=== PATIENT | female | born 1945 | race Caucasian/White ===

== ENCOUNTER 2017-11-30 15:43 | Emergency (ER) | payer MEDICARE ==
--- NOTE | 2017-11-30 16:46 | ER Document Report ---
ED Medical Screen (RME) - General TRAVEL OUTSIDE OF THE U.S. IN LAST 30 DAYS: No - HPI Patient complains to provider of: Vaginal bleeding and urinary symptoms Onset: Other - 2 days ago Associated Symptoms: Other - see notes above <CONSTANTIN RIOS - Last Filed: 11/30/17 18:04> <MIKAYLA WEAVER - Last Filed: 11/30/17 19:36> - General Chief Complaint: Urinary Problem Stated Complaint: FREQUENT URINATION, BACK PAIN, DIZZY Time Seen by Provider: 11/30/17 16:36 Notes: 72 year old female with history of bladder cancer and dementia presents to the ED complaining of throat pain, vaginal bleeding, dysuria, and frequency that started 2 days ago. Daughter states that the patient was having chemo treatments until July 2017 until she started having vaginal bleeding. Patient had surgery to place a [place] bag in August 2017, and didn't receive chemo treatment again because she suffered a broken pelvis. Patient and daughter moved to the area 1 week ago and are setting up with oncology. (CONSTANTIN RIOS) - Related Data Allergies/Adverse Reactions: No Known Allergies Allergy (Verified 11/30/17 16:34) Past Medical History - General Information source: Patient - Social History Chew tobacco use (# tins/day): No Frequency of alcohol use: None Drug Abuse: None Renal/ Medical History: Denies: Hx Peritoneal Dialysis Malignancy Medical History: Reports: Other - bladder cancer <CONSTANTIN RIOS - Last Filed: 11/30/17 18:04> Review of Systems - Review of Systems Constitutional: No symptoms reported EENT: See HPI, Throat pain Cardiovascular: No symptoms reported Respiratory: No symptoms reported Gastrointestinal: No symptoms reported Genitourinary: See HPI, Dysuria, Frequency Female Genitourinary: See HPI, Vaginal bleeding Musculoskeletal: No symptoms reported Skin: No symptoms reported Hematologic/Lymphatic: No symptoms reported Neurological/Psychological: No symptoms reported <CONSTANTIN RIOS - Last Filed: 11/30/17 18:04> Physical Exam - General General appearance: Alert In distress: None - HEENT Head: Normocephalic, Atraumatic - Respiratory Respiratory status: No respiratory distress <MIKAYLA WEAVER - Last Filed: 11/30/17 19:36> - Vital signs Vitals: Temp Pulse Resp BP Pulse Ox 98.4 F 85 18 107/57 L 99 11/30/17 15:58 11/30/17 15:58 11/30/17 15:58 11/30/17 15:58 11/30/17 15:58 Course - Laboratory Result Diagrams: 11/30/17 17:32 11/30/17 17:32 <CONSTANTIN RIOS - Last Filed: 11/30/17 18:04> - Laboratory Result Diagrams: 11/30/17 17:32 11/30/17 17:32 <MIKAYLA WEAVER - Last Filed: 11/30/17 19:36> - Vital Signs Vital signs: Temp Pulse Resp BP Pulse Ox 98.4 F 85 18 107/57 L 99 11/30/17 15:58 11/30/17 15:58 11/30/17 15:58 11/30/17 15:58 11/30/17 15:58 - Laboratory Laboratory results interpreted by me: 11/30/17 11/30/17 11/30/17 17:20 17:32 17:32 RDW 14.9 H Eosinophils % 12.9 H Absolute Eosinophils 0.7 H BUN 21 H Creatinine 1.34 H Est GFR ( Amer) 47 L Est GFR (Non-Af Amer) 39 L Calcium 10.5 H Urine Protein 100 H Urine Blood MODERATE H Urine Nitrite POSITIVE H Ur Leukocyte Esterase LARGE H Doctor's Discharge <CONSTANTIN RIOS - Last Filed: 11/30/17 18:04> <MIKAYLA WEAVER - Last Filed: 11/30/17 19:36> - Discharge Clinical Impression: Urinary tract bacterial infections Condition: Good Disposition: HOME, SELF-CARE Instructions: Trimethoprim-Sulfa ([facility]), Urinary Anesthetic Agent ([facility]), Urinary Tract Infection ([facility]) Additional Instructions: There is some mild signs of dehydration appearing so continue to hydrate. Begin antibiotics. Her first dose was given in the emergency department. Please follow-up with your regular doctor soon as possible or return to the emergency department for any worsening symptoms or concerns. If you do not have a regular doctor please follow-up with the one provided below. Prescriptions: Phenazopyridine HCl [Pyridium 200 mg Tablet] 200 mg PO TID PRN 5 Days #15 tablet PRN Reason: Bladder Spasms Sulfamethoxazole/Trimethoprim [Bactrim Ds Tablet] 1 each PO BID 7 Days #14 tablet Referrals: [facility] [Provider Group] - Follow up as needed VIDAL AVALOS MD [COMMUNITY BASED STAFF] - Follow up as needed MIKAYLA HUNT DO [REGISTERED PUBLIC HEALTH NURSE] - Follow up as needed Scribe Documentation - Scribe Written by Scribe:: Jose Alejandro Carlisle, 11/30/2017 1809 acting as scribe for :: Lance <CONSTANTIN RIOS - Last Filed: 11/30/17 18:04>
[2017-11-30 17:52] LABS: ABSOLUTE BASOPHILS # (AUTO) 0.1 10^3/uL (0.0-0.2); ABSOLUTE EOSINOPHILS # (AUTO) 0.7 10^3/uL (0.0-0.6); ABSOLUTE LYMPHOCYTES (AUTO) 1.3 10^3/uL (0.5-4.7); ABSOLUTE MONOCYTES (AUTO) 0.6 10^3/uL (0.1-1.4); ABSOLUTE NEUT (AUTO) 2.7 10^3/uL (1.7-8.2); EOSINOPHILS % (AUTO) 12.9 % (0-6); HEMATOCRIT 36.7 % (36.0-47.0); LYMPHOCYTES % (AUTO) 24.7 % (13-45); MEAN CORPUSCULAR HEMOGLOBIN 28.7 pg (27.0-33.4); MEAN CORPUSCULAR HGB CONC 32.8 g/dL (32.0-36.0); MEAN CORPUSCULAR VOLUME 88 fl (80-97); MONOCYTES % (AUTO) 10.5 % (3-13); PLATELET COUNT 238 10^3/uL (150-450); RED BLOOD COUNT 4.19 10^6/uL (3.72-5.28); RED CELL DISTRIBUTION WIDTH 14.9 % (11.5-14.0); SEGMENTED NEUTROPHILS % (AUTO) 50.9 % (42-78); TOTAL CELLS COUNTED % (AUTO) 100 %; WHITE BLOOD COUNT 5.3 10^3/uL (4.0-10.5)
[2017-11-30 17:58] LABS: APPEARANCE,URINE TURBID; BILIRUBIN,URINE NEGATIVE (NEGATIVE); COLOR,URINE YELLOW; GLUCOSE, URINE NEGATIVE (NEGATIVE); KETONES,URINE NEGATIVE (NEGATIVE); LEUKOCYTE ESTERASE,URINE LARGE (NEGATIVE); NITRITE,URINE POSITIVE (NEGATIVE); PROTEIN,URINE 100 mg/dL (NEGATIVE); UROBILINOGEN,URINE NEGATIVE mg/dL (<2.0)
[2017-11-30 18:05] LABS: ALANINE AMINOTRANSFERASE 32 U/L (9-52); ALBUMIN 4.3 g/dL (3.5-5.0); ALKALINE PHOSPHATASE 97 U/L (38-126); ANION GAP 10 (5-19); ASPARTATE AMINO TRANSFERASE 23 U/L (14-36); BILIRUBIN,DIRECT 0.1 mg/dL (0.0-0.4); BILIRUBIN,TOTAL 0.2 mg/dL (0.2-1.3); BLOOD UREA NITROGEN 21 mg/dL (7-20); CALCIUM 10.5 mg/dL (8.4-10.2); CARBON DIOXIDE 27 mmol/L (22-30); CHLORIDE 107 mmol/L (98-107); GLUCOSE 76 mg/dL (75-110); POTASSIUM 4.6 mmol/L (3.6-5.0); SODIUM 143.8 mmol/L (137-145); TOTAL PROTEIN 6.9 g/dL (6.3-8.2)
[2017-11-30] MEDS ORDERED: SULFAMETHOXAZOLE/TRIMETHOPRIM 800-160 MG TABLET PO ONE (19:13)
[2017-11-30] MEDS ORDERED: PHENAZOPYRIDINE HCL 200 MG TABLET PO ONE (19:14)
--- NOTE | 2017-11-30 19:17 | ER Document Report ---
ED General - General Chief Complaint: Urinary Problem Stated Complaint: FREQUENT URINATION, BACK PAIN, DIZZY Time Seen by Provider: 11/30/17 16:36 Notes: 82-year-old female patient. History of dementia. History of bladder cancer. [place] the [place]. Has not seen anybody with urology or oncology. States that she has frequent UTIs. Began having dysuria and not feeling well. Daughter states that she was having increased confusion at home. Denies any fever, chills, sweats. Denies any significant amount of abdominal pain. No back pain. No flank pain. TRAVEL OUTSIDE OF THE U.S. IN LAST 30 DAYS: No - HPI Onset: Yesterday Onset/Duration: Gradual, Worse - Related Data Allergies/Adverse Reactions: No Known Allergies Allergy (Verified 11/30/17 16:34) Past Medical History - General Information source: Patient - Social History Smoking Status: Never Smoker Chew tobacco use (# tins/day): No Frequency of alcohol use: None Drug Abuse: None Lives with: Family Family History: Reviewed & Not Pertinent Patient has suicidal ideation: No Patient has homicidal ideation: No - Past Medical History Cardiac Medical History: Reports: None Pulmonary Medical History: Reports: None EENT Medical History: Reports: None Neurological Medical History: Reports: Other - Alzheimer's dementia Renal/ Medical History: Denies: Hx Peritoneal Dialysis Malignancy Medical History: Reports: Other - bladder cancer Review of Systems - Review of Systems Constitutional: Malaise, Weakness. denies: Chills, Diaphoresis, Fever EENT: denies: Double vision, Difficulty swallowing, Throat swelling, Mouth swelling Cardiovascular: denies: Chest pain, Palpitations, Heart racing, Syncope Respiratory: denies: Cough, Short of breath, Wheezing Gastrointestinal: Abdominal pain. denies: Diarrhea, Nausea, Vomiting Genitourinary: Burning, Dysuria, Hematuria. denies: Flank pain Musculoskeletal: denies: Back pain, Gout, Joint pain Skin: denies: Dryness, Lumps, Rash Hematologic/Lymphatic: denies: Anemia, Blood clots, Easy bleeding, Easy bruising Neurological/Psychological: Confusion, Dementia. denies: Weakness Physical Exam - Vital signs Vitals: Temp Pulse Resp BP Pulse Ox 98.4 F 85 18 107/57 L 99 11/30/17 15:58 11/30/17 15:58 11/30/17 15:58 11/30/17 15:58 11/30/17 15:58 Interpretation: Normal - General General appearance: Appears well, Alert - HEENT Head: Normocephalic, Atraumatic Eyes: Normal Pupils: PERRL - Respiratory Respiratory status: No respiratory distress Chest status: Nontender Breath sounds: Normal Chest palpation: Normal - Cardiovascular Rhythm: Regular Heart sounds: Normal auscultation Murmur: No - Abdominal Inspection: Normal Distension: No distension Bowel sounds: Normal Tenderness: Nontender Organomegaly: No organomegaly - Back Back: Normal, Nontender - Extremities General upper extremity: Normal inspection, Nontender, Normal color, Normal ROM , Normal temperature General lower extremity: Normal inspection, Nontender, Normal color, Normal ROM , Normal temperature, Normal weight bearing. No: Tabby's sign - Neurological Neuro grossly intact: Yes Cognition: Short term memory loss Amy Coma Scale Eye Opening: Spontaneous Amy Coma Scale Verbal: Oriented Amy Coma Scale Motor: Obeys Commands [place] Coma Scale Total: 15 Speech: Normal Motor strength normal: LUE, RUE, LLE, RLE Sensory: Normal - Psychological Associated symptoms: Normal affect, Normal mood - Skin Skin Temperature: Warm Skin Moisture: Dry Skin Color: Normal Course - Re-evaluation Re-evalutation: 11/30/17 19:12 Patient with history of bladder cancer. Having dysuria with some hematuria. Some increased confusion. Patient has underlying dementia as well. Recently moved to the area. Has follow-up shortly with urology. Evidence of infection so we will begin treating her with some antibiotics at this time. Recommend close follow-up and return for any worsening symptoms as she could get extremely ill. Blood counts look okay though. Will encourage hydration as her creatinine is slightly elevated. Comfortable discharging at this time. - Vital Signs Vital signs: Temp Pulse Resp BP Pulse Ox 97.9 F 77 15 123/61 100 11/30/17 19:33 11/30/17 19:33 11/30/17 19:33 11/30/17 19:33 11/30/17 19:33 - Laboratory Result Diagrams: 11/30/17 17:32 11/30/17 17:32 Laboratory results interpreted by me: 11/30/17 11/30/17 11/30/17 17:20 17:32 17:32 RDW 14.9 H Eosinophils % 12.9 H Absolute Eosinophils 0.7 H BUN 21 H Creatinine 1.34 H Est GFR ( Amer) 47 L Est GFR (Non-Af Amer) 39 L Calcium 10.5 H Urine Protein 100 H Urine Blood MODERATE H Urine Nitrite POSITIVE H Ur Leukocyte Esterase LARGE H Discharge - Discharge Clinical Impression: Urinary tract bacterial infections Condition: Good Disposition: HOME, SELF-CARE Instructions: Trimethoprim-Sulfa ([facility]), Urinary Anesthetic Agent ([facility]), Urinary Tract Infection ([facility]) Additional Instructions: There is some mild signs of dehydration appearing so continue to hydrate. Begin antibiotics. Her first dose was given in the emergency department. Please follow-up with your regular doctor soon as possible or return to the emergency department for any worsening symptoms or concerns. If you do not have a regular doctor please follow-up with the one provided below. Prescriptions: Phenazopyridine HCl [Pyridium 200 mg Tablet] 200 mg PO TID PRN 5 Days #15 tablet PRN Reason: Bladder Spasms Sulfamethoxazole/Trimethoprim [Bactrim Ds Tablet] 1 each PO BID 7 Days #14 tablet Referrals: [facility] [Provider Group] - Follow up as needed MIKAYLA HUNT DO [[facility]] - Follow up as needed VIDAL AVALOS MD [COMMUNITY BASED STAFF] - Follow up as needed
[2017-11-30 19:38] VITALS: BP 123/61
== END 2017-11-30 19:38 | disposition home or self-care (01) ==
LOC: ER 15:43
DX: N39.0 Urinary tract infection, site not specified (principal); R31.9 Hematuria, unspecified; B96.89 Other specified bacterial agents as the cause of diseases classified elsewhere; Z85.51 Personal history of malignant neoplasm of bladder; G30.9 Alzheimer's disease, unspecified; F02.80 Dementia in other diseases classified elsewhere, unspecified severity, without behavioral disturbance, psychotic disturbance, mood disturbance, and anxiety; R53.81 Other malaise; R53.1 Weakness
CPT/HCPCS: 99283; 36415; 87086; 85025; 80053; 81001; A9270 ×2; J3490

== ENCOUNTER 2017-12-26 14:53 | Emergency (ER) | payer MEDICARE ==
[2017-12-26 15:50] LABS: ABSOLUTE EOSINOPHILS # (AUTO) 0.4 10^3/uL (0.0-0.6); ABSOLUTE MONOCYTES (AUTO) 0.4 10^3/uL (0.1-1.4); ABSOLUTE NEUT (AUTO) 2.7 10^3/uL (1.7-8.2); BASOPHILS % (AUTO) 0.8 % (0-2); EOSINOPHILS % (AUTO) 8.4 % (0-6); HEMATOCRIT 31.8 % (36.0-47.0); HEMOGLOBIN 10.5 g/dL (12.0-15.5); LYMPHOCYTES % (AUTO) 21.3 % (13-45); MEAN CORPUSCULAR HEMOGLOBIN 28.5 pg (27.0-33.4); MEAN CORPUSCULAR VOLUME 86 fl (80-97); MONOCYTES % (AUTO) 9.3 % (3-13); PLATELET COUNT 183 10^3/uL (150-450); RED BLOOD COUNT 3.69 10^6/uL (3.72-5.28); RED CELL DISTRIBUTION WIDTH 14.3 % (11.5-14.0); SEGMENTED NEUTROPHILS % (AUTO) 60.2 % (42-78); TOTAL CELLS COUNTED % (AUTO) 100 %; WHITE BLOOD COUNT 4.5 10^3/uL (4.0-10.5)
[2017-12-26 15:56] LABS: INTERNATIONAL RATION (INR) 1.07; PROTHROMBIN TIME 14.4 SEC (11.4-15.4)
[2017-12-26] MEDS ORDERED: NORMAL SALINE 1000 ML 1,000 ML IV ONE (15:57)
--- NOTE | 2017-12-26 16:02 | ER Document Report ---
ED General - General Mode of Arrival: Medic Information source: Patient Cannot obtain history due to: Dementia TRAVEL OUTSIDE OF THE U.S. IN LAST 30 DAYS: No <GENNA RODRIGUEZ - Last Filed: 12/26/17 21:51> <ARJUN LOMELI - Last Filed: 12/26/17 23:19> - General Chief Complaint: Near Syncope Stated Complaint: POSSIBLE SYNCOPE Time Seen by Provider: 12/26/17 15:44 Notes: Patient is a 72-year-old female with a history of bladder cancer, breast cancer , hyperlipidemia, breathing difficulties (unsure of origin), frequent UTIs, dementia and bipolar disorder presents to the emergency department complaining of a syncopal episode. Daughter at bedside states the patient was at home when she began to get nauseous and clammy and proceeded have a syncopal episode. Daughter states the patient has been fatigued lately and also has had a decrease in appetite and fluid intake. She also mentions noticing the patient having cloudy urine today. Daughter states they recently moved to [place] and has yet to establish primary care. EMS recorded a blood pressure of 88/54 prior to arrival to emergency department. (GENNA RODRIGUEZ) - Related Data Allergies/Adverse Reactions: No Known Allergies Allergy (Verified 11/30/17 16:34) Past Medical History - General Information source: Patient, Relative - Social History Smoking Status: Unknown if Ever Smoked Family History: Reviewed & Not Pertinent <GENNA RODRIGUEZ - Last Filed: 12/26/17 21:51> Review of Systems - Review of Systems Constitutional: See HPI EENT: No symptoms reported Cardiovascular: See HPI, Syncope Respiratory: No symptoms reported Gastrointestinal: See HPI, Nausea, Poor appetite, Poor fluid intake Genitourinary: See HPI Female Genitourinary: No symptoms reported Musculoskeletal: No symptoms reported Skin: No symptoms reported Hematologic/Lymphatic: No symptoms reported Neurological/Psychological: No symptoms reported -: Yes All other systems reviewed and negative <GENNA RODRIGUEZ - Last Filed: 12/26/17 21:51> Physical Exam - General General appearance: Alert In distress: None - HEENT Head: Normocephalic, Atraumatic Eyes: Normal Conjunctiva: Normal Pupils: PERRL - Respiratory Respiratory status: No respiratory distress Chest status: Nontender Breath sounds: Normal Chest palpation: Normal - Cardiovascular Rhythm: Regular Heart sounds: Normal auscultation Murmur: No Friction rub: No Gallop: None auscultated - Abdominal Inspection: Normal Distension: No distension Bowel sounds: Normal Tenderness: Tender - tender to palpation to the lower abdomen Organomegaly: No organomegaly - Back Back: Normal - Extremities General upper extremity: Normal inspection, Normal ROM General lower extremity: Normal inspection, Normal ROM - Psychological Associated symptoms: Normal affect, Normal mood - Skin Skin Temperature: Warm Skin Moisture: Dry Skin Color: Normal <GENNA RODRIGUEZ - Last Filed: 12/26/17 21:51> <JOVANNI LOMELIALL - Last Filed: 12/26/17 23:19> - Vital signs Vitals: Resp Pulse Ox 24 H 95 12/26/17 15:06 12/26/17 15:06 - Neurological Notes: Demented (GENNA RODRIGUEZ) Course - Laboratory Result Diagrams: 12/26/17 15:20 12/26/17 15:20 <GENNA RODRIGUEZ - Last Filed: 12/26/17 21:51> - Laboratory Result Diagrams: 12/26/17 15:20 12/26/17 15:20 - EKG Interpretation by [facility] EKG shows normal: Sinus rhythm, [place], Intervals, QRS Complexes. abnormal: ST-T Waves - Nonspecific lateral T abnormalities Rate: Normal - 85 Rhythm: NSR, PVC's When compared to previous EKG there are: Previous EKG unavailable <ARMANIJOVANNI SantosARJUN - Last Filed: 12/26/17 23:19> - Vital Signs Vital signs: Temp Pulse Resp BP Pulse Ox 98.9 F 16 129/76 H 98 12/26/17 19:30 12/26/17 19:31 12/26/17 19:31 12/26/17 19:31 - Laboratory Laboratory results interpreted by mi: 12/26/17 12/26/17 12/26/17 15:20 15:20 16:46 RBC 3.69 L Hgb 10.5 L Hct 31.8 L RDW 14.3 H Eosinophils % 8.4 H Potassium 3.4 L Chloride 108 H BUN 22 H Est GFR (Non-Af Amer) 54 L Glucose 117 H Total Bilirubin 0.1 L Total Protein 5.5 L Albumin 3.4 L Urine Protein 100 H Urine Glucose (UA) 50 H Urine Blood LARGE H Urine Nitrite POSITIVE H Ur Leukocyte Esterase LARGE H Discharge <GENNA RODRIGUEZ - Last Filed: 12/26/17 21:51> <ARJUN LOMELI - Last Filed: 12/26/17 23:19> - Discharge Clinical Impression: Hemorrhagic cystitis, Dehydration Hypotension Qualifiers: Hypotension type: unspecified hypotension type Qualified Code(s): I95.9 - Hypotension, unspecified Condition: Stable Disposition: HOME, SELF-CARE Additional Instructions: Your evaluation today shows dehydration, low blood pressure, and a urinary tract infection. All of these problems are most likely due to an adequate fluid intake. Take antibiotics as prescribed. Drink plenty of fluids. Follow-up with [facility] or [facility] to establish as a new patient. Call tomorrow morning for an appointment early next week. RETURN TO THE EMERGENCY ROOM IF ANY NEW OR WORSENING SYMPTOMS. Prescriptions: Ciprofloxacin HCl [Cipro 250 mg Tablet] 1 tab PO BID #10 tab Referrals: [facility] [Provider Group] - Follow up in 1 week [facility] [Provider Group] - Follow up in 1 week Scribe Attestation: 12/26/17 23:19 I personally performed the services described in the documentation, reviewed and edited the documentation which was dictated to the scribe in my presence, and it accurately records my words and actions. (ARJUN LOMELI) Scribe Documentation - Scribe Written by Scribe:: Jose Alejandro Hairston, 12/26/2017 16:07 acting as scribe for :: Armani <GENNA RODRIGUEZ - Last Filed: 12/26/17 21:51>
[2017-12-26 16:07] LABS: ALANINE AMINOTRANSFERASE 26 U/L (9-52); ALBUMIN 3.4 g/dL (3.5-5.0); ALKALINE PHOSPHATASE 79 U/L (38-126); ANION GAP 12 (5-19); ASPARTATE AMINO TRANSFERASE 20 U/L (14-36); BILIRUBIN,DIRECT 0.1 mg/dL (0.0-0.4); BILIRUBIN,TOTAL 0.1 mg/dL (0.2-1.3); BLOOD UREA NITROGEN 22 mg/dL (7-20); CARBON DIOXIDE 23 mmol/L (22-30); CHLORIDE 108 mmol/L (98-107); CREATINE KINASE 70 U/L (30-135); GLUCOSE 117 mg/dL (75-110); POTASSIUM 3.4 mmol/L (3.6-5.0); SODIUM 143.1 mmol/L (137-145); TOTAL PROTEIN 5.5 g/dL (6.3-8.2)
[2017-12-26 16:25] LABS: CREATINE KINASE MB 0.96 ng/mL (<4.55)
[2017-12-26 16:26] LABS: TROPONIN I < 0.012 ng/mL
[2017-12-26] MEDS ORDERED: DEXTROSE 5%-LACTATED RINGERS 1,000 ML IV ONE (16:51)
[2017-12-26 17:18] LABS: APPEARANCE,URINE CLOUDY; BILIRUBIN,URINE NEGATIVE (NEGATIVE); COLOR,URINE YELLOW; GLUCOSE, URINE 50 mg/dL (NEGATIVE); KETONES,URINE NEGATIVE (NEGATIVE); LEUKOCYTE ESTERASE,URINE LARGE (NEGATIVE); NITRITE,URINE POSITIVE (NEGATIVE); PROTEIN,URINE 100 mg/dL (NEGATIVE); URINE SPECIFIC GRAVITY 1.005; UROBILINOGEN,URINE NEGATIVE mg/dL (<2.0)
[2017-12-26] MEDS ORDERED: CEFTRIAXONE 1 GM/D5W RTU 50 ML IV ONE (17:31)
[2017-12-26] MEDS ORDERED: CEFTRIAXONE INJ 1000 MG VIAL IV ONE (18:15)
[2017-12-26 19:59] VITALS: BP 129/76
--- NOTE | 2017-12-26 23:24 | EKG REPORT ---
SEVERITY:- ABNORMAL ECG - SINUS RHYTHM MULTIPLE VENTRICULAR PREMATURE COMPLEXES NONSPECIFIC T ABNORMALITIES, LATERAL LEADS : Confirmed by: Kevin Holbrook 26-Dec-2017 23:23:32
== END 2017-12-26 19:32 | disposition home or self-care (01) ==
LOC: ER 14:53
DX: N30.91 Cystitis, unspecified with hematuria (principal); E86.0 Dehydration; R55 Syncope and collapse; I95.9 Hypotension, unspecified; R11.0 Nausea; Z85.51 Personal history of malignant neoplasm of bladder; Z85.3 Personal history of malignant neoplasm of breast; Z87.440 Personal history of urinary (tract) infections
CPT/HCPCS: 93005; 99284; 96361; 96365; 36415; 87086; 82553; 82550; 85025; 85610; 80053; 81001; 84484; 93010; J0696; J7030

== ENCOUNTER 2018-01-01 13:19 | Observation (INO) | payer MEDICARE ==
[2018-01-01] MEDS ORDERED: CEFTRIAXONE 1 GM/D5W RTU 50 ML IV ONE (14:51)
--- NOTE | 2018-01-01 14:59 | ER Document Report ---
ED General - General Chief Complaint: Syncope Stated Complaint: SYNCOPE Time Seen by Provider: 01/01/18 13:44 Mode of Arrival: Ambulatory Information source: Patient Notes: 72-year-old female history of dementia recent diagnosis of urinary tract infection presents with complaints of generalized weakness syncope. EMS notes patient was hypotensive 70s over 40s when they arrived, patient was given immediate fluids by EMS 1 L. Daughter notes patient does not take her medications TRAVEL OUTSIDE OF THE [place]. IN LAST 30 DAYS: No - HPI Onset: Last week Onset/Duration: Persistent Quality of pain: Achy Severity: Mild Pain Level: 1 Associated symptoms: Body/muscle aches, Nausea, Weakness Exacerbated by: Movement Relieved by: Denies Similar symptoms previously: Yes Recently seen / treated by doctor: Yes - Related Data Allergies/Adverse Reactions: No Known Allergies Allergy (Verified 11/30/17 16:34) Past Medical History - Social History Smoking Status: Never Smoker Cigarette use (# per day): No Chew tobacco use (# tins/day): No Smoking Education Provided: No Family History: Reviewed & Not Pertinent Pulmonary Medical History: Reports: Hx COPD - possible Chemo related Renal/ Medical History: Denies: Hx Peritoneal Dialysis Psychiatric Medical History: Reports: Hx Bipolar Disorder Past Surgical History: Reports: Hx Breast Surgery - right breast,, Hx Orthopedic Surgery Review of Systems - Review of Systems Notes: REVIEW OF SYSTEMS: CONSTITUTIONAL : Denies fever, chills, or sweats. Admits to recent infection EENT: Denies eye, ear, throat, or mouth pain or symptoms. Denies nasal or sinus congestion or discharge. Denies throat, tongue, or mouth swelling or difficulty swallowing. CARDIOVASCULAR: Denies chest pain. Denies palpitations or racing or irregular heart beat. Denies ankle edema. RESPIRATORY: Denies cough, cold, or chest congestion. Denies shortness of breath, difficulty breathing, or wheezing. GASTROINTESTINAL: Denies abdominal pain or distention. Denies nausea, vomiting , or diarrhea. Denies blood in vomitus, stools, or per rectum. Denies black, tarry stools. Denies constipation. GENITOURINARY: Admits to recent UTI FEMALE GENITOURINARY: Denies vaginal bleeding, heavy or abnormal periods, irregular periods. Denies vaginal discharge or odor. MUSCULOSKELETAL: Miss right foot pain twisting injury SKIN: Denies rash, lesions or sores. HEMATOLOGIC : Denies easy bruising or bleeding. LYMPHATIC: Denies swollen, enlarged glands. NEUROLOGICAL: Admits to weakness PSYCHIATRIC: Denies anxiety or stress. Denies depression, suicidal ideation, or homicidal ideation. ALL OTHER SYSTEMS REVIEWED AND NEGATIVE. PHYSICAL EXAMINATION: GENERAL: Well-appearing, well-nourished and in no acute distress. HEAD: Atraumatic, normocephalic. EYES: Pupils equal round and reactive to light, extraocular movements intact, conjunctiva are normal. ENT: Nares patent, oropharynx clear without exudates. Moist mucous membranes. NECK: Normal range of motion, supple without lymphadenopathy LUNGS: Breath sounds clear to auscultation bilaterally and equal. No wheezes rales or rhonchi. HEART: Regular rate and rhythm without murmurs ABDOMEN: Soft, nontender, nondistended abdomen. No guarding, no rebound. No masses appreciated. Female : deferred Musculoskeletal: Normal range of motion, no pitting or edema. No cyanosis. Tenderness upon palpation of the right foot midfoot NEUROLOGICAL: Cranial nerves grossly intact. Normal speech, normal gait. Normal sensory, motor exams PSYCH: Normal mood, normal affect. SKIN: Warm, Dry, normal turgor, no rashes or lesions noted. Dictation was performed using [employer] voice recognition software Physical Exam - Vital signs Vitals: Resp BP Pulse Ox 20 87/59 L 97 01/01/18 13:27 01/01/18 13:27 01/01/18 13:27 Course - Re-evaluation Re-evalutation: 01/01/18 14:58 Septic workup pending 01/01/18 19:42 Patient's workup is consistent with a urinary tract infection, daughter does note that she has not been taking her medications, given that she is a noncompliant patient and had a syncopal episode with hypotension I will admit her so she may get IV fluids and IV antibiotics 01/01/18 19:44 - Vital Signs Vital signs: Temp Pulse Resp BP Pulse Ox 98.9 F 19 109/69 97 01/01/18 13:30 01/01/18 18:31 01/01/18 18:31 01/01/18 18:30 - Laboratory Result Diagrams: 01/01/18 13:25 01/01/18 13:25 Laboratory results interpreted by me: 01/01/18 01/01/18 01/01/18 13:25 13:25 13:25 RBC 3.68 L Hgb 10.5 L Hct 31.9 L RDW 14.1 H Eosinophils % 6.9 H Sodium 145.6 H Chloride 112 H Carbon Dioxide 21 L BUN 27 H Creatinine 1.29 H Est GFR ( Amer) 49 L Est GFR (Non-Af Amer) 40 L Total Bilirubin 0.1 L Total Protein 5.8 L Albumin 3.4 L TSH 13.30 H Urine Protein Urine Blood Urine Nitrite Ur Leukocyte Esterase 01/01/18 14:50 RBC Hgb Hct RDW Eosinophils % Sodium Chloride Carbon Dioxide BUN Creatinine Est GFR ( Amer) Est GFR (Non-Af Amer) Total Bilirubin Total Protein Albumin TSH Urine Protein 100 H Urine Blood LARGE H Urine Nitrite POSITIVE H Ur Leukocyte Esterase LARGE H Critical Care Note - Critical Care Note Total time excluding time spent on procedures (mins): 48 Comments: 48 minutes of critical care time spent in direct contact evaluating and reevaluating the patient, treating symptoms, reviewing labs and studies and speaking with family and consultants excluding any procedures Discharge - Discharge Clinical Impression: Dehydration Hypotension Qualifiers: Hypotension type: unspecified hypotension type Qualified Code(s): I95.9 - Hypotension, unspecified Condition: Stable Disposition: ADMITTED OBSERVATION Admitting Provider: Hospitalist Unit Admitted: Telemetry
[2018-01-01] MEDS ORDERED: CEFTRIAXONE INJ 1000 MG VIAL IV ONE (15:00)
[2018-01-01 15:01] LABS: INTERNATIONAL RATION (INR) 1.05; PROTHROMBIN TIME 14.2 SEC (11.4-15.4); VENOUS BLOOD BASE EXCESS -2.4 mmol/L; VENOUS BLOOD HCO3 24.6 mmol/L (20-32); VENOUS BLOOD PCO2 51.7 mmHg (35-63); VENOUS BLOOD PH 7.3 (7.30-7.42)
[2018-01-01 15:05] LABS: ABSOLUTE EOSINOPHILS # (AUTO) 0.3 10^3/uL (0.0-0.6); ABSOLUTE LYMPHOCYTES (AUTO) 1.6 10^3/uL (0.5-4.7); ABSOLUTE MONOCYTES (AUTO) 0.6 10^3/uL (0.1-1.4); ABSOLUTE NEUT (AUTO) 2.5 10^3/uL (1.7-8.2); BASOPHILS % (AUTO) 0.9 % (0-2); EOSINOPHILS % (AUTO) 6.9 % (0-6); HEMATOCRIT 31.9 % (36.0-47.0); HEMOGLOBIN 10.5 g/dL (12.0-15.5); MEAN CORPUSCULAR HEMOGLOBIN 28.6 pg (27.0-33.4); MEAN CORPUSCULAR VOLUME 87 fl (80-97); MONOCYTES % (AUTO) 11.6 % (3-13); PLATELET COUNT 168 10^3/uL (150-450); RED BLOOD COUNT 3.68 10^6/uL (3.72-5.28); RED CELL DISTRIBUTION WIDTH 14.1 % (11.5-14.0); SEGMENTED NEUTROPHILS % (AUTO) 49.6 % (42-78); TOTAL CELLS COUNTED % (AUTO) 100 %
[2018-01-01 15:08] LABS: ALANINE AMINOTRANSFERASE 26 U/L (9-52); ALBUMIN 3.4 g/dL (3.5-5.0); ALKALINE PHOSPHATASE 76 U/L (38-126); ANION GAP 13 (5-19); ASPARTATE AMINO TRANSFERASE 20 U/L (14-36); BILIRUBIN,DIRECT 0.1 mg/dL (0.0-0.4); BILIRUBIN,TOTAL 0.1 mg/dL (0.2-1.3); BLOOD UREA NITROGEN 27 mg/dL (7-20); CALCIUM 9.1 mg/dL (8.4-10.2); CARBON DIOXIDE 21 mmol/L (22-30); CHLORIDE 112 mmol/L (98-107); GLUCOSE 78 mg/dL (75-110); POTASSIUM 3.9 mmol/L (3.6-5.0); SODIUM 145.6 mmol/L (137-145); TOTAL PROTEIN 5.8 g/dL (6.3-8.2)
--- NOTE | 2018-01-01 15:35 | RADIOLOGY REPORT (SQ) ---
EXAM DESCRIPTION: FOOT RIGHT COMPLETE COMPLETED DATE/TIME: 01/01/2018 3:18 pm REASON FOR STUDY: fall COMPARISON: None. NUMBER OF VIEWS: Three views. TECHNIQUE: AP, lateral and oblique radiographic images acquired of the right foot. LIMITATIONS: None. FINDINGS: MINERALIZATION: Osteoporotic BONES: Acute nondisplaced fracture, medial base great toe proximal phalanx extending into the interph alangeal joint. Finding is marked with an arrow. Acute nondisplaced non angulated transverse fracture distal right 3rd metatarsal metaphysis, marked w ith a [place] on the oblique view. 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 JOINTS: No effusions. SOFT TISSUES: No soft tissue swelling. No foreign body. OTHER: No other significant finding. IMPRESSION: Acute nondisplaced fracture, medial aspect base great toe proximal phalanx extending int o the interphalangeal joint Acute nondisplaced nonangulated transverse fracture distal right 3rd metatarsal metaphysis AVN 2nd metatarsal head TECHNICAL DOCUMENTATION: JOB ID: [id number] [employer]- All Rights Reserved Reading location - IP/workstation name: [email or web address]
[2018-01-01 16:11] LABS: APPEARANCE,URINE CLOUDY; BILIRUBIN,URINE NEGATIVE (NEGATIVE); COLOR,URINE YELLOW; GLUCOSE, URINE NEGATIVE (NEGATIVE); KETONES,URINE NEGATIVE (NEGATIVE); LEUKOCYTE ESTERASE,URINE LARGE (NEGATIVE); NITRITE,URINE POSITIVE (NEGATIVE); PROTEIN,URINE 100 mg/dL (NEGATIVE); URINE SPECIFIC GRAVITY 1.006; UROBILINOGEN,URINE NEGATIVE mg/dL (<2.0)
[2018-01-01] MEDS ORDERED: MAGNESIUM HYDROXIDE SUSP 30 ML UDCUP PO PRN (16:34)
[2018-01-01] MEDS ORDERED: MAG HYDROX/AL HYDROX/SIMETH SUSP 30 ML UDCUP PO PRN (16:34)
[2018-01-01] MEDS ORDERED: IPRATROPIUM/ALBUTEROL 0.5-2.5 MG/3 ML AMPUL NEB PRN (16:34)
[2018-01-01] MEDS ORDERED: HYDRALAZINE HCL INJ/PF 20 MG/1 ML SDV IV PRN (16:34)
--- NOTE | 2018-01-01 17:01 | PDOC H&P ---
History of Present Illness Admission Date/PCP: 01/01/18 16:42 Patient complains of: Syncope and collapse History of Present Illness: SRIKANTH COLVIN is a 72 year old female with a past medical history of dementia, breast cancer status post right mastectomy, bladder cancer unknown stage, recurrent urinary tract infection, bipolar, migraine headache and partial seizure. [place] and is accompanied by her daughter able to provide limited history. Patient was diagnosed with urinary tract infection 5 days ago placed on ciprofloxacin. Patient states she passed out today striking her head and right foot, no injury sustained, no incontinence unclear historian. Patient states her medications cause nausea and is been intolerant of p.o. intake. Daughter denies any new medications. In the emergency room she is found to have hypotension of 70/40. She receives a 1 L normal saline bolus and IV Rocephin for pyuria. Labs revealed prerenal azotemia with dehydration, urinalysis shows pyuria, CBC is unremarkable without leukocytosis or differentiation. Patient currently denies chest pain nausea vomiting. Past Medical History Pulmonary Medical History: Reports: Chronic Obstructive Pulmonary Disease (COPD ) - possible Chemo related Psychiatric Medical History: Reports: Bipolar Disorder Past Surgical History Past Surgical History: Reports: Mastectomy, Orthopedic Surgery Social History Information Source: Patient, Relative Lives with: Family Smoking Status: Never Smoker Frequency of Alcohol Use: None Drugs: None - Advance Directive Resuscitation Status: Full Code Family History Family History: COPD Parental Family History Reviewed: Yes Children Family History Reviewed: Yes Sibling(s) Family History Reviewed.: Yes Medication/Allergy Home Medications: Albuterol Sulfate [Ventolin HFA MDI 18 GM] 1 - 2 puff IH Q6H PRN 12/26/17 Bupropion HCl [Bupropion Xl] 300 mg PO DAILY 12/26/17 Ciprofloxacin HCl [Cipro 250 mg Tablet] 1 tab PO BID #10 tab 12/26/17 Ergocalciferol (Vitamin D2) [Vitamin D2] 50,000 unit PO DAILY 12/26/17 Ferrous Sulfate 325 mg PO DAILY 12/26/17 Fluticasone Propionate [Flovent HFA 220 mcg MDI] 2 puff IH BID 12/26/17 Ketorolac Tromethamine 10 mg PO Q6 PRN 12/26/17 Lamotrigine 200 mg PO DAILY 12/26/17 Oxybutynin Chloride [Oxybutynin Chloride ER] 10 mg PO DAILY 12/26/17 Oxycodone HCl/Acetaminophen [Oxycodone-Acetaminophen 5-325] 1 each PO Q6H PRN Pantoprazole Sodium [Protonix] 40 mg PO DAILY 12/26/17 Quetiapine Fumarate [Seroquel 100 mg Tablet] 150 mg PO DAILY 12/26/17 Simvastatin 10 mg PO DAILY 12/26/17 Topiramate 100 mg PO DAILY 12/26/17 Venlafaxine HCl [Venlafaxine HCl ER] 225 mg PO DAILY 12/26/17 Allergies/Adverse Reactions: No Known Allergies Allergy (Verified 11/30/17 16:34) Review of Systems ROS unobtainable: Other - Patient felt unreliable given inconsistent answers. Physical Exam Vital Signs: Temp Pulse Resp BP Pulse Ox 17 114/67 97 01/01/18 16:01 01/01/18 16:01 01/01/18 16:01 General appearance: PRESENT: no acute distress, cooperative, thin. ABSENT: disheveled, hard of hearing Head exam: PRESENT: atraumatic, normocephalic Eye exam: PRESENT: conjunctiva pink, EOMI, PERRLA. ABSENT: scleral icterus Ear exam: PRESENT: normal external ear exam Mouth exam: PRESENT: dry mucosa. ABSENT: laceration, moist Neck exam: ABSENT: carotid bruit, JVD, lymphadenopathy, thyromegaly Respiratory exam: PRESENT: clear to auscultation donita. ABSENT: rales, rhonchi, wheezes Cardiovascular exam: PRESENT: RRR. ABSENT: diastolic murmur, rubs, systolic murmur Pulses: PRESENT: normal dorsalis pedis pul Vascular exam: PRESENT: normal capillary refill GI/Abdominal exam: PRESENT: normal bowel sounds, soft. ABSENT: distended, guarding, mass, organolmegaly, rebound, tenderness Rectal exam: PRESENT: deferred Extremities exam: PRESENT: full ROM. ABSENT: calf tenderness, clubbing, pedal edema Neurological exam: PRESENT: alert, awake, oriented to person, oriented to place , oriented to situation, CN II-XII grossly intact. ABSENT: motor sensory deficit Psychiatric exam: PRESENT: unusual affect Skin exam: PRESENT: dry, intact, warm. ABSENT: cyanosis, rash Results Impressions: Foot X-Ray 01/01/18 14:59 IMPRESSION: Acute nondisplaced fracture, medial aspect base great toe proximal phalanx extending into the interphalangeal joint Acute nondisplaced nonangulated transverse fracture distal right 3rd metatarsal metaphysis AVN 2nd metatarsal head Assessment & Plan - Diagnosis (1) Acute renal failure Is this a current diagnosis for this admission?: Yes Plan: Multifactorial secondary to Toradol and dehydration, IV fluid challenge encourage p.o., hold Toradol reevaluate chemistry. (2) Dehydration Is this a current diagnosis for this admission?: Yes Plan: 3 L IV fluid challenge, encourage p.o. intake reevaluate chemistry (3) Hypotension Qualifiers: Hypotension type: unspecified hypotension type Qualified Code(s): I95.9 - Hypotension, unspecified Is this a current diagnosis for this admission?: Yes Plan: Possibly secondary to dehydration alone, hydrate, orthostatic blood pressure and evaluate urine drug screen (4) Hemorrhagic cystitis Is this a current diagnosis for this admission?: Yes Plan: Complicated by bladder cancer unknown stage. Obtain records, empiric antibiotics initiated follow-up urine culture. (5) Bipolar affective Is this a current diagnosis for this admission?: Yes Plan: History and exam suggests bipolar rather than dementia. Evaluate outpatient regiment, limit Wellbutrin (6) Syncope Is this a current diagnosis for this admission?: Yes Plan: Exam does not support history given lack of injury, evaluate total CK, orthostatic blood pressures, physical therapy evaluation. Telemetry monitoring. Limit Lamictal, Wellbutrin, Topamax and Percocet. - Time Time Spent: 50 to 70 Minutes
[2018-01-01] MEDS: POTASSI CL 20 MEQ/1/2NS 1L 20 MEQ/1,000 ML RTUINJ IV SCH ×2 (17:16→22:51)
[2018-01-01] MEDS: BUPROPION HCL 75 MG TABLET PO SCH (17:16)
[2018-01-01] MEDS ORDERED: LACTULOSE SYRUP 20 GM/30 ML UDCUP PO ONE (17:30)
[2018-01-01 17:32] LABS: URINE AMPHETAMINES SCREEN NEGATIVE; URINE BARBITURATES SCREEN NEGATIVE; URINE BENZODIAZEPINES SCREEN NEGATIVE; URINE COCAINE SCREEN NEGATIVE; URINE MARIJUANA (THC) SCREEN NEGATIVE; URINE METHADONE SCREEN NEGATIVE; URINE PHENCYCLIDINE SCREEN NEGATIVE
[2018-01-01 17:32] LABS: PHOSPHORUS 3.7 mg/dL (2.5-4.5)
[2018-01-01 17:45] LABS: CREATINE KINASE MB 1.36 ng/mL (<4.55)
[2018-01-01 18:02] LABS: TROPONIN I < 0.012 ng/mL
--- NOTE | 2018-01-01 18:10 | EKG REPORT ---
SEVERITY:- OTHERWISE NORMAL ECG - SINUS RHYTHM VENTRICULAR PREMATURE COMPLEX : Confirmed by: Geraldo Jewell MD 01-Jan-2018 18:09:42
[2018-01-01] MEDS: ACETAMINOPHEN 325 MG TABLET PO PRN (21:51)
[2018-01-01] MEDS: HEPARIN SOD (PORCINE) 5,000 UNIT/ML 1 ML SYRINGE SUBCUT SCH (22:39)
[2018-01-01] MEDS: OXYBUTYNIN CHLORIDE 5 MG TABLET PO SCH (22:51)
[2018-01-02 00:08] LABS: CREATINE KINASE MB 1.32 ng/mL (<4.55)
[2018-01-02 00:19] LABS: TROPONIN I < 0.012 ng/mL
[2018-01-02] MEDS: ACETAMINOPHEN 325 MG TABLET PO PRN ×2 (05:09→15:31)
[2018-01-02] MEDS: HEPARIN SOD (PORCINE) 5,000 UNIT/ML 1 ML SYRINGE SUBCUT SCH ×3 (05:10→21:02)
[2018-01-02] MEDS: BUPROPION HCL 75 MG TABLET PO SCH ×2 (05:10→18:00)
[2018-01-02 06:41] LABS: ABSOLUTE EOSINOPHILS # (AUTO) 0.3 10^3/uL (0.0-0.6); ABSOLUTE LYMPHOCYTES (AUTO) 1.5 10^3/uL (0.5-4.7); ABSOLUTE MONOCYTES (AUTO) 0.6 10^3/uL (0.1-1.4); ABSOLUTE NEUT (AUTO) 3.6 10^3/uL (1.7-8.2); BASOPHILS % (AUTO) 0.6 % (0-2); EOSINOPHILS % (AUTO) 5.4 % (0-6); HEMATOCRIT 31.3 % (36.0-47.0); HEMOGLOBIN 10.4 g/dL (12.0-15.5); LYMPHOCYTES % (AUTO) 24.3 % (13-45); MEAN CORPUSCULAR HEMOGLOBIN 28.8 pg (27.0-33.4); MEAN CORPUSCULAR HGB CONC 33.2 g/dL (32.0-36.0); MEAN CORPUSCULAR VOLUME 87 fl (80-97); MONOCYTES % (AUTO) 10.5 % (3-13); PLATELET COUNT 163 10^3/uL (150-450); RED CELL DISTRIBUTION WIDTH 14.5 % (11.5-14.0); SEGMENTED NEUTROPHILS % (AUTO) 59.2 % (42-78); TOTAL CELLS COUNTED % (AUTO) 100 %
[2018-01-02 06:54] LABS: ANION GAP 10 (5-19); BLOOD UREA NITROGEN 18 mg/dL (7-20); CALCIUM 9.5 mg/dL (8.4-10.2); CARBON DIOXIDE 21 mmol/L (22-30); CHLORIDE 113 mmol/L (98-107); CREATINE KINASE 83 U/L (30-135); GLUCOSE 91 mg/dL (75-110); POTASSIUM 4.1 mmol/L (3.6-5.0); SODIUM 144.1 mmol/L (137-145)
[2018-01-02 06:59] LABS: CREATINE KINASE MB 1.31 ng/mL (<4.55); TROPONIN I < 0.012 ng/mL
[2018-01-02 07:02] LABS: FREE T3 3.37 pg/mL (2.77-5.27)
[2018-01-02 07:03] LABS: FREE T4 (FREE THYROXINE) 0.66 ng/dL (0.78-2.19)
[2018-01-02] MEDS ORDERED: CEFTRIAXONE 1 GM/D5W RTU 1 GM/50 ML RTUPB IV SCH (10:00)
[2018-01-02] MEDS ORDERED: (PENDING PHARMACY ID) (Bupropion Hcl [Bupropion Xl] 150 MG) PO SCH (10:00)
[2018-01-02] MEDS ORDERED: (PENDING PHARMACY ID) (Oxybutynin Chloride [Oxybutynin Chloride Er] 5 MG) PO SCH (10:00)
[2018-01-02] MEDS ORDERED: TOPIRAMATE 100 MG TABLET PO SCH (10:00)
[2018-01-02] MEDS ORDERED: LAMOTRIGINE 100 MG PO SCH (10:00)
[2018-01-02] MEDS: OXYBUTYNIN CHLORIDE 5 MG TABLET PO SCH ×2 (10:45→21:01)
[2018-01-02] MEDS: TOPIRAMATE 25 MG TABLET PO SCH (10:45)
[2018-01-02] MEDS: LAMOTRIGINE 100 MG TABLET PO SCH (10:45)
[2018-01-02] MEDS: POTASSI CL 20 MEQ/D5-1/2NS 1L 1000 ML IV PRN (10:46)
--- NOTE | 2018-01-02 14:37 | PDOC PROGRESS REPORT ---
Subjective Progress Note for:: 01/02/18 Subjective:: Reports feeling better today. No new complaints. Reason For Visit: DEMENTIA,HYPOTENSION SYNCOPE,ARF, Physical Exam Vital Signs: Temp Pulse Resp BP Pulse Ox 99 F 75 20 116/64 93 01/02/18 12:57 01/02/18 14:00 01/02/18 12:57 01/02/18 12:57 01/02/18 12:57 Intake & Output 01/01/18 01/02/18 01/03/18 06:59 06:59 06:59 Intake Total 1320 Output Total 2000 Balance -680 Weight 57.2 kg General appearance: PRESENT: no acute distress Head exam: PRESENT: atraumatic Respiratory exam: PRESENT: clear to auscultation donita Cardiovascular exam: PRESENT: RRR GI/Abdominal exam: PRESENT: soft Neurological exam: PRESENT: alert, oriented to person Psychiatric exam: PRESENT: anxious Skin exam: PRESENT: warm Results Laboratory Results: 01/02/18 05:34 01/02/18 05:34 01/02/18 01/02/18 01/02/18 05:34 05:34 05:34 WBC 6.0 RBC 3.60 L Hgb 10.4 L Hct 31.3 L MCV 87 MCH 28.8 MCHC 33.2 RDW 14.5 H Plt Count 163 Seg Neutrophils % 59.2 Lymphocytes % 24.3 Monocytes % 10.5 Eosinophils % 5.4 Basophils % 0.6 Absolute Neutrophils 3.6 Absolute Lymphocytes 1.5 Absolute Monocytes 0.6 Absolute Eosinophils 0.3 Absolute Basophils 0.0 Sodium 144.1 Potassium 4.1 Chloride 113 H Carbon Dioxide 21 L Anion Gap 10 BUN 18 Creatinine 0.93 Est GFR ( Amer) > 60 Est GFR (Non-Af Amer) 59 L Glucose 91 Calcium 9.5 Free T4 0.66 L Free T3 pg/mL 3.37 01/01/18 01/01/18 01/02/18 23:36 23:36 05:34 Creatine Kinase 86 83 CK-MB (CK-2) 1.32 Troponin I < 0.012 01/02/18 05:34 Creatine Kinase CK-MB (CK-2) 1.31 Troponin I < 0.012 Impressions: Foot X-Ray 01/01/18 14:59 IMPRESSION: Acute nondisplaced fracture, medial aspect base great toe proximal phalanx extending into the interphalangeal joint Acute nondisplaced nonangulated transverse fracture distal right 3rd metatarsal metaphysis AVN 2nd metatarsal head Assessment & Plan - Diagnosis (1) UTI (urinary tract infection) Qualifiers: Urinary tract infection type: acute cystitis Is this a current diagnosis for this admission?: Yes Plan: Change antibiotics to oral. (2) Acute renal failure Qualifiers: Acute renal failure type: unspecified Qualified Code(s): N17.9 - Acute kidney failure, unspecified Is this a current diagnosis for this admission?: Yes Plan: Continue IV hydration (3) Syncope Qualifiers: Syncope type: unspecified Qualified Code(s): R55 - Syncope and collapse Is this a current diagnosis for this admission?: Yes Plan: I suspect due to volume depletion. (4) Encephalopathy Is this a current diagnosis for this admission?: Yes Plan: She is a very poor historian. I am unable to determine whether this is dementia , underlying psychiatric illness, or acute encephalopathy. Continue to monitor
[2018-01-02] MEDS ORDERED: VENLAFAXINE HCL 75 MG CAP.SR.24H PO ONE (16:30)
[2018-01-02] MEDS ORDERED: QUETIAPINE FUMARATE 100 MG TABLET PO ONE (16:30)
[2018-01-02] MEDS ORDERED: CEFTRIAXONE SODIUM 1,000 MG in DEXTROSE 5%-WATER 50 ML IV SCH (18:00)
[2018-01-02] MEDS: FERROUS SULFATE 325 MG TABLET PO SCH (18:00)
[2018-01-02] MEDS ORDERED: DOCUSATE SODIUM 100 MG CAPSULE PO SCH (18:00)
[2018-01-02] MEDS: SIMVASTATIN 10 MG TABLET PO SCH (18:01)
[2018-01-02] MEDS: FLUTICASONE PROPIONATE HFA 110 MCG/PUFF 12 GM MDI IH SCH (21:00)
[2018-01-02] MEDS: CEFPODOXIME 200 MG TABLET PO SCH (21:00)
[2018-01-03] MEDS: POTASSI CL 20 MEQ/D5-1/2NS 1L 1000 ML IV PRN (00:10)
[2018-01-03] MEDS: BUPROPION HCL 75 MG TABLET PO SCH ×2 (05:01→18:28)
[2018-01-03] MEDS: HEPARIN SOD (PORCINE) 5,000 UNIT/ML 1 ML SYRINGE SUBCUT SCH ×2 (05:02→15:12)
[2018-01-03 05:08] LABS: ALBUMIN 3.5 g/dL (3.5-5.0); ANION GAP 11 (5-19); BLOOD UREA NITROGEN 18 mg/dL (7-20); CALCIUM 9.1 mg/dL (8.4-10.2); CARBON DIOXIDE 21 mmol/L (22-30); CHLORIDE 112 mmol/L (98-107); GLUCOSE 107 mg/dL (75-110); PHOSPHORUS 3.2 mg/dL (2.5-4.5); POTASSIUM 4.3 mmol/L (3.6-5.0); SODIUM 144.4 mmol/L (137-145)
[2018-01-03] MEDS ORDERED: LEVOTHYROXINE SODIUM 0.05 MG TABLET PO SCH (06:00)
[2018-01-03] MEDS ORDERED: LANSOPRAZOLE 30 MG TAB.RAP.DR PO SCH (06:00)
[2018-01-03 08:40] VITALS: BP 116/63
[2018-01-03] MEDS: CEFPODOXIME 200 MG TABLET PO SCH (09:40)
[2018-01-03] MEDS: FLUTICASONE PROPIONATE HFA 110 MCG/PUFF 12 GM MDI IH SCH (09:44)
[2018-01-03] MEDS: OXYBUTYNIN CHLORIDE 5 MG TABLET PO SCH (09:45)
[2018-01-03] MEDS: LAMOTRIGINE 100 MG TABLET PO SCH (09:45)
[2018-01-03] MEDS: TOPIRAMATE 25 MG TABLET PO SCH (09:48)
[2018-01-03] MEDS ORDERED: ERGOCALCIFEROL (VITAMIN D2) 50000 UNIT (1.25 MG) CAPSULE PO SCH (10:00)
[2018-01-03] MEDS ORDERED: VENLAFAXINE HCL 75 MG CAP.SR.24H PO SCH (10:00)
[2018-01-03] MEDS ORDERED: QUETIAPINE FUMARATE 100 MG TABLET PO SCH (10:00)
--- NOTE | 2018-01-03 15:31 | PDOC CONSULTATION ---
Consultation Consult Date: 01/03/18 Consult reason:: Fracture right foot History of Present Illness Admission Date/PCP: 01/01/18 16:42 Patient complains of: Right foot pain and swelling History of Present Illness: SRIKANTH COLVIN is a 72 year old female status post fall yesterday where she suffered swelling and bruising. X-rays were taken and shown that her right first proximal phalanx intra-articular fracture and a nondisplaced third metatarsal neck fracture. Patient currently is wearing a boot and complains of pain and swelling. Able to ambulate with the postop shoe applied. Denies any numbness or tingling or paresthesias or any other extremity injury. Past Medical History Pulmonary Medical History: Reports: Chronic Obstructive Pulmonary Disease (COPD ) - possible Chemo related Psychiatric Medical History: Reports: Bipolar Disorder, Depression Past Surgical History Past Surgical History: Reports: Mastectomy, Orthopedic Surgery Social History Lives with: Family Smoking Status: Never Smoker Frequency of Alcohol Use: None Hx Recreational Drug Use: No Drugs: None Hx Prescription Drug Abuse: No - Advance Directive Resuscitation Status: Full Code Family History Family History: Reviewed & Not Pertinent Parental Family History Reviewed: No Children Family History Reviewed: No Sibling(s) Family History Reviewed.: No Medication/Allergy Home Medications: Albuterol Sulfate [Ventolin HFA MDI 18 GM] 2 puff IH Q6HP PRN 12/26/17 Bupropion HCl [Bupropion Xl] 300 mg PO DAILY 12/26/17 Ergocalciferol (Vitamin D2) [Vitamin D2] 50,000 unit PO FR@1000 12/26/17 Ferrous Sulfate 325 mg PO QPM 12/26/17 Fluticasone Propionate [Flovent HFA 220 mcg MDI] 2 puff IH BID 12/26/17 Ketorolac Tromethamine 10 mg PO Q6HP PRN 12/26/17 Lamotrigine 200 mg PO QPM 12/26/17 Oxybutynin Chloride [Oxybutynin Chloride ER] 10 mg PO DAILY 12/26/17 Oxycodone HCl/Acetaminophen [Oxycodone-Acetaminophen 5-325] 1 each PO Q6HP PRN 12/26/17 Pantoprazole Sodium [Protonix] 40 mg PO DAILY 12/26/17 Quetiapine Fumarate [Seroquel 100 mg Tablet] 150 mg PO DAILY 12/26/17 Simvastatin 10 mg PO QPM 12/26/17 Topiramate 100 mg PO QPM 12/26/17 Docusate Sodium [Colace 100 mg Capsule] 100 mg PO Q48H MDD qpm 01/01/18 Ranitidine HCl [Zantac 150 mg Tablet] 150 mg PO QPM 01/01/18 Venlafaxine HCl ER [Effexor Xr 75 mg Cap.sr] 225 mg PO DAILY 01/01/18 Cefpodoxime Proxetil [Vantin 200 mg Tablet] 200 mg PO Q12 #8 tablet 01/03/18 Levothyroxine Sodium [Synthroid 0.05 mg Tablet] 0.05 mg PO Q6AM #30 tablet 01/03 Allergies/Adverse Reactions: No Known Allergies Allergy (Verified 11/30/17 16:34) Review of Systems All systems: as per PMH Physical Exam Vital Signs: Temp Pulse Resp BP Pulse Ox 37.5 C 79 16 116/63 98 01/03/18 08:00 01/03/18 08:00 01/03/18 08:00 01/03/18 08:00 01/03/18 08:00 Intake & Output 01/02/18 01/03/18 01/04/18 06:59 06:59 06:59 Intake Total 1320 3048 Output Total 2000 1850 Balance -680 1198 Weight 57.2 kg 54 kg General appearance: PRESENT: no acute distress Adult Front & Back Image: 1 - Ecchymosis the left foot over the first great toe and dorsal aspect of the third toe. She is tender palpation of the third metatarsal tarsal and tender palpation over the IP joint of the great toe. No gross deformity. Good sensation to light touch and good capillary refill. Intact skin. Results Laboratory Results: 01/02/18 05:34 01/03/18 04:35 01/03/18 04:35 Sodium 144.4 Potassium 4.3 Chloride 112 H Carbon Dioxide 21 L Anion Gap 11 BUN 18 Creatinine 0.90 Est GFR ( Amer) > 60 Est GFR (Non-Af Amer) > 60 Glucose 107 Calcium 9.1 Phosphorus 3.2 Magnesium 1.8 Albumin 3.5 01/01/18 01/01/18 01/02/18 23:36 23:36 05:34 Creatine Kinase 86 83 CK-MB (CK-2) 1.32 Troponin I < 0.012 01/02/18 05:34 Creatine Kinase CK-MB (CK-2) 1.31 Troponin I < 0.012 Impressions: Foot X-Ray 01/01/18 14:59 IMPRESSION: Acute nondisplaced fracture, medial aspect base great toe proximal phalanx extending into the interphalangeal joint Acute nondisplaced nonangulated transverse fracture distal right 3rd metatarsal metaphysis AVN 2nd metatarsal head Status: Image reviewed by me Assessment & Plan - Diagnosis (1) Metatarsal fracture Qualifiers: Encounter type: initial encounter Metatarsal bone: third Fracture type: closed Fracture alignment: nondisplaced Laterality: right Qualified Code(s ): S92.334A - Nondisplaced fracture of third metatarsal bone, right foot, initial encounter for closed fracture Is this a current diagnosis for this admission?: Yes (2) Fracture of proximal phalanx of toe of right foot Is this a current diagnosis for this admission?: Yes - Plan Summary Plan Summary: 72-year-old female with nondisplaced fracture of the right proximal phalanx of her toe and third metatarsal neck fracture. She amenable to nonoperative treatment with use of postop wooden hard sole shoe. She is being discharged and will follow-up in couple weeks for repeat x-ray. If she was too cumbersome we can consider a walking boot. Also continue anti- inflammatories and pain control.
--- NOTE | 2018-01-03 17:12 | PDOC DISCHARGE SUMMARY ---
General - Admit/Disc Date/PCP Admission Date/Primary Care Provider: 01/01/18 16:42 Discharge Date: 01/03/18 - Discharge Diagnosis (1) UTI (urinary tract infection) Is this a current diagnosis for this admission?: Yes Summary: Initially treated with Rocephin, transitioned to Vantin, and she will be discharged with a 4 day course. (2) Acute renal failure Is this a current diagnosis for this admission?: Yes Summary: Resolved with IV fluids. (3) Syncope Is this a current diagnosis for this admission?: Yes Summary: Presumably due to volume depletion (4) Encephalopathy Is this a current diagnosis for this admission?: Yes Summary: Appears to be chronic. Probably related to her underlying psychiatric illness. I think this is a combination of bipolar disorder type I and dementia. (5) Fracture of proximal phalanx of toe of right foot Is this a current diagnosis for this admission?: Yes Summary: Seen in consultation by orthopedics. They recommended a hard soled orthopedic shoe. She is ambulatory with the shoe on and will be discharged with it. Outpatient follow-up (6) Metatarsal fracture Is this a current diagnosis for this admission?: Yes - Additional Information Resuscitation Status: Full Code Discharge Diet: Regular Discharge Activity: Activity As Tolerated Prescriptions: Cefpodoxime Proxetil [Vantin 200 mg Tablet] 200 mg PO Q12 #8 tablet Levothyroxine Sodium [Synthroid 0.05 mg Tablet] 0.05 mg PO Q6AM #30 tablet Home Medications: Albuterol Sulfate [Ventolin HFA MDI 18 GM] 2 puff IH Q6HP PRN 12/26/17 Bupropion HCl [Bupropion Xl] 300 mg PO DAILY 12/26/17 Ergocalciferol (Vitamin D2) [Vitamin D2] 50,000 unit PO FR@1000 12/26/17 Ferrous Sulfate 325 mg PO QPM 12/26/17 Fluticasone Propionate [Flovent HFA 220 mcg MDI] 2 puff IH BID 12/26/17 Ketorolac Tromethamine 10 mg PO Q6HP PRN 12/26/17 Lamotrigine 200 mg PO QPM 12/26/17 Oxybutynin Chloride [Oxybutynin Chloride ER] 10 mg PO DAILY 12/26/17 Oxycodone HCl/Acetaminophen [Oxycodone-Acetaminophen 5-325] 1 each PO Q6HP PRN 12/26/17 Pantoprazole Sodium [Protonix] 40 mg PO DAILY 12/26/17 Quetiapine Fumarate [Seroquel 100 mg Tablet] 150 mg PO DAILY 12/26/17 Simvastatin 10 mg PO QPM 12/26/17 Topiramate 100 mg PO QPM 12/26/17 Docusate Sodium [Colace 100 mg Capsule] 100 mg PO Q48H MDD qpm 01/01/18 Ranitidine HCl [Zantac 150 mg Tablet] 150 mg PO QPM 01/01/18 Venlafaxine HCl ER [Effexor Xr 75 mg Cap.sr] 225 mg PO DAILY 01/01/18 Cefpodoxime Proxetil [Vantin 200 mg Tablet] 200 mg PO Q12 #8 tablet 01/03/18 Levothyroxine Sodium [Synthroid 0.05 mg Tablet] 0.05 mg PO Q6AM #30 tablet 01/03 History of Present Illness Patient complains of: Passed out at home History of Present Illness: SRIKANTH COLVIN is a 72 year old female with a past medical history of dementia, breast cancer status post right mastectomy, bladder cancer unknown stage, recurrent urinary tract infection, bipolar, migraine headache and partial seizure. [place] and is accompanied by her daughter able to provide limited history. Patient was diagnosed with urinary tract infection 5 days ago placed on ciprofloxacin. Patient states she passed out today striking her head and right foot, no injury sustained, no incontinence unclear historian. Patient states her medications cause nausea and is been intolerant of p.o. intake. Daughter denies any new medications. In the emergency room she is found to have hypotension of 70/40. She receives a 1 L normal saline bolus and IV Rocephin for pyuria. Labs revealed prerenal azotemia with dehydration, urinalysis shows pyuria, CBC is unremarkable without leukocytosis or differentiation. Patient currently denies chest pain nausea vomiting. Hospital Course Hospital Course: She was found to have a urinary tract infection and was started on antibiotics. Urine cultures have been negative thus far. Her renal function improved overnight. Her blood pressure has been stable since she was rehydrated. She was placed in a hard sole orthopedic shoe and she has been able to ambulate without difficulty. She voices no complaints of pain. She is very anxious for discharge and so we will send her home with outpatient follow-up. Physical Exam Vital Signs: Temp Pulse Resp BP Pulse Ox 99.5 F 80 16 116/63 96 01/03/18 16:38 01/03/18 16:38 01/03/18 16:38 01/03/18 16:38 01/03/18 16:38 Intake & Output 01/02/18 01/03/18 01/04/18 06:59 06:59 06:59 Intake Total 1320 3048 Output Total 1999 1850 Balance -680 1198 Weight 126 lb 1.671 oz 119 lb 0.794 oz General appearance: PRESENT: no acute distress Respiratory exam: PRESENT: clear to auscultation donita Cardiovascular exam: PRESENT: RRR GI/Abdominal exam: PRESENT: soft Extremities exam: PRESENT: other - No edema. Right foot in a hard wooden shoe Musculoskeletal exam: PRESENT: ambulatory, normal inspection Neurological exam: PRESENT: alert Psychiatric exam: PRESENT: anxious, unusual affect Skin exam: PRESENT: dry, warm Results Laboratory Results: 01/02/18 05:34 01/03/18 04:35 01/03/18 04:35 Sodium 144.4 Potassium 4.3 Chloride 112 H Carbon Dioxide 21 L Anion Gap 11 BUN 18 Creatinine 0.90 Est GFR ( Amer) > 60 Est GFR (Non-Af Amer) > 60 Glucose 107 Calcium 9.1 Phosphorus 3.2 Magnesium 1.8 Albumin 3.5 01/01/18 01/01/18 01/02/18 23:36 23:36 05:34 Creatine Kinase 86 83 CK-MB (CK-2) 1.32 Troponin I < 0.012 01/02/18 05:34 Creatine Kinase CK-MB (CK-2) 1.31 Troponin I < 0.012 Impressions: Foot X-Ray 01/01/18 14:59 IMPRESSION: Acute nondisplaced fracture, medial aspect base great toe proximal phalanx extending into the interphalangeal joint Acute nondisplaced nonangulated transverse fracture distal right 3rd metatarsal metaphysis AVN 2nd metatarsal head Qualifiers - * PATIENT BEING DISCHARGED WITH ANY OF THE FOLLOWING DIAGNOSIS: No
[2018-01-03] MEDS: SIMVASTATIN 10 MG TABLET PO SCH (18:28)
[2018-01-03] MEDS: FERROUS SULFATE 325 MG TABLET PO SCH (18:28)
== END 2018-01-03 18:35 | disposition home or self-care (01) ==
LOC: ER 13:19 → EH 16:42 → INTOOBSV 16:42 → 4W 22:26
PROVIDERS: ADMIT Family Medicine; ATTEND Family Medicine
DX: R55 Syncope and collapse (principal); N30.00 Acute cystitis without hematuria; N17.9 Acute kidney failure, unspecified; G93.40 Encephalopathy, unspecified; F03.90 Unspecified dementia, unspecified severity, without behavioral disturbance, psychotic disturbance, mood disturbance, and anxiety; R79.89 Other specified abnormal findings of blood chemistry; E86.0 Dehydration; I95.9 Hypotension, unspecified; S92.334A Nondisplaced fracture of third metatarsal bone, right foot, initial encounter for closed fracture; S92.414A Nondisplaced fracture of proximal phalanx of right great toe, initial encounter for closed fracture; X50.1XXA Overexertion from prolonged static or awkward postures, initial encounter; C67.9 Malignant neoplasm of bladder, unspecified; Z90.11 Acquired absence of right breast and nipple; Z91.14 Patient's other noncompliance with medication regimen
CPT/HCPCS: 93005; 99291; 51702; 96365; 96366; 96367; 80069; 36415 ×3; 87040; 87086; 84439; 82553 ×2; 82550 ×2; 83735 ×2; 84100; 84443; 85025 ×2; 85610; 80048; 80053; 81001; 84484 ×2; 80307; 84481; 82803; 83605; 73630; 93010; 97110; 97163; A9270 ×24; J1644; J3480 ×3; J3490 ×2; J0696; G0378

== ENCOUNTER 2018-01-08 14:30 | Emergency (ER) | payer MEDICARE ==
[2018-01-08 14:51] LABS: ABSOLUTE EOSINOPHILS # (AUTO) 0.4 10^3/uL (0.0-0.6); ABSOLUTE LYMPHOCYTES (AUTO) 1.1 10^3/uL (0.5-4.7); ABSOLUTE MONOCYTES (AUTO) 0.5 10^3/uL (0.1-1.4); ABSOLUTE NEUT (AUTO) 3.4 10^3/uL (1.7-8.2); BASOPHILS % (AUTO) 0.4 % (0-2); EOSINOPHILS % (AUTO) 7.4 % (0-6); HEMOGLOBIN 8.7 g/dL (12.0-15.5); LYMPHOCYTES % (AUTO) 19.7 % (13-45); MEAN CORPUSCULAR HEMOGLOBIN 29.1 pg (27.0-33.4); MEAN CORPUSCULAR HGB CONC 33.6 g/dL (32.0-36.0); MEAN CORPUSCULAR VOLUME 87 fl (80-97); MONOCYTES % (AUTO) 9.8 % (3-13); PLATELET COUNT 182 10^3/uL (150-450); RED CELL DISTRIBUTION WIDTH 14.4 % (11.5-14.0); SEGMENTED NEUTROPHILS % (AUTO) 62.7 % (42-78); TOTAL CELLS COUNTED % (AUTO) 100 %; WHITE BLOOD COUNT 5.4 10^3/uL (4.0-10.5)
[2018-01-08] MEDS ORDERED: NORMAL SALINE 1000 ML 1,000 ML IV ONE (14:57)
[2018-01-08 14:59] LABS: APPEARANCE,URINE SLIGHTLY-CLOUDY; BILIRUBIN,URINE NEGATIVE (NEGATIVE); GLUCOSE, URINE NEGATIVE (NEGATIVE); KETONES,URINE NEGATIVE (NEGATIVE); LEUKOCYTE ESTERASE,URINE MODERATE (NEGATIVE); NITRITE,URINE NEGATIVE (NEGATIVE); PROTEIN,URINE 100 mg/dL (NEGATIVE); URINE SPECIFIC GRAVITY 1.008; UROBILINOGEN,URINE NEGATIVE mg/dL (<2.0)
[2018-01-08 15:00] LABS: COLOR,URINE BROWN
[2018-01-08 15:11] LABS: ALANINE AMINOTRANSFERASE 26 U/L (9-52); ALBUMIN 3.9 g/dL (3.5-5.0); ALKALINE PHOSPHATASE 70 U/L (38-126); ANION GAP 11 (5-19); ASPARTATE AMINO TRANSFERASE 23 U/L (14-36); BILIRUBIN,DIRECT 0.3 mg/dL (0.0-0.4); BILIRUBIN,TOTAL 0.3 mg/dL (0.2-1.3); BLOOD UREA NITROGEN 33 mg/dL (7-20); CALCIUM 9.9 mg/dL (8.4-10.2); CARBON DIOXIDE 22 mmol/L (22-30); CHLORIDE 105 mmol/L (98-107); GLUCOSE 88 mg/dL (75-110); LIPASE 66.5 U/L (23-300); POTASSIUM 4.7 mmol/L (3.6-5.0); SODIUM 138.1 mmol/L (137-145); TOTAL PROTEIN 6.5 g/dL (6.3-8.2)
[2018-01-08] MEDS ORDERED: LIDOCAINE 4%/TETRACAINE 0.5%/EPI 0.18% 5 ML TOPICAL SOLN TOP ONE (15:38)
[2018-01-08 16:59] VITALS: BP 120/57
--- NOTE | 2018-01-08 16:59 | RADIOLOGY REPORT (SQ) ---
EXAM DESCRIPTION: CT HEAD WITHOUT COMPLETED DATE/TIME: 01/08/2018 4:39 pm REASON FOR STUDY: fall COMPARISON: None. TECHNIQUE: Axial images acquired through the brain without intravenous contrast. Images reviewed wi th bone, brain and subdural windows. Images stored on PACS. All CT scanners at this facility use dose modulation, iterative reconstruction, and/or weight based d osing when appropriate to reduce radiation dose to as low as reasonably achievable (ALARA). [facility]: Dose Right [facility]: CareDose [facility]: Dose Right [facility]: Teradose 4D [facility]: Smart Winning Pitch RADIATION DOSE: CT Rad equipment meets quality standard of care and radiation dose reduction techniq ues were employed. CTDIvol: 53.2 mGy. DLP: 1070 mGy-cm. mGy. LIMITATIONS: None. FINDINGS: VENTRICLES: Mildly prominent. CEREBRUM: No masses. No hemorrhage. No midline shift. No evidence for acute infarction. Mild atrop hic changes. No evidence for acute infarction or hemorrhage. CEREBELLUM: No masses. No hemorrhage. No alteration of density. No evidence for acute infarction. EXTRAAXIAL SPACES: No abnormal fluid collections. ORBITS AND GLOBE: No intra- or extraconal masses. Normal contour of globe without masses. CALVARIUM: No fracture. PARANASAL SINUSES: No fluid or mucosal thickening. SOFT TISSUES: No mass or hematoma. OTHER: No other significant finding. IMPRESSION: Nothing acute. EVIDENCE OF ACUTE STROKE: NO. COMMENT: Quality ID # [id number]: Final reports with documentation of one or more dose reduction techniques (e.g., Automated exposure control, adjustment of the mA and/or kV according to patient size, use of iterative reconstruction technique) TECHNICAL DOCUMENTATION: JOB ID: [id number] [email or web address] All Rights Reserved Reading location - IP/workstation name: [email or web address]
--- NOTE | 2018-01-08 17:11 | RADIOLOGY REPORT (SQ) ---
EXAM DESCRIPTION: CT ABD/PELVIS WITH IV ONLY COMPLETED DATE/TIME: 01/08/2018 4:39 pm REASON FOR STUDY: abd pain COMPARISON: None. TECHNIQUE: CT scan of the abdomen and pelvis performed using helical scanning technique with dynamic intravenous contrast injection. No oral contrast. Images reviewed with lung, soft tissue, and bone windows. Reconstructed coronal and sagittal MPR images reviewed. Delayed images for evaluation of the urinary system also acquired. All images stored on PACS. All CT scanners at this facility use dose modulation, iterative reconstruction, and/or weight based d osing when appropriate to reduce radiation dose to as low as reasonably achievable (ALARA). [facility]: Dose Right [facility]: CareDose [facility]: Dose Right [facility]: Teradose 4D [facility]: ChipRewards CONTRAST TYPE AND DOSE: contrast/concentration: Isovue 370.00 mg/ml; Total Contrast Delivered: 64.0 ml; Total Saline Delivered: 45.0 ml RENAL FUNCTION: BUN 33 creatinine 1.12 RADIATION DOSE: CT Rad equipment meets quality standard of care and radiation dose reduction techniq ues were employed. CTDIvol: 9.6 - 14.4 mGy. DLP: 1149 mGy-cm.. LIMITATIONS: None. FINDINGS: LOWER CHEST: Mild dependent atelectasis. No acute infiltrates or effusions. LIVER: There are some well-circumscribed low-density small hepatic lesions suggestive of cysts. Ther e is mild intrahepatic ductal dilatation. There is prominence of the common bile duct. SPLEEN: Normal size. No focal lesions. PANCREAS: No masses. No significant calcifications. No adjacent inflammation or peripancreatic fluid collections. Pancreatic duct not dilated. GALLBLADDER: No gallstones are seen. There is suggestion of a small amount of pericholecystic fluid. ADRENAL GLANDS: No significant masses or asymmetry. RIGHT KIDNEY AND URETER: No solid masses. No significant calcifications. No hydronephrosis or hyd roureter. LEFT KIDNEY AND URETER: No solid masses. No significant calcifications. No hydronephrosis or hydr oureter. AORTA AND VESSELS: No aneurysm. No dissection. Renal arteries, SMA, celiac without stenosis. RETROPERITONEUM: No retroperitoneal adenopathy, hemorrhage or masses. BOWEL AND PERITONEAL CAVITY: Large amount of fecal material is present from the cecum to the rectum. APPENDIX: Not identified. PELVIS: A 2 cm mass is associated with the anterior wall of the bladder to the right of the midline o n image 63. A similarly sized mass is seen in the bladder on image 57 anteriorly. ABDOMINAL WALL: No masses. No hernias. BONES: Multilevel lumbar compression changes that do not appear to be acute. No osseous lesions are seen. OTHER: No other significant finding. IMPRESSION: 1. There are what appear to be some small cysts in the liver. 2. There is mild prominence of some intrahepatic ducts in the common bile duct. Correlate for bilia ry obstruction. 3. There appears to be a small amount of pericholecystic fluid. Is there any clinical evidence of c holecystitis? 4. Large amount of fecal material is present suggesting constipation. 5. THERE ARE 2 SMALL BLADDER MASSES. 6. Lumbar compression changes. TECHNICAL DOCUMENTATION: JOB ID: [id number] Quality ID # [id number]: Final reports with documentation of one or more dose reduction techniques (e.g., Au tomated exposure control, adjustment of the mA and/or kV according to patient size, use of iterative reconstruction technique) 2010 [employer]- All Rights Reserved Reading location - IP/workstation name: [email or web address]
[2018-01-08] MEDS ORDERED: CEFTRIAXONE 1 GM/D5W RTU 1 GM/50 ML RTUPB IV ONE (17:46)
[2018-01-08] MEDS ORDERED: CEFTRIAXONE INJ 1000 MG VIAL ONE (18:24)
--- NOTE | 2018-01-08 18:43 | RADIOLOGY REPORT (SQ) ---
EXAM DESCRIPTION: U/S ABDOMEN LIMITED W/O DOP COMPLETED DATE/TIME: 01/08/2018 6:28 pm REASON FOR STUDY: Eval pericholecystic fluid COMPARISON: None. TECHNIQUE: Dynamic and static grayscale images acquired of the abdomen and recorded on PACS. Additio nal selected color Doppler and spectral images recorded. LIMITATIONS: None. FINDINGS: PANCREAS: Poorly seen. LIVER: 14.9 cm. Normal echotexture. LIVER VASCULATURE: Normal directional flow of the main portal vein and hepatic veins. GALLBLADDER: The gallbladder is contracted and was not seen. ULTRASOUND-DETECTED BLOOD'S SIGN: Negative. INTRAHEPATIC DUCTS AND COMMON DUCT: Common bile duct is borderline at 7.2 mm. INFERIOR VENA CAVA: Poorly seen. AORTA: The proximal aorta is normal. The mid and distal aorta were obscured by bowel gas. RIGHT KIDNEY: Normal size, 7.6 cm. Normal echogenicity. No solid or suspicious masses. The renal pe lvis is prominent but there is no true hydronephrosis. No calcifications. PERITONEAL AND RIGHT PLEURAL SPACE: No ascites or effusions. OTHER: No other significant findings. IMPRESSION: 1. The gallbladder could not be seen. 2. The common bile duct is borderline at 7.2 mm. Correlate for biliary obstruction. TECHNICAL DOCUMENTATION: JOB ID: [id number] [employer]- All Rights Reserved Reading location - IP/workstation name: [email or web address]
--- NOTE | 2018-01-08 18:54 | ER Document Report ---
ED General - General Chief Complaint: Abdominal Pain >50 Stated Complaint: ABDOMINAL PAIN Time Seen by Provider: 01/08/18 14:40 TRAVEL OUTSIDE OF THE [place].S. IN LAST 30 DAYS: No - HPI Patient complains to provider of: Abdominal pain redness of the hand fall Notes: Patient coming in for evaluation of abdominal pain for laceration and redness to the left hand. Patient has a history of dementia. According to the family members patient is a little more aggressive today. Denies any fever chills nausea vomiting diarrhea. Patient is family stated they noticed some redness to the left hand. Patient does have an unsteady gait and multiple falls in the past according to family [place] but the patient along for a few minutes and the thumb patient was found on the floor no loss of consciousness. Patient does have a slight occipital laceration. Patient otherwise resting comfortably is confused however delightful does not have any complaints at this time. - Related Data Allergies/Adverse Reactions: No Known Allergies Allergy (Verified 01/08/18 17:44) Past Medical History - Social History Smoking Status: Unknown if Ever Smoked Chew tobacco use (# tins/day): No Frequency of alcohol use: None Drug Abuse: None Family History: Reviewed & Not Pertinent Patient has suicidal ideation: No Patient has homicidal ideation: No Pulmonary Medical History: Reports: Hx COPD - possible Chemo related Renal/ Medical History: Denies: Hx Peritoneal Dialysis Psychiatric Medical History: Reports: Hx Bipolar Disorder, Hx Depression Past Surgical History: Reports: Hx Breast Surgery - right breast,, Hx Mastectomy , Hx Orthopedic Surgery Review of Systems - Review of Systems -: Yes ROS unobtainable due to patient's medical condition - Dementia Physical Exam - Vital signs Vitals: Temp Pulse Resp BP Pulse Ox 98.5 F 82 20 120/57 L 97 01/08/18 14:35 01/08/18 14:35 01/08/18 14:35 01/08/18 14:35 01/08/18 14:35 Interpretation: Normal - General General appearance: Appears well, Alert - HEENT Head: Normocephalic. No: Atraumatic - Occipital laceration approximately 2 cm right side Eyes: Normal Pupils: PERRL Neck: Normal - Respiratory Respiratory status: No respiratory distress Chest status: Nontender Breath sounds: Normal Chest palpation: Normal - Cardiovascular Rhythm: Regular Heart sounds: Normal auscultation Murmur: No - Abdominal Inspection: Normal Distension: No distension Bowel sounds: Normal Tenderness: Tender - Diffuse no guarding or rebound Organomegaly: No organomegaly - Back Back: Normal, Nontender - Extremities General upper extremity: Nontender, Normal color, Normal ROM, Normal temperature. No: Normal inspection - Erythema at the base of the thumb going across the wrist has approximately a 4 cm x 5 cm no fluctuance General lower extremity: Normal inspection, Nontender, Normal color, Normal ROM , Normal temperature, Normal weight bearing. No: Tabby's sign - Neurological Neuro grossly intact: Yes Cognition: Confused [place] Coma Scale Eye Opening: Spontaneous Amy Coma Scale Verbal: Confused [place] Coma Scale Motor: Obeys Commands [place] Coma Scale Total: 14 Speech: Normal Motor strength normal: LUE, RUE, LLE, RLE Sensory: Normal - Psychological Associated symptoms: Confused - Skin Skin Temperature: Warm Skin Moisture: Dry Skin Color: Normal Course - Re-evaluation Re-evalutation: 01/08/18 19:41 Patient does have erythema of the left eye consistent with a cellulitic process. Patient was given a dose of Rocephin. Laboratory studies not show significant or acute pathology. Patient does have some abdominal pain therefore CT scan was performed showing dilation of the biliary tree however there is no elevation patient also has some possible pericholecystic fluid seen ultrasound was performed that was otherwise negative for acute pathology. Diffuse constipation was also seen on the CAT scan. Patient remained stable with no signs of any critical pathology. Patient will be discharged home with a dose of Keflex. Did discuss patient's case with PCP Dr. Baptiste agrees with management and plan for follow-up. - Vital Signs Vital signs: Temp Pulse Resp BP Pulse Ox 98.5 F 82 20 120/57 L 97 01/08/18 14:35 01/08/18 14:35 01/08/18 14:35 01/08/18 14:35 01/08/18 14:35 - Laboratory Result Diagrams: 01/08/18 14:10 01/08/18 14:10 Laboratory results interpreted by me: 01/08/18 01/08/18 01/08/18 14:10 14:10 14:35 RBC 3.00 L Hgb 8.7 L Hct 26.0 L RDW 14.4 H Eosinophils % 7.4 H BUN 33 H Est GFR ( Amer) 58 L Est GFR (Non-Af Amer) 48 L Urine Protein 100 H Urine Blood LARGE H Ur Leukocyte Esterase MODERATE H Procedures - Laceration/Wound Repair Head Wound length (cm): 2 Wound's Depth, Shape: Linear Anesthetic type: Other - Topical Wound explored: Clean Irrigated w/ Saline (mLs): 500 Wound Repaired With: Janett Number of Sutures: 2 Post-procedure NV exam normal: Yes Complications: No Discharge - Discharge Clinical Impression: Cellulitis of left hand Scalp laceration Qualifiers: Encounter type: initial encounter Qualified Code(s): S01.01XA - Laceration without foreign body of scalp, initial encounter Constipation Qualifiers: Constipation type: unspecified constipation type Qualified Code(s): K59.00 - Constipation, unspecified Condition: Good Disposition: HOME, SELF-CARE Instructions: Abdominal Pain ([facility]), Cellulitis ([facility]), Constipation ([facility]) Additional Instructions: Laboratory studies do not show any significant pathology. The CAT scan of the abdomen shows significant signs of constipation there is possibility of cyst fluid around the gallbladder however this is not seen on the ultrasound. 2 janett were placed in laceration on the scalp that will need to be removed an approximate 7-10 days. Please make sure the wound stays dry Examination shows cellulitis of left hand we will start you on a medication called Keflex antibiotic to help with the infection. I did discuss patient's case with PCP recommended that we have her follow-up in 3-5 days please call his office for appointment Prescriptions: Cephalexin Monohydrate [Keflex 500 mg Capsule] 500 mg PO Q6H 10 Days capsule Referrals: ZEB ZUNIGA MD [Primary Care Provider] - Follow up in 3-5 days
[2018-01-08] MEDS ORDERED: CEFTRIAXONE SODIUM 1,000 MG in DEXTROSE 5%-WATER 100 ML IV ONE (19:00)
== END 2018-01-08 19:00 | disposition home or self-care (01) ==
LOC: ER 14:30
PROC: 0HQ0XZZ Repair Scalp Skin, External Approach (ICD-10-PCS; principal; 2018-01-08)
DX: S01.01XA Laceration without foreign body of scalp, initial encounter (principal); L03.114 Cellulitis of left upper limb; K59.00 Constipation, unspecified; S61.412A Laceration without foreign body of left hand, initial encounter; R10.9 Unspecified abdominal pain; W19.XXXA Unspecified fall, initial encounter; Z91.81 History of falling; J44.9 Chronic obstructive pulmonary disease, unspecified
CPT/HCPCS: 99284; 96361; 96365; 36415; 87086; 83690; 85025; 87088; 80053; 81001; 87186; 76705; 70450; 74177; 12001; J0696; J7030; J3490

== ENCOUNTER 2018-02-02 18:08 | Emergency (ER) | payer MEDICARE ==
--- NOTE | 2018-02-02 18:58 | ER Document Report ---
ED Medical Screen (RME) - General Chief Complaint: Urinary Problem Stated Complaint: POSSIBLE UTI Time Seen by Provider: 02/02/18 18:49 Notes: RAPID MEDICAL EVALUATION DISCLOSURE I have seen this patient as part of a Rapid Medical Evaluation and, if applicable, placed any initially appropriate orders. The patient will be seen and fully evaluated, including a full history and physical exam, by a provider ( in Main ED or Fast Track) when a room becomes available. 72-year-old female PMH bladder cancer diverticulitis here with complaints of hematuria with clots, dysuria, left lower quadrant and suprapubic abdominal pain ongoing for several weeks now (per the patient however daughter states she has dementia). The daughter seems to think that these symptoms have started more recently. Daughter states that when the bladder cancer "gets real bad, she starts to have blood clots". She just moved to 3 months ago so she is not on chemo and radiation because they are trying to get her Medicare approved. She has not had any nausea vomiting diarrhea fevers chills back/flank pain. She does have a history of hemorrhagic cystitis. Per chart review, CT abdomen and pelvis was performed 01-08-18 and showed 2 small bladder masses at the time. EXAM Mild suprapubic TTP No LLQ TTP No CVA TTP TRAVEL OUTSIDE OF THE U.S. IN LAST 30 DAYS: No - Related Data Allergies/Adverse Reactions: No Known Allergies Allergy (Verified 01/08/18 17:44) Past Medical History - Social History Chew tobacco use (# tins/day): No Frequency of alcohol use: None Drug Abuse: None Pulmonary Medical History: Reports: Hx COPD - possible Chemo related Renal/ Medical History: Denies: Hx Peritoneal Dialysis Psychiatric Medical History: Reports: Hx Bipolar Disorder, Hx Depression Past Surgical History: Reports: Hx Breast Surgery - right breast removed, Hx Mastectomy, Hx Orthopedic Surgery - Immunizations History of Influenza Vaccine for 06/2017 - 11/2017 Season: Unknown Physical Exam - Vital signs Vitals: Temp Pulse Resp BP Pulse Ox 98.0 F 70 22 H 110/56 L 100 02/02/18 18:19 02/02/18 18:19 02/02/18 18:19 02/02/18 18:19 02/02/18 18:19 Course - Vital Signs Vital signs: Temp Pulse Resp BP Pulse Ox 98.0 F 70 20 110/56 L 100 02/02/18 18:19 02/02/18 18:19 02/02/18 18:46 02/02/18 18:19 02/02/18 18:19 Doctor's Discharge - Discharge Referrals: ZEB ZUNIGA MD [Primary Care Provider] - Follow up as needed
[2018-02-02] MEDS ORDERED: ACETAMINOPHEN 325 MG TABLET PO ONE (18:59)
[2018-02-02 20:09] LABS: ABSOLUTE BASOPHILS # (AUTO) 0.1 10^3/uL (0.0-0.2); ABSOLUTE EOSINOPHILS # (AUTO) 0.3 10^3/uL (0.0-0.6); ABSOLUTE LYMPHOCYTES (AUTO) 1.8 10^3/uL (0.5-4.7); ABSOLUTE MONOCYTES (AUTO) 0.5 10^3/uL (0.1-1.4); ABSOLUTE NEUT (AUTO) 2.4 10^3/uL (1.7-8.2); EOSINOPHILS % (AUTO) 6.7 % (0-6); HEMATOCRIT 35.1 % (36.0-47.0); HEMOGLOBIN 11.5 g/dL (12.0-15.5); MEAN CORPUSCULAR HEMOGLOBIN 28.5 pg (27.0-33.4); MEAN CORPUSCULAR HGB CONC 32.8 g/dL (32.0-36.0); MEAN CORPUSCULAR VOLUME 87 fl (80-97); MONOCYTES % (AUTO) 9.7 % (3-13); PLATELET COUNT 177 10^3/uL (150-450); RED BLOOD COUNT 4.04 10^6/uL (3.72-5.28); RED CELL DISTRIBUTION WIDTH 14.8 % (11.5-14.0); SEGMENTED NEUTROPHILS % (AUTO) 47.6 % (42-78); TOTAL CELLS COUNTED % (AUTO) 100 %; WHITE BLOOD COUNT 5.1 10^3/uL (4.0-10.5)
[2018-02-02 20:22] LABS: PROTHROMBIN TIME 13.7 SEC (11.4-15.4)
[2018-02-02 20:23] LABS: PARTIAL THROMBOPLASTIN TIME 33.7 SEC (23.5-35.8)
[2018-02-02 20:30] LABS: BLOOD UREA NITROGEN 29 mg/dL (7-20); CARBON DIOXIDE 24 mmol/L (22-30); CHLORIDE 107 mmol/L (98-107); GLUCOSE 90 mg/dL (75-110); POTASSIUM 4.1 mmol/L (3.6-5.0); SODIUM 142.8 mmol/L (137-145)
[2018-02-02 20:31] LABS: ALANINE AMINOTRANSFERASE 33 U/L (9-52); ALBUMIN 4.3 g/dL (3.5-5.0); ALKALINE PHOSPHATASE 85 U/L (38-126); ANION GAP 12 (5-19); ASPARTATE AMINO TRANSFERASE 30 U/L (14-36); BILIRUBIN,DIRECT 0.2 mg/dL (0.0-0.4); BILIRUBIN,TOTAL 0.2 mg/dL (0.2-1.3)
[2018-02-02 21:31] LABS: APPEARANCE,URINE CLOUDY; BILIRUBIN,URINE NEGATIVE (NEGATIVE); CALCIUM OXALATE CRYSTALS,URINE TOO NUMEROUS TO CNT /HPF; COLOR,URINE RED; GLUCOSE, URINE NEGATIVE (NEGATIVE); KETONES,URINE NEGATIVE (NEGATIVE); LEUKOCYTE ESTERASE,URINE NEGATIVE (NEGATIVE); NITRITE,URINE NEGATIVE (NEGATIVE); PROTEIN,URINE 100 mg/dL (NEGATIVE); URINE SPECIFIC GRAVITY 1.006; UROBILINOGEN,URINE NEGATIVE mg/dL (<2.0)
[2018-02-02] MEDS ORDERED: CEPHALEXIN 500 MG CAPSULE PO ONE (22:24)
--- NOTE | 2018-02-02 22:30 | ER Document Report ---
ED General - General Chief Complaint: Urinary Problem Stated Complaint: POSSIBLE UTI Time Seen by Provider: 02/02/18 18:49 Notes: Patient is a 72-year-old female with a past medical history of bladder cancer not currently receiving any active chemotherapy or radiation who presents with 2 -3 days of gross hematuria, urinary hesitancy and dysuria. The patient is demented and struggles to provide an accurate history. The daughter at the bedside reports that the patient has been stating for the past several days that there has been blood when she is urinating. The patient apparently asked to come to see a doctor today so she was brought to the emergency department. She does follow with her primary care doctor but has not seen a urologist since moving to the [place] area several months ago. Her last radiation treatment was in August 2017 when she was living in [facility]. The patient has not had any fever or constitutional symptoms. No vomiting. She denies any focal abdominal pain. Nothing seems to improve or worsen her symptoms. The family does note that she has had similar symptoms in the past with bladder infections. TRAVEL OUTSIDE OF THE U.S. IN LAST 30 DAYS: No - Related Data Allergies/Adverse Reactions: No Known Allergies Allergy (Verified 01/08/18 17:44) Past Medical History - General Information source: Patient, Relative - Social History Smoking Status: Never Smoker Chew tobacco use (# tins/day): No Frequency of alcohol use: None Drug Abuse: None Lives with: Family Family History: Reviewed & Not Pertinent Patient has suicidal ideation: No Patient has homicidal ideation: No Pulmonary Medical History: Reports: Hx COPD - possible Chemo related Renal/ Medical History: Denies: Hx Peritoneal Dialysis Psychiatric Medical History: Reports: Hx Bipolar Disorder, Hx Depression Past Surgical History: Reports: Hx Breast Surgery - right breast removed, Hx Mastectomy, Hx Orthopedic Surgery Review of Systems - Review of Systems Notes: Constitutional: Negative for fever. HENT: Negative for sore throat. Eyes: Negative for visual changes. Cardiovascular: Negative for chest pain. Respiratory: Negative for shortness of breath. Gastrointestinal: Negative for abdominal pain, vomiting or diarrhea. Genitourinary: Positive for dysuria and hematuria Musculoskeletal: Negative for back pain. Skin: Negative for rash. Neurological: Negative for headaches, weakness or numbness. 10 point ROS negative except as marked above and in HPI. Physical Exam - Vital signs Vitals: Temp Pulse Resp BP Pulse Ox 98.0 F 70 22 H 110/56 L 100 02/02/18 18:19 02/02/18 18:19 02/02/18 18:19 02/02/18 18:19 02/02/18 18:19 Interpretation: Normal Notes: PHYSICAL EXAMINATION: GENERAL: Well-appearing, well-nourished and in no acute distress. HEAD: Atraumatic, normocephalic. EYES: Pupils equal round and reactive to light, extraocular movements intact, sclera anicteric, conjunctiva are normal. ENT: nares patent, oropharynx clear without exudates. Moist mucous membranes. NECK: Normal range of motion, supple without lymphadenopathy LUNGS: Breath sounds clear to auscultation bilaterally and equal. No wheezes rales or rhonchi. HEART: Regular rate and rhythm without murmurs ABDOMEN: Soft, nontender, normoactive bowel sounds. No guarding, no rebound. No masses appreciated. EXTREMITIES: Normal range of motion, no pitting or edema. No cyanosis. NEUROLOGICAL: No focal neurological deficits. Moves all extremities spontaneously and on command. PSYCH: Pleasant on contact, alert and oriented to person and place but not year SKIN: Warm, Dry, normal turgor, no rashes or lesions noted. Course - Re-evaluation Re-evalutation: 02/02/18 22:29 Patient presents with 3-4 days of hematuria as well as dysuria and urinary frequency. She has known history of bladder malignancy that is currently being untreated. Patient is otherwise well-appearing, vitals within normal limits, no distress. She denies any fever or constitutional symptoms at home. She has no focal abdominal tenderness on examination. Labs are overall unremarkable with exception of an apparent hemorrhagic cystitis on urinalysis. I have discussed at length with the patient and her daughter at the bedside the need to pursue treatment for her untreated bladder malignancy with urology and that this is likely a major component of why she is having ongoing hematuria and recurrent infections. She will be started on cephalexin. A urine culture has been sent. At this time will discharge with return precautions and follow-up recommendations. Verbal discharge instructions given a the bedside and opportunity for questions given. Medication warnings reviewed. Patient is in agreement with this plan and has verbalized understanding of return precautions and the need for primary care follow-up in the next 24-72 hours. - Vital Signs Vital signs: Temp Pulse Resp BP Pulse Ox 98.1 F 70 20 127/62 H 93 02/02/18 22:40 02/02/18 18:19 02/02/18 18:46 02/02/18 22:33 02/02/18 22:33 - Laboratory Result Diagrams: 02/02/18 19:35 02/02/18 19:35 Laboratory results interpreted by me: 02/02/18 02/02/18 02/02/18 19:35 19:35 19:35 Hgb 11.5 L Hct 35.1 L RDW 14.8 H Eosinophils % 6.7 H BUN 29 H Creatinine 1.27 H Est GFR ( Amer) 50 L Est GFR (Non-Af Amer) 41 L Urine Protein 100 H Urine Blood LARGE H Discharge - Discharge Clinical Impression: Acute hemorrhagic cystitis Bladder cancer Qualifiers: Bladder location: unspecified site Qualified Code(s): C67.9 - Malignant neoplasm of bladder, unspecified Condition: Good Disposition: HOME, SELF-CARE Additional Instructions: Your urine shows findings consistent with a urinary tract infection. Please take all the antibiotics as directed even if your symptoms have improved. Please follow-up with your primary care physician in the next several days as you urgently in the urology referral for your untreated bladder malignancy which is also contributing to your symptoms. Return to emergency room if you develop fever >101F, persistent vomiting, become lethargic, have severe pain in your sides, or any other symptoms that are concerning to you. Prescriptions: Cephalexin Monohydrate [Keflex 500 mg Capsule] 500 mg PO Q6H 5 Days capsule Referrals: ZEB ZUNIGA MD [Primary Care Provider] - 02/04/18 OLIVIA SULLIVAN II, MD [[facility]] - 02/04/18
[2018-02-02 22:40] VITALS: BP 127/62
== END 2018-02-02 22:40 | disposition home or self-care (01) ==
LOC: ER 18:08
DX: N30.01 Acute cystitis with hematuria (principal); C67.9 Malignant neoplasm of bladder, unspecified; J44.9 Chronic obstructive pulmonary disease, unspecified; Z90.11 Acquired absence of right breast and nipple
CPT/HCPCS: 99283; 36415; 87086; 85025; 85610; 85730; 80053; 81001; A9270 ×2

== ENCOUNTER 2018-02-09 20:20 | Emergency (ER) | payer MEDICARE ==
--- NOTE | 2018-02-09 20:39 | ER Document Report ---
ED General - General Stated Complaint: DIZZY Time Seen by Provider: 02/09/18 20:34 Cannot obtain history due to: Dementia Notes: Patient is a 72-year-old female with a past medical history of known bladder malignancy not undergoing any form of chemotherapy or radiation who presents with ongoing gross hematuria and an episode of near syncope at home. She arrives with her daughter who reports that the patient became very lethargic and minimally responsive while sitting at a table just prior to arrival. They note that the patient is continued to have gross hematuria for the past several days and that it seems to be getting worse. The patient is also currently refusing to eat or drink and will also not take any of her medications. Family is very concerned about her deteriorating condition as well as ongoing weight loss. The patient has not yet been able to see urology. They have not noticed that he seems to improve her symptoms. She has not had any fever or constitutional symptoms at home. TRAVEL OUTSIDE OF THE [place] IN LAST 30 DAYS: No - Related Data Allergies/Adverse Reactions: No Known Allergies Allergy (Verified 01/08/18 17:44) Past Medical History - General Information source: Patient, Relative - Social History Smoking Status: Former Smoker Frequency of alcohol use: None Drug Abuse: None Lives with: Family Family History: Reviewed & Not Pertinent Pulmonary Medical History: Reports: Hx COPD - possible Chemo related Renal/ Medical History: Denies: Hx Peritoneal Dialysis Psychiatric Medical History: Reports: Hx Bipolar Disorder, Hx Depression Past Surgical History: Reports: Hx Breast Surgery - right breast removed, Hx Mastectomy, Hx Orthopedic Surgery Review of Systems - Review of Systems Notes: Constitutional: Negative for fever. Positive for weight loss HENT: Negative for sore throat. Eyes: Negative for visual changes. Cardiovascular: Negative for chest pain. Positive for near syncope Respiratory: Negative for shortness of breath. Gastrointestinal: Negative for abdominal pain, vomiting or diarrhea. Genitourinary: Positive for gross hematuria Musculoskeletal: Negative for back pain. Skin: Negative for rash. Neurological: Negative for headaches, weakness or numbness. 10 point ROS negative except as marked above and in HPI. Physical Exam - Vital signs Vitals: Resp 8 L 02/09/18 20:33 Interpretation: Normal Notes: PHYSICAL EXAMINATION: GENERAL: Emaciated, nontoxic in appearance HEAD: Atraumatic, normocephalic. EYES: Pupils equal round and reactive to light, extraocular movements intact, sclera anicteric, conjunctiva are normal. ENT: nares patent, oropharynx clear without exudates. Moderately dry mucous membranes. NECK: Normal range of motion, supple without lymphadenopathy LUNGS: Breath sounds clear to auscultation bilaterally and equal. No wheezes rales or rhonchi. HEART: Regular rate and rhythm without murmurs ABDOMEN: Soft, palpable bladder with focal tenderness on palpation otherwise no localized areas of tenderness, normoactive bowel sounds. No guarding, no rebound. No masses appreciated. EXTREMITIES: Normal range of motion, no pitting or edema. No cyanosis. NEUROLOGICAL: No focal neurological deficits. Moves all extremities spontaneously and on command. PSYCH: Alert, oriented but has repetitive questioning. SKIN: Warm, Dry, normal turgor, no rashes or lesions noted. Course - Re-evaluation Re-evalutation: 02/09/18 20:38 Patient presents with a near syncopal episode per family at the bedside. She has not been taking antibiotics that I prescribed on her previous visit although urine culture at that time did not show any growth. She has no history of bladder malignancy and is continued to be unable to follow-up with urology. Patient does have a history of dementia and apparently is refusing to take all of her medications at this time point. On examination she appears somewhat dehydrated, cachectic but in no acute distress. She denies any complaints beyond lower abdominal discomfort at the time of my assessment. Daughter at bedside is distraught stating the patient is essentially refusing to eat, drink or take any medications at this time point. Patient arrives with a urinal showing gross hematuria. Will proceed with labs, CT the abdomen pelvis with IV contrast as patient has not had any repeat imaging of her abdomen in over 6 months with a known history of bladder malignancy and progressive weight loss concerning for metastatic disease. 02/10/18 00:19 CBC does show significant drop in hemoglobin from 11.7 down to 8.8 since her previous visit on [address] abdomen pelvis does not show any change from prior CT but does continue to show numerous bladder masses. At this time point I think the patient urgently requires urology evaluation as well as oncology evaluation. She has symptomatic anemia now with an associated near syncope. The remainder of her labs are otherwise unremarkable. I have contacted [facility] to request transfer. Patient has been accepted for transfer by Dr. Richardson. Patient is agreement with this plan. She has otherwise remained hemodynamically within normal limits. Of note, the patient has lost almost 30 kg since she was seen here on January 08. 02/10/18 01:48 Patient remained stable for transport at this time - Vital Signs Vital signs: Temp Pulse Resp BP Pulse Ox 97.5 F 79 14 109/52 L 99 02/10/18 01:26 02/09/18 21:35 02/10/18 01:38 02/10/18 01:38 02/10/18 01:38 - Laboratory Result Diagrams: 02/09/18 21:10 02/09/18 21:10 Laboratory results interpreted by me: 02/09/18 02/09/18 02/09/18 20:43 21:10 21:10 WBC 3.8 L RBC 3.03 L Hgb 8.8 L Hct 26.5 L RDW 15.3 H Eosinophils % 7.4 H Absolute Neutrophils 1.6 L Chloride 112 H BUN 30 H Est GFR ( Amer) 52 L Est GFR (Non-Af Amer) 43 L Urine Protein 100 H Urine Glucose (UA) 50 H Urine Blood LARGE H Ur Leukocyte Esterase SMALL H - Diagnostic Test Radiology reviewed: Reports reviewed Discharge - Discharge Clinical Impression: Blood loss anemia, Near syncope Bladder cancer Qualifiers: Bladder location: unspecified site Qualified Code(s): C67.9 - Malignant neoplasm of bladder, unspecified Dementia Qualifiers: Dementia type: unspecified type Dementia behavioral disturbance: without behavioral disturbance Qualified Code(s): F03.90 - Unspecified dementia without behavioral disturbance Condition: Fair Disposition: [facility] Referrals: ZEB ZUNIGA MD [Primary Care Provider] - Follow up as needed
[2018-02-09 21:24] LABS: ABSOLUTE EOSINOPHILS # (AUTO) 0.3 10^3/uL (0.0-0.6); ABSOLUTE LYMPHOCYTES (AUTO) 1.5 10^3/uL (0.5-4.7); ABSOLUTE MONOCYTES (AUTO) 0.3 10^3/uL (0.1-1.4); ABSOLUTE NEUT (AUTO) 1.6 10^3/uL (1.7-8.2); BASOPHILS % (AUTO) 0.8 % (0-2); EOSINOPHILS % (AUTO) 7.4 % (0-6); HEMATOCRIT 26.5 % (36.0-47.0); HEMOGLOBIN 8.8 g/dL (12.0-15.5); LYMPHOCYTES % (AUTO) 40.2 % (13-45); MEAN CORPUSCULAR VOLUME 88 fl (80-97); MONOCYTES % (AUTO) 8.8 % (3-13); PLATELET COUNT 161 10^3/uL (150-450); RED BLOOD COUNT 3.03 10^6/uL (3.72-5.28); RED CELL DISTRIBUTION WIDTH 15.3 % (11.5-14.0); SEGMENTED NEUTROPHILS % (AUTO) 42.8 % (42-78); TOTAL CELLS COUNTED % (AUTO) 100 %; WHITE BLOOD COUNT 3.8 10^3/uL (4.0-10.5)
[2018-02-09 21:38] LABS: BLOOD UREA NITROGEN 30 mg/dL (7-20); CALCIUM 9.5 mg/dL (8.4-10.2); CARBON DIOXIDE 23 mmol/L (22-30); CHLORIDE 112 mmol/L (98-107); GLUCOSE 80 mg/dL (75-110); POTASSIUM 3.6 mmol/L (3.6-5.0)
[2018-02-09 21:40] LABS: ANION GAP 9 (5-19); SODIUM 144.4 mmol/L (137-145)
[2018-02-09 22:21] LABS: APPEARANCE,URINE SLIGHTLY-CLOUDY; BILIRUBIN,URINE NEGATIVE (NEGATIVE); COLOR,URINE RED; GLUCOSE, URINE 50 mg/dL (NEGATIVE); KETONES,URINE NEGATIVE (NEGATIVE); LEUKOCYTE ESTERASE,URINE SMALL (NEGATIVE); NITRITE,URINE NEGATIVE (NEGATIVE); PROTEIN,URINE 100 mg/dL (NEGATIVE); URINE SPECIFIC GRAVITY 1.004; UROBILINOGEN,URINE NEGATIVE mg/dL (<2.0)
--- NOTE | 2018-02-09 22:29 | RADIOLOGY REPORT (SQ) ---
EXAM DESCRIPTION: CT ABD/PELVIS WITH IV ONLY COMPLETED DATE/TIME: 02/09/2018 10:14 pm REASON FOR STUDY: bladder cancer, generalized abdominal pain COMPARISON: 01/08/2018. TECHNIQUE: CT scan of the abdomen and pelvis performed using helical scanning technique with dynamic intravenous contrast injection. No oral contrast. Images reviewed with lung, soft tissue, and bone windows. Reconstructed coronal and sagittal MPR images reviewed. Delayed images for evaluation of the urinary system also acquired. All images stored on PACS. All CT scanners at this facility use dose modulation, iterative reconstruction, and/or weight based d osing when appropriate to reduce radiation dose to as low as reasonably achievable (ALARA). [facility]: Dose Right [facility]: CareDose [facility]: Dose Right [facility]: Teradose 4D [facility]: 10BestThings CONTRAST TYPE AND DOSE: contrast/concentration: Isovue 370.00 mg/ml; Total Contrast Delivered: 57.0 ml; Total Saline Delivered: 65.0 ml RENAL FUNCTION: BUN 30 creatinine 1.2 RADIATION DOSE: CT Rad equipment meets quality standard of care and radiation dose reduction techniq ues were employed. CTDIvol: 5.1 - 5.8 mGy. DLP: 484 mGy-cm.. LIMITATIONS: None. FINDINGS: LOWER CHEST: No significant findings. No nodules or infiltrates. LIVER: Benign cysts. SPLEEN: Normal size. No focal lesions. PANCREAS: No masses. No significant calcifications. No adjacent inflammation or peripancreatic fluid collections. Pancreatic duct not dilated. GALLBLADDER: No identified stones by CT criteria. No inflammatory changes to suggest cholecystitis. ADRENAL GLANDS: No significant masses or asymmetry. RIGHT KIDNEY AND URETER: No solid masses. No significant calcifications. No hydronephrosis or hyd roureter. LEFT KIDNEY AND URETER: No solid masses. No significant calcifications. No hydronephrosis or hydr oureter. AORTA AND VESSELS: No aneurysm. RETROPERITONEUM: No retroperitoneal adenopathy, hemorrhage or masses. BOWEL AND PERITONEAL CAVITY: No masses or inflammatory changes. No free fluid or peritoneal masses. APPENDIX: Not visualized. PELVIS: Known masses in the urinary bladder. No pelvic adenopathy. ABDOMINAL WALL: No masses. No hernias. BONES: Osteoporosis. Multiple compression fractures. No obvious acute fracture. OTHER: No other significant finding. IMPRESSION: Known masses in the urinary bladder. No significant change. TECHNICAL DOCUMENTATION: JOB ID: [id number] Quality ID # [id number]: Final reports with documentation of one or more dose reduction techniques (e.g., Au tomated exposure control, adjustment of the mA and/or kV according to patient size, use of iterative reconstruction technique) 2010 [employer]- All Rights Reserved Reading location - IP/workstation name: [email or web address]
[2018-02-09] MEDS ORDERED: RINGERS SOLUTION,LACTATED 1,000 ML IV ONE (22:37)
[2018-02-09] MEDS ORDERED: CEFTRIAXONE INJ 1000 MG VIAL IV ONE (22:37)
[2018-02-10 01:54] VITALS: BP 109/52
--- NOTE | 2018-02-12 08:16 | EKG REPORT ---
SEVERITY:- OTHERWISE NORMAL ECG - SINUS RHYTHM VENTRICULAR PREMATURE COMPLEX : Confirmed by: Mariposa Rose MD 12-Feb-2018 08:14:36
== END 2018-02-10 01:56 | disposition short-term general hospital (02) ==
LOC: ER 20:20
DX: D50.0 Iron deficiency anemia secondary to blood loss (chronic) (principal); C67.9 Malignant neoplasm of bladder, unspecified; R31.0 Gross hematuria; F03.90 Unspecified dementia, unspecified severity, without behavioral disturbance, psychotic disturbance, mood disturbance, and anxiety; R42 Dizziness and giddiness; R55 Syncope and collapse; Z90.11 Acquired absence of right breast and nipple
CPT/HCPCS: 93005; 99285; 96361; 96365; 86900; 86901; 36415; 87086; 86850; 85025; 80048; 81001; 84484; 74177; 93010; J0696; J7120

== ENCOUNTER 2018-04-02 14:13 | Emergency (ER) | payer MEDICARE ==
--- NOTE | 2018-04-02 15:53 | ER Document Report ---
ED General - General Chief Complaint: Urinary Frequency Stated Complaint: URINATION PAIN Time Seen by Provider: 04/02/18 15:47 Notes: Chief complaint: Multiple History of complain:( obtained from----patient)1. 73 years old female presents today with the left arm shooting pain on and off for the last several weeks. With the sensation of burning and itchy starting from the left side of the neck running all the way to the hand. Along the superior border of the arm and forearm. 2.. Left lower leg pain and discomfort particularly over the lateral malleolar region with warm sensation. 3. Right foot and lower leg swelling, being on the walking boot for the last 2 months due to metacarpal bone fracture.4. Was treated with UTI but discontinued prematurely, now developed dysuria frequency as well as discharge from the vagina which is whitish cottage cheeselike. Onset: As above Duration: As above Severity: Moderate Quality: Unknown unknown Context: Unknown Exacerbating factor and relieving factors: Noncontributory REVIEW OF SYSTEMS: CONSTITUTIONAL : Denies fever, chills, or sweats. Denies recent illness. EENT: Denies eye, ear, throat, or mouth pain or symptoms. Denies nasal or sinus congestion or discharge. Denies throat, tongue, or mouth swelling or difficulty swallowing. CARDIOVASCULAR: Denies chest pain. Denies palpitations or racing or irregular heart beat. Denies ankle edema. RESPIRATORY: Denies cough, cold, or chest congestion. Denies shortness of breath, difficulty breathing, or wheezing. GASTROINTESTINAL: Denies distention. Denies nausea, vomiting, or diarrhea. Denies blood in vomitus, stools, or per rectum. Denies black, tarry stools. Denies constipation. GENITOURINARY: Denies difficulty urinating, painful urination, burning, frequency, blood in urine, or discharge. FEMALE GENITOURINARY: Denies vaginal bleeding, heavy or abnormal periods, irregular periods. Denies vaginal discharge or odor. MUSCULOSKELETAL: As per history of complain SKIN: Denies rash, lesions or sores. HEMATOLOGIC : Denies easy bruising or bleeding. LYMPHATIC: Denies swollen, enlarged glands. NEUROLOGICAL: Denies confusion or altered mental status. Denies passing out or loss of consciousness. Denies dizziness or lightheadedness. Denies headache. Denies weakness or paralysis or loss of use of either side. Denies problems with gait or speech. Denies sensory loss, numbness, or tingling. Denies seizures. PSYCHIATRIC: Denies anxiety or stress. Denies depression, suicidal ideation, or homicidal ideation. ALL OTHER SYSTEMS REVIEWED AND NEGATIVE. PHYSICAL EXAMINATION: GENERAL: Well-appearing, well-nourished and in no acute distress. HEAD: Atraumatic, normocephalic. EYES: Pupils equal round and reactive to light, extraocular movements intact, conjunctiva are normal. ENT: Nares patent, oropharynx clear without exudates. Moist mucous membranes. NECK: Normal range of motion, supple without lymphadenopathy Left paraspinal muscular tenderness when pressed upon her neuropathy pain shooting down the left arm. But no spinal process tenderness. Able to flex extend abduct and abduct. LUNGS: Breath sounds clear to auscultation bilaterally and equal. No wheezes rales or rhonchi. HEART: Regular rate and rhythm without murmurs ABDOMEN: Soft, nontender, nondistended abdomen. No guarding, no rebound. No masses appreciated. Examination of genitals-deferred Musculoskeletal: Left lower leg has 1+ pitting edema, distally some tenderness over the metatarsal bones. Neurovascular function within normal limit Right foot lateral malleolus region has multiple spider veins which is warm and tender to touch. NEUROLOGICAL: Cranial nerves grossly intact. Normal speech, normal gait. Normal sensory, motor exams PSYCH: Normal mood, normal affect. SKIN: Warm, Dry, normal turgor, no rashes or lesions noted. Dictation was performed using [employer] voice recognition software TRAVEL OUTSIDE OF THE [place] IN LAST 30 DAYS: No - HPI Notes: Dictated - Related Data Allergies/Adverse Reactions: No Known Allergies Allergy (Verified 04/02/18 14:16) Past Medical History - Social History Smoking Status: Former Smoker Cigarette use (# per day): No Chew tobacco use (# tins/day): No Frequency of alcohol use: Rare Drug Abuse: None Family History: Reviewed & Not Pertinent Patient has suicidal ideation: No Patient has homicidal ideation: No Pulmonary Medical History: Reports: Hx COPD - possible Chemo related Renal/ Medical History: Denies: Hx Peritoneal Dialysis Psychiatric Medical History: Reports: Hx Bipolar Disorder, Hx Depression Past Surgical History: Reports: Hx Breast Surgery - right breast removed, Hx Genitourinary Surgery - bladder, Hx Mastectomy, Hx Orthopedic Surgery Review of Systems - Review of Systems Notes: Dictated Physical Exam - Vital signs Vitals: Temp Pulse Resp BP Pulse Ox 97.9 F 78 16 115/47 L 100 04/02/18 14:23 04/02/18 14:23 04/02/18 14:23 04/02/18 14:23 04/02/18 14:23 - Notes Notes: Dictated Course - Vital Signs Vital signs: Temp Pulse Resp BP Pulse Ox 97.5 F 72 18 136/87 H 95 04/02/18 17:19 04/02/18 17:19 04/02/18 17:19 04/02/18 17:19 04/02/18 17:19 04/02/18 17:01 Given Xanax for anxiety - Laboratory Result Diagrams: 04/02/18 15:55 04/02/18 15:55 Laboratory results interpreted by me: 04/02/18 04/02/18 04/02/18 15:55 15:55 16:00 WBC 3.4 L Hgb 11.2 L Hct 34.3 L RDW 15.3 H Seg Neutrophils % 41.8 L Eosinophils % 11.5 H Absolute Neutrophils 1.4 L Chloride 108 H BUN 25 H Est GFR (Non-Af Amer) 53 L Urine Protein 30 H Urine Blood MODERATE H Ur Leukocyte Esterase MODERATE H - Diagnostic Test Radiology reviewed: Reports reviewed - X-ray of the right foot reported by radiologist as no fracture Discharge - Discharge Clinical Impression: Anxiety, Neuropathy UTI (urinary tract infection) Qualifiers: Urinary tract infection type: acute cystitis Hematuria presence: without hematuria Qualified Code(s): N30.00 - Acute cystitis without hematuria Condition: Fair Disposition: HOME, SELF-CARE Instructions: Urinary Tract Infection, Child ([facility]) Prescriptions: Lorazepam [Ativan 0.5 mg Tablet] 0.5 mg PO Q4 PRN #30 tab PRN Reason: Nitrofurantoin Monohyd/M-Cryst [Macrobid 100 mg Capsule] 1 tab PO BID #20 capsule Referrals: ZEB ZUNIGA MD [Primary Care Provider] - Follow up as needed
[2018-04-02 16:12] LABS: ABSOLUTE EOSINOPHILS # (AUTO) 0.4 10^3/uL (0.0-0.6); ABSOLUTE LYMPHOCYTES (AUTO) 1.3 10^3/uL (0.5-4.7); ABSOLUTE MONOCYTES (AUTO) 0.3 10^3/uL (0.1-1.4); ABSOLUTE NEUT (AUTO) 1.4 10^3/uL (1.7-8.2); EOSINOPHILS % (AUTO) 11.5 % (0-6); HEMATOCRIT 34.3 % (36.0-47.0); HEMOGLOBIN 11.2 g/dL (12.0-15.5); LYMPHOCYTES % (AUTO) 36.7 % (13-45); MEAN CORPUSCULAR HGB CONC 32.8 g/dL (32.0-36.0); MEAN CORPUSCULAR VOLUME 89 fl (80-97); PLATELET COUNT 230 10^3/uL (150-450); RED BLOOD COUNT 3.87 10^6/uL (3.72-5.28); RED CELL DISTRIBUTION WIDTH 15.3 % (11.5-14.0); SEGMENTED NEUTROPHILS % (AUTO) 41.8 % (42-78); TOTAL CELLS COUNTED % (AUTO) 100 %; WHITE BLOOD COUNT 3.4 10^3/uL (4.0-10.5)
[2018-04-02 16:29] LABS: ALANINE AMINOTRANSFERASE 22 U/L (9-52); ALBUMIN 4.2 g/dL (3.5-5.0); ALKALINE PHOSPHATASE 88 U/L (38-126); ANION GAP 13 (5-19); ASPARTATE AMINO TRANSFERASE 26 U/L (14-36); BILIRUBIN,DIRECT 0.2 mg/dL (0.0-0.4); BILIRUBIN,TOTAL 0.2 mg/dL (0.2-1.3); BLOOD UREA NITROGEN 25 mg/dL (7-20); CALCIUM 9.8 mg/dL (8.4-10.2); CARBON DIOXIDE 24 mmol/L (22-30); CHLORIDE 108 mmol/L (98-107); GLUCOSE 87 mg/dL (75-110); POTASSIUM 4.2 mmol/L (3.6-5.0); SODIUM 144.6 mmol/L (137-145); TOTAL PROTEIN 7.3 g/dL (6.3-8.2)
--- NOTE | 2018-04-02 16:31 | RADIOLOGY REPORT (SQ) ---
EXAM DESCRIPTION: FOOT RIGHT COMPLETE COMPLETED DATE/TIME: 04/02/2018 4:16 pm REASON FOR STUDY: Foot injury COMPARISON: 01/01/2018 NUMBER OF VIEWS: Three views. TECHNIQUE: AP, lateral and oblique radiographic images acquired of the right foot. LIMITATIONS: None. FINDINGS: MINERALIZATION: Bony structures are osteopenic. BONES: No acute fracture or dislocation. There is a healing fracture involving the base of the proxi mal phalanx of the 1st digit. There is also a healing fracture involving the distal 3rd metatarsal. JOINTS: No effusions. SOFT TISSUES: No soft tissue swelling. No foreign body. OTHER: No other significant finding. IMPRESSION: No acute fracture dislocation. Other findings as noted above TECHNICAL DOCUMENTATION: JOB ID: [id number] [employer]- All Rights Reserved Reading location - IP/workstation name: [email or web address]
[2018-04-02] MEDS ORDERED: ALPRAZOLAM 0.5 MG TABLET PO ONE (16:41)
[2018-04-02 16:48] LABS: AMORPHOUS SEDIMENT,URINE TRACE /HPF; APPEARANCE,URINE SLIGHTLY-CLOUDY; BILIRUBIN,URINE NEGATIVE (NEGATIVE); COLOR,URINE YELLOW; GLUCOSE, URINE NEGATIVE (NEGATIVE); KETONES,URINE NEGATIVE (NEGATIVE); LEUKOCYTE ESTERASE,URINE MODERATE (NEGATIVE); NITRITE,URINE NEGATIVE (NEGATIVE); PROTEIN,URINE 30 mg/dL (NEGATIVE); URINE SPECIFIC GRAVITY 1.015; UROBILINOGEN,URINE NEGATIVE mg/dL (<2.0)
[2018-04-02 17:25] VITALS: BP 136/87
[2018-04-02] MEDS ORDERED: NITROFURANTOIN MONOHYD/M-CRYST 100 MG CAPSULE PO ONE (17:35)
== END 2018-04-02 17:25 | disposition home or self-care (01) ==
LOC: ER 14:13
DX: N30.00 Acute cystitis without hematuria (principal); F41.9 Anxiety disorder, unspecified; G62.9 Polyneuropathy, unspecified; I78.1 Nevus, non-neoplastic; L29.9 Pruritus, unspecified; M79.602 Pain in left arm; M79.662 Pain in left lower leg; R60.0 Localized edema; N89.8 Other specified noninflammatory disorders of vagina; J44.9 Chronic obstructive pulmonary disease, unspecified; Z87.891 Personal history of nicotine dependence
CPT/HCPCS: 99284; 36415; 85025; 80053; 81001; 73630; A9270 ×2; J8499

== ENCOUNTER 2018-04-03 13:36 | Emergency (ER) | payer MEDICARE ==
[2018-04-03 14:17] LABS: ABSOLUTE EOSINOPHILS # (AUTO) 0.3 10^3/uL (0.0-0.6); ABSOLUTE LYMPHOCYTES (AUTO) 0.5 10^3/uL (0.5-4.7); ABSOLUTE MONOCYTES (AUTO) 0.4 10^3/uL (0.1-1.4); ABSOLUTE NEUT (AUTO) 5.3 10^3/uL (1.7-8.2); BASOPHILS % (AUTO) 0.4 % (0-2); EOSINOPHILS % (AUTO) 5.2 % (0-6); HEMOGLOBIN 11.5 g/dL (12.0-15.5); LYMPHOCYTES % (AUTO) 8.2 % (13-45); MEAN CORPUSCULAR HEMOGLOBIN 29.1 pg (27.0-33.4); MEAN CORPUSCULAR HGB CONC 32.8 g/dL (32.0-36.0); MEAN CORPUSCULAR VOLUME 89 fl (80-97); MONOCYTES % (AUTO) 5.7 % (3-13); PLATELET COUNT 221 10^3/uL (150-450); RED BLOOD COUNT 3.95 10^6/uL (3.72-5.28); SEGMENTED NEUTROPHILS % (AUTO) 80.5 % (42-78); TOTAL CELLS COUNTED % (AUTO) 100 %; WHITE BLOOD COUNT 6.7 10^3/uL (4.0-10.5)
[2018-04-03 14:35] LABS: ALANINE AMINOTRANSFERASE 20 U/L (9-52); ALBUMIN 3.9 g/dL (3.5-5.0); ALKALINE PHOSPHATASE 82 U/L (38-126); ANION GAP 14 (5-19); ASPARTATE AMINO TRANSFERASE 25 U/L (14-36); BILIRUBIN,DIRECT 0.2 mg/dL (0.0-0.4); BILIRUBIN,TOTAL 0.2 mg/dL (0.2-1.3); BLOOD UREA NITROGEN 22 mg/dL (7-20); CALCIUM 9.5 mg/dL (8.4-10.2); CARBON DIOXIDE 20 mmol/L (22-30); CHLORIDE 110 mmol/L (98-107); GLUCOSE 103 mg/dL (75-110); POTASSIUM 4.2 mmol/L (3.6-5.0); TOTAL PROTEIN 6.9 g/dL (6.3-8.2)
--- NOTE | 2018-04-03 15:00 | ER Document Report ---
ED General - General Chief Complaint: Syncope Stated Complaint: POSSIBLE SYNCOPE Time Seen by Provider: 04/03/18 14:55 Mode of Arrival: Medic Information source: Patient Notes: 73-year-old female history of dementia who has a history of intermittent hypotension presents with complaints of lightheadedness dizziness. Patient notes blood pressure dropped while she was at home but this happens intermittently, she denies any fevers or chills no she was diagnosed for UTI yesterday has not picked that medication yet TRAVEL OUTSIDE OF THE [place] IN LAST 30 DAYS: No - HPI Onset: Just prior to arrival Onset/Duration: Sudden Quality of pain: No pain Severity: Mild Pain Level: Denies Associated symptoms: Weakness Exacerbated by: Other Relieved by: Denies Similar symptoms previously: Yes Recently seen / treated by doctor: Yes - Related Data Allergies/Adverse Reactions: amoxicillin Allergy (Verified 04/03/18 15:10) Past Medical History - Social History Smoking Status: Never Smoker Cigarette use (# per day): No Chew tobacco use (# tins/day): No Smoking Education Provided: No Frequency of alcohol use: None Drug Abuse: None Family History: Reviewed & Not Pertinent Patient has suicidal ideation: No Patient has homicidal ideation: No Pulmonary Medical History: Reports: Hx COPD - possible Chemo related Renal/ Medical History: Denies: Hx Peritoneal Dialysis Psychiatric Medical History: Reports: Hx Bipolar Disorder, Hx Depression - anxiety Past Surgical History: Reports: Hx Breast Surgery - right breast removed, Hx Genitourinary Surgery - bladder, Hx Mastectomy, Hx Orthopedic Surgery Review of Systems - Review of Systems Notes: REVIEW OF SYSTEMS: CONSTITUTIONAL : Denies fever, chills, or sweats. Denies recent illness. EENT: Denies eye, ear, throat, or mouth pain or symptoms. Denies nasal or sinus congestion or discharge. Denies throat, tongue, or mouth swelling or difficulty swallowing. CARDIOVASCULAR: Denies chest pain. Denies palpitations or racing or irregular heart beat. Denies ankle edema. RESPIRATORY: Denies cough, cold, or chest congestion. Denies shortness of breath, difficulty breathing, or wheezing. GASTROINTESTINAL: Denies abdominal pain or distention. Denies nausea, vomiting , or diarrhea. Denies blood in vomitus, stools, or per rectum. Denies black, tarry stools. Denies constipation. GENITOURINARY: Denies difficulty urinating, painful urination, burning, frequency, blood in urine, or discharge. FEMALE GENITOURINARY: Denies vaginal bleeding, heavy or abnormal periods, irregular periods. Denies vaginal discharge or odor. MUSCULOSKELETAL: RLE edema SKIN: Denies rash, lesions or sores. HEMATOLOGIC : Denies easy bruising or bleeding. LYMPHATIC: Denies swollen, enlarged glands. NEUROLOGICAL: Admits to dizziness weakness PSYCHIATRIC: Admits to anxiety ALL OTHER SYSTEMS REVIEWED AND NEGATIVE. PHYSICAL EXAMINATION: GENERAL: Well-appearing, well-nourished and in no acute distress. HEAD: Atraumatic, normocephalic. EYES: Pupils equal round and reactive to light, extraocular movements intact, conjunctiva are normal. ENT: Nares patent, oropharynx clear without exudates. Moist mucous membranes. NECK: Normal range of motion, supple without lymphadenopathy LUNGS: Breath sounds clear to auscultation bilaterally and equal. No wheezes rales or rhonchi. HEART: Regular rate and rhythm without murmurs ABDOMEN: Soft, nontender, nondistended abdomen. No guarding, no rebound. No masses appreciated. Female : deferred Musculoskeletal: mild edema +1 nonpitting NEUROLOGICAL: Cranial nerves grossly intact. Normal speech, normal gait. Normal sensory, motor exams PSYCH: Normal mood, normal affect. SKIN: Warm, Dry, normal turgor, no rashes or lesions noted. Dictation was performed using [employer] voice recognition software Physical Exam - Vital signs Vitals: Temp 98.1 F 04/03/18 13:50 Course - Re-evaluation Re-evalutation: 04/03/18 15:11 Patient was diagnosed with UTI but has not started her medication, at this time her vital signs are stable, awaiting ot tlak to daughter for more info 04/03/18 17:19 Patient's blood pressure has been stable here, she has been watched in the emergency department , overall looks well, in no distress - Vital Signs Vital signs: Temp Pulse Resp BP Pulse Ox 98.1 F 23 H 133/59 H 100 04/03/18 13:50 04/03/18 14:03 04/03/18 15:23 04/03/18 15:23 - Laboratory Result Diagrams: 04/03/18 13:10 04/03/18 13:10 Laboratory results interpreted by me: 04/03/18 04/03/18 04/03/18 13:10 13:10 15:23 Hgb 11.5 L Hct 35.0 L RDW 15.0 H Seg Neutrophils % 80.5 H Lymphocytes % 8.2 L Chloride 110 H Carbon Dioxide 20 L BUN 22 H Est GFR ( Amer) 54 L Est GFR (Non-Af Amer) 45 L Urine Protein 30 H Urine Blood LARGE H Ur Leukocyte Esterase SMALL H Discharge - Discharge Clinical Impression: Hypotension, Syncope, UTI (urinary tract infection) Condition: Stable Disposition: HOME, SELF-CARE Instructions: Urinary Tract Infection ([facility]) Additional Instructions: Follow up with your physician tomorrow for further care or return to the ED IMMEDIATELY if symptoms worsen or new concerns occur. If you cannot afford to follow up with your primary care physician a list of low cost clinics have been provided at the end of your discharge papers as well. Referrals: ZEB ZUNIGA MD [Primary Care Provider] - Follow up as needed
[2018-04-03] MEDS ORDERED: CEFTRIAXONE INJ 1000 MG VIAL IV ONE (15:08)
[2018-04-03 15:33] LABS: CREATINE KINASE MB 1.86 ng/mL (<4.55)
[2018-04-03 15:36] LABS: TROPONIN I < 0.012 ng/mL
[2018-04-03 16:11] LABS: AMORPHOUS SEDIMENT,URINE TRACE /HPF; APPEARANCE,URINE CLOUDY; BILIRUBIN,URINE NEGATIVE (NEGATIVE); COLOR,URINE YELLOW; GLUCOSE, URINE NEGATIVE (NEGATIVE); KETONES,URINE NEGATIVE (NEGATIVE); LEUKOCYTE ESTERASE,URINE SMALL (NEGATIVE); NITRITE,URINE NEGATIVE (NEGATIVE); PROTEIN,URINE 30 mg/dL (NEGATIVE); URINE SPECIFIC GRAVITY 1.012; UROBILINOGEN,URINE NEGATIVE mg/dL (<2.0)
--- NOTE | 2018-04-03 17:33 | RADIOLOGY REPORT (SQ) ---
EXAM DESCRIPTION: VENOUS UNILATERAL LOWER COMPLETED DATE/TIME: 04/03/2018 5:26 pm REASON FOR STUDY: RLE swelling, hx bladder ca COMPARISON: None. TECHNIQUE: Dynamic and static sierra scale and color images acquired of the right leg venous system. S elected spectral images acquired with additional compression and augmentation maneuvers. The contrala teral common femoral vein and saphenofemoral junction were also imaged. Images stored on PACS. LIMITATIONS: None. FINDINGS: COMMON FEMORAL: Normal phasicity, compression and augmentation. No visualized echogenic ma terial on sierra scale. No defects on color images. FEMORAL: Normal compression and augmentation. No visualized echogenic material on sierra scale. No defe cts on color images. POPLITEAL: Normal compression, augmentation. No visualized echogenic material on sierra scale. No defec ts on color images. CALF VESSELS: Normal compression, augmentation. No visualized echogenic material on sierra scale. No de fects on color images. GSV and SSV: Normal compression, augmentation. No visualized echogenic material on sierra scale. No def ects on color images. ANY DEEP VENOUS INSUFFICIENCY: Not evaluated. ANY EVIDENCE OF POPLITEAL CYST: No. OTHER: No other significant finding. CONTRALATERAL COMMON FEMORAL VEIN AND SAPHENOFEMORAL JUNCTION: Normal phasicity, compression and augmentation. No visualized echogenic material on sierra scale. No de fects on color images. IMPRESSION: NO EVIDENCE DVT OR SVT IN THE RIGHT LEG. TECHNICAL DOCUMENTATION: JOB ID: [id number] [employer]- All Rights Reserved Reading location - IP/workstation name: [email or web address]
[2018-04-03 17:51] VITALS: BP 124/73
--- NOTE | 2018-04-04 00:04 | EKG REPORT ---
SEVERITY:- NORMAL ECG - SINUS RHYTHM : Confirmed by: Mariposa Rose MD 04-Apr-2018 00:03:18
== END 2018-04-03 17:50 | disposition home or self-care (01) ==
LOC: ER 13:36
DX: R55 Syncope and collapse (principal); N39.0 Urinary tract infection, site not specified; I95.9 Hypotension, unspecified; J44.9 Chronic obstructive pulmonary disease, unspecified; Z88.0 Allergy status to penicillin
CPT/HCPCS: 93005; 99285; 96365; 36415; 87040; 82553; 82550; 85025; 80053; 81001; 84484; 93971; 93010; J0696

== ENCOUNTER 2018-04-09 09:00 | Inpatient (IN) | payer MEDICARE ==
[2018-04-09] MEDS ORDERED: CLINDAMYCIN PHOSPHATE INJ 300 MG/2 ML SDV IV ONE (09:28)
[2018-04-09 10:37] LABS: ALANINE AMINOTRANSFERASE 25 U/L (9-52); ALBUMIN 4.1 g/dL (3.5-5.0); ALKALINE PHOSPHATASE 92 U/L (38-126); ANION GAP 12 (5-19); ASPARTATE AMINO TRANSFERASE 37 U/L (14-36); BILIRUBIN,DIRECT 0.4 mg/dL (0.0-0.4); BILIRUBIN,TOTAL 0.4 mg/dL (0.2-1.3); BLOOD UREA NITROGEN 35 mg/dL (7-20); CALCIUM 9.2 mg/dL (8.4-10.2); CARBON DIOXIDE 20 mmol/L (22-30); CHLORIDE 110 mmol/L (98-107); CREATINE KINASE 318 U/L (30-135); GLUCOSE 78 mg/dL (75-110); POTASSIUM 3.7 mmol/L (3.6-5.0); SODIUM 141.8 mmol/L (137-145); TOTAL PROTEIN 7.1 g/dL (6.3-8.2)
--- NOTE | 2018-04-09 10:48 | RADIOLOGY REPORT (SQ) ---
EXAM DESCRIPTION: CHEST SINGLE VIEW COMPLETED DATE/TIME: 04/09/2018 10:18 am REASON FOR STUDY: edema COMPARISON: None. TECHNICAL DOCUMENTATION: JOB ID: [id number] Reading location - IP/workstation name: [email or web address]
--- NOTE | 2018-04-09 10:57 | ER Document Report ---
ED General - General Chief Complaint: Swelling of Lower Extremity Stated Complaint: SWOLLEN FEET Time Seen by Provider: 04/09/18 09:13 TRAVEL OUTSIDE OF THE [place] IN LAST 30 DAYS: No - HPI Notes: 73-year-old female presents to the ER complaining of bilateral lower extremity swelling for the last week. She has been seen by her doctor and had x-rays and a Doppler which were negative. However the last 3 days she is having a lot of redness which is new to her lower extremities. She does not have any fever or chills but stated it is a burning feeling to her legs. Denies chest pain denies shortness of breath. Describes a burning feeling as moderate worse with walking. - Related Data Allergies/Adverse Reactions: amoxicillin Allergy (Verified 04/09/18 10:28) Past Medical History - Social History Smoking Status: Former Smoker Chew tobacco use (# tins/day): No Frequency of alcohol use: None Drug Abuse: None Family History: Reviewed & Not Pertinent Patient has suicidal ideation: No Patient has homicidal ideation: No Pulmonary Medical History: Reports: Hx COPD - possible Chemo related Renal/ Medical History: Denies: Hx Peritoneal Dialysis Psychiatric Medical History: Reports: Hx Bipolar Disorder, Hx Depression - anxiety Past Surgical History: Reports: Hx Breast Surgery - right breast removed, Hx Genitourinary Surgery - bladder, Hx Mastectomy, Hx Orthopedic Surgery Review of Systems - Review of Systems Cardiovascular: denies: Chest pain Gastrointestinal: denies: Abdominal pain, Nausea, Vomiting Skin: Change in color, Rash -: Yes All other systems reviewed and negative Physical Exam - Vital signs Vitals: Temp Pulse Resp BP 97.9 F 73 14 119/59 L 04/09/18 09:07 04/09/18 09:07 04/09/18 09:07 04/09/18 09:07 - Notes Notes: GENERAL_APPEARANCE: well_nourished, alert, cooperative VITALS: reviewed, see vital signs table. HEAD: no_swelling\tenderness on the head. EYES: PERRL, EOMI, conjunctiva_clear. NOSE: no_nasal_discharge. MOUTH: Slight decreased moisture. THROAT: no_tonsilar_inflammation, no_airway_obstruction. no_lymphadenopathy NECK: supple, no_neck_tenderness, (-)thyromegaly. BACK: no_back_tenderness. CHEST_WALL: no_chest_tenderness. LUNGS: no_wheezing, fine crackles, no_rhonchi, (-)accessory muscle use, good air exchange bilateral. HEART: normal_rate, normal_rhythm, normal_S1, normal_S2, (-)S3, (-)S4, no_ murmur, no_rub. ABDOMEN: normal_BS, soft, no_abd_tenderness, (-)guarding, (-)rebound, no_ organomegaly, no_abd_masses. EXTREMITIES: 3+ edema bilateral more so the right than the left. There is no calf tenderness. There is overlying redness and cellulitis bilateral lower extremities more so the right than the left. There are strong dorsalis pedis pulses bilateral. SKIN: warm, dry, good_color, no_rash. MENTAL_STATUS: speech_clear, oriented_X_3, normal_affect, responds_ appropriately to questions. NEURO: Neg Motor or Sensory Deficits on exam, CN 2-12 intact, DTR 2+ symmetric x 4, No cerbellar signs Course - Re-evaluation Re-evalutation: 04/09/18 10:57 73-year-old female presents cellulitis bilateral lower extremities. She has had a recent Doppler which was negative. We will give her a dose of antibiotics here. Will check a white count and make sure she is not septic. 04/09/18 11:59 No lactic acidosis or leukocytosis. Patient was given clindamycin for the cellulitis. She has a component of dependent edema and chronic lymphedema. I do not think she will do well at home on p.o. antibiotics. Daughter states she has been weaker than usual. And because of I believe some baseline dementia she has been not taking her meds as well as she should. Daughter is worried about compliance if she does not police her medication taking. I think the patient would be best benefited by a day or 2 of IV antibiotics to get this under control. It is both bilateral lower extremities. - Vital Signs Vital signs: Temp Pulse Resp BP Pulse Ox 97.9 F 73 18 112/59 L 99 04/09/18 09:07 04/09/18 09:07 04/09/18 11:27 04/09/18 11:27 04/09/18 11:27 - Laboratory Result Diagrams: 04/09/18 10:48 04/09/18 09:57 Laboratory results interpreted by me: 04/09/18 04/09/18 04/09/18 09:57 10:44 10:48 RBC 3.41 L Hgb 10.0 L Hct 29.7 L RDW 14.6 H Eosinophils % 12.6 H Chloride 110 H Carbon Dioxide 20 L BUN 35 H Est GFR (Non-Af Amer) 49 L AST 37 H Creatine Kinase 318 H Urine Blood SMALL H Ur Leukocyte Esterase SMALL H - EKG Interpretation by Me EKG shows normal: Sinus rhythm Rate: Normal Rhythm: NSR Discharge - Discharge Clinical Impression: Cellulitis Qualifiers: Site of cellulitis: extremity Site of cellulitis of extremity: lower extremity Laterality: unspecified laterality Qualified Code(s): L03.119 - Cellulitis of unspecified part of limb Condition: Good Disposition: ADMITTED OBSERVATION Admitting Provider: Hospitalist Referrals: ZEB ZUNIGA MD [Primary Care Provider] - Follow up as needed
[2018-04-09 11:10] LABS: ABSOLUTE EOSINOPHILS # (AUTO) 0.6 10^3/uL (0.0-0.6); ABSOLUTE LYMPHOCYTES (AUTO) 1.3 10^3/uL (0.5-4.7); ABSOLUTE MONOCYTES (AUTO) 0.5 10^3/uL (0.1-1.4); ABSOLUTE NEUT (AUTO) 2.6 10^3/uL (1.7-8.2); BASOPHILS % (AUTO) 0.9 % (0-2); EOSINOPHILS % (AUTO) 12.6 % (0-6); HEMATOCRIT 29.7 % (36.0-47.0); LYMPHOCYTES % (AUTO) 26.1 % (13-45); MEAN CORPUSCULAR HEMOGLOBIN 29.3 pg (27.0-33.4); MEAN CORPUSCULAR HGB CONC 33.6 g/dL (32.0-36.0); MEAN CORPUSCULAR VOLUME 87 fl (80-97); MONOCYTES % (AUTO) 9.5 % (3-13); PLATELET COUNT 183 10^3/uL (150-450); RED BLOOD COUNT 3.41 10^6/uL (3.72-5.28); RED CELL DISTRIBUTION WIDTH 14.6 % (11.5-14.0); SEGMENTED NEUTROPHILS % (AUTO) 50.9 % (42-78); TOTAL CELLS COUNTED % (AUTO) 100 %; WHITE BLOOD COUNT 5.1 10^3/uL (4.0-10.5)
[2018-04-09 11:16] LABS: INTERNATIONAL RATION (INR) 0.99; PROTHROMBIN TIME 13.6 SEC (11.4-15.4)
[2018-04-09 11:24] LABS: APPEARANCE,URINE CLEAR; BILIRUBIN,URINE NEGATIVE (NEGATIVE); COLOR,URINE YELLOW; GLUCOSE, URINE NEGATIVE (NEGATIVE); KETONES,URINE NEGATIVE (NEGATIVE); LEUKOCYTE ESTERASE,URINE SMALL (NEGATIVE); NITRITE,URINE NEGATIVE (NEGATIVE); PROTEIN,URINE NEGATIVE (NEGATIVE); URINE SPECIFIC GRAVITY 1.006; UROBILINOGEN,URINE NEGATIVE mg/dL (<2.0)
[2018-04-09 11:32] LABS: NT PRO BNP 196 pg/mL (<450)
[2018-04-09 11:35] LABS: TROPONIN I < 0.012 ng/mL
[2018-04-09] MEDS ORDERED: ONDANSETRON 4 MG TAB.RAPDIS PO PRN (14:38)
[2018-04-09] MEDS ORDERED: ACETAMINOPHEN 325 MG TABLET PO PRN (14:38)
[2018-04-09] MEDS ORDERED: ALBUTEROL SULFATE HFA (90 MCG/PUFF) 8 GM MDI (1 MDI/ER DISP) IH PRN (14:44)
[2018-04-09] MEDS ORDERED: VANCOMYCIN HCL 0 MG in DEXTROSE 5%-WATER 250 ML IV NR (15:00)
[2018-04-09] MEDS ORDERED: NORMAL SALINE 1000 ML 1,000 ML IV PRN (15:02)
[2018-04-09] MEDS ORDERED: IPRATROPIUM/ALBUTEROL 0.5-2.5 MG/3 ML AMPUL NEB PRN (15:03)
--- NOTE | 2018-04-09 15:07 | PDOC H&P ---
History of Present Illness Admission Date/PCP: 04/09/18 12:16 ZEB ZUNIGA MD Patient complains of: Swelling and pain in lower extremities. Difficulty ambulating History of Present Illness: SRIKANTH COLVIN is a 73 year old female who presented to the emergency room with a several day history of worsening lower extremity swelling and discomfort in her legs. She was recently seen in the emergency room and diagnosed with a urinary tract infection. She has been receiving Macrobid. She has a history of bipolar disorder. She also has a remote history of breast cancer status post mastectomy. She also reportedly has bladder cancer. The patient moved to this area from [place]. She was seen in [place] in regards to her bladder cancer. She began a workup about 6 weeks ago but due to transportation issues she has not been able to go back for any further appointments. The daughter who was present at the bedside would like for her to establish care locally because she is not going to be able to get her to [place] for any appointments. Today the patient states that she continues to have some discomfort in her lower legs. It is making it difficult to ambulate. She has had no fever or shaking chills. No chest pain, shortness of breath or cough. No nausea, vomiting or diarrhea. She admits that her appetite is quite poor. She states she has some abdominal pain. She is having bowel movements. She reports no dysuria, frequency or hematuria Past Medical History Cardiac Medical History: Reports: None Pulmonary Medical History: Reports: Chronic Obstructive Pulmonary Disease (COPD ) - possible Chemo related EENT Medical History: Reports: None Neurological Medical History: Reports: None Endocrine Medical History: Reports: Hypothyroidism Denies: Diabetes Mellitus Type 1, Diabetes Mellitus Type 2 Renal/ Medical History: Reports: None Malignancy Medical History: Reports: Breast Cancer, Other - Reportedly actively has bladder cancer at this time. GI Medical History: Reports: None Musculoskeltal Medical History: Reports: None Skin Medical History: Reports: None Psychiatric Medical History: Reports: Bipolar Disorder, Depression - anxiety Traumatic Medical History: Reports: None Hematology: Reports: None Infectious Medical History: Reports: None Past Surgical History Past Surgical History: Reports: Mastectomy, Orthopedic Surgery Social History Information Source: Patient Lives with: Family Smoking Status: Former Smoker Frequency of Alcohol Use: None Hx Recreational Drug Use: No Drugs: None Hx Prescription Drug Abuse: No Family History Family History: Reviewed & Not Pertinent Parental Family History Reviewed: Yes Children Family History Reviewed: Yes Sibling(s) Family History Reviewed.: Yes Medication/Allergy Home Medications: Albuterol Sulfate [Proair HFA] 2 puff IH Q6HP PRN 04/09/18 Ferrous Sulfate [Feosol 325 mg Tablet] 325 mg PO QPM 04/09/18 Fluticasone Propionate [Flovent HFA 220 mcg MDI] 2 puff IH DAILY 04/09/18 Lamotrigine [Lamictal] 200 mg PO QAM 04/09/18 Levothyroxine Sodium [Synthroid 0.05 mg Tablet] 0.05 mg PO Q6AM 04/09/18 Lorazepam [Ativan 0.5 mg Tablet] 0.5 mg PO Q4HP PRN 04/09/18 Nitrofurantoin Monohyd/M-Cryst [Macrobid 100 mg Capsule] 100 mg PO BID 04/09/18 Quetiapine Fumarate [Seroquel 100 mg Tablet] 150 mg PO DAILY 04/09/18 Simvastatin [Zocor 10 mg Tablet] 10 mg PO QPM 04/09/18 Topiramate [Topamax 100 mg Tablet] 100 mg PO QPM 04/09/18 Venlafaxine HCl ER [Effexor Xr 75 mg Cap.sr] 225 mg PO DAILY 04/09/18 Allergies/Adverse Reactions: amoxicillin Allergy (Verified 04/09/18 10:28) Review of Systems Constitutional: ABSENT: chills, fever(s) Eyes: ABSENT: visual disturbances Ears: ABSENT: hearing changes Nose, Mouth, and Throat: ABSENT: headache(s), sore throat Cardiovascular: ABSENT: chest pain, dyspnea on exertion, edema, orthropnea, palpitations Respiratory: ABSENT: cough, hemoptysis Gastrointestinal: PRESENT: abdominal pain, other - She reports poor appetite. ABSENT: constipation, diarrhea, dysphagia, nausea, vomiting Genitourinary: ABSENT: dysuria, hematuria Musculoskeletal: ABSENT: joint swelling Integumentary: ABSENT: rash, wounds Neurological: PRESENT: weakness - Patient states that it is difficult to ambulate due to the swelling and pain in her legs, other Psychiatric: PRESENT: depression Endocrine: ABSENT: cold intolerance, heat intolerance, polydipsia, polyuria Hematologic/Lymphatic: ABSENT: easy bleeding, easy bruising Allergic/Immunologic: ABSENT: seasonal rhinorrhea Physical Exam Vital Signs: Temp Pulse Resp BP Pulse Ox 97.9 F 73 15 132/61 H 96 04/09/18 09:07 04/09/18 09:07 04/09/18 14:01 04/09/18 14:01 04/09/18 14:01 General appearance: PRESENT: no acute distress, thin Head exam: PRESENT: atraumatic, normocephalic Eye exam: PRESENT: conjunctiva pink, EOMI, PERRLA. ABSENT: scleral icterus Mouth exam: PRESENT: moist, tongue midline Neck exam: ABSENT: carotid bruit, JVD, lymphadenopathy, thyromegaly Respiratory exam: PRESENT: clear to auscultation donita. ABSENT: rales, rhonchi, wheezes Cardiovascular exam: PRESENT: RRR. ABSENT: diastolic murmur, rubs, systolic murmur GI/Abdominal exam: PRESENT: guarding - She is quite tender to palpation with some guarding across the lower abdomen and in the left upper quadrant., hypoactive bowel sounds, soft, tenderness. ABSENT: rebound, rigid Rectal exam: PRESENT: deferred Extremities exam: PRESENT: full ROM. ABSENT: calf tenderness, clubbing, pedal edema Neurological exam: PRESENT: alert, awake, oriented to person, oriented to place , oriented to time, oriented to situation, CN II-XII grossly intact. ABSENT: motor sensory deficit Psychiatric exam: PRESENT: anxious Skin exam: PRESENT: dry, intact, warm, other - She has evidence of cellulitis in her right lower extremity. She has some swelling worse on the right than the left. She has pain in both of her lower extremities upon palpation. There is some mild erythema on the right.. ABSENT: cyanosis, rash Assessment & Plan - Diagnosis (1) Cellulitis Is this a current diagnosis for this admission?: Yes Plan: The patient certainly has some swelling worse on the right than the left. She has erythema on the right and some warmth. She does not have a fever or white blood cell count. This may be some early cellulitis we will treat her empirically with IV vancomycin and Unasyn. She does have a malignancy history and I am going to obtain venous Dopplers of both of her lower extremities for further evaluation. (2) Bladder cancer Is this a current diagnosis for this admission?: Yes Plan: I am going to try to get records from [place]. I am going to consult the oncology service as the family wishes to establish care locally as they cannot drive back and forth to [place]. While we are treating her underlying cellulitis with the if there is anything that they would like to workup. In the hospital. (3) Metabolic acidosis Is this a current diagnosis for this admission?: Yes Plan: This is quite mild and she will have a chemistry panel drawn in the morning. May be due to her underlying infection. I will gently hydrate her today. (4) COPD (chronic obstructive pulmonary disease) Is this a current diagnosis for this admission?: Yes Plan: She will have as needed breathing treatments available as needed. No evidence of acute exacerbation. (5) Anemia Is this a current diagnosis for this admission?: Yes Plan: This is an anemia of chronic disease. She will have a CBC drawn in the morning. (6) Bipolar disorder Is this a current diagnosis for this admission?: Yes Plan: She appears to be stable. She will continue her home regimen of medications. (7) Dementia Is this a current diagnosis for this admission?: Yes Plan: She has very mild dementia at baseline. (8) Recent urinary tract infection Is this a current diagnosis for this admission?: Yes Plan: She was recently seen in the emergency room and diagnosed with a urinary tract infection. She has been receiving Macrobid as an outpatient. Urine culture is pending. She has a few leukocytes in her UA this morning. She should be adequately covered with the Unasyn. (9) Full code status Is this a current diagnosis for this admission?: Yes - Time Time Spent: 50 to 70 Minutes - Inpatient Certification Medical Necessity: Need For IV Fluids - Inpatient hospitalization remains necessary. This patient is receiving parenteral antibiotics for underlying cellulitis. She needs evaluation from oncology in regards to her bladder cancer. She is not walking well due to the swelling and pain in her lower extremity needs evaluation from physical therapy. I suspect that her hospitalization will span greater than 2 midnights., Need for IV Antibiotics, Other
[2018-04-09] MEDS ORDERED: ALBUTEROL SULFATE HFA (90 MCG/PUFF) 200 PUFF/8.5 GM MDI IH PRN (15:15)
[2018-04-09] MEDS ORDERED: VANCOMYCIN HCL 1,500 MG in DEXTROSE 5%-WATER 250 ML IV ONE (16:00)
[2018-04-09] MEDS: FERROUS SULFATE 325 MG TABLET PO SCH (18:26)
[2018-04-09] MEDS: SIMVASTATIN 10 MG TABLET PO SCH (18:26)
[2018-04-09] MEDS: TOPIRAMATE 100 MG TABLET PO SCH (18:46)
[2018-04-09] MEDS ORDERED: NORMAL SALINE 1000 ML 1,000 ML IV ONE (19:00)
[2018-04-09] MEDS ORDERED: DIPHENHYDRAMINE HCL 50 MG/ML VIAL IV ONE (19:00)
--- NOTE | 2018-04-09 19:02 | ER Document Report ---
Doctor's Note Notes: 04/09/18 19:00 Notified by nurses to come and evaluate patient for possible allergic reaction. Patient was just completing her vancomycin IV infusion. Developed a red face. Blood pressure transiently dropped. Bolus normal saline Benadryl ordered. Patient denies any swelling of the lips, tongue or other symptoms at this time. Denies any chest pain. Lungs are clear to auscultation. No stridor. No wheezing. The hospitalist was notified.
[2018-04-09] MEDS ORDERED: LEVOFLOXACIN 750 MG/D5W RTU 750 MG/150 ML RTUPB IV SCH (22:00)
--- NOTE | 2018-04-09 22:03 | EKG REPORT ---
SEVERITY:- NORMAL ECG - SINUS RHYTHM : Confirmed by: Kevin Holbrook 09-Apr-2018 22:02:32
[2018-04-10] MEDS: LORAZEPAM 0.5 MG TABLET PO PRN ×3 (00:46→22:05)
[2018-04-10] MEDS ORDERED: DIPHENHYDRAMINE HCL 50 MG/ML VIAL ONE (02:30)
[2018-04-10] MEDS: LANSOPRAZOLE 30 MG TAB.RAP.DR PO SCH (05:17)
[2018-04-10] MEDS: LEVOTHYROXINE SODIUM 0.05 MG TABLET PO SCH (05:17)
[2018-04-10 06:55] LABS: ABSOLUTE EOSINOPHILS # (AUTO) 0.5 10^3/uL (0.0-0.6); ABSOLUTE LYMPHOCYTES (AUTO) 0.6 10^3/uL (0.5-4.7); ABSOLUTE MONOCYTES (AUTO) 0.3 10^3/uL (0.1-1.4); ABSOLUTE NEUT (AUTO) 2.4 10^3/uL (1.7-8.2); BASOPHILS % (AUTO) 0.7 % (0-2); EOSINOPHILS % (AUTO) 12.5 % (0-6); HEMATOCRIT 29.5 % (36.0-47.0); HEMOGLOBIN 9.8 g/dL (12.0-15.5); MEAN CORPUSCULAR HEMOGLOBIN 29.4 pg (27.0-33.4); MEAN CORPUSCULAR HGB CONC 33.4 g/dL (32.0-36.0); MEAN CORPUSCULAR VOLUME 88 fl (80-97); MONOCYTES % (AUTO) 8.8 % (3-13); PLATELET COUNT 177 10^3/uL (150-450); RED BLOOD COUNT 3.35 10^6/uL (3.72-5.28); RED CELL DISTRIBUTION WIDTH 14.6 % (11.5-14.0); TOTAL CELLS COUNTED % (AUTO) 100 %; WHITE BLOOD COUNT 3.9 10^3/uL (4.0-10.5)
[2018-04-10 07:13] LABS: ALANINE AMINOTRANSFERASE 24 U/L (9-52); ALBUMIN 3.6 g/dL (3.5-5.0); ALKALINE PHOSPHATASE 78 U/L (38-126); ANION GAP 9 (5-19); ASPARTATE AMINO TRANSFERASE 25 U/L (14-36); BILIRUBIN,DIRECT 0.2 mg/dL (0.0-0.4); BILIRUBIN,TOTAL 0.3 mg/dL (0.2-1.3); BLOOD UREA NITROGEN 24 mg/dL (7-20); CALCIUM 8.9 mg/dL (8.4-10.2); CARBON DIOXIDE 22 mmol/L (22-30); CHLORIDE 110 mmol/L (98-107); GLUCOSE 92 mg/dL (75-110); POTASSIUM 4.1 mmol/L (3.6-5.0); SODIUM 140.5 mmol/L (137-145); TOTAL PROTEIN 6.2 g/dL (6.3-8.2)
[2018-04-10] MEDS ORDERED: (PENDING PHARMACY ID) (Lamotrigine [Lamictal] 200 MG) PO SCH (08:00)
--- NOTE | 2018-04-10 09:06 | PDOC CONSULTATION ---
Consultation Consult Date: 04/10/18 Consult reason:: Hematology/Oncology consult was requested for patient with a history of breast cancer and a new diagnosis of bladder cancer. History of Present Illness Admission Date/PCP: 04/09/18 14:38 ZEB ZUNIGA MD History of Present Illness: SRIKANTH COLVIN is a 73 year old female who was admitted for a UTI as well as swelling in her legs. Patient is a poor historian and no family is available at bedside. Therefore, most of the history is per medical records. Patient was recently diagnosed with bladder cancer and has been seen in [place] for this. However, she is hoping to transfer care locally, as she has not been able to travel as much to [place]. Patient asks if I can come to her home, as it is even difficult for her to get from her home to the office. I understand that these records have been requested, however, I am unsure how much work-up has been done, or what stage the cancer is in. Patient states that she had breast cancer about 8 years ago. This was a surprise and she remembers that she had surgery, but is unsure of other treatments. 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 She denies any pain. She states that both legs have been swollen, but R>L. Otherwise, she has no complaints. Past Medical History Cardiac Medical History: Reports: None Pulmonary Medical History: Reports: Chronic Obstructive Pulmonary Disease (COPD ) - possible Chemo related EENT Medical History: Reports: None Neurological Medical History: Reports: None Endocrine Medical History: Reports: Hypothyroidism Denies: Diabetes Mellitus Type 1, Diabetes Mellitus Type 2 Renal/ Medical History: Reports: None Malignancy Medical History: Reports: Breast Cancer, Other - Reportedly actively has bladder cancer at this time. GI Medical History: Reports: None Musculoskeltal Medical History: Reports: None Skin Medical History: Reports: None Psychiatric Medical History: Reports: Bipolar Disorder, Depression Traumatic Medical History: Reports: None Hematology: Reports: None Infectious Medical History: Reports: None Past Surgical History Past Surgical History: Reports: Mastectomy, Orthopedic Surgery Social History Lives with: Family Smoking Status: Former Smoker Frequency of Alcohol Use: None Hx Recreational Drug Use: No Drugs: None Hx Prescription Drug Abuse: No - Advance Directive Resuscitation Status: Full Code Family History Family History: Reviewed & Not Pertinent Family History: Patient does not remember her family history and was unable to answer these questions. Parental Family History Reviewed: No Children Family History Reviewed: No Sibling(s) Family History Reviewed.: No Medication/Allergy Home Medications: Albuterol Sulfate [Proair HFA] 2 puff IH Q6HP PRN 04/09/18 Ferrous Sulfate [Feosol 325 mg Tablet] 325 mg PO QPM 04/09/18 Fluticasone Propionate [Flovent HFA 220 mcg MDI] 2 puff IH DAILY 04/09/18 Lamotrigine [Lamictal] 200 mg PO QAM 04/09/18 Levothyroxine Sodium [Synthroid 0.05 mg Tablet] 0.05 mg PO Q6AM 04/09/18 Lorazepam [Ativan 0.5 mg Tablet] 0.5 mg PO Q4HP PRN 04/09/18 Nitrofurantoin Monohyd/M-Cryst [Macrobid 100 mg Capsule] 100 mg PO BID 04/09/18 Quetiapine Fumarate [Seroquel 100 mg Tablet] 150 mg PO DAILY 04/09/18 Simvastatin [Zocor 10 mg Tablet] 10 mg PO QPM 04/09/18 Topiramate [Topamax 100 mg Tablet] 100 mg PO QPM 04/09/18 Venlafaxine HCl ER [Effexor Xr 75 mg Cap.sr] 225 mg PO DAILY 04/09/18 Allergies/Adverse Reactions: amoxicillin Allergy (Verified 04/09/18 10:28) vancomycin Adverse Reaction (Mild, Verified 04/09/18 19:05) Review of Systems ROS unobtainable: Due to mental status Review of Systems: She denies pain. She reports the leg swelling, as per HPI, otherwise, declines most other complaints. Physical Exam Vital Signs: Temp Pulse Resp BP Pulse Ox 98.3 F 77 22 H 125/55 L 100 04/10/18 08:29 04/10/18 08:29 04/10/18 08:29 04/10/18 08:29 04/10/18 08:29 Intake & Output 04/09/18 04/10/18 04/11/18 06:59 06:59 06:59 Intake Total 1432 Balance 1432 General appearance: PRESENT: no acute distress, well-developed, well-nourished Exam: 73 year old female, lying in bed. Head exam: PRESENT: atraumatic Eye exam: PRESENT: PERRLA Mouth exam: PRESENT: tongue midline Neck exam: ABSENT: lymphadenopathy, tenderness Respiratory exam: PRESENT: clear to auscultation donita, unlabored Cardiovascular exam: PRESENT: RRR Pulses: PRESENT: normal dorsalis pedis pul Vascular exam: ABSENT: pallor GI/Abdominal exam: PRESENT: soft. ABSENT: tenderness Extremities exam: PRESENT: +1 edema - RLE only. Musculoskeletal exam: PRESENT: normal inspection Neurological exam: PRESENT: alert, awake, other - talkative, but does not always make sense. Psychiatric exam: PRESENT: appropriate affect Focused psych exam: ABSENT: pressured speech, psychomotor agitation Skin exam: PRESENT: normal color. ABSENT: pallor Results Laboratory Results: 04/10/18 06:27 04/10/18 06:27 04/10/18 08 06:27 06:27 WBC 3.9 L RBC 3.35 L Hgb 9.8 L Hct 29.5 L MCV 88 MCH 29.4 MCHC 33.4 RDW 14.6 H Plt Count 177 Seg Neutrophils % 62.0 Lymphocytes % 16.0 Monocytes % 8.8 Eosinophils % 12.5 H Basophils % 0.7 Absolute Neutrophils 2.4 Absolute Lymphocytes 0.6 Absolute Monocytes 0.3 Absolute Eosinophils 0.5 Absolute Basophils 0.0 Sodium 140.5 Potassium 4.1 Chloride 110 H Carbon Dioxide 22 Anion Gap 9 BUN 24 H Creatinine 0.97 Est GFR ( Amer) > 60 Est GFR (Non-Af Amer) 56 L Glucose 92 Calcium 8.9 Phosphorus 3.0 Magnesium 2.0 Total Bilirubin 0.3 AST 25 ALT 24 Alkaline Phosphatase 78 Total Protein 6.2 L Albumin 3.6 Status: Image reviewed by me Assessment & Plan - Diagnosis (1) Bladder cancer Qualifiers: Bladder location: unspecified site Qualified Code(s): C67.9 - Malignant neoplasm of bladder, unspecified Is this a current diagnosis for this admission?: Yes Plan: Records have been requested from [place]. I am hopeful that these will be available soon. I will try to arrange a time to speak with patient's family as well. Once further information is available, I will be happy to make recommendations as to further testing or treatment. (2) Cellulitis Qualifiers: Site of cellulitis: extremity Site of cellulitis of extremity: lower extremity Laterality: unspecified laterality Qualified Code(s): L03.119 - Cellulitis of unspecified part of limb Plan: Currently on antibiotics. Consider US/Doppler if not improvement, as she is at high risk of DVT with the history of cancer. (3) Dementia Is this a current diagnosis for this admission?: Yes Plan: Patient is pleasant but has better long-term memory than short-term memory. (4) Anemia Qualifiers: Anemia type: unspecified type Qualified Code(s): D64.9 - Anemia, unspecified Is this a current diagnosis for this admission?: Yes Plan: Currently mild. Again, will monitor and see what work-up has been performed thus far. - Plan Summary Plan Summary: Her care was discussed with Hospitalist/attending physician. I will be happy to continue to follow her while in house, as well as make arrangements to see her as outpatient. Thank you for this consultation. Please feel free to call me with any concerns.
[2018-04-10] MEDS: VENLAFAXINE HCL 75 MG CAP.SR.24H PO SCH (10:24)
[2018-04-10] MEDS: LAMOTRIGINE 100 MG TABLET PO SCH (10:25)
[2018-04-10] MEDS: QUETIAPINE FUMARATE 100 MG TABLET PO SCH (10:26)
[2018-04-10] MEDS: ENOXAPARIN SODIUM INJ 40 MG/0.4 ML DISP.SYRIN SUBCUT SCH (10:27)
[2018-04-10] MEDS: DOCUSATE SODIUM 100 MG CAPSULE PO SCH (11:31)
[2018-04-10 12:56] LABS: ABSOLUTE RETICS # 0.054 10^6/uL (0.028-0.122); RETICULOCYTE COUNT (AUTO) 1.58 % (0.66-2.85)
[2018-04-10 13:17] LABS: IRON(TIBC) 29.8 ug/dL (37-170)
--- NOTE | 2018-04-10 14:22 | PDOC PROGRESS REPORT ---
Subjective Progress Note for:: 04/10/18 Subjective:: legs less sore Reason For Visit: CELLULITIS Physical Exam Vital Signs: Temp Pulse Resp BP Pulse Ox 97.9 F 71 20 121/69 100 04/10/18 11:28 04/10/18 11:28 04/10/18 11:28 04/10/18 11:28 04/10/18 11:28 Intake & Output 04/09/18 04/10/18 04/11/18 07:59 07:59 07:59 Intake Total 1432 Balance 1432 General appearance: PRESENT: no acute distress Respiratory exam: PRESENT: rales - R base Cardiovascular exam: ABSENT: diastolic murmur, irregular rhythm, systolic murmur GI/Abdominal exam: ABSENT: mass, organolmegaly, tenderness Extremities exam: PRESENT: pedal edema - R1+ Neurological exam: ABSENT: oriented to time, oriented to situation Psychiatric exam: PRESENT: appropriate affect Skin exam: ABSENT: erythema Results Laboratory Results: 04/10/18 06:27 04/10/18 06:27 04/10/18 04/10/18 04/10/18 06:27 06:27 12:04 WBC 3.9 L RBC 3.35 L Hgb 9.8 L Hct 29.5 L MCV 88 MCH 29.4 MCHC 33.4 RDW 14.6 H Plt Count 177 Seg Neutrophils % 62.0 Lymphocytes % 16.0 Monocytes % 8.8 Eosinophils % 12.5 H Basophils % 0.7 Absolute Neutrophils 2.4 Absolute Lymphocytes 0.6 Absolute Monocytes 0.3 Absolute Eosinophils 0.5 Absolute Basophils 0.0 Retic Count (auto) 1.58 Absolute Retic 0.054 Sodium 140.5 Potassium 4.1 Chloride 110 H Carbon Dioxide 22 Anion Gap 9 BUN 24 H Creatinine 0.97 Est GFR ( Amer) > 60 Est GFR (Non-Af Amer) 56 L Glucose 92 Calcium 8.9 Phosphorus 3.0 Magnesium 2.0 Total Bilirubin 0.3 AST 25 ALT 24 Alkaline Phosphatase 78 Total Protein 6.2 L Albumin 3.6 Assessment & Plan - Diagnosis (1) Cellulitis of right lower extremity Is this a current diagnosis for this admission?: Yes Plan: improved. Stop vanc. (2) Malignant neoplasm of overlapping sites of bladder Is this a current diagnosis for this admission?: Yes Plan: onc running down records which are probably in [place]. I saw once in january shortly after move. (3) Alzheimer's disease with late onset Qualifiers: Dementia behavioral disturbance: without behavioral disturbance Qualified Code(s): G30.1 - Alzheimer's disease with late onset; F02.80 - Dementia in other diseases classified elsewhere without behavioral disturbance; F02.80 - Dementia in other diseases classified elsewhere without behavioral disturbance; F02.80 - Dementia in other diseases classified elsewhere without behavioral disturbance Is this a current diagnosis for this admission?: Yes Plan: noncompliant with multiple appointments. Says no transportation. (4) Generalized idiopathic epilepsy and epileptic syndromes, without status epilepticus, not intractable Is this a current diagnosis for this admission?: Yes Plan: continue lamotragine topirimate (5) Mild intermittent asthma, uncomplicated Is this a current diagnosis for this admission?: Yes (6) Acquired atrophy of thyroid Is this a current diagnosis for this admission?: Yes - Inpatient Certification Based on my medical assessment, after consideration of the patient's comorbidities, presenting symptoms, or acuity I expect that the services needed warrant INPATIENT care.: Yes I certify that my determination is in accordance with my understanding of Medicare's requirements for reasonable and necessary INPATIENT services [42 CFR 412.3e].: Yes Medical Necessity: Failure to Improve With Outpatient Therapy, Significant Comorbidiites Make Outpatient Treatment Too Risky, Need Close Monitoring Due to Risk of Patient Decompensation, Need for IV Antibiotics, Risk of Complication if Not Cared For in Hospital, Risk of Diagnosis Which Will Require Inpatient Eval/Care/Monitoring
[2018-04-10] MEDS ORDERED: ONDANSETRON 4 MG TAB.RAPDIS PO PRN (15:30)
[2018-04-10] MEDS ORDERED: VANCOMYCIN HCL 750 MG in DEXTROSE 5%-WATER 250 ML IV SCH (18:00)
[2018-04-10] MEDS: SIMVASTATIN 10 MG TABLET PO SCH (18:05)
[2018-04-10] MEDS: TOPIRAMATE 100 MG TABLET PO SCH (18:05)
[2018-04-10] MEDS: FERROUS SULFATE 325 MG TABLET PO SCH (18:05)
--- NOTE | 2018-04-10 18:54 | Progress Note ---
Provider Note Provider Note: ID Consult Note Asked to review patient's chart by Pharmacy. Pt not seen or examined. Pt is a 73 year old woman admitted with bilateral lower extremity swelling and redness and a burning pain involving her legs per documentation from ED provider, onset 3 days prior to admission on 04/09/18, with no fever or chills subjectively. Exam was notable for 3+ edema b/l, RLE > LLE, without calf tenderness and overlying redness b/l R>L. Objectively, pt has not had fever. No leukocytosis. Empirically Levaquin and vancomycin were started. Pt has been reported to have had improvement. Pt's chart also has listed an allergy to amoxicillin that is unspecified. Pt has been prescribed cephalosporins Vantin and Rocephin this year, which were tolerated without any noted adverse event. Pt has also previously been prescribed Keflex to take on an outpatient basis this year. Impression/Recommendations Bilateral stasis dermatitis Less likely nonpurulent cellulitis of the R lower extremity - Agree with discontinuation of IV vancomycin. MRSA is an unusual cause of typical cellulitis, and usually anti-MRSA active drugs are not needed in treatment of nonpurulent cellulitis. If there is strong suspicion that the patient has cellulitis superimposed on stasis dermatitis rather than stasis dermatitis alone, IV cefazolin with plan for PO switch to Keflex on discharge should be appropriate. The broader spectrum of activity of Levaquin is not needed in absence of specific circumstances/exposures (e.g. dog or cat bite, neutropenia in hematological malignancy, water immersion injury), broader spectrum antibiotic therapy as afforded by Levaquin is usually not indicated. Nature of this patient's amoxicillin allergy is not specified. The vast majority of patients who report PCN allergy are not truly allergic. Clarifying the nature of her reported allergy to amoxicillin would be useful. Recommend confirming that the patient has been able to tolerate Keflex in the past without hives, anaphylaxis or other severe reaction that would preclude use. Duration of therapy for cellulitis should be individualized, can be as short as 5 days or longer if slow response. - However, based on chart review, I suspect she is likely suffering from stasis dermatitis rather than cellulitis, but ultimately there are limitations to assessment of this nature remotely. Stasis dermatitis can be difficult to distinguish from cellulitis, but cellulitis is unlikely to be present bilaterally and in absence of any other sx/signs of infection. Pt has no subjective subjective fever/chills or objective fever or leukocytosis or documented regional lymphadenopathy. If she has improved extremely rapidly with attempts to reduce dependent edema, this is also supportive for stasis dermatitis being the problem. If the impression of the primary service is congruent with the impression I have gathered from reviewing her chart, stopping antibiotic therapy and continued management to optimize volume status and reduce edema (elevate legs, external compression hose to decrease fluid volume and skin stretching in dependent areas) is indicated. Patrice Soriano MD [facility] Infectious Diseases pager [phone]
[2018-04-10] MEDS ORDERED: CEFTRIAXONE SODIUM 1,000 MG in DEXTROSE 5%-WATER 50 ML IV SCH (22:00)
[2018-04-11] MEDS: LEVOTHYROXINE SODIUM 0.05 MG TABLET PO SCH (05:55)
[2018-04-11] MEDS: LANSOPRAZOLE 30 MG TAB.RAP.DR PO SCH (05:56)
[2018-04-11 06:28] LABS: ABSOLUTE EOSINOPHILS # (AUTO) 0.7 10^3/uL (0.0-0.6); ABSOLUTE LYMPHOCYTES (AUTO) 1.3 10^3/uL (0.5-4.7); ABSOLUTE MONOCYTES (AUTO) 0.6 10^3/uL (0.1-1.4); ABSOLUTE NEUT (AUTO) 2.7 10^3/uL (1.7-8.2); BASOPHILS % (AUTO) 0.7 % (0-2); EOSINOPHILS % (AUTO) 13.9 % (0-6); HEMATOCRIT 30.2 % (36.0-47.0); HEMOGLOBIN 10.1 g/dL (12.0-15.5); LYMPHOCYTES % (AUTO) 24.8 % (13-45); MEAN CORPUSCULAR HEMOGLOBIN 29.3 pg (27.0-33.4); MEAN CORPUSCULAR HGB CONC 33.5 g/dL (32.0-36.0); MEAN CORPUSCULAR VOLUME 88 fl (80-97); MONOCYTES % (AUTO) 11.1 % (3-13); PLATELET COUNT 207 10^3/uL (150-450); RED BLOOD COUNT 3.45 10^6/uL (3.72-5.28); RED CELL DISTRIBUTION WIDTH 14.7 % (11.5-14.0); SEGMENTED NEUTROPHILS % (AUTO) 49.5 % (42-78); TOTAL CELLS COUNTED % (AUTO) 100 %; WHITE BLOOD COUNT 5.4 10^3/uL (4.0-10.5)
[2018-04-11 06:44] LABS: ALANINE AMINOTRANSFERASE 22 U/L (9-52); ALBUMIN 4.1 g/dL (3.5-5.0); ALKALINE PHOSPHATASE 79 U/L (38-126); ANION GAP 14 (5-19); ASPARTATE AMINO TRANSFERASE 25 U/L (14-36); BILIRUBIN,DIRECT 0.2 mg/dL (0.0-0.4); BILIRUBIN,TOTAL 0.2 mg/dL (0.2-1.3); BLOOD UREA NITROGEN 28 mg/dL (7-20); CALCIUM 9.6 mg/dL (8.4-10.2); CARBON DIOXIDE 18 mmol/L (22-30); CHLORIDE 108 mmol/L (98-107); GLUCOSE 131 mg/dL (75-110); PHOSPHORUS 3.6 mg/dL (2.5-4.5); POTASSIUM 4.3 mmol/L (3.6-5.0); SODIUM 139.5 mmol/L (137-145); TOTAL PROTEIN 6.9 g/dL (6.3-8.2)
--- NOTE | 2018-04-11 08:15 | PDOC PROGRESS REPORT ---
Subjective Progress Note for:: 04/11/18 Subjective:: Patient is pleasantly confused this morning. She is complaining about her family and wanting to go home. She states that the nurses are wonderful. She states that her legs are still swollen. ROS: She denies any constipation or diarrhea. No dyspnea. Able to ambulate without difficulty. Reason For Visit: CELLULITIS Physical Exam Vital Signs: Temp Pulse Resp BP Pulse Ox 97.9 F 70 18 120/68 98 04/11/18 04:00 04/11/18 04:00 04/11/18 04:00 04/11/18 04:00 04/11/18 04:00 Intake & Output 04/10/18 04/11/18 04/12/18 06:59 06:59 06:59 Intake Total 1432 350 Balance 1432 350 Weight 59.3 kg General appearance: PRESENT: no acute distress, thin Respiratory exam: PRESENT: clear to auscultation donita, unlabored Cardiovascular exam: PRESENT: RRR GI/Abdominal exam: PRESENT: soft. ABSENT: tenderness Extremities exam: PRESENT: +1 edema - RLE. Neurological exam: PRESENT: alert, awake Psychiatric exam: PRESENT: appropriate affect Skin exam: PRESENT: normal color Additional comments: Right mastectomy. Results Laboratory Results: 04/11/18 06:15 04/11/18 06:15 04/10/18 04/10/18 04/11/18 12:04 12:04 06:15 WBC 5.4 RBC 3.45 L Hgb 10.1 L Hct 30.2 L MCV 88 MCH 29.3 MCHC 33.5 RDW 14.7 H Plt Count 207 Seg Neutrophils % 49.5 Lymphocytes % 24.8 Monocytes % 11.1 Eosinophils % 13.9 H Basophils % 0.7 Absolute Neutrophils 2.7 Absolute Lymphocytes 1.3 Absolute Monocytes 0.6 Absolute Eosinophils 0.7 H Absolute Basophils 0.0 Retic Count (auto) 1.58 Absolute Retic 0.054 Sodium Potassium Chloride Carbon Dioxide Anion Gap BUN Creatinine Est GFR ( Amer) Est GFR (Non-Af Amer) Glucose Calcium Phosphorus Magnesium Iron 29.8 L TIBC 290 % Saturation 10 Ferritin 24.80 Total Bilirubin AST ALT Alkaline Phosphatase Total Protein Albumin Vitamin B12 624.0 Folate 14.60 04/11/18 06:15 WBC RBC Hgb Hct MCV MCH MCHC RDW Plt Count Seg Neutrophils % Lymphocytes % Monocytes % Eosinophils % Basophils % Absolute Neutrophils Absolute Lymphocytes Absolute Monocytes Absolute Eosinophils Absolute Basophils Retic Count (auto) Absolute Retic Sodium 139.5 Potassium 4.3 Chloride 108 H Carbon Dioxide 18 L Anion Gap 14 BUN 28 H Creatinine 1.06 Est GFR ( Amer) > 60 Est GFR (Non-Af Amer) 51 L Glucose 131 H Calcium 9.6 Phosphorus 3.6 Magnesium 2.1 Iron TIBC % Saturation Ferritin Total Bilirubin 0.2 AST 25 ALT 22 Alkaline Phosphatase 79 Total Protein 6.9 Albumin 4.1 Vitamin B12 Folate Assessment & Plan - Diagnosis (1) Bladder cancer Qualifiers: Bladder location: unspecified site Qualified Code(s): C67.9 - Malignant neoplasm of bladder, unspecified Is this a current diagnosis for this admission?: Yes Plan: I have reviewed records from [facility]. 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 Most recent notes from 12/04/2016 indicated that patient had several admissions for UTIs, and TURBT was to be scheduled. I also have records from Dr. John Denise at [facility] with pathology dated 02/12/2018 showing Invasive Urothelial carcinoma, High grade, but no muscularis was identified in the specimen. I have left a message with patient's daughter, Mary at [phone]. I would be happy to discuss further plans for treatment with the family, once available. (2) Cellulitis Qualifiers: Site of cellulitis: extremity Site of cellulitis of extremity: lower extremity Laterality: unspecified laterality Qualified Code(s): L03.119 - Cellulitis of unspecified part of limb Is this a current diagnosis for this admission?: Yes Plan: No erythema today, swelling remains. US/Doppler has been ordered. Continue Antibiotics. (3) Dementia Is this a current diagnosis for this admission?: Yes Plan: Patient remains pleasantly demented, but I do not believe she is able to make all of her complex medical decisions without family's input. (4) Anemia Qualifiers: Anemia type: unspecified type Qualified Code(s): D64.9 - Anemia, unspecified Is this a current diagnosis for this admission?: Yes Plan: Currently stable. No evidence of bleeding. - Plan Summary Plan Summary: I will be happy to follow her as an outpatient and will be available over the weekend if needed. Please call with any concerns.
[2018-04-11] MEDS: LAMOTRIGINE 100 MG TABLET PO SCH (08:46)
--- NOTE | 2018-04-11 08:50 | PDOC DISCHARGE SUMMARY ---
General - Admit/Disc Date/PCP Admission Date/Primary Care Provider: 04/09/18 14:38 ZEB ZUNIGA MD Discharge Date: 04/11/18 - Discharge Diagnosis (1) Cellulitis of right lower extremity Is this a current diagnosis for this admission?: Yes (2) Malignant neoplasm of overlapping sites of bladder Is this a current diagnosis for this admission?: Yes (3) Alzheimer's disease with late onset Is this a current diagnosis for this admission?: Yes (4) Generalized idiopathic epilepsy and epileptic syndromes, without status epilepticus, not intractable Is this a current diagnosis for this admission?: Yes (5) Mild intermittent asthma, uncomplicated Is this a current diagnosis for this admission?: Yes (6) Acquired atrophy of thyroid Is this a current diagnosis for this admission?: Yes - Additional Information Resuscitation Status: Full Code Discharge Diet: Regular Discharge Activity: Activity As Tolerated Prescriptions: Cefdinir [Omnicef 300 mg Capsule] 1 cap PO BID #8 capsule Home Medications: Albuterol Sulfate [Proair HFA] 2 puff IH Q6HP PRN 04/09/18 Ferrous Sulfate [Feosol 325 mg Tablet] 325 mg PO QPM 04/09/18 Fluticasone Propionate [Flovent HFA 220 mcg MDI] 2 puff IH DAILY 04/09/18 Lamotrigine [Lamictal] 200 mg PO QAM 04/09/18 Levothyroxine Sodium [Synthroid 0.05 mg Tablet] 0.05 mg PO Q6AM 04/09/18 Lorazepam [Ativan 0.5 mg Tablet] 0.5 mg PO Q4HP PRN 04/09/18 Nitrofurantoin Monohyd/M-Cryst [Macrobid 100 mg Capsule] 100 mg PO BID 04/09/18 Quetiapine Fumarate [Seroquel 100 mg Tablet] 150 mg PO DAILY 04/09/18 Simvastatin [Zocor 10 mg Tablet] 10 mg PO QPM 04/09/18 Topiramate [Topamax 100 mg Tablet] 100 mg PO QPM 04/09/18 Venlafaxine HCl ER [Effexor Xr 75 mg Cap.sr] 225 mg PO DAILY 04/09/18 Cefdinir [Omnicef 300 mg Capsule] 1 cap PO BID #8 capsule 04/11/18 History of Present Illness Patient complains of: pain redness in legs History of Present Illness: SRIKANTH COLVIN is a 73 year old female with several days pain and redness in swollen legs. Hospital Course Hospital Course: Redness was gone by d2 levaquin & vanc. ID suggested switch to ceftriaxone. R edema 1+. Legs were tender to light touch. Doppler was ordered. MARIANO hose were placed. Physical Exam Vital Signs: Temp Pulse Resp BP Pulse Ox 97.9 F 70 18 120/68 98 04/11/18 04:00 04/11/18 04:00 04/11/18 04:00 04/11/18 04:00 04/11/18 04:00 Intake & Output 04/09/18 04/10/18 04/11/18 07:59 07:59 07:59 Intake Total 1432 350 Balance 1432 350 Weight 130 lb 11.746 oz General appearance: PRESENT: no acute distress Respiratory exam: PRESENT: clear to auscultation donita Cardiovascular exam: ABSENT: diastolic murmur, irregular rhythm, systolic murmur GI/Abdominal exam: ABSENT: mass, organolmegaly, tenderness Extremities exam: PRESENT: pedal edema - R trace Neurological exam: ABSENT: oriented to situation Psychiatric exam: PRESENT: anxious - worried about transportation and money Results Laboratory Results: 04/10/18 06:27 04/10/18 06:27 Labs- Last Values WBC 3.9 10^3/uL (4.0-10.5) L 04/10/18 06:27 RBC 3.35 10^6/uL (3.72-5.28) L 04/10/18 06:27 Hgb 9.8 g/dL (12.0-15.5) L 04/10/18 06:27 Hct 29.5 % (36.0-47.0) L 04/10/18 06:27 MCV 88 fl (80-97) 04/10/18 06:27 MCH 29.4 pg (27.0-33.4) 04/10/18 06:27 MCHC 33.4 g/dL (32.0-36.0) 04/10/18 06:27 RDW 14.6 % (11.5-14.0) H 04/10/18 06:27 Plt Count 177 10^3/uL (150-450) 04/10/18 06:27 Seg Neutrophils % 62.0 % (42-78) 04/10/18 06:27 Lymphocytes % 16.0 % (13-45) 04/10/18 06:27 Monocytes % 8.8 % (3-13) 04/10/18 06:27 Eosinophils % 12.5 % (0-6) H 04/10/18 06:27 Basophils % 0.7 % (0-2) 04/10/18 06:27 Absolute Neutrophils 2.4 10^3/uL (1.7-8.2) 04/10/18 06:27 Absolute Lymphocytes 0.6 10^3/uL (0.5-4.7) 04/10/18 06:27 Absolute Monocytes 0.3 10^3/uL (0.1-1.4) 04/10/18 06:27 Absolute Eosinophils 0.5 10^3/uL (0.0-0.6) 04/10/18 06: Absolute Basophils 0.0 10^3/uL (0.0-0.2) 04/10/18 06:27 Platelet Estimate Cancelled 04/09/18 09:57 Retic Count (auto) 1.58 % (0.66-2.85) 04/10/18 12:04 Absolute Retic 0.054 10^6/uL (0.028-0.122) 04/10/18 12:04 PT 13.6 SEC (11.4-15.4) 04/09/18 10:48 INR 0.99 04/09/18 10:48 Sodium 140.5 mmol/L (137-145) 04/10/18 06:27 Potassium 4.1 mmol/L (3.6-5.0) 04/10/18 06:27 Chloride 110 mmol/L (98-107) H 04/10/18 06:27 Carbon Dioxide 22 mmol/L (22-30) 04/10/18 06:27 Anion Gap 9 (5-19) 04/10/18 06:27 BUN 24 mg/dL (7-20) H 04/10/18 06:27 Creatinine 0.97 mg/dL (0.52-1.25) 04/10/18 06:27 Est GFR ( Amer) > 60 (>60) 04/10/18 06:27 Est GFR (Non-Af Amer) 56 (>60) L 04/10/18 06:27 Glucose 92 mg/dL (75-110) 04/10/18 06:27 Lactic Acid 1.0 mmol/L (0.7-2.1) 04/09/18 10:48 Calcium 8.9 mg/dL (8.4-10.2) 04/10/18 06:27 Phosphorus 3.0 mg/dL (2.5-4.5) 04/10/18 06:27 Magnesium 2.0 mg/dL (1.6-2.3) 04/10/18 06:27 Iron 29.8 ug/dL (37-170) L 04/10/18 12:04 TIBC 290 ug/dL (250-450) 04/10/18 12:04 % Saturation 10 % 04/10/18 12:04 Ferritin 24.80 ng/mL (11.1-264.0) 04/10/18 12:04 Total Bilirubin 0.3 mg/dL (0.2-1.3) 04/10/18 06:27 Direct Bilirubin 0.2 mg/dL (0.0-0.4) 04/10/18 06:27 Neonat Total Bilirubin Not Reportable 04/10/18 06:27 Neonat Direct Bilirubin Not Reportable 04/10/18 06:27 Neonat Indirect Bili Not Reportable 04/10/18 06:27 AST 25 U/L (14-36) 04/10/18 06:27 ALT 24 U/L (9-52) 04/10/18 06:27 Alkaline Phosphatase 78 U/L (38-126) 04/10/18 06:27 Creatine Kinase 318 U/L (30-135) H 04/09/18 09:57 Troponin I < 0.012 ng/mL 04/09/18 10:48 NT-Pro-B Natriuret Pep 196 pg/mL (<450) 04/09/18 10:48 Total Protein 6.2 g/dL (6.3-8.2) L 04/10/18 06:27 Albumin 3.6 g/dL (3.5-5.0) 04/10/18 06:27 Vitamin B12 624.0 pg/mL (239-931) 04/10/18 12:04 Folate 14.60 ng/mL (>2.76) 04/10/18 12:04 Urine Color YELLOW 04/09/18 10:44 Urine Appearance CLEAR 04/09/18 10:44 Urine pH 6.0 (5.0-9.0) 04/09/18 10:44 Ur Specific [place] 1.006 04/09/18 10:44 Urine Protein NEGATIVE mg/dL (NEGATIVE) 04/09/18 10:44 Urine Glucose (UA) NEGATIVE mg/dL (NEGATIVE) 04/09/18 10:44 Urine Ketones NEGATIVE mg/dL (NEGATIVE) 04/09/18 10:44 Urine Blood SMALL (NEGATIVE) H 04/09/18 10:44 Urine Nitrite NEGATIVE (NEGATIVE) 04/09/18 10:44 Urine Bilirubin NEGATIVE (NEGATIVE) 04/09/18 10:44 Urine Urobilinogen NEGATIVE mg/dL (<2.0) 04/09/18 10:44 Ur Leukocyte Esterase SMALL (NEGATIVE) H 04/09/18 10:44 Urine WBC (Auto) 12 /HPF 04/09/18 10:44 Urine RBC (Auto) 5 /HPF 04/09/18 10:44 Squamous Epi Cells Auto 1 /HPF 04/09/18 10:44 Urine Ascorbic Acid NEGATIVE (NEGATIVE) 04/09/18 10:44 Slides for Path Review Cancelled 04/09/18 09:57 Qualifiers - * PATIENT BEING DISCHARGED WITH ANY OF THE FOLLOWING DIAGNOSIS: No Plan Discharge Plan: home. Follow up with Dr Loya.
[2018-04-11] MEDS: VENLAFAXINE HCL 75 MG CAP.SR.24H PO SCH (09:23)
[2018-04-11] MEDS: QUETIAPINE FUMARATE 100 MG TABLET PO SCH (09:24)
[2018-04-11] MEDS: ENOXAPARIN SODIUM INJ 40 MG/0.4 ML DISP.SYRIN SUBCUT SCH (09:25)
[2018-04-11] MEDS: DOCUSATE SODIUM 100 MG CAPSULE PO SCH (09:26)
[2018-04-11] MEDS ORDERED: FLUTICASONE PROPIONATE HFA 110 MCG/PUFF 12 GM MDI IH SCH (10:00)
[2018-04-11] MEDS ORDERED: CEFTRIAXONE 1 GM/D5W RTU 1 GM/50 ML RTUPB IV SCH (10:00)
[2018-04-11 12:06] VITALS: BP 113/57
--- NOTE | 2018-04-11 16:12 | XCELERA REPORT ---
[address] [address] Lower Extremity Venous Evaluation Name: SRIKANTH COLVIN Age: 73 yrs Gender: Female : 1945 Patient Status: Inpatient Patient Location: [address] [place] [address] Study Date: 04/11/2018 09:37 AM Procedure: Color flow and duplex imaging bilaterally of the veins of the lower extremities as well as the Common Femoral veins. Reason For Study: rule out dvt, swelling pain, hx of cancer Ordering Physician: SHAR RODRIGUEZ Performed By: David Pérez Right Sided Venous Evaluation Normal vessel filling wall to wall, compression and augmentation as well as Colour flow down to the infrageniculate veins. Left Sided Venous Evaluation Normal vessel filling wall to wall, compression and augmentation as well as Colour flow down to the infrageniculate veins. Interpretation Summary No duplex evidence of DVT or obstruction in the bilateral lower extremities. : SHAR RODRIGUEZ > Josiah Schilling
== END 2018-04-11 12:47 | disposition home or self-care (01) | DRG 603 ==
LOC: ER 09:00 → EH 12:16 → OBSVTOIN 14:38 → 2S 20:15
PROVIDERS: ADMIT Internal Medicine; ATTEND Internal Medicine
DX: L03.116 Cellulitis of left lower limb (principal); E87.2 Acidosis; L03.115 Cellulitis of right lower limb; C67.9 Malignant neoplasm of bladder, unspecified; E03.9 Hypothyroidism, unspecified; M79.89 Other specified soft tissue disorders; J44.9 Chronic obstructive pulmonary disease, unspecified; D64.9 Anemia, unspecified; I95.2 Hypotension due to drugs; T36.8X5A Adverse effect of other systemic antibiotics, initial encounter; J45.20 Mild intermittent asthma, uncomplicated; G30.1 Alzheimer's disease with late onset; F02.80 Dementia in other diseases classified elsewhere, unspecified severity, without behavioral disturbance, psychotic disturbance, mood disturbance, and anxiety; F41.8 Other specified anxiety disorders; F31.9 Bipolar disorder, unspecified; G40.309 Generalized idiopathic epilepsy and epileptic syndromes, not intractable, without status epilepticus; Y92.230 Patient room in hospital as the place of occurrence of the external cause; Z79.51 Long term (current) use of inhaled steroids; Z79.899 Other long term (current) drug therapy
CPT/HCPCS: 36415; 71045; 80048; 80053; 80076; 81001; 82550; 82607; 82728; 82746; 83540; 83550; 83605; 83735; 83880; 84100; 84484; 85025; 85045; 85610; 87040; 87086; 93005; 93010; 93970; 96365; 96366; 96367; 99285; G8978-GP; G8979-GP; J0696; J1200; J1650; J1956; J3370; J3490; J7030; J7060

== ENCOUNTER 2018-04-16 14:39 | Emergency (ER) | payer MEDICARE ==
--- NOTE | 2018-04-16 15:16 | ER Document Report ---
ED General - General Stated Complaint: DIARRHEA Time Seen by Provider: 04/16/18 15:00 TRAVEL OUTSIDE OF THE [place] IN LAST 30 DAYS: No - HPI Notes: Patient is a 73-year-old female with a past medical history significant for active bladder cancer, previous right breast cancer status post mastectomy, COPD , hypothyroidism, Alzheimer's/mental health disorder who presents to the ED with daughter complaining of having 3 loose stools per day over the last 2 days after being placed on antibiotics for UTI and cellulitis in the leg. Patient was evaluated and admitted to the hospital 1 week ago for the cellulitis. Patient was discharged home after a couple days and placed on p.o. antibiotics. Patient states that she stopped taking antibiotics 2 days short of a complete regimen. Patient states that she will have an intermittent lower abdominal cramp that does not radiate. Patient states that she is still able to eat and drink without any difficulties. She is urinating normally. Patient states that her loose stool is not watery and there is no noted melena or hematochezia. She has no other concerns or complaints aside from continued swelling in her legs bilaterally which she has had since before she was discharged. Denies any headache, fever, URI, sore throat, chest pain, palpitations, syncope, cough, shortness of breath, wheeze, dyspnea, nausea/ vomiting, urinary retention, dysuria, hematuria, back pain, loss of control of bowel or bladder, numbness/tingling, muscle paralysis/weakness, or rash. - Related Data Allergies/Adverse Reactions: amoxicillin Allergy (Verified 04/09/18 10:28) vancomycin Adverse Reaction (Mild, Verified 04/09/18 19:05) Past Medical History - Social History Smoking Status: Never Smoker Family History: Reviewed & Not Pertinent Pulmonary Medical History: Reports: Hx COPD - possible Chemo related Endocrine Medical History: Reports: Hx Hypothyroidism. Denies: Hx Diabetes Mellitus Type 1, Hx Diabetes Mellitus Type 2 Renal/ Medical History: Denies: Hx Peritoneal Dialysis Malignancy Medical History: Reports: Hx Breast Cancer Psychiatric Medical History: Reports: Hx Bipolar Disorder, Hx Depression Past Surgical History: Reports: Hx Breast Surgery - right breast removed, Hx Genitourinary Surgery - bladder, Hx Mastectomy, Hx Orthopedic Surgery Review of Systems - Review of Systems -: Yes All other systems reviewed and negative Physical Exam - Vital signs Vitals: BP Pulse Ox 110/50 L 100 04/16/18 15:19 04/16/18 15:19 - Notes Notes: PHYSICAL EXAMINATION: GENERAL: Well-appearing, well-nourished and in no acute distress. HEAD: Atraumatic, normocephalic. EYES: Pupils equal round and reactive to light, extraocular movements intact, sclera anicteric, conjunctiva are normal. ENT: Nares patent and without discharge. oropharynx clear without exudates. No tonsilar hypertrophy or erythema. Moist mucous membranes. NECK: Normal range of motion, supple without lymphadenopathy LUNGS: Breath sounds clear to auscultation bilaterally and equal. No wheezes rales or rhonchi. HEART: Regular rate and rhythm without murmurs, rubs, gallops. ABDOMEN: Soft, nontender, nondistended abdomen. No guarding, no rebound. Normal bowel sounds present. No CVA tenderness bilaterally. Musculoskeletal: FROM to passive/active. Strength 5+/5. Extremities: 1-2+ pitting edema b/l w/o evidence of erythema, fluctuance, abscess, streaks, or discharge. Peripheral pulses 2+. Capillary refill less than 3 seconds. NEUROLOGICAL: Cranial nerves grossly intact. Normal speech, normal gait. Normal sensory, motor exams PSYCH: Normal mood, normal affect. SKIN: Warm, Dry, normal turgor, no rashes or lesions noted. Course - Re-evaluation Re-evalutation: 04/16/18 18:09 Patient is an afebrile, well-hydrated, 73-year-old female who presents to the ED with bilateral lower extremity swelling, suspect edema, and UTI. Vitals are acceptable without any significant tachycardia, tachypnea, or hypoxia. PE is otherwise unremarkable. CBC, CMP were acceptable at this time. See urinalysis results. Urine cultures pending. Patient is nontoxic-appearing and is tolerating p.o. without difficulties. Her abdomen is soft and nontender. She has not had any episodes of loose stool or diarrhea throughout her stay. no other labs or imaging warranted at this time based on H&P. Lasix 20 mg was given p.o. today. Low suspicion/risk for acute appendicitis, bowel obstruction , acute cholecystitis, acute cholangitis, perforated diverticulitis, incarcerated hernia, pancreatitis, perforated ulcer, peritonitis, sepsis, pelvic inflammatory disease, or other systemic emergent condition at this time. Patient and daughter are aware that her condition can change from initial presentation and they need to monitor symptoms closely and seek medical attention if any acute changes. Rx for macrobid. Conservative measures otherwise for symptoms. Recheck with your PCM/oncologist in 2-3 days. Return to the ED with any worsening/concerning symptoms otherwise as reviewed in discharge. Patient is in agreement. - Vital Signs Vital signs: Temp Pulse Resp BP Pulse Ox 142/74 H 96 04/16/18 18:01 04/16/18 18:00 - Laboratory Result Diagrams: 04/16/18 16:30 04/16/18 16:30 Laboratory results interpreted by me: 04/16/18 04/16/18 04/16/18 16:20 16:30 16:30 RBC 3.61 L Hgb 10.5 L Hct 31.7 L RDW 14.8 H Eosinophils % 7.1 H Chloride 108 H Carbon Dioxide 21 L BUN 28 H Est GFR ( Amer) 55 L Est GFR (Non-Af Amer) 46 L Urine Blood LARGE H Ur Leukocyte Esterase TRACE H Discharge - Discharge Clinical Impression: Acute UTI (urinary tract infection), Loose stools Condition: Stable Disposition: HOME, SELF-CARE Instructions: Nitrofurantoin ([facility]), Urinary Tract Infection ([facility]) Additional Instructions: Push fluids (i.e. water, cranberry juice) Proper hygenic technique Keep the skin clean Tylenol/ibuprofen as needed Take medications as directed F/u with your PCM/Oncologist in 2-3 days for a recheck Consider consult with a Urologist for ongoing/worsening symptoms. Return to the ED with any worsening symptoms and/or development of fever, headache, chest pain, palpitations, syncope, shortness of breath, trouble breathing, abdominal pain, n/v/d, blood in stool/urine, loss of control of bowel /bladder, urinary retention, or other worsening symptoms that are concerning to you. Prescriptions: Nitrofurantoin/Nitrofuran Mac [Macrobid 100 mg Capsule] 1 tab PO BID #14 capsule Forms: Elevated Blood Pressure Referrals: DIONICIO FLORES MD [ACTIVE STAFF] - Follow up as needed ZEB ZUNIGA MD [Primary Care Provider] - 04/18/18
[2018-04-16] MEDS ORDERED: FUROSEMIDE 20 MG TABLET PO ONE (15:21)
[2018-04-16 17:04] LABS: ABSOLUTE BASOPHILS # (AUTO) 0.1 10^3/uL (0.0-0.2); ABSOLUTE EOSINOPHILS # (AUTO) 0.4 10^3/uL (0.0-0.6); ABSOLUTE LYMPHOCYTES (AUTO) 2.1 10^3/uL (0.5-4.7); ABSOLUTE MONOCYTES (AUTO) 0.6 10^3/uL (0.1-1.4); BASOPHILS % (AUTO) 1.3 % (0-2); EOSINOPHILS % (AUTO) 7.1 % (0-6); HEMATOCRIT 31.7 % (36.0-47.0); HEMOGLOBIN 10.5 g/dL (12.0-15.5); LYMPHOCYTES % (AUTO) 33.1 % (13-45); MEAN CORPUSCULAR HGB CONC 33.1 g/dL (32.0-36.0); MEAN CORPUSCULAR VOLUME 88 fl (80-97); MONOCYTES % (AUTO) 9.6 % (3-13); PLATELET COUNT 221 10^3/uL (150-450); RED BLOOD COUNT 3.61 10^6/uL (3.72-5.28); RED CELL DISTRIBUTION WIDTH 14.8 % (11.5-14.0); SEGMENTED NEUTROPHILS % (AUTO) 48.9 % (42-78); TOTAL CELLS COUNTED % (AUTO) 100 %; WHITE BLOOD COUNT 6.2 10^3/uL (4.0-10.5)
[2018-04-16 17:17] LABS: ALANINE AMINOTRANSFERASE 30 U/L (9-52); ALBUMIN 4.1 g/dL (3.5-5.0); ALKALINE PHOSPHATASE 86 U/L (38-126); ANION GAP 12 (5-19); ASPARTATE AMINO TRANSFERASE 30 U/L (14-36); BILIRUBIN,DIRECT 0.2 mg/dL (0.0-0.4); BILIRUBIN,TOTAL 0.3 mg/dL (0.2-1.3); BLOOD UREA NITROGEN 28 mg/dL (7-20); CALCIUM 9.2 mg/dL (8.4-10.2); CARBON DIOXIDE 21 mmol/L (22-30); CHLORIDE 108 mmol/L (98-107); GLUCOSE 76 mg/dL (75-110); SODIUM 141.4 mmol/L (137-145); TOTAL PROTEIN 6.9 g/dL (6.3-8.2)
[2018-04-16] MEDS ORDERED: NORMAL SALINE 500 ML IV ONE (18:01)
[2018-04-16 18:04] LABS: APPEARANCE,URINE CLEAR; BILIRUBIN,URINE NEGATIVE (NEGATIVE); COLOR,URINE STRAW; GLUCOSE, URINE NEGATIVE (NEGATIVE); KETONES,URINE NEGATIVE (NEGATIVE); LEUKOCYTE ESTERASE,URINE TRACE (NEGATIVE); NITRITE,URINE NEGATIVE (NEGATIVE); PROTEIN,URINE NEGATIVE (NEGATIVE); URINE SPECIFIC GRAVITY 1.006; UROBILINOGEN,URINE NEGATIVE mg/dL (<2.0)
[2018-04-16 20:04] VITALS: BP 72/60
== END 2018-04-16 19:40 | disposition home or self-care (01) ==
LOC: ER 14:39
DX: N39.0 Urinary tract infection, site not specified (principal); T36.96XA Underdosing of unspecified systemic antibiotic, initial encounter; Z91.128 Patient's intentional underdosing of medication regimen for other reason; Z91.14 Patient's other noncompliance with medication regimen; R19.4 Change in bowel habit; C67.9 Malignant neoplasm of bladder, unspecified; J44.9 Chronic obstructive pulmonary disease, unspecified; Z85.3 Personal history of malignant neoplasm of breast; M79.89 Other specified soft tissue disorders
CPT/HCPCS: 99284; 36415; 87086; 85025; 80053; 81001; A9270

== ENCOUNTER 2018-04-20 00:49 | Emergency (ER) | payer MEDICARE ==
[2018-04-20 02:43] LABS: ALANINE AMINOTRANSFERASE 23 U/L (9-52); ALBUMIN 4.2 g/dL (3.5-5.0); ALKALINE PHOSPHATASE 77 U/L (38-126); ANION GAP 14 (5-19); ASPARTATE AMINO TRANSFERASE 28 U/L (14-36); BILIRUBIN,DIRECT 0.2 mg/dL (0.0-0.4); BILIRUBIN,TOTAL 0.2 mg/dL (0.2-1.3); BLOOD UREA NITROGEN 29 mg/dL (7-20); CALCIUM 9.6 mg/dL (8.4-10.2); CARBON DIOXIDE 22 mmol/L (22-30); CHLORIDE 109 mmol/L (98-107); GLUCOSE 98 mg/dL (75-110); SODIUM 144.5 mmol/L (137-145); TOTAL PROTEIN 6.9 g/dL (6.3-8.2)
[2018-04-20] MEDS ORDERED: FUROSEMIDE 20 MG TABLET PO ONE (03:05)
--- NOTE | 2018-04-20 03:07 | ER Document Report ---
ED General - General Chief Complaint: Leg Swelling Stated Complaint: LEG SWELLING Time Seen by Provider: 04/20/18 01:14 Notes: Patient is a 73-year-old female presents with her daughter because patient is complaining about edema into her feet and legs. Patient says she has had some edema in her legs now for over a month. She has not been any water pills. She is on compression hose. The patient herself says it does not help a lot. Daughter says she is unsure if they have helped. Patient denies any recent fevers. No vomiting. No diarrhea. She does have history of bladder cancer. She was recently treated with for UTI with Macrobid. No chest pain or shortness of breath. No history of CHF. No other complaints at this time. Patient does have some dementia and therefore I have to confirm answers to some of her questions with the daughter. TRAVEL OUTSIDE OF THE [place] IN LAST 30 DAYS: No - Related Data Allergies/Adverse Reactions: amoxicillin Allergy (Verified 04/09/18 10:28) vancomycin Adverse Reaction (Mild, Verified 04/09/18 19:05) Past Medical History - Social History Smoking Status: Unknown if Ever Smoked Frequency of alcohol use: None Drug Abuse: None Family History: Reviewed & Not Pertinent Pulmonary Medical History: Reports: Hx COPD - possible Chemo related Endocrine Medical History: Reports: Hx Hypothyroidism. Denies: Hx Diabetes Mellitus Type 1, Hx Diabetes Mellitus Type 2 Renal/ Medical History: Denies: Hx Peritoneal Dialysis Malignancy Medical History: Reports: Hx Breast Cancer Psychiatric Medical History: Reports: Hx Bipolar Disorder, Hx Depression Past Surgical History: Reports: Hx Breast Surgery - right breast removed, Hx Genitourinary Surgery - bladder, Hx Mastectomy, Hx Orthopedic Surgery Review of Systems - Review of Systems Notes: My Normal Review Basic REVIEW OF SYSTEMS: CONSTITUTIONAL : Denies fever, chills, or sweats. Denies recent illness. CARDIOVASCULAR: Denies chest pain. RESPIRATORY: Denies cough, cold, or chest congestion. Denies shortness of breath, difficulty breathing, or wheezing. GENITOURINARY: Denies difficulty urinating, painful urination, burning, frequency, or blood in urine. MUSCULOSKELETAL: Pain into lower extremities and feet SKIN: Denies rash or skin lesions. NEUROLOGICAL: Denies altered mental status or loss of consciousness. ALL OTHER SYSTEMS REVIEWED AND NEGATIVE. Physical Exam - Vital signs Vitals: Temp Pulse Resp BP Pulse Ox 97.6 F 79 18 133/69 H 100 04/20/18 00:57 04/20/18 00:57 04/20/18 00:57 04/20/18 00:57 04/20/18 00:57 - Notes Notes: General Appearance: Well nourished, alert, cooperative, no acute distress, no obvious discomfort. Vitals: reviewed, See vital signs table. Eyes: PERRL, EOMI, Conjuctiva clear Mouth: No decreasd moisture Lungs: No wheezing, No rales, No rhonci, No accessory muscle use, good air exchange bilaterally. Heart: Normal rate, Regular rythm, No murmur, no rub Abdomen: Normal BS, soft, No rigidity, No abdominal tenderness, No guarding, no rebound, no abdominal masses, no organomegaly Extremities: strength 5/5 in all extremities, good pulses in all extremities, patient has edema mainly in the feet. She is 2+ pedal edema in the feet themselves. The legs themselves have only trace edema. Edema seems to be very gravity dependent. Very mild erythema to the skin consistent with chronic edema. No signs of cellulitis. No abnormal warmth. Skin: warm, dry, appropriate color, no rash Neuro: speech clear, normal affect, responds appropriately to most questions. Course - Re-evaluation Re-evalutation: 04/20/18 03:35 Patient and daughter apparently got an argument. The daughter. Patient is not ready to be dyspnea. We are trying to get in touch with the daughter to come filler picker the patient. 04/20/18 03:36 04/20/18 06:31 The nurse the patient's daughter did eventually, the patient was discharged. Patient has no hyperkalemia and has normal renal function. Will place her on a low dose of Lasix and have her follow-up with her doctor within 1 week for reevaluation to see if this is improving her leg edema. She has clear lung craft without signs of pulmonary edema. I encouraged her to continue to wear the compression stockings. Patient to return to ER if she has worsening of her symptoms. Dictation of this chart was performed using voice recognition software; therefore, there may be some unintended grammatical errors. - Vital Signs Vital signs: Temp Pulse Resp BP Pulse Ox 97.9 F 81 16 137/67 H 100 04/20/18 03:55 04/20/18 03:55 04/20/18 03:55 04/20/18 03:55 04/20/18 03:55 - Laboratory Result Diagrams: 04/20/18 01:27 Laboratory results interpreted by me: 04/20/18 01:27 Chloride 109 H BUN 29 H Est GFR (Non-Af Amer) 50 L Discharge - Discharge Clinical Impression: Pedal edema Condition: Good Disposition: HOME, SELF-CARE Additional Instructions: Please take the fluid pill (Lasix) as prescribed. please return to the ER if you have worsening edema, difficulty breathing, or feel unwell. Please continue to wear your compression stockings. Please follow up with Dr. Zuniga on Saturday for revaluation, recheck of your potassium level, and to discuss whether or not to continue the Lasix. Prescriptions: Furosemide [Lasix 20 mg Tablet] 20 mg PO QAM #7 tablet Referrals: ZEB ZUNIGA MD [Primary Care Provider] - Follow up in 3-5 days
[2018-04-20 04:00] VITALS: BP 137/67
== END 2018-04-20 03:55 | disposition home or self-care (01) ==
LOC: ER 00:49
DX: R60.0 Localized edema (principal); M79.605 Pain in left leg; M79.604 Pain in right leg; M79.671 Pain in right foot; M79.672 Pain in left foot; Z85.51 Personal history of malignant neoplasm of bladder; F03.90 Unspecified dementia, unspecified severity, without behavioral disturbance, psychotic disturbance, mood disturbance, and anxiety; J44.9 Chronic obstructive pulmonary disease, unspecified
CPT/HCPCS: 99283; 36415; 80053; A9270

== ENCOUNTER 2018-05-30 17:47 | Emergency (ER) | payer MEDICARE ==
[2018-05-30] MEDS ORDERED: NORMAL SALINE 500 ML IV ONE ×2 (18:06→19:41)
[2018-05-30 18:54] LABS: ABSOLUTE EOSINOPHILS # (AUTO) 0.4 10^3/uL (0.0-0.6); ABSOLUTE LYMPHOCYTES (AUTO) 1.7 10^3/uL (0.5-4.7); ABSOLUTE MONOCYTES (AUTO) 0.8 10^3/uL (0.1-1.4); ABSOLUTE NEUT (AUTO) 4.4 10^3/uL (1.7-8.2); BASOPHILS % (AUTO) 0.6 % (0-2); EOSINOPHILS % (AUTO) 5.3 % (0-6); HEMOGLOBIN 12.4 g/dL (12.0-15.5); LYMPHOCYTES % (AUTO) 22.7 % (13-45); MEAN CORPUSCULAR HEMOGLOBIN 28.8 pg (27.0-33.4); MEAN CORPUSCULAR HGB CONC 33.4 g/dL (32.0-36.0); MEAN CORPUSCULAR VOLUME 86 fl (80-97); MONOCYTES % (AUTO) 11.3 % (3-13); PLATELET COUNT 199 10^3/uL (150-450); RED CELL DISTRIBUTION WIDTH 14.5 % (11.5-14.0); SEGMENTED NEUTROPHILS % (AUTO) 60.1 % (42-78); TOTAL CELLS COUNTED % (AUTO) 100 %; WHITE BLOOD COUNT 7.3 10^3/uL (4.0-10.5)
[2018-05-30 19:10] LABS: ANION GAP 14 (5-19); BLOOD UREA NITROGEN 21 mg/dL (7-20); CALCIUM 10.5 mg/dL (8.4-10.2); CARBON DIOXIDE 21 mmol/L (22-30); CHLORIDE 104 mmol/L (98-107); GLUCOSE 79 mg/dL (75-110); SODIUM 138.9 mmol/L (137-145)
[2018-05-30] MEDS ORDERED: POTASSIUM CHLORIDE 10 MEQ CAPSULE.ER PO ONE (19:41)
[2018-05-30 20:33] LABS: APPEARANCE,URINE CLEAR; BILIRUBIN,URINE NEGATIVE (NEGATIVE); COLOR,URINE LIGHT YELLOW; GLUCOSE, URINE NEGATIVE (NEGATIVE); KETONES,URINE TRACE mg/dL (NEGATIVE); LEUKOCYTE ESTERASE,URINE SMALL (NEGATIVE); NITRITE,URINE NEGATIVE (NEGATIVE); PROTEIN,URINE 30 mg/dL (NEGATIVE); URINE SPECIFIC GRAVITY 1.005; UROBILINOGEN,URINE NEGATIVE mg/dL (<2.0)
[2018-05-30] MEDS ORDERED: NITROFURANTOIN MONOHYD/M-CRYST 100 MG CAPSULE PO ONE (20:36)
--- NOTE | 2018-05-30 21:07 | ER Document Report ---
ED General - General Chief Complaint: Diarrhea Stated Complaint: URINARY ISSUE Time Seen by Provider: 05/30/18 17:56 TRAVEL OUTSIDE OF THE [place] IN LAST 30 DAYS: No - HPI Patient complains to provider of: Diarrhea urinary pain Notes: Patient with history of bladder cancer coming in for her bladder spasms pain with urination and also diarrhea patient has been given antibiotics from a prescription according to the family or Danielin ear states patient approximate 5 days ago started having slimy diarrhea. Otherwise is tolerating p.o. denies any fevers chills nausea vomiting. Patient resting comfortably upon my evaluation - Related Data Allergies/Adverse Reactions: amoxicillin Allergy (Verified 04/09/18 10:28) vancomycin Adverse Reaction (Mild, Verified 04/09/18 19:05) Past Medical History - Social History Smoking Status: Unknown if Ever Smoked Family History: Reviewed & Not Pertinent Patient has suicidal ideation: No Patient has homicidal ideation: No Pulmonary Medical History: Reports: Hx COPD - possible Chemo related Endocrine Medical History: Reports: Hx Hypothyroidism. Denies: Hx Diabetes Mellitus Type 1, Hx Diabetes Mellitus Type 2 Renal/ Medical History: Denies: Hx Peritoneal Dialysis Malignancy Medical History: Reports: Hx Breast Cancer Psychiatric Medical History: Reports: Hx Bipolar Disorder, Hx Depression Past Surgical History: Reports: Hx Breast Surgery - right breast removed, Hx Genitourinary Surgery - bladder, Hx Mastectomy, Hx Orthopedic Surgery Review of Systems - Review of Systems Constitutional: No symptoms reported EENT: No symptoms reported Cardiovascular: No symptoms reported Respiratory: No symptoms reported Gastrointestinal: Diarrhea Genitourinary: Dysuria Female Genitourinary: No symptoms reported Musculoskeletal: No symptoms reported Skin: No symptoms reported Hematologic/Lymphatic: No symptoms reported Neurological/Psychological: No symptoms reported -: Yes All other systems reviewed and negative Physical Exam - Vital signs Vitals: Temp Pulse Resp BP Pulse Ox 97.8 F 70 16 126/62 H 100 05/30/18 18:14 05/30/18 18:14 05/30/18 18:14 05/30/18 18:14 05/30/18 18:14 Interpretation: Normal - General General appearance: Appears well, Alert - HEENT Head: Normocephalic, Atraumatic Eyes: Normal Pupils: PERRL - Respiratory Respiratory status: No respiratory distress Chest status: Nontender Breath sounds: Normal Chest palpation: Normal - Cardiovascular Rhythm: Regular Heart sounds: Normal auscultation Murmur: No - Abdominal Inspection: Normal Distension: No distension Bowel sounds: Normal Tenderness: Nontender Organomegaly: No organomegaly - Back Back: Normal, Nontender - Extremities General upper extremity: Normal inspection, Nontender, Normal color, Normal ROM , Normal temperature General lower extremity: Normal inspection, Nontender, Normal color, Normal ROM , Normal temperature, Normal weight bearing. No: Tabby's sign - Neurological Neuro grossly intact: Yes Cognition: Normal Orientation: AAOx4 [place] Coma Scale Eye Opening: Spontaneous [place] Coma Scale Verbal: Oriented [place] Coma Scale Motor: Obeys Commands [place] Coma Scale Total: 15 Speech: Normal Motor strength normal: LUE, RUE, LLE, RLE Sensory: Normal - Psychological Associated symptoms: Normal affect, Normal mood - Skin Skin Temperature: Warm Skin Moisture: Dry Skin Color: Normal Course - Re-evaluation Re-evalutation: 05/30/18 22:48 Patient with bacteria in the urine concerning for possible infection was started on Macrobid as this is been since the past going to the patient cultured. Patient still septic and positive for C. difficile will treat with Flagyl 3 times daily for next 10 days explained to family members need for good hygiene stated understanding patient is to follow-up PCP following Saturday or Saturday. - Vital Signs Vital signs: Temp Pulse Resp BP Pulse Ox 97.8 F 70 29 H 164/87 H 100 05/30/18 18:14 05/30/18 18:14 05/30/18 21:00 05/30/18 19:56 05/30/18 20:00 - Laboratory Result Diagrams: 05/30/18 18:42 05/30/18 18:42 Laboratory results interpreted by me: 05/30/18 05/30/18 05/30/18 18:42 18:42 20:03 RDW 14.5 H Potassium 3.0 L* Carbon Dioxide 21 L BUN 21 H Est GFR ( Amer) 59 L Est GFR (Non-Af Amer) 48 L Calcium 10.5 H Urine Protein 30 H Urine Ketones TRACE H Urine Blood LARGE H Ur Leukocyte Esterase SMALL H Discharge - Discharge Clinical Impression: Diarrhea Qualifiers: Diarrhea type: unspecified type Qualified Code(s): R19.7 - Diarrhea, unspecified UTI (urinary tract infection) Qualifiers: Urinary tract infection type: site unspecified Hematuria presence: without hematuria Qualified Code(s): N39.0 - Urinary tract infection, site not specified Condition: Good Disposition: OTHER Instructions: C. (Clostridium) Difficile Infection ([facility]), Diarrhea, Nonspecific ([facility]), Metronidazole ([facility]), Nitrofurantoin ([facility]), Urinary Tract Infection ([facility]) Additional Instructions: Follow-up with your primary care physician at this time urinalysis shows signs of a urinary tract infection with structural Macrobid that your urine cultures show sensitivity to this in the past. Take medications as prescribed follow-up with your primary care physician. Would highly recommend increasing her fiber and increasing her yogurt intake to help out with your diarrhea. Prescriptions: Lactobacillus 3/Fos/Pantethine [Probiotic & Acidophilus Cap] 1 each PO BID #20 capsule Metronidazole 500 mg PO TID #30 tablet Nitrofurantoin Monohyd/M-Cryst [Macrobid 100 mg Capsule] 100 mg PO BID #14 capsule Referrals: ZEB ZUNIGA MD [Primary Care Provider] - Follow up in 1 week
[2018-05-30] MEDS ORDERED: METRONIDAZOLE 500 MG TABLET PO ONE (21:46)
[2018-05-30 21:56] VITALS: BP 164/87
== END 2018-05-30 21:56 | disposition other institution (70) ==
LOC: ER 17:47
DX: N39.0 Urinary tract infection, site not specified (principal); R19.7 Diarrhea, unspecified; Z85.51 Personal history of malignant neoplasm of bladder; Z88.3 Allergy status to other anti-infective agents; Z88.0 Allergy status to penicillin
CPT/HCPCS: 99284; 96360; 96361; 51701; 36415; 87086; 85025; 80048; 81001; 87493; A9270 ×3; J8499

== ENCOUNTER 2018-06-14 21:01 | Emergency (ER) | payer MEDICARE ==
[2018-06-14] MEDS ORDERED: HYDROXYZINE PAMOATE 25 MG CAPSULE PO ONE (21:32)
--- NOTE | 2018-06-14 21:42 | ER Document Report ---
ED General - General Chief Complaint: Diarrhea Stated Complaint: DIARRHEA Time Seen by Provider: 06/14/18 21:16 Mode of Arrival: Ambulatory Information source: Patient, Relative Notes: 73-year-old female with a history of bladder cancer presents emergency department with complaints of black diarrhea. Patient was diagnosed with C.diff on 05/30/18. She was started on flagyl. Patient has been taking the medication as directed. She was also diagnosed with a UTI and started on macrobid. Patient finished the antibiotic. She's tolerating PO. Vitals are stable. Patient is not undergoing any treatment for her bladder cancer. Patient does take iron pills. Patient denies nausea, vomiting, dysuria, hematuria, increased urgency or frequency. Has chronic abdominal pain from her bladder cancer. TRAVEL OUTSIDE OF THE [place] IN LAST 30 DAYS: No - HPI Onset: Other - 3 days Onset/Duration: Persistent Quality of pain: No pain Severity: Mild Pain Level: Denies Associated symptoms: Diarrhea Exacerbated by: Denies Relieved by: Denies Similar symptoms previously: Yes Recently seen / treated by doctor: Yes - Related Data Allergies/Adverse Reactions: amoxicillin Allergy (Verified 04/09/18 10:28) vancomycin Adverse Reaction (Mild, Verified 04/09/18 19:05) Past Medical History - General Information source: Patient - Social History Smoking Status: Former Smoker Family History: Reviewed & Not Pertinent Pulmonary Medical History: Reports: Hx COPD - possible Chemo related Endocrine Medical History: Reports: Hx Hypothyroidism. Denies: Hx Diabetes Mellitus Type 1, Hx Diabetes Mellitus Type 2 Renal/ Medical History: Denies: Hx Peritoneal Dialysis Malignancy Medical History: Reports: Hx Breast Cancer Psychiatric Medical History: Reports: Hx Bipolar Disorder, Hx Depression Past Surgical History: Reports: Hx Breast Surgery - right breast removed, Hx Genitourinary Surgery - bladder, Hx Mastectomy, Hx Orthopedic Surgery Review of Systems - Review of Systems Constitutional: No symptoms reported EENT: No symptoms reported Cardiovascular: No symptoms reported Respiratory: No symptoms reported Gastrointestinal: Abdominal pain, Diarrhea Genitourinary: No symptoms reported Female Genitourinary: No symptoms reported Musculoskeletal: No symptoms reported Skin: No symptoms reported Neurological/Psychological: No symptoms reported -: Yes All other systems reviewed and negative Physical Exam - Vital signs Vitals: Temp Pulse Resp BP Pulse Ox 98.8 F 91 16 152/65 H 99 06/14/18 21:08 06/14/18 21:08 10/06/18 21:08 06/14/18 21:08 06/14/18 21:08 - Notes Notes: PHYSICAL EXAMINATION: GENERAL: Cachetic. HEAD: Atraumatic, normocephalic. EYES: Pupils equal round and reactive to light, extraocular movements intact, conjunctiva are normal. ENT: Nares patent, oropharynx clear without exudates. Moist mucous membranes. NECK: Normal range of motion, supple without lymphadenopathy LUNGS: Breath sounds clear to auscultation bilaterally and equal. No wheezes rales or rhonchi. HEART: Regular rate and rhythm without murmurs ABDOMEN: Soft, nontender, nondistended abdomen. No guarding, no rebound. No masses appreciated. Female : deferred Musculoskeletal: Normal range of motion, no pitting or edema. No cyanosis. NEUROLOGICAL: Cranial nerves grossly intact. Normal speech, normal gait. Normal sensory, motor exams PSYCH: Normal mood, normal affect. SKIN: Warm, Dry, normal turgor, no rashes or lesions noted. Course - Re-evaluation Re-evalutation: 06/14/18 23:44 Heme occult negative. Black stool likely from the iron supplements. Patient has UTI. I will start antibiotics. Patient is currently on flagyl for C. diff. She' s allergic to vancomycin. Her vitals are stable. I will discharge her home for outpatient treatment. 06/14/18 23:45 Previous cultures show sensitivity to macrobid. I'll start macrobid for UTI. I instructed the patient to follow up with her primary care physician this week, to take medication as directed, and to return for worsening symptoms. 06/14/18 23:47 06/14/18 23:49 - Vital Signs Vital signs: Temp Pulse Resp BP Pulse Ox 98.8 F 91 16 152/65 H 99 06/14/18 21:08 06/14/18 21:08 06/14/18 21:08 06/14/18 21:08 06/14/18 21:08 - Laboratory Result Diagrams: 06/14/18 21:28 06/14/18 21:28 Laboratory results interpreted by me: 06/14/18 06/14/18 06/14/18 21:28 21:28 21:48 Hgb 10.8 L Hct 32.7 L RDW 15.2 H Sodium 136.2 L BUN 23 H Urine Protein 100 H Urine Blood LARGE H Ur Leukocyte Esterase MODERATE H Discharge - Discharge Clinical Impression: C. difficile diarrhea Urinary tract infection Qualifiers: Urinary tract infection type: site unspecified Hematuria presence: with hematuria Qualified Code(s): N39.0 - Urinary tract infection, site not specified ; R31.9 - Hematuria, unspecified; R31.9 - Hematuria, unspecified Condition: Good Disposition: HOME, SELF-CARE Instructions: Nitrofurantoin ([facility]) Prescriptions: Nitrofurantoin Monohyd/M-Cryst [Macrobid 100 mg Capsule] 1 tab PO BID #20 capsule Referrals: ZEB ZUNIGA MD [Primary Care Provider] - Follow up as needed
[2018-06-14 21:50] LABS: ABSOLUTE BASOPHILS # (AUTO) 0.1 10^3/uL (0.0-0.2); ABSOLUTE EOSINOPHILS # (AUTO) 0.4 10^3/uL (0.0-0.6); ABSOLUTE LYMPHOCYTES (AUTO) 1.5 10^3/uL (0.5-4.7); ABSOLUTE NEUT (AUTO) 5.3 10^3/uL (1.7-8.2); BASOPHILS % (AUTO) 0.7 % (0-2); EOSINOPHILS % (AUTO) 4.7 % (0-6); HEMATOCRIT 32.7 % (36.0-47.0); HEMOGLOBIN 10.8 g/dL (12.0-15.5); MEAN CORPUSCULAR HEMOGLOBIN 28.2 pg (27.0-33.4); MEAN CORPUSCULAR HGB CONC 33.1 g/dL (32.0-36.0); MEAN CORPUSCULAR VOLUME 85 fl (80-97); MONOCYTES % (AUTO) 12.7 % (3-13); PLATELET COUNT 279 10^3/uL (150-450); RED BLOOD COUNT 3.85 10^6/uL (3.72-5.28); RED CELL DISTRIBUTION WIDTH 15.2 % (11.5-14.0); SEGMENTED NEUTROPHILS % (AUTO) 63.9 % (42-78); TOTAL CELLS COUNTED % (AUTO) 100 %; WHITE BLOOD COUNT 8.2 10^3/uL (4.0-10.5)
[2018-06-14 22:04] LABS: ALANINE AMINOTRANSFERASE 23 U/L (9-52); ALBUMIN 4.2 g/dL (3.5-5.0); ALKALINE PHOSPHATASE 84 U/L (38-126); ANION GAP 9 (5-19); ASPARTATE AMINO TRANSFERASE 32 U/L (14-36); BILIRUBIN,DIRECT 0.4 mg/dL (0.0-0.4); BILIRUBIN,TOTAL 0.4 mg/dL (0.2-1.3); BLOOD UREA NITROGEN 23 mg/dL (7-20); CALCIUM 9.8 mg/dL (8.4-10.2); CARBON DIOXIDE 24 mmol/L (22-30); CHLORIDE 103 mmol/L (98-107); GLUCOSE 97 mg/dL (75-110); POTASSIUM 3.7 mmol/L (3.6-5.0); SODIUM 136.2 mmol/L (137-145); TOTAL PROTEIN 7.2 g/dL (6.3-8.2)
[2018-06-14 22:12] LABS: APPEARANCE,URINE CLOUDY; BILIRUBIN,URINE NEGATIVE (NEGATIVE); COLOR,URINE YELLOW; GLUCOSE, URINE NEGATIVE (NEGATIVE); KETONES,URINE NEGATIVE (NEGATIVE); LEUKOCYTE ESTERASE,URINE MODERATE (NEGATIVE); NITRITE,URINE NEGATIVE (NEGATIVE); PROTEIN,URINE 100 mg/dL (NEGATIVE); URINE SPECIFIC GRAVITY 1.015; UROBILINOGEN,URINE NEGATIVE mg/dL (<2.0)
[2018-06-14] MEDS ORDERED: DIPHENHYDRAMINE HCL 50 MG/ML VIAL IV ONE (22:20)
[2018-06-14 22:24] LABS: INTERNATIONAL RATION (INR) 1.05; PROTHROMBIN TIME 14.2 SEC (11.4-15.4)
[2018-06-14] MEDS ORDERED: NITROFURANTOIN MONOHYD/M-CRYST 100 MG CAPSULE PO ONE (23:56)
[2018-06-15 00:19] VITALS: BP 148/64
== END 2018-06-15 00:17 | disposition home or self-care (01) ==
LOC: ER 21:01
DX: R19.7 Diarrhea, unspecified (principal); B96.89 Other specified bacterial agents as the cause of diseases classified elsewhere; N39.0 Urinary tract infection, site not specified; R19.5 Other fecal abnormalities; C67.9 Malignant neoplasm of bladder, unspecified; Z87.891 Personal history of nicotine dependence; J44.9 Chronic obstructive pulmonary disease, unspecified
CPT/HCPCS: 99284; 96374; 36415; 87086; 85025; 85610; 85730; 82272; 80053; 81001; 87493; J1200; A9270 ×2; J8499

== ENCOUNTER 2018-06-20 09:32 | Observation (INO) | payer MEDICARE ==
[2018-06-20] MEDS ORDERED: NORMAL SALINE 1000 ML 1,000 ML IV ONE ×2 (09:56→15:43)
--- NOTE | 2018-06-20 09:57 | ER Document Report ---
ED Medical Screen (RME) - General Chief Complaint: Diarrhea Stated Complaint: DIARRHEA Time Seen by Provider: 06/20/18 09:54 Mode of Arrival: Wheelchair Information source: Patient TRAVEL OUTSIDE OF THE [place] IN LAST 30 DAYS: No - HPI Patient complains to provider of: ze Onset: Yesterday - pt with c/o abdominal pain and diarrhea (multiple episodes) starting yesterday. Denies vomiting - Related Data Allergies/Adverse Reactions: amoxicillin Allergy (Verified 06/20/18 09:34) vancomycin Adverse Reaction (Mild, Verified 06/20/18 09:34) Past Medical History Pulmonary Medical History: Reports: Hx COPD - possible Chemo related Endocrine Medical History: Reports: Hx Hypothyroidism. Denies: Hx Diabetes Mellitus Type 1, Hx Diabetes Mellitus Type 2 Renal/ Medical History: Denies: Hx Peritoneal Dialysis Malignancy Medical History: Reports: Hx Breast Cancer Psychiatric Medical History: Reports: Hx Bipolar Disorder, Hx Depression Past Surgical History: Reports: Hx Breast Surgery - right breast removed, Hx Genitourinary Surgery - bladder, Hx Mastectomy, Hx Orthopedic Surgery - Immunizations History of Influenza Vaccine for 06/2017 - 11/2017 Season: Unknown Physical Exam - Vital signs Vitals: Temp Pulse Resp BP Pulse Ox 98.0 F 95 20 118/61 99 06/20/18 09:39 06/20/18 09:39 06/20/18 09:39 06/20/18 09:39 06/20/18 09:39 Course - Vital Signs Vital signs: Temp Pulse Resp BP Pulse Ox 98.0 F 95 20 118/61 99 06/20/18 09:39 06/20/18 09:39 06/20/18 09:39 06/20/18 09:39 06/20/18 09:39 Doctor's Discharge - Discharge Referrals: ZEB ZUNIGA MD [Primary Care Provider] - Follow up as needed
[2018-06-20 11:29] LABS: ABSOLUTE EOSINOPHILS # (AUTO) 0.4 10^3/uL (0.0-0.6); ABSOLUTE LYMPHOCYTES (AUTO) 0.6 10^3/uL (0.5-4.7); ABSOLUTE MONOCYTES (AUTO) 0.9 10^3/uL (0.1-1.4); ABSOLUTE NEUT (AUTO) 5.4 10^3/uL (1.7-8.2); BASOPHILS % (AUTO) 0.4 % (0-2); EOSINOPHILS % (AUTO) 5.5 % (0-6); HEMATOCRIT 33.6 % (36.0-47.0); HEMOGLOBIN 11.2 g/dL (12.0-15.5); MEAN CORPUSCULAR HEMOGLOBIN 28.1 pg (27.0-33.4); MEAN CORPUSCULAR HGB CONC 33.3 g/dL (32.0-36.0); MEAN CORPUSCULAR VOLUME 84 fl (80-97); MONOCYTES % (AUTO) 11.7 % (3-13); PLATELET COUNT 234 10^3/uL (150-450); RED BLOOD COUNT 3.98 10^6/uL (3.72-5.28); RED CELL DISTRIBUTION WIDTH 15.1 % (11.5-14.0); SEGMENTED NEUTROPHILS % (AUTO) 74.4 % (42-78); TOTAL CELLS COUNTED % (AUTO) 100 %; WHITE BLOOD COUNT 7.3 10^3/uL (4.0-10.5)
[2018-06-20] MEDS ORDERED: ONDANSETRON HCL INJ/PF 4 MG/2 ML SDV IV ONE (11:29)
[2018-06-20] MEDS ORDERED: LORAZEPAM 1 MG TABLET PO ONE (11:29)
[2018-06-20] MEDS ORDERED: NICOTINE 21 MG/24 HR PATCH.TD24 TD ONE (11:29)
--- NOTE | 2018-06-20 11:38 | ER Document Report ---
ED GI/ - General Chief Complaint: Diarrhea Stated Complaint: DIARRHEA Time Seen by Provider: 06/20/18 09:54 Mode of Arrival: Wheelchair Notes: Patient is a 73-year-old female extremely poor historian who presents today with some diarrhea. Patient has been seen here numerous times over the past 2 months secondary to some lower abdominal cramping, diarrhea, with concerns about possible urinary tract infections. Urine culture from May 30 as well as June 16 did not grow any organisms. Patient had been placed on Macrobid for both occasions. Patient on the secondary to the diarrhea was placed on a 10-day course of Flagyl. This did improve the symptomatology transiently. Last night patient started again to develop some diarrhea, 5 episodes in total. Patient has had no fevers or vomiting. Some nonradiating suprapubic abdominal cramping without radiation, aggravating or relieving factors. Daughter states that the patient currently does not have a primary care physician because she did not like Dr. Zuniga and recently moved here from [facility]. However, it appears that the patient from reviewing medical charts has been here for an extended period of time. TRAVEL OUTSIDE OF THE [place] IN LAST 30 DAYS: No - HPI Patient complains to provider of: Other - See above Timing/Duration: Gradual Quality of pain: Achy Severity at maximum: Moderate Severity in ED: Moderate Location: Other - See above Sexual history: Inactive Associated symptoms: Other - See above Exacerbated by: Denies Relieved by: Denies Similar symptoms previously: Yes Recently seen / treated by doctor: Yes - Related Data Allergies/Adverse Reactions: amoxicillin Allergy (Verified 06/20/18 09:34) vancomycin Adverse Reaction (Mild, Verified 06/20/18 09:34) Past Medical History - General Information source: Patient - Social History Smoking Status: Unknown if Ever Smoked Cigarette use (# per day): No Chew tobacco use (# tins/day): No Smoking Education Provided: No Family History: Reviewed & Not Pertinent Patient has suicidal ideation: No Patient has homicidal ideation: No Pulmonary Medical History: Reports: Hx COPD - possible Chemo related Endocrine Medical History: Reports: Hx Hypothyroidism. Denies: Hx Diabetes Mellitus Type 1, Hx Diabetes Mellitus Type 2 Renal/ Medical History: Denies: Hx Peritoneal Dialysis Malignancy Medical History: Reports: Hx Breast Cancer Psychiatric Medical History: Reports: Hx Bipolar Disorder, Hx Depression Past Surgical History: Reports: Hx Breast Surgery - right breast removed, Hx Genitourinary Surgery - bladder, Hx Mastectomy, Hx Orthopedic Surgery Review of Systems - Review of Systems Constitutional: denies: Fever EENT: denies: Eye discharge, Nose discharge Respiratory: denies: Short of breath Gastrointestinal: denies: Vomiting Genitourinary: denies: Dysuria Musculoskeletal: denies: Leg swelling Skin: Other - no hives. denies: Rash Neurological/Psychological: Other - no slurred speech -: Yes All other systems reviewed and negative Physical Exam - Vital signs Vitals: Temp Pulse Resp BP Pulse Ox 98.0 F 95 20 118/61 99 06/20/18 09:39 06/20/18 09:39 06/20/18 09:39 06/20/18 09:39 06/20/18 09:39 Interpretation: Normal Notes: Reviewed vital signs and nursing note as charted by RN. CONSTITUTIONAL: Alert and oriented and responds appropriately to questions. Well -appearing; well-nourished HEAD: Normocephalic; atraumatic EYES: PERRL ENT: Normal nose; no rhinorrhea; moist mucous membranes; pharynx without lesions noted NECK: Supple without meningismus; non-tender; no cervical lymphadenopathy, no masses CARD: Regular rate and rhythm; no murmurs; symmetric distal pulses RESP: Normal chest excursion without splinting or tachypnea; breath sounds clear and equal bilaterally ABD/GI: Normal bowel sounds; non-distended; soft, minimally nonspecific tenderness to the venita-umbilical region without rebound or guarding. No palpable masses present BACK: The back appears normal and is non-tender to palpation, there is no CVA tenderness EXT: Normal ROM in all joints; non-tender to palpation; no cyanosis, no effusions, no edema SKIN: No acute lesions noted NEURO: Moves all extremities equally; Motor and sensory function intact PSYCH: The patient's mood and manner are appropriate. Grooming and personal hygiene are appropriate. Course - Re-evaluation Re-evalutation: 06/20/18 11:41 Given the above history and physical examination, we will obtain basic labs, check the patient's hydration status, provide fluids and nausea medications, obtain a C. difficile colitis evaluation, and reassess. Given the multiple visits for the abdominal discomfort and diarrhea I will obtain a CT scan of the abdomen and pelvis. - Vital Signs Vital signs: Temp Pulse Resp BP Pulse Ox 98.0 F 95 22 H 134/57 H 96 06/20/18 09:39 06/20/18 09:39 06/20/18 15:01 06/20/18 15:01 06/20/18 15:01 - Laboratory Result Diagrams: 06/20/18 10:57 06/20/18 10:57 Laboratory results interpreted by me: 06/20/18 06/20/18 06/20/18 10:20 10:57 10:57 Hgb 11.2 L Hct 33.6 L RDW 15.1 H Lymphocytes % 8.0 L Sodium 136.5 L Potassium 3.3 L BUN 21 H Est GFR (Non-Af Amer) 51 L Stool for White Cells MANY H Discharge - Discharge Clinical Impression: Diarrhea Qualifiers: Diarrhea type: unspecified type Qualified Code(s): R19.7 - Diarrhea, unspecified Condition: Fair Disposition: ADMITTED OBSERVATION Admitting Provider: Hospitalist Unit Admitted: Medical Floor Referrals: ZEB ZUNIGA MD [ACTIVE STAFF] - Follow up as needed
[2018-06-20 11:54] LABS: ALANINE AMINOTRANSFERASE 27 U/L (9-52); ALBUMIN 3.9 g/dL (3.5-5.0); ALKALINE PHOSPHATASE 104 U/L (38-126); ANION GAP 13 (5-19); ASPARTATE AMINO TRANSFERASE 24 U/L (14-36); BILIRUBIN,DIRECT 0.1 mg/dL (0.0-0.4); BILIRUBIN,TOTAL 0.4 mg/dL (0.2-1.3); BLOOD UREA NITROGEN 21 mg/dL (7-20); CALCIUM 9.5 mg/dL (8.4-10.2); CARBON DIOXIDE 22 mmol/L (22-30); CHLORIDE 102 mmol/L (98-107); GLUCOSE 105 mg/dL (75-110); POTASSIUM 3.3 mmol/L (3.6-5.0); SODIUM 136.5 mmol/L (137-145); TOTAL PROTEIN 6.7 g/dL (6.3-8.2)
[2018-06-20] MEDS ORDERED: METRONIDAZOLE 500 MG TABLET PO ONE (12:55)
--- NOTE | 2018-06-20 13:54 | RADIOLOGY REPORT (SQ) ---
EXAM DESCRIPTION: CT ABD/PELVIS WITH IV ONLY COMPLETED DATE/TIME: 06/20/2018 1:26 pm REASON FOR STUDY: 7; diarrhea and abdominal cramping for an extended COMPARISON: 02/09/2018 TECHNIQUE: CT scan of the abdomen and pelvis performed using helical scanning technique with dynamic intravenous contrast injection. No oral contrast. Images reviewed with lung, soft tissue, and bone windows. Reconstructed coronal and sagittal MPR images reviewed. Delayed images for evaluation of the urinary system also acquired. All images stored on PACS. All CT scanners at this facility use dose modulation, iterative reconstruction, and/or weight based d osing when appropriate to reduce radiation dose to as low as reasonably achievable (ALARA). [facility]: Dose Right [facility]: CareDose [facility]: Dose Right [facility]: Teradose 4D [facility]: Currently CONTRAST TYPE AND DOSE: contrast/concentration: Isovue 350.00 mg/ml; Total Contrast Delivered: 55.0 ml; Total Saline Delivered: 65.0 ml RENAL FUNCTION: Creatinine 0.88 RADIATION DOSE: CT Rad equipment meets quality standard of care and radiation dose reduction techniq ues were employed. CTDIvol: 5.3 - 6.4 mGy. DLP: 529 mGy-cm.. LIMITATIONS: None. FINDINGS: LOWER CHEST: There is some minimal basilar densities most consistent with atelectatic vazquez ges. LIVER: Normal size. No masses. No dilated ducts. Scattered small hepatic cysts are again identified . SPLEEN: Normal size. No focal lesions. PANCREAS: No masses. No significant calcifications. No adjacent inflammation or peripancreatic fluid collections. Pancreatic duct not dilated. GALLBLADDER: No identified stones by CT criteria. No inflammatory changes to suggest cholecystitis. ADRENAL GLANDS: No significant masses or asymmetry. RIGHT KIDNEY AND URETER: No solid masses. No significant calcifications. No hydronephrosis or hyd roureter. LEFT KIDNEY AND URETER: No solid masses. No significant calcifications. No hydronephrosis or hydr oureter. AORTA AND VESSELS: No aneurysm. No dissection. Renal arteries, SMA, celiac without stenosis. RETROPERITONEUM: No retroperitoneal adenopathy, hemorrhage or masses. BOWEL AND PERITONEAL CAVITY: No masses or inflammatory changes. No free fluid or peritoneal masses. APPENDIX: Not identified PELVIS: No mass. No free fluid. The previously described mass lesions in the bladder are again iden tified under somewhat difficult to evaluate due to the difference in plane of section and bladder dis tension. Overall the masses appear slightly decreased in size as compared to the previous study. ABDOMINAL WALL: No masses. No hernias. BONES: No significant or acute findings. OTHER: No other significant finding. IMPRESSION: Bladder mass lesions as noted above. Other findings as noted above TECHNICAL DOCUMENTATION: JOB ID: [id number] Quality ID # [id number]: Final reports with documentation of one or more dose reduction techniques (e.g., Au tomated exposure control, adjustment of the mA and/or kV according to patient size, use of iterative reconstruction technique) 2010 [employer]- All Rights Reserved Reading location - IP/workstation name: [email or web address]
[2018-06-20] MEDS ORDERED: ACETAMINOPHEN 325 MG TABLET PO ONE (14:37)
[2018-06-20] MEDS ORDERED: POTASSIUM CHLORIDE 10 MEQ CAPSULE.ER PO ONE (15:43)
[2018-06-20 16:56] LABS: APPEARANCE,URINE CLEAR; BILIRUBIN,URINE NEGATIVE (NEGATIVE); COLOR,URINE YELLOW; GLUCOSE, URINE NEGATIVE (NEGATIVE); KETONES,URINE 20 mg/dL (NEGATIVE); LEUKOCYTE ESTERASE,URINE NEGATIVE (NEGATIVE); NITRITE,URINE NEGATIVE (NEGATIVE); PROTEIN,URINE 30 mg/dL (NEGATIVE); URINE SPECIFIC GRAVITY 1.049; UROBILINOGEN,URINE NEGATIVE mg/dL (<2.0)
[2018-06-20] MEDS: VANCOMYCIN HCL INJ 500 MG VIAL PO SCH (18:31)
[2018-06-20] MEDS: METRONIDAZOLE 500 MG TABLET PO SCH (18:31)
[2018-06-20] MEDS ORDERED: LORAZEPAM 0.5 MG TABLET PO PRN (19:07)
[2018-06-20] MEDS ORDERED: ALBUTEROL SULFATE HFA (90 MCG/PUFF) 200 PUFF/8.5 GM MDI IH PRN (19:07)
--- NOTE | 2018-06-20 19:07 | PDOC H&P ---
History of Present Illness Admission Date/PCP: 06/20/18 15:52 Patient complains of: diarrhea History of Present Illness: SRIKANTH COLVIN is a 73 year old female with a PMH of dementia, hypothyroidism, bipolar disorder, history of breast CA and urothelial bladder carcinoma and 2 history of C. difficile colitis who presented with diarrhea. Patient had recent C. diff colitis which has been treated with Flagyl. She was started on multiple antibiotics in the past few months due to cellulitis and UTI. She tested positive again on 06/14/18. Daughter says her diarrhea resolved but she was again recently treated with Macrobid for a possible UTI and had recurrence of watery stools in the past 3 days. No nausea or vomiting. She has minimal abdominal pain. Past Medical History Pulmonary Medical History: Reports: Chronic Obstructive Pulmonary Disease (COPD ) - possible Chemo related Endocrine Medical History: Reports: Hypothyroidism Denies: Diabetes Mellitus Type 1, Diabetes Mellitus Type 2 Malignancy Medical History: Reports: Breast Cancer Psychiatric Medical History: Reports: Bipolar Disorder, Depression Past Surgical History Past Surgical History: Reports: Mastectomy, Orthopedic Surgery Social History Smoking Status: Unknown if Ever Smoked Frequency of Alcohol Use: None Hx Recreational Drug Use: No Drugs: None Hx Prescription Drug Abuse: No Family History Family History: Reviewed & Not Pertinent Parental Family History Reviewed: Yes - no premature CAD Children Family History Reviewed: No Sibling(s) Family History Reviewed.: No Medication/Allergy Home Medications: Albuterol Sulfate [Proair HFA Inhalation Aerosol 8.5 gm MDI] 2 puff IH Q6HP PRN 06/20/18 Ferrous Sulfate [Feosol 325 mg Tablet] 325 mg PO QPM 06/20/18 Fluticasone Propionate [Flovent HFA 220 mcg MDI] 2 puff IH DAILY 06/20/18 Lamotrigine [Lamictal] 200 mg PO QAM 06/20/18 Levothyroxine Sodium [Synthroid 0.05 mg Tablet] 0.05 mg PO Q6AM 06/20/18 Lorazepam [Ativan 0.5 mg Tablet] 0.5 mg PO Q4HP PRN 06/20/18 Nitrofurantoin Monohyd/M-Cryst [Nitrofurantoin Vigo-Mcr 100 mg] 100 mg PO BID Quetiapine Fumarate [Seroquel 100 mg Tablet] 150 mg PO DAILY 10/12/18 Simvastatin [Zocor 10 mg Tablet] 10 mg PO QPM 06/20/18 Topiramate [Topamax 100 mg Tablet] 100 mg PO QPM 06/20/18 Venlafaxine HCl ER [Effexor Xr 75 mg Cap.sr] 225 mg PO DAILY 06/20/18 Allergies/Adverse Reactions: amoxicillin Allergy (Verified 06/20/18 09:34) vancomycin Adverse Reaction (Mild, Verified 06/20/18 09:34) Review of Systems All systems: reviewed and no additional remarkable complaints except as stated - as mentioned in HPI Physical Exam Vital Signs: Temp Pulse Resp BP Pulse Ox 98.0 F 95 22 H 109/59 L 96 06/20/18 09:39 06/20/18 09:39 06/20/18 16:01 06/20/18 16:01 06/20/18 16:01 General appearance: PRESENT: no acute distress, well-developed, well-nourished Head exam: PRESENT: atraumatic, normocephalic Eye exam: PRESENT: conjunctiva pink, EOMI, PERRLA. ABSENT: scleral icterus Ear exam: PRESENT: normal external ear exam Mouth exam: PRESENT: moist, tongue midline Neck exam: ABSENT: carotid bruit, JVD, lymphadenopathy, thyromegaly Respiratory exam: PRESENT: clear to auscultation donita. ABSENT: rales, rhonchi, wheezes Cardiovascular exam: PRESENT: RRR. ABSENT: diastolic murmur, rubs, systolic murmur Pulses: PRESENT: normal dorsalis pedis pul GI/Abdominal exam: PRESENT: normal bowel sounds, soft, tenderness - very minimal LLQ tenderness. ABSENT: distended, guarding, mass, organolmegaly, rebound Rectal exam: PRESENT: deferred Neurological exam: PRESENT: alert, awake, oriented to person, oriented to place , oriented to time, oriented to situation, CN II-XII grossly intact. ABSENT: motor sensory deficit Results Impressions: Abdomen/Pelvis CT 06/20/18 11:38 IMPRESSION: Bladder mass lesions as noted above. Other findings as noted above Assessment & Plan - Diagnosis (1) Recurrent Clostridium difficile diarrhea Is this a current diagnosis for this admission?: Yes Plan: Will check again for C diff. This will likely be patient's 3rd episode of C difficile. She has a questionable history of allergy to IV vancomycin. Daughter says she had flushing when she was given IV vanco previously but no actual rashes, pruritus or shortness of breath. Daughter did express if it's possible to try another trial. I did recommend a trial of oral vancomycin as it oral vanc would unlikely cause a systemic reaction and her previous flushing is not consistent with true drug allergy. Will start patient on oral vancomycin. Continue Flagyl. Strongly recommend that she pursues fecal transplantation later as this is a likely 3rd episode of C. diff. (2) Hypothyroidism Is this a current diagnosis for this admission?: Yes Plan: Resume Synthroid. (3) Urothelial carcinoma of bladder Is this a current diagnosis for this admission?: Yes Plan: Patient follows up with Dr. Loya outpatient. (4) Acute kidney injury Is this a current diagnosis for this admission?: Yes Plan: Likely pre renal from volume depletion from GI losses. Continue IV fluids. - Time Time Spent: 30 to 50 Minutes
[2018-06-20] MEDS ORDERED: NORMAL SALINE 1000 ML 1,000 ML IV PRN (23:49)
[2018-06-21] MEDS: VANCOMYCIN HCL INJ 500 MG VIAL PO SCH ×5 (01:33→23:27)
[2018-06-21] MEDS: METRONIDAZOLE 500 MG TABLET PO SCH ×5 (01:33→23:28)
[2018-06-21] MEDS: LEVOTHYROXINE SODIUM 0.05 MG TABLET PO SCH (05:51)
[2018-06-21] MEDS: VENLAFAXINE HCL 75 MG CAP.SR.24H PO SCH (12:24)
[2018-06-21] MEDS: QUETIAPINE FUMARATE 100 MG TABLET PO SCH (12:25)
[2018-06-21 12:57] LABS: ANION GAP 10 (5-19); BLOOD UREA NITROGEN 11 mg/dL (7-20); CALCIUM 8.9 mg/dL (8.4-10.2); CARBON DIOXIDE 19 mmol/L (22-30); CHLORIDE 112 mmol/L (98-107); GLUCOSE 81 mg/dL (75-110); POTASSIUM 3.6 mmol/L (3.6-5.0); SODIUM 141.4 mmol/L (137-145)
[2018-06-21] MEDS ORDERED: TOPIRAMATE 100 MG TABLET PO SCH (18:00)
--- NOTE | 2018-06-21 18:02 | PDOC PROGRESS REPORT ---
Subjective Progress Note for:: 06/21/18 Subjective:: SRIKANTH COLVIN is a 73 year old female with a PMH of dementia, hypothyroidism, bipolar disorder, history of breast CA and urothelial bladder carcinoma and 2 previous episodes of C. difficile colitis who presented with acute diarrhea. Patient is found to have another C difficile infection. This is her 3rd episode. Patient had 6 episodes of watery non blood stools overnight and had another 2 episodes this morning. No nausea or vomiting. She has minimal abdominal pain. She denies dizziness. She is tolerating diet well. Reason For Visit: C DIFFICILE COLITIS Physical Exam Vital Signs: Temp Pulse Resp BP Pulse Ox 98.1 F 62 20 116/58 L 99 06/21/18 16:46 06/21/18 16:46 06/21/18 16:46 06/21/18 16:46 06/21/18 16:46 Intake & Output 06/20/18 06/21/18 06/22/18 06:59 06:59 06:59 Intake Total 1320 646 Output Total 3 Balance 1317 646 Weight 108 lb 7.479 oz General appearance: PRESENT: no acute distress, well-developed, well-nourished Head exam: PRESENT: atraumatic, normocephalic Eye exam: PRESENT: conjunctiva pink, EOMI, PERRLA. ABSENT: scleral icterus Ear exam: PRESENT: normal external ear exam Mouth exam: PRESENT: moist, tongue midline Neck exam: ABSENT: carotid bruit, JVD, lymphadenopathy, thyromegaly Respiratory exam: PRESENT: clear to auscultation donita. ABSENT: rales, rhonchi, wheezes Cardiovascular exam: PRESENT: RRR. ABSENT: diastolic murmur, rubs, systolic murmur Pulses: PRESENT: normal dorsalis pedis pul GI/Abdominal exam: PRESENT: normal bowel sounds, soft. ABSENT: distended, guarding, mass, organolmegaly, rebound, tenderness Rectal exam: PRESENT: deferred Neurological exam: PRESENT: alert, awake, oriented to person, oriented to place , oriented to time, oriented to situation, CN II-XII grossly intact. ABSENT: motor sensory deficit Results Laboratory Results: 06/21/18 12:18 06/21/18 12:18 Sodium 141.4 Potassium 3.6 Chloride 112 H Carbon Dioxide 19 L Anion Gap 10 BUN 11 Creatinine 0.73 Est GFR ( Amer) > 60 Est GFR (Non-Af Amer) > 60 Glucose 81 Calcium 8.9 Magnesium 1.9 Impressions: Abdomen/Pelvis CT 06/20/18 11:38 IMPRESSION: Bladder mass lesions as noted above. Other findings as noted above Assessment & Plan - Diagnosis (1) Recurrent Clostridium difficile diarrhea Is this a current diagnosis for this admission?: Yes Plan: Continue oral vancomycin and Flagyl. Strongly recommend that she pursues fecal transplantation at [facility] or [facility] later when she follows up with her PCP as this is her 3rd episode of C. diff. (2) Acute kidney injury Is this a current diagnosis for this admission?: Yes Plan: Resolved. Likely pre renal from volume depletion from GI losses. Continue IV fluids. (3) Hypothyroidism Is this a current diagnosis for this admission?: Yes Plan: Continue Synthroid. (4) Urothelial carcinoma of bladder Is this a current diagnosis for this admission?: Yes Plan: Patient follows up with Dr. Loya outpatient. - Time Time Spent with patient: 15-24 minutes
[2018-06-21] MEDS ORDERED: NORMAL SALINE 1000 ML 1,000 ML IV PRN (19:23)
[2018-06-22] MEDS: VANCOMYCIN HCL INJ 500 MG VIAL PO SCH ×2 (06:28→14:03)
[2018-06-22] MEDS: LEVOTHYROXINE SODIUM 0.05 MG TABLET PO SCH (06:28)
[2018-06-22] MEDS: METRONIDAZOLE 500 MG TABLET PO SCH ×2 (06:28→14:03)
[2018-06-22 13:16] VITALS: BP 126/67
[2018-06-22] MEDS: VENLAFAXINE HCL 75 MG CAP.SR.24H PO SCH (14:03)
[2018-06-22] MEDS: QUETIAPINE FUMARATE 100 MG TABLET PO SCH (14:03)
--- NOTE | 2018-06-22 15:55 | PDOC DISCHARGE SUMMARY ---
General - Admit/Disc Date/PCP Admission Date/Primary Care Provider: 06/20/18 15:52 Discharge Date: 06/22/18 - Discharge Diagnosis (1) Recurrent Clostridium difficile diarrhea Is this a current diagnosis for this admission?: Yes (2) Hypothyroidism Is this a current diagnosis for this admission?: Yes (3) Urothelial carcinoma of bladder Is this a current diagnosis for this admission?: Yes (4) Acute kidney injury Is this a current diagnosis for this admission?: Yes - Additional Information Resuscitation Status: Do Not Resuscitate Prescriptions: Metronidazole [Flagyl 500 mg Tablet] 500 mg PO Q6 #24 tablet Vancomycin HCl 125 mg PO Q6H #32 capsule Home Medications: Albuterol Sulfate [Proair HFA Inhalation Aerosol 8.5 gm MDI] 2 puff IH Q6HP PRN 06/20/18 Ferrous Sulfate [Feosol 325 mg Tablet] 325 mg PO QPM 06/20/18 Fluticasone Propionate [Flovent HFA 220 mcg MDI] 2 puff IH DAILY 06/20/18 Lamotrigine [Lamictal] 200 mg PO QAM 06/20/18 Levothyroxine Sodium [Synthroid 0.05 mg Tablet] 0.05 mg PO Q6AM 06/20/18 Lorazepam [Ativan 0.5 mg Tablet] 0.5 mg PO Q4HP PRN 06/20/18 Quetiapine Fumarate [Seroquel 100 mg Tablet] 150 mg PO DAILY 06/20/18 Simvastatin [Zocor 10 mg Tablet] 10 mg PO QPM 06/20/18 Topiramate [Topamax 100 mg Tablet] 100 mg PO QPM 06/20/18 Venlafaxine HCl ER [Effexor Xr 75 mg Cap.sr] 225 mg PO DAILY 06/20/18 Metronidazole [Flagyl 500 mg Tablet] 500 mg PO Q6 #24 tablet 06/22/18 Vancomycin HCl 125 mg PO Q6H #32 capsule 06/22/18 History of Present Illness History of Present Illness: SRIKANTH COLVIN is a 73 year old female with a PMH of dementia, hypothyroidism, bipolar disorder, history of breast CA and urothelial bladder carcinoma and 2 history of C. difficile colitis who presented with diarrhea. Patient had recent C. diff colitis which has been treated with Flagyl. She was started on multiple antibiotics in the past few months due to cellulitis and UTI. She tested positive again on 06/14/18. Daughter says her diarrhea resolved but she was again recently treated with Macrobid for a possible UTI and had recurrence of watery stools in the past 3 days. No nausea or vomiting. She has minimal abdominal pain. Hospital Course Hospital Course: Patient was admitted for acute diarrhea and ALESIA. She was found to have C. difficle which will be now her 3rd episode. She was started on Flagyl and oral vancomycin which she tolerated well. She did have improve clinically and her stools became more formed and only had 1 BM on day of discharge. Her acute kidney injury also resolved with fluids. She has a history of urothelial CA and was given a ff-up appt with Dr. Loya. Also recommended discussing with PCP about referring her to [facility] or [place] for fecal transplantations as this is her 3rd C. diff. Physical Exam Vital Signs: Temp Pulse Resp BP Pulse Ox 97.4 F 70 16 109/67 100 06/22/18 08:14 06/22/18 08:14 06/22/18 04:29 06/22/18 08:14 06/22/18 08:14 Intake & Output 06/21/18 06/22/18 06/23/18 06:59 06:59 06:59 Intake Total 1320 1286 Output Total 3 Balance 1317 1286 Weight 108 lb 7.479 oz 119 lb 14.903 oz General appearance: PRESENT: no acute distress, thin Head exam: PRESENT: atraumatic, normocephalic Eye exam: PRESENT: conjunctiva pink, EOMI, PERRLA. ABSENT: scleral icterus Ear exam: PRESENT: normal external ear exam Neck exam: ABSENT: carotid bruit, JVD, lymphadenopathy, thyromegaly Respiratory exam: PRESENT: clear to auscultation donita. ABSENT: rales, rhonchi, wheezes Cardiovascular exam: PRESENT: RRR. ABSENT: diastolic murmur, rubs, systolic murmur Pulses: PRESENT: normal dorsalis pedis pul GI/Abdominal exam: PRESENT: normal bowel sounds, soft. ABSENT: distended, guarding, mass, organolmegaly, rebound, tenderness Rectal exam: PRESENT: deferred Neurological exam: PRESENT: alert, awake, oriented to person, oriented to place , oriented to time, oriented to situation, CN II-XII grossly intact. ABSENT: motor sensory deficit Results Laboratory Results: 10/13/18 12:18 06/21/18 12:18 Sodium 141.4 Potassium 3.6 Chloride 112 H Carbon Dioxide 19 L Anion Gap 10 BUN 11 Creatinine 0.73 Est GFR ( Amer) > 60 Est GFR (Non-Af Amer) > 60 Glucose 81 Calcium 8.9 Magnesium 1.9 Impressions: Abdomen/Pelvis CT 06/20/18 11:38 IMPRESSION: Bladder mass lesions as noted above. Other findings as noted above Qualifiers - * PATIENT BEING DISCHARGED WITH ANY OF THE FOLLOWING DIAGNOSIS: No
== END 2018-06-22 18:20 | disposition home or self-care (01) ==
LOC: ER 09:32 → EH 15:52 → 5 17:50
PROVIDERS: ADMIT Internal Medicine; ATTEND Internal Medicine
DX: A04.71 Enterocolitis due to Clostridium difficile, recurrent (principal); E03.9 Hypothyroidism, unspecified; C67.9 Malignant neoplasm of bladder, unspecified; N17.9 Acute kidney failure, unspecified; J44.9 Chronic obstructive pulmonary disease, unspecified; F31.9 Bipolar disorder, unspecified; F03.90 Unspecified dementia, unspecified severity, without behavioral disturbance, psychotic disturbance, mood disturbance, and anxiety; Z66 Do not resuscitate; Z79.899 Other long term (current) drug therapy; Z85.3 Personal history of malignant neoplasm of breast; Z87.440 Personal history of urinary (tract) infections; Z90.11 Acquired absence of right breast and nipple; Z98.890 Other specified postprocedural states
CPT/HCPCS: 99285; 96360; 96361; 51701; 36415 ×2; 87045; 89055; 87205; 87209; 83735; 87177; 85025; 82272; 80048; 80053; 81001; 87493; 74177; G0378 ×4; A9270 ×12; J3490 ×2; J3370 ×3; J7030 ×2

== ENCOUNTER → 2018-08-15 | Outpatient (CLI) | payer MEDICARE ==
--- NOTE | 2018-08-15 11:31 | WOMENS IMAGING REPORT ---
EXAM DESCRIPTION: BONE DENSITY HIP/SPINE COMPLETED DATE/TIME: 08/15/2018 11:22 am REASON FOR STUDY: BONE DENSITY TEST /M81.0 Z12.31 ENCNTR SCREEN MAMMOGRAM FOR MALIGNANT NEOPLASM OF TU M81.0 AGE-RELATED OSTEOPOROSIS W/O CURRENT PATHOLOGICAL FRAC COMPARISON: None. TECHNIQUE: Dual-Energy X-ray Absorptiometry (DEXA) of the AP Spine and Hip. LIMITATIONS: None. FINDINGS: LUMBAR SPINE: The bone mineral density (BMD) measured from L1-L4 in the AP projection correlates with a T-score of -4.7, which is osteoporosis as defined by the World Health Organization. HIP: The bone mineral density (BMD) measured in the left hip correlates with a T-score of -4.7 in the femo ral neck, which is osteoporosis as defined by the World Health Organization. IMPRESSION: 1. LUMBAR SPINE: Osteoporosis 2. HIP: Osteoporosis COMMENT: The World Health Organization defines low BMD as follows: T-score: Normal: Greater than -1.0 Osteopenia: Between -1.0 and -2.5 Osteoporosis: Less than -2.5 without fractures Established osteoporosis: Less than -2.5 with fractures In general, you may wish to consider: Diagnosis Treatment Follow-up DEXA Normal BMD Prevention 2-3 years Osteopenia Prevention/Therapy 1-2 years Osteoporosis Therapy Yearly TECHNICAL DOCUMENTATION: JOB ID: [id number] [employer]- All Rights Reserved Reading location - IP/workstation name: [email or web address]
== END ==
LOC: WI 10:27
PROVIDERS: ATTEND Nurse Practitioner Family
DX: Z12.31 Encounter for screening mammogram for malignant neoplasm of breast (principal); M81.0 Age-related osteoporosis without current pathological fracture
CPT/HCPCS: 77080

== ENCOUNTER → 2018-08-25 | Outpatient (CLI) | payer MEDICARE ==
--- NOTE | 2018-08-25 14:55 | RADIOLOGY REPORT (SQ) ---
EXAM DESCRIPTION: U/S ABDOMEN LIMITED W/O DOP COMPLETED DATE/TIME: 08/25/2018 2:42 pm REASON FOR STUDY: R10.9 UNSPECIFIED ABDOMINAL PAIN R10.9 UNSPECIFIED ABDOMINAL PAIN COMPARISON: CT abdomen and pelvis 06/20/2018 Abdominal ultrasound 01/08/2018 TECHNIQUE: Dynamic and static grayscale images acquired of the abdomen and recorded on PACS. Additio nal selected color Doppler and spectral images recorded. LIMITATIONS: None. FINDINGS: PANCREAS: Midline pancreas unremarkable LIVER: Normal size. 1 cm cyst sub- diaphragmatic surface left lobe liver, benign LIVER VASCULATURE: Normal directional flow of the main portal vein and hepatic veins. GALLBLADDER: Stones in the gallbladder without gallbladder wall thickening or pericholecystic fluid. Stones cause a wall-echo -shadow sign ULTRASOUND-DETECTED VALLE'S SIGN: Negative. INTRAHEPATIC DUCTS AND COMMON DUCT: CBD and intrahepatic ducts normal caliber. Distal common duct no t well seen due to duodenum gas INFERIOR VENA CAVA: Normal flow. AORTA: No aneurysm. RIGHT KIDNEY: 8 cm in length with normal cortical thickness. There is a right-sided extrarenal pelv is which is mildly dilated. 7 mm shadowing focus right lower pole kidney likely a small intrarenal n onobstructive stone. PERITONEAL AND RIGHT PLEURAL SPACE: No ascites or effusions. OTHER: No other significant findings. IMPRESSION: Abdominal gallbladder without gallbladder wall thickening or pericholecystic fluid. Neg ative sonographic Valle's sign today. Mild prominence of the right extrarenal pelvis, new compared to CT exam 06/20/2018. TECHNICAL DOCUMENTATION: JOB ID: [id number] [employer]- All Rights Reserved Reading location - IP/workstation name: [email or web address]
--- NOTE | 2018-08-25 14:59 | RADIOLOGY REPORT (SQ) ---
EXAM DESCRIPTION: U/S NON-OB PELVIS LTD W/O DOP COMPLETED DATE/TIME: 08/25/2018 2:42 pm REASON FOR STUDY: R10.9 UNSPECIFIED ABDOMINAL PAIN R10.9 UNSPECIFIED ABDOMINAL PAIN COMPARISON: CT abdomen pelvis 06/20/2018, 02/09/2018 TECHNIQUE: Dynamic and static grayscale images acquired of the urinary bladder and pelvis via transa bdominal approach and recorded on PACS. Additional selected color Doppler and spectral images recorde d. LIMITATIONS: None. FINDINGS: Imaging of the urinary bladder was performed. There are 3 bladder mucosal masses worrisom e for neoplasm as follows: Right lateral posterior bladder wall near the right ureteral orifice, 2.5 x 1.5 cm in size Anterior right bladder dome, 2.5 x 1.5 cm in size Midline/leftward bladder dome, pedunculated tumor, 1.8 cm in diameter UTERUS: Contour normal. No mass. 5 x 3 x 2 cm in size ENDOMETRIAL STRIPE: Not well seen CERVIX: Not well seen RIGHT OVARY AND DOPPLER: Not well seen due to adnexal bowel gas LEFT OVARY AND DOPPLER: Not well seen due to adnexal bowel gas FREE FLUID: None noted. OTHER: No other significant finding. 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 TECHNICAL DOCUMENTATION: JOB ID: [id number] [employer]- All Rights Reserved Reading location - IP/workstation name: [email or web address]
== END ==
LOC: RAD 14:47
PROVIDERS: ATTEND Nurse Practitioner Family
DX: R10.9 Unspecified abdominal pain (principal)
CPT/HCPCS: 76705; 76857

== ENCOUNTER 2018-09-10 10:47 | Emergency (ER) | payer MEDICARE ==
[2018-09-10] MEDS ORDERED: ONDANSETRON HCL INJ/PF 4 MG/2 ML SDV IV ONE (11:33)
[2018-09-10] MEDS ORDERED: MORPHINE SULFATE 10 MG/ML INJ IV ONE ×2 (11:33→16:48)
--- NOTE | 2018-09-10 11:33 | ER Document Report ---
ED Medical Screen (RME) - General Chief Complaint: Abdominal Pain >50 Stated Complaint: ABDOMINAL PAIN Time Seen by Provider: 09/10/18 11:31 Mode of Arrival: Ambulatory Information source: Patient, Relative Notes: 73-year-old female with bladder cancer, dementia, bipolar disorder presents with her family who is concerned for increasing abdominal pain, decreased appetite. I have greeted and performed a rapid initial assessment of this patient. A comprehensive ED assessment and evaluation of the patient, analysis of test results and completion of medical decision making process we will be contacted by additional ED providers. PHYSICAL EXAMINATION: Vital signs reviewed GENERAL: Well-appearing, well-nourished and in no acute distress. LUNGS: No respiratory distress Musculoskeletal: Normal range of motion NEUROLOGICAL: Normal speech, normal gait. PSYCH: Normal mood, normal affect. SKIN: Warm, Dry, normal turgor, no rashes or lesions noted. TRAVEL OUTSIDE OF THE [place] IN LAST 30 DAYS: No - HPI Onset: Other Onset/Duration: Persistent, Worse Quality of pain: Sharp Severity: Moderate Associated Symptoms: Abdominal pain, Weakness. denies: Fever, Nausea Exacerbated by: Denies Relieved by: Denies Similar symptoms previously: Yes Recently seen / treated by doctor: Yes - Related Data Smoking: Non-smoker Frequency of alcohol use: None Drug Abuse: None Allergies/Adverse Reactions: amoxicillin Allergy (Verified 09/10/18 11:07) vancomycin Adverse Reaction (Mild, Verified 09/10/18 11:07) Past Medical History Pulmonary Medical History: Reports: Hx COPD - possible Chemo related Endocrine Medical History: Reports: Hx Hypothyroidism. Denies: Hx Diabetes Mellitus Type 1, Hx Diabetes Mellitus Type 2 Renal/ Medical History: Denies: Hx Peritoneal Dialysis Malignancy Medical History: Reports: Hx Breast Cancer Psychiatric Medical History: Reports: Hx Bipolar Disorder, Hx Depression Past Surgical History: Reports: Hx Breast Surgery - right breast removed, Hx Genitourinary Surgery - bladder, Hx Mastectomy, Hx Orthopedic Surgery - Immunizations History of Influenza Vaccine for 06/2017 - 11/2017 Season: Unknown Physical Exam - Vital signs Vitals: Temp Pulse Resp BP Pulse Ox 98.3 F 79 16 154/83 H 98 09/10/18 11:15 09/10/18 11:15 09/10/18 11:15 09/10/18 11:15 09/10/18 11:15 Course - Vital Signs Vital signs: Temp Pulse Resp BP Pulse Ox 98.3 F 79 16 154/83 H 98 09/10/18 11:15 09/10/18 11:15 09/10/18 11:15 09/10/18 11:15 09/10/18 11:15 Doctor's Discharge - Discharge Referrals: IRASEMA PARKER P[facility]LE [facility]KER-C [Primary Care Provider] - Follow up as needed
[2018-09-10 12:33] LABS: ABSOLUTE BASOPHILS # (AUTO) 0.1 10^3/uL (0.0-0.2); ABSOLUTE EOSINOPHILS # (AUTO) 0.7 10^3/uL (0.0-0.6); ABSOLUTE LYMPHOCYTES (AUTO) 1.2 10^3/uL (0.5-4.7); ABSOLUTE MONOCYTES (AUTO) 0.4 10^3/uL (0.1-1.4); BASOPHILS % (AUTO) 0.9 % (0-2); EOSINOPHILS % (AUTO) 12.2 % (0-6); HEMATOCRIT 37.5 % (36.0-47.0); HEMOGLOBIN 12.4 g/dL (12.0-15.5); LYMPHOCYTES % (AUTO) 23.3 % (13-45); MEAN CORPUSCULAR HEMOGLOBIN 28.7 pg (27.0-33.4); MEAN CORPUSCULAR HGB CONC 33.2 g/dL (32.0-36.0); MEAN CORPUSCULAR VOLUME 87 fl (80-97); MONOCYTES % (AUTO) 6.6 % (3-13); PLATELET COUNT 215 10^3/uL (150-450); RED BLOOD COUNT 4.33 10^6/uL (3.72-5.28); RED CELL DISTRIBUTION WIDTH 15.9 % (11.5-14.0); TOTAL CELLS COUNTED % (AUTO) 100 %; WHITE BLOOD COUNT 5.3 10^3/uL (4.0-10.5)
[2018-09-10 12:47] LABS: ALANINE AMINOTRANSFERASE 19 U/L (9-52); ALBUMIN 4.7 g/dL (3.5-5.0); ALKALINE PHOSPHATASE 103 U/L (38-126); ANION GAP 9 (5-19); ASPARTATE AMINO TRANSFERASE 30 U/L (14-36); BILIRUBIN,DIRECT 0.2 mg/dL (0.0-0.4); BILIRUBIN,TOTAL 0.3 mg/dL (0.2-1.3); BLOOD UREA NITROGEN 35 mg/dL (7-20); CALCIUM 10.2 mg/dL (8.4-10.2); CARBON DIOXIDE 25 mmol/L (22-30); CHLORIDE 109 mmol/L (98-107); GLUCOSE 96 mg/dL (75-110); LIPASE 150.3 U/L (23-300); POTASSIUM 4.3 mmol/L (3.6-5.0); SODIUM 142.5 mmol/L (137-145); TOTAL PROTEIN 7.8 g/dL (6.3-8.2)
[2018-09-10 12:51] LABS: APPEARANCE,URINE CLOUDY; BILIRUBIN,URINE NEGATIVE (NEGATIVE); COLOR,URINE AMBER; GLUCOSE, URINE NEGATIVE (NEGATIVE); KETONES,URINE NEGATIVE (NEGATIVE); LEUKOCYTE ESTERASE,URINE NEGATIVE (NEGATIVE); NITRITE,URINE NEGATIVE (NEGATIVE); PROTEIN,URINE 100 mg/dL (NEGATIVE); URINE SPECIFIC GRAVITY 1.017; UROBILINOGEN,URINE NEGATIVE mg/dL (<2.0)
[2018-09-10] MEDS ORDERED: NORMAL SALINE 1000 ML 1,000 ML IV ONE (13:33)
--- NOTE | 2018-09-10 14:09 | ER Document Report ---
ED General - General Chief Complaint: Abdominal Pain >50 Stated Complaint: ABDOMINAL PAIN Time Seen by Provider: 09/10/18 11:31 Mode of Arrival: Ambulatory TRAVEL OUTSIDE OF THE [place] IN LAST 30 DAYS: No - HPI Notes: Patient is a 73-year-old female that presents to the emergency department for chief complaint of left-sided abdominal pain. Patient has dementia which limits HPI, her daughter is also providing history. Patient has a bladder cancer and has been seeing Dr. Loya. She has been told that the tumors in her bladder are getting bigger. Patients daughter states she has been complaining of pain in her abdomen for the last 2 weeks. Right now patient states it is on the left side, sharp, nonradiating with no aggravating or relieving factors. Patient reports normal bowel movement today. She reports hematuria which is unchanged. She denies any dysuria or urinary frequency. She denies any nausea or vomiting. Patient's family states that she is not eating or drinking well. She denies any fevers or chills. She does have a history of C. difficile but has not had any diarrhea recently Past Medical History: Bladder cancer Past Surgical History: Bladder tumor removal Social History: Reviewed in chart Family History: Reviewed and noncontributory for presenting illness Allergies: Reviewed, see documented allergy list. REVIEW OF SYSTEMS: CONSTITUTIONAL : No fever No chills No diaphoresis No recent illness EENT: No vision changes No congestion No sore throat CARDIOVASCULAR: No chest pain No palpitations RESPIRATORY: No shortness of breath No cough No difficulty breathing GASTROINTESTINAL: abdominal pain No nausea No vomiting No diarrhea GENITOURINARY: No dysuria No hematuria No difficulty urinating MUSCULOSKELETAL: No back pain No leg pain No arm pain SKIN: No rashes No lesions LYMPHATIC: No swollen, enlarged glands. NEUROLOGICAL: No lightheadedness No headache No weakness No paresthesias PSYCHIATRIC: No anxiety No depression PHYSICAL EXAMINATION: Vital signs reviewed, nursing noted reviewed. GENERAL: Well-appearing, thin, and in no acute distress. HEAD: Atraumatic, normocephalic. EYES: Eyes appear normal, extraocular movements intact, sclera anicteric, conjunctiva are normal. ENT: nares patent, oropharynx clear without exudates. Dry mucous membranes. NECK: Normal range of motion, supple without lymphadenopathy LUNGS: Breath sounds clear to auscultation bilaterally and equal. No wheezes rales or rhonchi. HEART: Regular rate and rhythm without murmurs ABDOMEN: Soft, diffuse lower abdominal tenderness, normoactive bowel sounds. No rebound, guarding, or rigidity. No masses appreciated. EXTREMITIES: Nontender, good range of motion, no pitting or edema. NEUROLOGICAL: No focal neurological deficits. Moves all extremities spontaneously Motor and sensory grossly intact on exam. PSYCH: Normal mood, normal affect. SKIN: Warm, Dry, normal turgor, no rashes or lesions noted on exposed skin - Related Data Allergies/Adverse Reactions: amoxicillin Allergy (Verified 09/10/18 11:07) vancomycin Adverse Reaction (Mild, Verified 09/10/18 11:07) Past Medical History - General Information source: Patient, Relative - Social History Smoking Status: Unknown if Ever Smoked Chew tobacco use (# tins/day): No Frequency of alcohol use: None Drug Abuse: None Family History: Reviewed & Not Pertinent Patient has suicidal ideation: No Patient has homicidal ideation: No Pulmonary Medical History: Reports: Hx COPD - possible Chemo related Endocrine Medical History: Reports: Hx Hypothyroidism. Denies: Hx Diabetes Yolande itus Type 1, Hx Diabetes Mellitus Type 2 Renal/ Medical History: Denies: Hx Peritoneal Dialysis Malignancy Medical History: Reports: Hx Breast Cancer Psychiatric Medical History: Reports: Hx Bipolar Disorder, Hx Depression Past Surgical History: Reports: Hx Breast Surgery - right breast removed, Hx Genitourinary Surgery - bladder, Hx Mastectomy, Hx Orthopedic Surgery Physical Exam - Vital signs Vitals: Temp Pulse Resp BP Pulse Ox 98.3 F 79 16 154/83 H 98 09/10/18 11:15 09/10/18 11:15 09/10/18 11:15 09/10/18 11:15 09/10/18 11:15 Course - Re-evaluation Re-evalutation: 09/10/18 14:08 Vitals reviewed. Nursing notes reviewed. Patient was started on IV hydration for her apparent dehydration. Her lab work shows AK I with a creatinine of 1.8, this is new compared to June. Her renal insufficiency is likely related to her poor oral intake and dehydration. She does have some abdominal tenderness and CT scan will be ordered to evaluate for possible obstruction from her bladder tumors. 09/10/18 17:01 Patient's lab work shows new renal failure with a creatinine of 1.8, her comparison creatinine was 0.8 a few months ago. Patient CT scan shows large bladder tumor with hydronephrosis on the left. And concern for possible distal ureteral obstruction from her bladder tumors causing her hydronephrosis and renal failure as well as dehydration from poor oral intake. Patient has continued to have pain and was given a second dose of morphine. Urology is unavailable at this facility and she will be transferred to [facility] for further care. Case discussed with Dr. Denise who accepts patient for admission and transfer. Patient in agreement with this plan and stable for transportation. Laboratory 09/10/18 09/10/18 09/10/18 12:16 12:16 12:16 WBC 5.3 RBC 4.33 Hgb 12.4 Hct 37.5 MCV 87 MCH 28.7 MCHC 33.2 RDW 15.9 H Plt Count 215 Seg Neutrophils % 57.0 Lymphocytes % 23.3 Monocytes % 6.6 Eosinophils % 12.2 H Basophils % 0.9 Absolute Neutrophils 3.0 Absolute Lymphocytes 1.2 Absolute Monocytes 0.4 Absolute Eosinophils 0.7 H Absolute Basophils 0.1 Sodium 142.5 Potassium 4.3 Chloride 109 H Carbon Dioxide 25 Anion Gap 9 BUN 35 H Creatinine 1.81 H Est GFR ( Amer) 33 L Est GFR (Non-Af Amer) 27 L Glucose 96 Calcium 10.2 Total Bilirubin 0.3 Direct Bilirubin 0.2 Neonat Total Bilirubin Not Reportable Neonat Direct Bilirubin Not Reportable Neonat Indirect Bili Not Reportable AST 30 ALT 19 Alkaline Phosphatase 103 Total Protein 7.8 Albumin 4.7 Lipase 150.3 Urine Color YONG Urine Appearance CLOUDY Urine pH 5.0 Ur Specific Willis 1.017 Urine Protein 100 H Urine Glucose (UA) NEGATIVE Urine Ketones NEGATIVE Urine Blood LARGE H Urine Nitrite NEGATIVE Urine Bilirubin NEGATIVE Urine Urobilinogen NEGATIVE Ur Leukocyte Esterase NEGATIVE Urine WBC (Auto) 38 Urine RBC (Auto) >182 Urine Bacteria (Auto) 1+ Urine WBC Clumps FEW Urine Yeast (Budding) PRESENT Urine Ascorbic Acid NEGATIVE Abdomen/Pelvis CT 09/10/18 14:05 IMPRESSION: Moderate left hydronephrosis without evidence of ureteral or bladder stone. Known urinary bladder masses. - Vital Signs Vital signs: Temp Pulse Resp BP Pulse Ox 98.3 F 86 18 132/88 H 99 09/10/18 11:15 09/10/18 15:22 09/10/18 15:22 09/10/18 15:22 09/10/18 15:22 - Laboratory Result Diagrams: 09/10/18 12:16 09/10/18 12:16 Laboratory results interpreted by me: 09/10/18 09/10/18 09/10/18 12:16 12:16 12:16 RDW 15.9 H Eosinophils % 12.2 H Absolute Eosinophils 0.7 H Chloride 109 H BUN 35 H Creatinine 1.81 H Est GFR ( Amer) 33 L Est GFR (Non-Af Amer) 27 L Urine Protein 100 H Urine Blood LARGE H Discharge - Discharge Clinical Impression: ALESIA (acute kidney injury), Dehydration, Bladder tumor Abdominal pain Qualifiers: Abdominal location: left lower quadrant Qualified Code(s): R10.32 - Left lower quadrant pain Hematuria Qualifiers: Hematuria type: gross Qualified Code(s): R31.0 - Gross hematuria Condition: Stable Disposition: [facility] Referrals: IRASEMA PARKER, DEVELOPER EVANGELIST-C [NO LOCAL MD] - Follow up as needed
--- NOTE | 2018-09-10 14:45 | RADIOLOGY REPORT (SQ) ---
EXAM DESCRIPTION: CT ABD/PELVIS NO ORAL OR IV COMPLETED DATE/TIME: 09/10/2018 2:29 pm REASON FOR STUDY: left side pain COMPARISON: 02/09/2018. TECHNIQUE: CT scan of the abdomen and pelvis performed without intravenous or oral contrast. Images reviewed with lung, soft tissue, and bone windows. Reconstructed coronal and sagittal MPR images revi ewed. All images stored on PACS. All CT scanners at this facility use dose modulation, iterative reconstruction, and/or weight based d osing when appropriate to reduce radiation dose to as low as reasonably achievable (ALARA). [facility]: Dose Right [facility]: CareDose [facility]: Dose Right [facility]: Teradose 4D [facility]: StreamStar RADIATION DOSE: CT Rad equipment meets quality standard of care and radiation dose reduction techniq ues were employed. CTDIvol: 5.2 mGy. DLP: 238 mGy-cm.mGy. LIMITATIONS: None. FINDINGS: LOWER CHEST: No significant findings. No nodules or infiltrates. NON-CONTRASTED LIVER, SPLEEN, ADRENALS: Evaluation limited by lack of IV contrast. No identified sign ificant masses. PANCREAS: No masses. No peripancreatic inflammatory changes. GALLBLADDER: No identified stones by CT criteria. No inflammatory changes to suggest cholecystitis. RIGHT KIDNEY AND URETER: No suspicious masses. Assessment limited by lack of IV contrast. No signif icant calcifications. No hydronephrosis or hydroureter. LEFT KIDNEY AND URETER: No suspicious masses. Assessment limited by lack of IV contrast. No signifi cant calcifications. Moderate hydronephrosis. AORTA AND RETROPERITONEUM: No aneurysm. No retroperitoneal masses or adenopathy. BOWEL AND PERITONEAL CAVITY: No obvious masses or inflammatory changes. No free fluid. APPENDIX: Not visualized. PELVIS, BLADDER, AND ABDOMINAL WALL:Known urinary bladder masses. No significant change. BONES: Nothing acute. OTHER: No other significant finding. IMPRESSION: Moderate left hydronephrosis without evidence of ureteral or bladder stone. Known urina ry bladder masses. COMMENT: Quality ID # [id number]: Final reports with documentation of one or more dose reduction techniques (e.g., Automated exposure control, adjustment of the mA and/or kV according to patient size, use of iterative reconstruction technique) TECHNICAL DOCUMENTATION: JOB ID: [id number] [employer]- All Rights Reserved Reading location - IP/workstation name: [email or web address]
[2018-09-10] MEDS: NORMAL SALINE 1000 ML 1,000 ML IV PRN ×2 (18:43→18:44)
[2018-09-11 01:35] VITALS: BP 146/85
== END 2018-09-11 01:52 | disposition short-term general hospital (02) ==
LOC: ER 10:47
DX: N17.9 Acute kidney failure, unspecified (principal); D49.4 Neoplasm of unspecified behavior of bladder; E86.0 Dehydration; R10.32 Left lower quadrant pain; R31.0 Gross hematuria; J44.9 Chronic obstructive pulmonary disease, unspecified
CPT/HCPCS: 96376; 99285; 96361; 96374; 96375; 36415; 83690; 85025; 80053; 81001; 74176; J2270; J2405; J7030

== ENCOUNTER 2018-09-21 13:48 | Emergency (ER) | payer MEDICARE ==
--- NOTE | 2018-09-21 14:05 | ER Document Report ---
ED Medical Screen (RME) - General Chief Complaint: Medical Complaint Stated Complaint: ABDOMINAL/BACK PAIN Time Seen by Provider: 09/21/18 14:03 Mode of Arrival: Wheelchair Information source: Patient, Relative TRAVEL OUTSIDE OF THE U.S. IN LAST 30 DAYS: No - HPI Patient complains to provider of: post-op issues Onset: Yesterday - pt is s/p bladder cancer surgery at [facility] last week. Daughter states she is still having pain and has decreased po intake - Related Data Allergies/Adverse Reactions: amoxicillin Allergy (Verified 09/21/18 13:51) vancomycin Adverse Reaction (Mild, Verified 09/21/18 13:51) Past Medical History - Social History Chew tobacco use (# tins/day): No Frequency of alcohol use: None Drug Abuse: None Pulmonary Medical History: Reports: Hx COPD - possible Chemo related Endocrine Medical History: Reports: Hx Hypothyroidism. Denies: Hx Diabetes Mellitus Type 1, Hx Diabetes Mellitus Type 2 Renal/ Medical History: Denies: Hx Peritoneal Dialysis Malignancy Medical History: Reports: Hx Breast Cancer Psychiatric Medical History: Reports: Hx Bipolar Disorder, Hx Depression Past Surgical History: Reports: Hx Abdominal Surgery - bladder surgery, Hx Breast Surgery - right breast removed, Hx Genitourinary Surgery - bladder, Hx Mastectomy, Hx Orthopedic Surgery - Immunizations History of Influenza Vaccine for 06/2017 - 11/2017 Season: Unknown Physical Exam - Vital signs Vitals: Temp Pulse Resp BP Pulse Ox 97.2 F 81 16 148/73 H 97 09/21/18 13:55 09/21/18 13:55 09/21/18 13:55 09/21/18 13:55 09/21/18 13:55 Course - Vital Signs Vital signs: Temp Pulse Resp BP Pulse Ox 97.2 F 81 16 148/73 H 97 09/21/18 13:55 09/21/18 13:55 09/21/18 13:55 09/21/18 13:55 09/21/18 13:55 Doctor's Discharge - Discharge Referrals: ZEB ZUNIGA MD [Primary Care Provider] - Follow up as needed
[2018-09-21 14:34] LABS: ABSOLUTE EOSINOPHILS # (AUTO) 1.2 10^3/uL (0.0-0.6); ABSOLUTE LYMPHOCYTES (AUTO) 1.2 10^3/uL (0.5-4.7); ABSOLUTE MONOCYTES (AUTO) 0.7 10^3/uL (0.1-1.4); ABSOLUTE NEUT (AUTO) 4.5 10^3/uL (1.7-8.2); BASOPHILS % (AUTO) 0.6 % (0-2); EOSINOPHILS % (AUTO) 15.2 % (0-6); HEMATOCRIT 34.2 % (36.0-47.0); HEMOGLOBIN 11.4 g/dL (12.0-15.5); MEAN CORPUSCULAR HEMOGLOBIN 28.1 pg (27.0-33.4); MEAN CORPUSCULAR HGB CONC 33.2 g/dL (32.0-36.0); MEAN CORPUSCULAR VOLUME 85 fl (80-97); MONOCYTES % (AUTO) 9.5 % (3-13); PLATELET COUNT 386 10^3/uL (150-450); RED BLOOD COUNT 4.04 10^6/uL (3.72-5.28); RED CELL DISTRIBUTION WIDTH 15.5 % (11.5-14.0); SEGMENTED NEUTROPHILS % (AUTO) 58.7 % (42-78); TOTAL CELLS COUNTED % (AUTO) 100 %; WHITE BLOOD COUNT 7.7 10^3/uL (4.0-10.5)
[2018-09-21 14:51] LABS: ALANINE AMINOTRANSFERASE 20 U/L (9-52); ALBUMIN 4.1 g/dL (3.5-5.0); ALKALINE PHOSPHATASE 88 U/L (38-126); AMORPHOUS SEDIMENT,URINE TRACE /HPF; ANION GAP 8 (5-19); APPEARANCE,URINE CLOUDY; ASPARTATE AMINO TRANSFERASE 24 U/L (14-36); BILIRUBIN,DIRECT 0.3 mg/dL (0.0-0.4); BILIRUBIN,TOTAL 0.4 mg/dL (0.2-1.3); BILIRUBIN,URINE NEGATIVE (NEGATIVE); BLOOD UREA NITROGEN 19 mg/dL (7-20); CALCIUM 9.7 mg/dL (8.4-10.2); CARBON DIOXIDE 25 mmol/L (22-30); CHLORIDE 108 mmol/L (98-107); COLOR,URINE YELLOW; GLUCOSE 105 mg/dL (75-110); GLUCOSE, URINE NEGATIVE (NEGATIVE); KETONES,URINE TRACE mg/dL (NEGATIVE); LEUKOCYTE ESTERASE,URINE LARGE (NEGATIVE); NITRITE,URINE NEGATIVE (NEGATIVE); PROTEIN,URINE >=500 mg/dL (NEGATIVE); SODIUM 141.2 mmol/L (137-145); TOTAL PROTEIN 6.8 g/dL (6.3-8.2); URINE SPECIFIC GRAVITY 1.017; UROBILINOGEN,URINE NEGATIVE mg/dL (<2.0)
--- NOTE | 2018-09-21 16:02 | ER Document Report ---
ED General - General Chief Complaint: Medical Complaint Stated Complaint: ABDOMINAL/BACK PAIN Time Seen by Provider: 09/21/18 14:03 Mode of Arrival: Wheelchair TRAVEL OUTSIDE OF THE [place] IN LAST 30 DAYS: No - HPI Notes: Patient is a 73-year-old female with a history of bladder cancer status post multiple tumor resections and previous C. difficile who presents to the emergency department complaining of continued suprapubic abdominal pain and left flank pain which has been ongoing since her visit here on September 10. Patient is accompanied by her daughter as patient does have some dementia. Daughter states that they were transferred to [facility] and had another surgery performed at that time to resect some of the tumors. Daughter states that they were unable to obtain her medications at that time including a medicine for bladder spasms that is performed rectally and no pharmacy carries that here. Patient states that she has had the same pain since she got out of surgery and has not been eating or drinking as much. She is still producing urine and having bowel movements. Daughter states that she is otherwise acting and behaving normal. Her surgery took place at [facility] by surgical oncology, Dr. Aguilar. She has an appointment with Neurology in another 9-10 days in [place]. Denies any headache, fever, neck pain, changes in vision/speech/mentation/hearing, URI, sore throat, chest pain, palpitations, syncope, cough, shortness of breath, wheeze, dyspnea, nausea/vomiting/diarrhea, loss of control of bowel or bladder, numbness/tingling, saddle anesthesia, muscle paralysis/weakness, or rash. - Related Data Allergies/Adverse Reactions: amoxicillin Allergy (Verified 09/21/18 13:51) vancomycin Adverse Reaction (Mild, Verified 09/21/18 13:51) Past Medical History - General Information source: Patient, Relative - Social History Smoking Status: Former Smoker Chew tobacco use (# tins/day): No Frequency of alcohol use: None Drug Abuse: None Family History: Reviewed & Not Pertinent Patient has suicidal ideation: No Patient has homicidal ideation: No Pulmonary Medical History: Reports: Hx COPD - possible Chemo related Endocrine Medical History: Reports: Hx Hypothyroidism. Denies: Hx Diabetes Mellitus Type 1, Hx Diabetes Mellitus Type 2 Renal/ Medical History: Denies: Hx Peritoneal Dialysis Malignancy Medical History: Reports: Hx Breast Cancer Psychiatric Medical History: Reports: Hx Bipolar Disorder, Hx Depression Past Surgical History: Reports: Hx Abdominal Surgery - bladder surgery, Hx Br east Surgery - right breast removed, Hx Genitourinary Surgery - bladder, Hx Mastectomy, Hx Orthopedic Surgery Review of Systems - Review of Systems -: Yes All other systems reviewed and negative Physical Exam - Vital signs Vitals: Temp Pulse Resp BP Pulse Ox 97.2 F 81 16 148/73 H 97 09/21/18 13:55 09/21/18 13:55 09/21/18 13:55 09/21/18 13:55 09/21/18 13:55 - Notes Notes: PHYSICAL EXAMINATION: GENERAL: Well-appearing, well-nourished and in no acute distress. HEAD: Atraumatic, normocephalic. EYES: Pupils equal round and reactive to light, extraocular movements intact, sclera anicteric, conjunctiva are normal. ENT: Nares patent and without discharge. oropharynx clear without exudates. No tonsilar hypertrophy or erythema. Moist mucous membranes. NECK: Normal range of motion, supple without lymphadenopathy LUNGS: Breath sounds clear to auscultation bilaterally and equal. No wheezes rales or rhonchi. HEART: Regular rate and rhythm without murmurs, rubs, gallops. ABDOMEN: Soft, nondistended abdomen. No guarding, no rebound. No masses appreciated. Normal bowel sounds present. + mild tenderness to the suprapubic. + left CVA tenderness. Musculoskeletal: FROM to passive/active. Strength 5+/5. Extremities: No cyanosis, clubbing, or edema b/l. Peripheral pulses 2+. C apillary refill less than 3 seconds. NEUROLOGICAL: Normal speech, normal gait. PSYCH: Normal mood, normal affect. SKIN: Warm, Dry, normal turgor, no rashes or lesions noted. Course - Re-evaluation Re-evalutation: 09/21/18 16:00 Call placed to [facility] for consult with their Urologist. 09/21/18 16:[address] Denise, Urology, who also spoke with the daughter earlier today. Dr. Denise states that we do not need to culture her urine as her urinalysis results are to be expected after her surgery. Her symptoms are not any different from what they were before. He told the daughter that they will need to come to the hospital to be able to get the belladonna rectal suppository as no pharmacies will be carrying it, but the daughter did not want to drive up there today. He told them that there is nothing that otherwise they would recommend until her follow-up. He does not want us to treat her with any antibiotics or pain medicine at this time. He states that we can use Detrol orally. He states that they just need to keep the follow-up appointment and we do not need to pursue any other imaging or labs. I have low suspicion for any other acute systemic emergent condition at this time including but not limited to acute abdomen, sepsis, meningitis. I did review this thoroughly with the daughter and the patient. Patient is nontoxic-appearing and is able to tolerate p.o. at this time. Recheck with your urologist as scheduled. Recheck with your PCM this week as well. Return to the ED with any worsening/concerning symptoms otherwise as reviewed. They are in agreement. - Vital Signs Vital signs: Temp Pulse Resp BP Pulse Ox 97.2 F 81 16 148/73 H 97 09/21/18 13:55 09/21/18 13:55 09/21/18 13:55 09/21/18 13:55 09/21/18 13:55 - Laboratory Result Diagrams: 09/21/18 14:20 09/21/18 14:20 Laboratory results interpreted by me: 09/21/18 09/21/18 09/21/18 14:20 14:20 14:20 Hgb 11.4 L Hct 34.2 L RDW 15.5 H Eosinophils % 15.2 H Absolute Eosinophils 1.2 H Chloride 108 H Creatinine 1.57 H Est GFR ( Amer) 39 L Est GFR (Non-Af Amer) 32 L Urine Protein >=500 H Urine Ketones TRACE H Urine Blood MODERATE H Ur Leukocyte Esterase LARGE H Discharge - Discharge Clinical Impression: Suprapubic abdominal pain Condition: Stable Disposition: HOME, SELF-CARE Additional Instructions: Push fluids (i.e. water, cranberry juice) Proper hygenic technique Keep the skin clean Tylenol as needed Take medications as directed F/u with your PCM in 3-5 days for a recheck Keep your appointment with urology as scheduled Return to the ED with any worsening symptoms and/or development of fever, headache, chest pain, palpitations, syncope, shortness of breath, trouble breathing, abdominal pain, n/v/d, blood in stool/urine, loss of control of bowel/bladder, urinary retention, or other worsening symptoms that are concerning to you. Prescriptions: Ondansetron [Zofran Odt 4 mg Tablet] 1 - 2 tab PO Q4H PRN #15 tab.rapdis PRN Reason: For Nausea/Vomiting Tolterodine Tartrate [Detrol La] 2 mg PO DAILY #10 cap.sr.24h Forms: Elevated Blood Pressure Referrals: ZEB ZUNIGA MD [Primary Care Provider] - Follow up in 3-5 days Medical, [facility] [Other] - Follow up as needed Dr. Camelia [Other] - Follow up as needed
[2018-09-21 17:00] VITALS: BP 131/93
== END 2018-09-21 16:51 | disposition home or self-care (01) ==
LOC: ER 13:48
DX: R10.30 Lower abdominal pain, unspecified (principal); R10.9 Unspecified abdominal pain; T44.3X6A Underdosing of other parasympatholytics [anticholinergics and antimuscarinics] and spasmolytics, initial encounter; Z91.128 Patient's intentional underdosing of medication regimen for other reason; Z91.14 Patient's other noncompliance with medication regimen; F03.90 Unspecified dementia, unspecified severity, without behavioral disturbance, psychotic disturbance, mood disturbance, and anxiety; Z98.890 Other specified postprocedural states; Z85.51 Personal history of malignant neoplasm of bladder; Z87.19 Personal history of other diseases of the digestive system
CPT/HCPCS: 36415; 80053; 81001; 85025; 99284

== ENCOUNTER 2018-09-26 13:25 | Emergency (ER) | payer MEDICARE ==
--- NOTE | 2018-09-26 14:11 | ER Document Report ---
ED Medical Screen (RME) - General Chief Complaint: Problem with Urinary Catheter Stated Complaint: MIRANDA CATH ISSUES Time Seen by Provider: 09/26/18 14:10 Mode of Arrival: Ambulatory Information source: Patient Notes: This is a 73-year-old female with a of bladder cancer, obstructive uropathy, dementia, breast cancer, bipolar affective disorder and anxiety. Patient has a history of recent tumor removal at [facility] (September 11) the patient's daughter states a left ureter stent was placed at that time. He presents today with complaints that the patient has been having numbness on and off to the face on both sides, that patient has been having intermittent abdominal pain which is moved from the right to the center to the left, dry mouth, some pain to the back and the hips, as well as some bladder spasms. They have been unable to get a hold of their urologist at provided. They do have a primary care doctor (Dr. Bailee Elena) who told the patient's daughter to just bring the patient to this ER. The patient is followed by Dr. Oseguera of oncology. TRAVEL OUTSIDE OF THE U.S. IN LAST 30 DAYS: No - Related Data Allergies/Adverse Reactions: amoxicillin Allergy (Verified 09/26/18 13:33) vancomycin Adverse Reaction (Mild, Verified 09/26/18 13:33) Past Medical History - Social History Frequency of alcohol use: None Drug Abuse: None Pulmonary Medical History: Reports: Hx COPD - possible Chemo related Endocrine Medical History: Reports: Hx Hypothyroidism. Denies: Hx Diabetes Mellitus Type 1, Hx Diabetes Mellitus Type 2 Renal/ Medical History: Denies: Hx Peritoneal Dialysis Malignancy Medical History: Reports: Hx Breast Cancer Psychiatric Medical History: Reports: Hx Bipolar Disorder, Hx Depression - anxiety Past Surgical History: Reports: Hx Abdominal Surgery - bladder surgery, Hx Breast Surgery - right breast removed, Hx Genitourinary Surgery - bladder, Hx Mastectomy, Hx Orthopedic Surgery - Immunizations History of Influenza Vaccine for 06/2017 - 11/2017 Season: Unknown Physical Exam - Vital signs Vitals: Temp Pulse Resp BP Pulse Ox 97.6 F 77 16 98/50 L 100 09/26/18 13:56 09/26/18 13:56 09/26/18 13:56 09/26/18 13:56 09/26/18 13:56 Course - Vital Signs Vital signs: Temp Pulse Resp BP Pulse Ox 97.6 F 77 16 98/50 L 100 09/26/18 13:56 09/26/18 13:56 09/26/18 13:56 09/26/18 13:56 09/26/18 13:56 Doctor's Discharge - Discharge Referrals: ZEB ZUNIGA MD [Primary Care Provider] - Follow up as needed
[2018-09-26 14:44] LABS: ABSOLUTE BASOPHILS # (AUTO) 0.1 10^3/uL (0.0-0.2); ABSOLUTE EOSINOPHILS # (AUTO) 0.6 10^3/uL (0.0-0.6); ABSOLUTE LYMPHOCYTES (AUTO) 1.1 10^3/uL (0.5-4.7); ABSOLUTE MONOCYTES (AUTO) 0.5 10^3/uL (0.1-1.4); ABSOLUTE NEUT (AUTO) 3.8 10^3/uL (1.7-8.2); BASOPHILS % (AUTO) 1.2 % (0-2); HEMOGLOBIN 10.1 g/dL (12.0-15.5); LYMPHOCYTES % (AUTO) 18.7 % (13-45); MEAN CORPUSCULAR HGB CONC 32.6 g/dL (32.0-36.0); MEAN CORPUSCULAR VOLUME 86 fl (80-97); MONOCYTES % (AUTO) 7.8 % (3-13); PLATELET COUNT 341 10^3/uL (150-450); RED BLOOD COUNT 3.61 10^6/uL (3.72-5.28); RED CELL DISTRIBUTION WIDTH 15.1 % (11.5-14.0); SEGMENTED NEUTROPHILS % (AUTO) 62.3 % (42-78); TOTAL CELLS COUNTED % (AUTO) 100 %; WHITE BLOOD COUNT 6.1 10^3/uL (4.0-10.5)
[2018-09-26 15:09] LABS: ALANINE AMINOTRANSFERASE 17 U/L (9-52); ALKALINE PHOSPHATASE 77 U/L (38-126); ANION GAP 9 (5-19); ASPARTATE AMINO TRANSFERASE 20 U/L (14-36); BILIRUBIN,DIRECT 0.3 mg/dL (0.0-0.4); BILIRUBIN,TOTAL 0.3 mg/dL (0.2-1.3); BLOOD UREA NITROGEN 25 mg/dL (7-20); CALCIUM 9.5 mg/dL (8.4-10.2); CARBON DIOXIDE 24 mmol/L (22-30); CHLORIDE 106 mmol/L (98-107); GLUCOSE 94 mg/dL (75-110); POTASSIUM 4.3 mmol/L (3.6-5.0); TOTAL PROTEIN 6.7 g/dL (6.3-8.2)
[2018-09-26] MEDS ORDERED: OXYCODONE-ACETAMINOPHEN 5-325 MG TABLET PO ONE (17:20)
--- NOTE | 2018-09-26 17:23 | ER Document Report ---
ED General - General Chief Complaint: Problem with Urinary Catheter Stated Complaint: MIRANDA CATH ISSUES Time Seen by Provider: 09/26/18 14:10 Mode of Arrival: Ambulatory Notes: 73-year-old female with dementia, COPD, hypothyroidism, reported bladder cancer with recent stent placement performed at [facility] by Dr. Aguilar presents with complaint of low back pain, bladder spasm and requesting Miranda to be removed. She also has undergone multiple tumor resections and recent kidney stent placement. Patient's left flank pain which has been ongoing since her visit here on September 10. Patient is accompanied by her daughter as patient does have some dementia. Daughter states that they were transferred to [facility] and had another surgery performed at that time to resect some of the tumors. Daughter states that they were unable to obtain her medications at that time including a medicine for bladder spasms that is performed rectally and no pharmacy carries that here. Patient states that she has had the same pain since she got out of surgery and has not been eating or drinking as much. She is still producing urine and having bowel movements. Daughter states that she is otherwise acting and behaving normal. Her surgery took place at [facility] by surgical oncology, Dr. Aguilar. Denies any headache, fever, neck pain, changes in vision/speech/mentation/hearing, URI, sore throat, chest pain, palpitations, syncope, cough, shortness of breath, wheeze, dyspnea, nausea/vomiting/diarrhea, loss of control of bowel or bladder, numbness/tingling, saddle anesthesia, muscle paralysis/weakness, or rash. TRAVEL OUTSIDE OF THE [place].S. IN LAST 30 DAYS: No - HPI Onset: Other Onset/Duration: Persistent Quality of pain: Achy Severity: Moderate Associated symptoms: denies: Fever, Nausea, Vomiting Exacerbated by: Movement, Walking Similar symptoms previously: Yes Recently seen / treated by doctor: Yes - Related Data Allergies/Adverse Reactions: amoxicillin Allergy (Verified 09/26/18 13:33) vancomycin Adverse Reaction (Mild, Verified 09/26/18 13:33) Past Medical History - General Information source: Patient, Relative, [facility] Records - Social History Smoking Status: Former Smoker Frequency of alcohol use: None Drug Abuse: None Lives with: Family Family History: Reviewed & Not Pertinent Patient has suicidal ideation: No Patient has homicidal ideation: No Pulmonary Medical History: Reports: Hx COPD - possible Chemo related Endocrine Medical History: Reports: Hx Hypothyroidism. Denies: Hx Diabetes Mellitus Type 1, Hx Diabetes Mellitus Type 2 Renal/ Medical History: Denies: Hx Peritoneal Dialysis Malignancy Medical History: Reports: Hx Breast Cancer Psychiatric Medical History: Reports: Hx Bipolar Disorder, Hx Depression - anxiety Past Surgical History: Reports: Hx Abdominal Surgery - bladder surgery, Hx [place] Surgery - right breast removed, Hx Genitourinary Surgery - bladder, Hx Mastectomy, Hx Orthopedic Surgery Review of Systems - Review of Systems Notes: REVIEW OF SYSTEMS: CONSTITUTIONAL : Denies fever, chills, or sweats. Denies recent illness. Denies weight loss, recent hospitalizations. EENT: Denies visual changes, eye pain. Denies sore throat, oral lesions, difficulty swallowing. CARDIOVASCULAR: Denies chest pain. Denies palpitations. Denies lower extremity edema. RESPIRATORY: Denies cough. Denies shortness of breath, wheezing. GASTROINTESTINAL: Denies abdominal pain or distention. Denies nausea, vomiting, or diarrhea. Denies blood in vomitus, stools, or per rectum. Denies black, tarry stools. Denies constipation. GENITOURINARY: Denies difficulty urinating, painful urination, frequency, blood in urine, or vaginal discharge. MUSCULOSKELETAL: Denies neck pain or stiffness. Denies joint pain or sw elling. SKIN: Denies rash, lesions or sores. HEMATOLOGIC : Denies easy bruising or bleeding. LYMPHATIC: Denies swollen glands. NEUROLOGICAL: Denies confusion or altered mental status. Denies loss of consciousness. Denies dizziness or lightheadedness. Denies headache. Denies weakness or paralysis. Denies problems difficulty with ambulation, slurred speech. Denies sensory loss, numbness, or tingling. Denies seizures. PSYCHIATRIC: Denies anxiety or stress. Denies depression, suicidal ideation, or homicidal ideation. Denies visual or auditory hallucinations. Physical Exam - Vital signs Vitals: Temp Pulse Resp BP Pulse Ox 97.6 F 77 16 98/50 L 100 09/26/18 13:56 09/26/18 13:56 09/26/18 13:56 09/26/18 13:56 09/26/18 13:56 - Notes Notes: PHYSICAL EXAMINATION: GENERAL: Thin, frail, no acute distress HEAD: Atraumatic, normocephalic. EYES: Pupils equal round and reactive to light, extraocular movements intact, conjunctiva are normal. ENT: Nares patent, oropharynx clear without exudates. Moist mucous membranes. NECK: Normal range of motion, supple without lymphadenopathy LUNGS: Breath sounds clear to auscultation bilaterally and equal. No wheezes rales or rhonchi. HEART: Regular rate and rhythm without murmurs ABDOMEN: Diffuse abdominal pain with palpation. Female : Miranda in place Musculoskeletal: Normal range of motion, no pitting or edema. No cyanosis. Diffuse back pain with palpation. NEUROLOGICAL: Cranial nerves grossly intact. Normal speech, normal gait. Normal sensory, motor exams PSYCH: Normal mood, normal affect. SKIN: Warm, Dry, normal turgor, no rashes or lesions noted. Course - Re-evaluation Re-evalutation: Laboratory 09/26/18 09/26/18 09/26/18 14:24 14:24 18:01 WBC 6.1 RBC 3.61 L Hgb 10.1 L Hct 31.0 L MCV 86 MCH 28.0 MCHC 32.6 RDW 15.1 H Plt Count 341 Seg Neutrophils % 62.3 Lymphocytes % 18.7 Monocytes % 7.8 Eosinophils % 10.0 H Basophils % 1.2 Absolute Neutrophils 3.8 Absolute Lymphocytes 1.1 Absolute Monocytes 0.5 Absolute Eosinophils 0.6 Absolute Basophils 0.1 Sodium 139.0 Potassium 4.3 Chloride 106 Carbon Dioxide 24 Anion Gap 9 BUN 25 H Creatinine 1.71 H Est GFR ( Amer) 35 L Est GFR (Non-Af Amer) 29 L Glucose 94 Calcium 9.5 Total Bilirubin 0.3 Direct Bilirubin 0.3 Neonat Total Bilirubin Not Reportable Neonat Direct Bilirubin Not Reportable Neonat Indirect Bili Not Reportable AST 20 ALT 17 Alkaline Phosphatase 77 Total Protein 6.7 Albumin 4.0 Urine Color YELLOW Urine Appearance CLOUDY Urine pH 6.0 Ur Specific Baring 1.011 Urine Protein 100 H Urine Glucose (UA) NEGATIVE Urine Ketones NEGATIVE Urine Blood MODERATE H Urine Nitrite NEGATIVE Urine Bilirubin NEGATIVE Urine Urobilinogen NEGATIVE Ur Leukocyte Esterase LARGE H Urine WBC (Auto) >182 Urine RBC (Auto) 88 Urine Bacteria (Auto) 1+ Urine WBC Clumps MANY Squamous Epi Cells Auto <1 Urine Mucus (Auto) RARE Urine Ascorbic Acid NEGATIVE Renal Ultrasound 09/26/18 17:21 IMPRESSION: Left hydronephrosis. A stent is present by history but is not identified on these images. Temp Pulse Resp BP Pulse Ox 97.6 F 77 16 98/50 L 100 09/26/18 13:56 09/26/18 13:56 09/26/18 13:56 09/26/18 13:56 09/26/18 13:56 09/26/18 19:07 [facility] contacted to speak to the patient's urologist regarding whether the patient can have her Miranda catheter removed. 09/26/18 19:36 09/26/18 20:00 73-year-old female presents with complaint of chronic back pain, 09/26/18 22:42 73-year-old female presents with complaint of low back pain, discomfort with Miranda catheterization. Patient recently underwent surgery for tumor resection, left-sided stent placement. She was discharged from [facility] 1 week prior to arrival and daughter reports that they have been unable to contact the urologist who performed the surgery for follow-up. Patient is requesting that the Miranda be removed. Patient's low back pain is chronic, not worse than previous. She denies any recent injury. Although patient denied it to myself she was heard stating that she wanted to and stated several times to the nurse "just let me ". Renal ultrasound was performed and does show left hydronephrosis and urinalysis does appear infected although this is likely secondary to recent surgery. I did speak to Dr. Jimenes urologist solid waste collection worker for Dr. Aguilar who has reviewed the patient's chart and recommends that the Miranda remain in place. States that the patient will require a cystogram. He states that the patient has a follow-up appointment on September 30, 2018 as far as her discharge paperwork says but he did not see her on the office schedule. He states that he will have his personal secretary Apple call first thing Saturday morning and get her in. IVC petition initiated. I attempted to call the daughter at the numbers recorded for her and was told I had the wrong number. Patient cleared for psychiatric evaluation tomorrow morning. 09/26/18 22:49 - Vital Signs Vital signs: Temp Pulse Resp BP Pulse Ox 97.6 F 77 16 98/50 L 100 09/26/18 13:56 09/26/18 13:56 09/26/18 13:56 09/26/18 13:56 09/26/18 13:56 - Laboratory Result Diagrams: 09/26/18 14:24 09/26/18 14:24 Laboratory results interpreted by me: 09/26/18 09/26/18 09/26/18 14:24 14:24 14:24 RBC 3.61 L Hgb 10.1 L Hct 31.0 L RDW 15.1 H Eosinophils % 10.0 H BUN 25 H Creatinine 1.71 H Est GFR ( Amer) 35 L Est GFR (Non-Af Amer) 29 L Urine Protein Urine Blood Ur Leukocyte Esterase Acetaminophen < 10 L 09/26/18 18:01 RBC Hgb Hct RDW Eosinophils % BUN Creatinine Est GFR ( Amer) Est GFR (Non-Af Amer) Urine Protein 100 H Urine Blood MODERATE H Ur Leukocyte Esterase LARGE H Acetaminophen - Diagnostic Test Radiology reviewed: Image reviewed, Reports reviewed - EKG Interpretation by Me EKG shows normal: Sinus rhythm Rate: Normal Rhythm: NSR When compared to previous EKG there are: No significant change Discharge - Discharge Clinical Impression: 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 Qualifiers: Dementia behavioral disturbance: with behavioral disturbance Qualified Code(s): G30.1 - Alzheimer's disease with late onset; F02.81 - Dementia in other diseases classified elsewhere with behavioral disturbance Hydronephrosis Qualifiers: Hydronephrosis type: unspecified Qualified Code(s): N13.30 - Unspecified hydronephrosis Bladder cancer Qualifiers: Bladder location: unspecified site Qualified Code(s): C67.9 - Malignant neoplasm of bladder, unspecified Anemia Qualifiers: Anemia type: unspecified type Qualified Code(s): D64.9 - Anemia, unspecified Urinary tract infection Qualifiers: Urinary tract infection type: catheter-associated UTI Indwelling urinary catheter type: unspecified Encounter type: subsequent encounter Qualified Code(s): T83.511D - Infection and inflammatory reaction due to indwelling urethral catheter, subsequent encounter; N39.0 - Urinary tract infection, site not specified Condition: Good Instructions: Urinary Tract Infection ([facility]) Prescriptions: Cephalexin Monohydrate [Keflex 500 mg Capsule] 500 mg PO BID 5 Days #10 capsule Referrals: ZEB ZUNIGA MD [Primary Care Provider] - Follow up as needed
[2018-09-26 18:31] LABS: APPEARANCE,URINE CLOUDY; BILIRUBIN,URINE NEGATIVE (NEGATIVE); COLOR,URINE YELLOW; GLUCOSE, URINE NEGATIVE (NEGATIVE); KETONES,URINE NEGATIVE (NEGATIVE); LEUKOCYTE ESTERASE,URINE LARGE (NEGATIVE); NITRITE,URINE NEGATIVE (NEGATIVE); PROTEIN,URINE 100 mg/dL (NEGATIVE); URINE SPECIFIC GRAVITY 1.011; UROBILINOGEN,URINE NEGATIVE mg/dL (<2.0)
--- NOTE | 2018-09-26 18:57 | RADIOLOGY REPORT (SQ) ---
EXAM DESCRIPTION: U/[employer] COMPLETED DATE/TIME: 09/26/2018 6:47 pm REASON FOR STUDY: recent stent placement and pain COMPARISON: None. TECHNIQUE: Dynamic and static grayscale images acquired of the kidneys and bladder and recorded on P ACS. Additional selected color Doppler and spectral images recorded. LIMITATIONS: None. FINDINGS: RIGHT KIDNEY: 8.8 cm Normal echogenicity. No solid or suspicious masses. No hydrone phrosis. No calcifications. LEFT KIDNEY: 9.7 cm. Left ureteral stent by history. Normal echogenicity. No solid or suspiciou s masses. Hydronephrosis. No calcifications. BLADDER: A Dover catheter is present in the bladder so the bladder cannot be evaluated. OTHER FINDINGS: No other significant finding. IMPRESSION: Left hydronephrosis. A stent is present by history but is not identified on these image s. TECHNICAL DOCUMENTATION: JOB ID: [id number] [employer]- All Rights Reserved Reading location - IP/workstation name: [email or web address]
[2018-09-26 19:58] LABS: ACETAMINOPHEN < 10 ug/mL (10-30); ALCOHOL < 10 mg/dL (NONE DETECTED)
[2018-09-26] MEDS ORDERED: DIAZEPAM 5 MG TABLET PO ONE (20:14)
[2018-09-26 20:49] LABS: URINE AMPHETAMINES SCREEN NEGATIVE; URINE BARBITURATES SCREEN NEGATIVE; URINE BENZODIAZEPINES SCREEN NEGATIVE; URINE COCAINE SCREEN NEGATIVE; URINE MARIJUANA (THC) SCREEN NEGATIVE; URINE METHADONE SCREEN NEGATIVE; URINE PHENCYCLIDINE SCREEN NEGATIVE
--- NOTE | 2018-09-26 20:57 | EKG REPORT ---
SEVERITY:- NORMAL ECG - SINUS RHYTHM : Confirmed by: Kevin Holbrook 26-Sep-2018 20:57:07
[2018-09-27] MEDS ORDERED: DIAZEPAM 5 MG TABLET PO ONE (03:20)
[2018-09-27] MEDS ORDERED: ACETAMINOPHEN 325 MG TABLET PO ONE (03:21)
--- NOTE | 2018-09-27 09:23 | ER Document Report ---
Doctor's Note Notes: 09/27/18 09:21 According to the ongoing providers note, this is a 73-year-old female presents with complaint of low back pain, discomfort with Dover catheterization. Patient recently underwent surgery for tumor resection, left-sided stent placement. She was discharged from [facility] 1 week prior to arrival and daughter reports that they have been unable to contact the urologist who performed the surgery for follow-up. Patient is requesting that the Dover be removed. Patient's low back pain is chronic, not worse than previous. She denies any recent injury. Although patient denied it to myself she was heard stating that she wanted to and stated several times to the nurse "just let me ". Renal ultrasound was performed and does show left hydronephrosis and urinalysis does appear infected although this is likely secondary to recent surgery. I did speak to Dr. Jimenes urologist rayon coner for Dr. Aguilar who has reviewed the patient's chart and recommends that the Dover remain in place. States that the patient will require a cystogram. He states that the patient has a follow-up appointment on September 30, 2018 as far as her discharge paperwork says but he did not see her on the office schedule. He states that he will have his clinical secretary Apple call first thing Saturday morning and get her in. IVC petition initiated. I attempted to call the daughter at the numbers recorded for her and was told I had the wrong number. Patient cleared for psychiatric evaluation tomorrow morning. I am awaiting psychiatric evaluation this morning. Vital signs as recorded. Labs and urine analysis as recorded with culture pending. Patient is no obvious acute distress. 09/27/18 14:58 The psychiatry/psychology team is seen and assessed the patient. They do not believe that the patient meets IVC criteria at this time. Patient is denying any suicidal ideations at this time. The patient's daughter is currently in the room and is very comfortable taking the patient home. Patient has no tenderness on the abdominal or flank repeat examinations at this time. I ordered a creatinine level and the patient's creatinine has improved with fluids. We will start the patient on a course of Keflex with strict return precautions and follow-up with the specialist.
[2018-09-27] MEDS ORDERED: NORMAL SALINE 1000 ML 1,000 ML IV ONE (09:31)
--- NOTE | 2018-09-27 09:38 | PSYCHOLOGICAL NOTE ---
Psych Note - Psych Note Date seen by psych provider: 09/27/18 Time seen by psych provider: 07:10 Psych Note: Reason for Consult: suicidal comments 73-year-old female with dementia, COPD, hypothyroidism, reported bladder cancer with recent stent placement performed at [facility] by Dr. Aguilar presents with complaint of low back pain, bladder spasm and requesting Dover to be removed. Although patient denied it to attending physician, she was heard stating that she wanted to and stated several times to the attending nurse "just let me ". Patient confirms she did state that "just let me " to nurse reporting that she is tired of all the pain. She confirms she is going through a lot medically currently and is just "tired of it." She denies thoughts of wanting to harm herself and denies any history of suicide attempts. She discloses that she used to be in therapy and it helped however that was approximately 2 years ago. She denies being on any medication currently for depression or anxiety. She states she is not interested in the medications because she is on so many now for her medical concerns and feels that they made her feel funny when she did take them. Clinician notes patient appears confused on [place] When asked where she originally lived she stated she did not remember. When asked where she was born she reports "[place]." Clinician explained to the patient's that that was the accident clinician was hearing; the [facility]. Patient was asked how long the patient lived in [place] at which point the patient reported "I thought all my life." Patient is unable to disclose what states she currently is in however confirms that she understands she is in the hospital. She reports she is unable to identify which hospital as "I have been in one after another I cannot keep up with it however I know this is the best hospital so far you guys... you talk to people...and listen." Patient reports she does feel safe in her home. Clinician spoke with patient's daughter, Mary Resendez, reports she is concerned the patient has been in so much pain. She is concerned that the patient will end up pulling out her Dover. She denies the patient has a history of any suicide attempts and discloses that she has no concerns of the patient returning home to her. Clinician discussed with patient's daughter the need to control all medications so the patient does not have access and they are administered correctly. She agrees to ensure no access and will administer all medications as directed. She reports the patient was diagnosed with dementia approximately 2 years ago and is not surprised the patient is confused on where she currently lives as they just moved to [place] approximately 9 months ago. She states that the patient is upset that they are no longer living in [place] however financially they are unable to continue living there. Patient is alert and orientated to person and circumstance. Mood is euthymic with congruent affect. Patient denies suicidal and homicidal and reporting she made comments because she was feeling frustrated and pain yesterday. Delusions are absent behaviors congruent with an intact reality based presentation i.e. organized and linear thought process. Eye contact was well-maintained. Conversational speech was within normal rate, tone and prosody. Intellectual abilities appear to be within the average range. Attention and concentration are fair. Insight, judgment, impulse control are fair. Clinician notes patient appears to be demonstrating some cognitive difficulties with time and place. no medication recommendations at this time. Dementia per history provided by patient's daughter Impression\\plan: Patient is cleared from acute psychiatric services. Patient does not meet IVC criteria per [place] GS 122C. Patient reports making suicidal comments of wanting to because she was frustrated and pain yesterday. She denies wanting to harm herself or any history of suicide attempts. Patient is noted to have significant medical concerns that she is currently being treated. Patient is also noted to be demonstrating some criteria of dementia and patient's daughter confirms patient was diagnosed with dementia 2 years ago. Patient is recommended to have the caregiver control and administer all medications; patient's daughter agrees. Dr. Farah was consulted and care management this patient; attending physicians in agreement with recommendations and disposition.
[2018-09-27 14:48] LABS: ANION GAP 7 (5-19); BLOOD UREA NITROGEN 20 mg/dL (7-20); CALCIUM 8.9 mg/dL (8.4-10.2); CARBON DIOXIDE 25 mmol/L (22-30); CHLORIDE 108 mmol/L (98-107); GLUCOSE 102 mg/dL (75-110); POTASSIUM 4.4 mmol/L (3.6-5.0); SODIUM 140.4 mmol/L (137-145)
--- NOTE | 2018-09-27 16:00 | RADIOLOGY REPORT (SQ) ---
EXAM DESCRIPTION: CT LTD RENAL STONE PROTOCOL ON COMPLETED DATE/TIME: 09/27/2018 3:46 pm REASON FOR STUDY: Left flank pain; stent; no stent on U/S COMPARISON: 09/10/2018 TECHNIQUE: CT scan of the abdomen and pelvis performed without intravenous or oral contrast. Images reviewed with lung, soft tissue, and bone windows. Reconstructed coronal and sagittal MPR images revi ewed. All images stored on PACS. All CT scanners at this facility use dose modulation, iterative reconstruction, and/or weight based d osing when appropriate to reduce radiation dose to as low as reasonably achievable (ALARA). [facility]: Dose Right [facility]: CareDose [facility]: Dose Right [facility]: Teradose 4D [facility]: Ancanco RADIATION DOSE: CT Rad equipment meets quality standard of care and radiation dose reduction techniq ues were employed. CTDIvol: 5.1 mGy. DLP: 222 mGy-cm.mGy. LIMITATIONS: None. FINDINGS: LOWER CHEST: No significant findings. No nodules or infiltrates. NON-CONTRASTED LIVER, SPLEEN, ADRENALS: Evaluation limited by lack of IV contrast. No identified sign ificant masses. PANCREAS: No masses. No peripancreatic inflammatory changes. GALLBLADDER: No calcified stones. No inflammatory changes to suggest cholecystitis. RIGHT KIDNEY AND URETER: No cysts identified. No solid masses. No calcified stones. No hydronephrosis or hydroureter. LEFT KIDNEY AND URETER: No cysts identified. No solid masses. No calcified stones. Left nephroureter al stent is present in expected position. Moderate hydronephrosis - hydroureter. AORTA AND RETROPERITONEUM: No aneurysm. No retroperitoneal masses or adenopathy. BOWEL AND PERITONEAL CAVITY: No obvious masses or inflammatory changes. No free fluid. APPENDIX: Normal. PELVIS, BLADDER, AND ABDOMINAL WALL:No free fluid. Bladder decompressed by Dover catheter. . BONES: No acute findings. OTHER: No other significant finding. IMPRESSION: Left nephroureteral stent is present in expected position. Moderate hydronephrosis - hy droureter.Bladder decompressed by Dover catheter. TECHNICAL DOCUMENTATION: JOB ID: [id number] [place]-72 Quality ID # [id number]: Final reports with documentation of one or more dose reduction techniques (e.g., Au tomated exposure control, adjustment of the mA and/or kV according to patient size, use of iterative reconstruction technique) 2010 [employer]- All Rights Reserved Reading location - IP/workstation name: [email or web address]
[2018-09-27] MEDS ORDERED: ACETAMINOPHEN 325 MG TABLET ONE (16:43)
[2018-09-27 17:44] VITALS: BP 118/68
[2018-09-27] MEDS ORDERED: CEPHALEXIN 500 MG CAPSULE PO SCH (19:36)
== END 2018-09-27 17:44 | disposition home or self-care (01) ==
LOC: ER 13:25
DX: T83.511A Infection and inflammatory reaction due to indwelling urethral catheter, initial encounter (principal); N39.0 Urinary tract infection, site not specified; Y84.6 Urinary catheterization as the cause of abnormal reaction of the patient, or of later complication, without mention of misadventure at the time of the procedure; C67.9 Malignant neoplasm of bladder, unspecified; G30.1 Alzheimer's disease with late onset; F02.81 Dementia in other diseases classified elsewhere, unspecified severity, with behavioral disturbance; R45.851 Suicidal ideations; D64.9 Anemia, unspecified; R10.84 Generalized abdominal pain; N13.30 Unspecified hydronephrosis; M54.5 Low back pain; G89.29 Other chronic pain; Z98.890 Other specified postprocedural states; J44.9 Chronic obstructive pulmonary disease, unspecified; Z88.0 Allergy status to penicillin; Z85.3 Personal history of malignant neoplasm of breast; Z87.891 Personal history of nicotine dependence
CPT/HCPCS: 93005; 99285; 36415; 87086; 80307 ×4; 85025; 87088; 80048; 80053; 81001; 87186; 76775; 76380; 93010; A9270 ×4; J7030

== ENCOUNTER 2018-09-29 12:45 | Emergency (ER) | payer MEDICARE ==
[2018-09-29 13:14] LABS: APPEARANCE,URINE CLOUDY; BILIRUBIN,URINE NEGATIVE (NEGATIVE); COLOR,URINE YELLOW; GLUCOSE, URINE NEGATIVE (NEGATIVE); KETONES,URINE NEGATIVE (NEGATIVE); LEUKOCYTE ESTERASE,URINE LARGE (NEGATIVE); NITRITE,URINE NEGATIVE (NEGATIVE); PROTEIN,URINE 100 mg/dL (NEGATIVE); URINE SPECIFIC GRAVITY 1.009; UROBILINOGEN,URINE NEGATIVE mg/dL (<2.0)
[2018-09-29 13:26] LABS: ABSOLUTE BASOPHILS # (AUTO) 0.1 10^3/uL (0.0-0.2); ABSOLUTE EOSINOPHILS # (AUTO) 0.5 10^3/uL (0.0-0.6); ABSOLUTE LYMPHOCYTES (AUTO) 1.1 10^3/uL (0.5-4.7); ABSOLUTE MONOCYTES (AUTO) 0.5 10^3/uL (0.1-1.4); ABSOLUTE NEUT (AUTO) 4.5 10^3/uL (1.7-8.2); BASOPHILS % (AUTO) 1.3 % (0-2); EOSINOPHILS % (AUTO) 7.3 % (0-6); HEMATOCRIT 29.6 % (36.0-47.0); HEMOGLOBIN 9.9 g/dL (12.0-15.5); LYMPHOCYTES % (AUTO) 16.5 % (13-45); MEAN CORPUSCULAR HEMOGLOBIN 28.4 pg (27.0-33.4); MEAN CORPUSCULAR HGB CONC 33.4 g/dL (32.0-36.0); MEAN CORPUSCULAR VOLUME 85 fl (80-97); MONOCYTES % (AUTO) 7.9 % (3-13); PLATELET COUNT 331 10^3/uL (150-450); RED BLOOD COUNT 3.49 10^6/uL (3.72-5.28); RED CELL DISTRIBUTION WIDTH 15.2 % (11.5-14.0); TOTAL CELLS COUNTED % (AUTO) 100 %; WHITE BLOOD COUNT 6.7 10^3/uL (4.0-10.5)
[2018-09-29 13:38] LABS: ALANINE AMINOTRANSFERASE 14 U/L (9-52); ALBUMIN 3.7 g/dL (3.5-5.0); ALKALINE PHOSPHATASE 82 U/L (38-126); ANION GAP 10 (5-19); ASPARTATE AMINO TRANSFERASE 16 U/L (14-36); BILIRUBIN,DIRECT 0.2 mg/dL (0.0-0.4); BILIRUBIN,TOTAL 0.3 mg/dL (0.2-1.3); BLOOD UREA NITROGEN 21 mg/dL (7-20); CALCIUM 9.5 mg/dL (8.4-10.2); CARBON DIOXIDE 23 mmol/L (22-30); CHLORIDE 106 mmol/L (98-107); GLUCOSE 140 mg/dL (75-110); POTASSIUM 3.9 mmol/L (3.6-5.0); SODIUM 138.9 mmol/L (137-145); TOTAL PROTEIN 6.4 g/dL (6.3-8.2)
[2018-09-29] MEDS ORDERED: HYDROMORPHONE HCL 2 MG TABLET PO ONE (17:11)
[2018-09-29 17:22] VITALS: BP 129/66
--- NOTE | 2018-09-29 20:56 | ER Document Report ---
ED General - General Stated Complaint: URINARY PROBLEMS Time Seen by Provider: 09/29/18 14:28 Primary Care Provider: IRASEMA PARKER FNP-C [Primary Care Provider] - Follow up as needed Notes: Patient is here because of back pain, not eating and not sleeping. Patient was found to have a bladder cancer earlier this month and had surgery at [facility] on September 12 to remove the tumors. That was followed by a stent placed in the left kidney and ureter before being discharged home. She is been continually having pain in her back. She was seen here on the and diagnosed as a UTI but was not put on an antibiotic because of her urologist felt that it may not be an infection. She still having worsening back pain and was back here on the and was admitted in the hospital overnight and given antibiotics (Keflex) to treat her UTI. She is now passing blood in her urine or passing brown looking urine. Has not had any fever, however. Patient has not drinking much liquids and not eating much food. She is unable to sleep. Patient is here with her daughter and her daughter says the urology doctors or his staff to call her back. TRAVEL OUTSIDE OF THE [place] IN LAST 30 DAYS: No - Related Data Allergies/Adverse Reactions: amoxicillin Allergy (Verified 09/26/18 13:33) vancomycin Adverse Reaction (Mild, Verified 09/26/18 13:33) Past Medical History - Social History Smoking Status: Former Smoker Family History: Reviewed & Not Pertinent Patient has suicidal ideation: No Patient has homicidal ideation: No Pulmonary Medical History: Reports: Hx COPD - possible Chemo related Endocrine Medical History: Reports: Hx Hypothyroidism. Denies: Hx Diabetes Mellitus Type 1, Hx Diabetes Mellitus Type 2 Malignancy Medical History: Reports: Hx Breast Cancer Psychiatric Medical History: Reports: Hx Bipolar Disorder, Hx Depression - anxiety Past Surgical History: Reports: Hx Abdominal Surgery - bladder surgery, Hx Breast Surgery - right breast removed, Hx Genitourinary Surgery - bladder, Hx Mastectomy, Hx Orthopedic Surgery Review of Systems - Review of Systems Notes: REVIEW OF SYSTEMS: CONSTITUTIONAL : Denies fever. EENT: Denies eye, ear, nose or mouth or throat pain or other symptoms. CARDIOVASCULAR: Denies chest pain. RESPIRATORY: Denies cough, chest congestion, or shortness of breath. GASTROINTESTINAL: Denies abdominal pain or nausea, vomiting, or diarrhea. GENITOURINARY: She has a Dover catheter and attached to a bag. She and her daughter have noticed brown or blood in her urine. MUSCULOSKELETAL: Denies neck pain. See HPI regarding back pain. Denies joint pain or swelling. SKIN: Denies rash or skin lesions. NEUROLOGICAL: Denies LOC or altered mental status. Denies headache. Denies s ensory loss or motor deficits. ALL OTHER SYSTEMS REVIEWED AND NEGATIVE. Physical Exam - Vital signs Vitals: Temp Pulse Resp BP Pulse Ox 98.2 F 82 18 121/74 98 09/29/18 12:55 09/29/18 12:55 09/29/18 12:55 09/29/18 12:55 09/29/18 12:55 Interpretation: Normal Notes: PHYSICAL EXAMINATION: GENERAL: Well-appearing, in no acute distress. Appears comfortable. Afebrile. HEAD: Atraumatic, normocephalic. EYES: Pupils equal round and reactive to light, extraocular movements intact. ENT: oropharynx clear without exudates. Moist mucous membranes. NECK: Normal range of motion, supple. LUNGS: Breath sounds clear and equal bilaterally. HEART: Regular rate and rhythm without murmurs. ABDOMEN: Soft, nontender. No guarding or rebound. No masses. Dover catheter in bladder with dark urine in the Dover bag. Appears to be blood in the bag as well. BACK: Mild, diffuse paralumbar muscle tenderness to percussion. EXTREMITIES: Normal range of motion without pain. NEUROLOGICAL: Normal sensory, motor, and reflex exams. Awake, alert, and oriented x3. Cranial nerves normal. PSYCH: Normal mood, normal affect. SKIN: Warm, dry, no rashes. Course - Re-evaluation Re-evalutation: 09/29/18 20:58 Labs were obtained and the patient's urine looks like it is loaded with white cells and bacteria, but the rest of her labs are unremarkable. CBC does not show an elevated white count. Patient is afebrile. Patient's CT shows hydronephrosis and hydroureter., Both of which might be contributing to the patient's back pain. I was able to contact Dr. Vaca, urology in [place]. I told him of the CT findings. I told him that the patient's daughter says that she does not have transportation to take her mother to [place] for follow-up appointments. After checking on some things, Dr. Vaca call me back and said that there should be some funds in the cancer treatment program to get the patient there for her follow-ups. He assured me that someone would contact this patient tomorrow. I told the daughter that if she does not hear from them by noon, that she should follow-up by calling them. I did point out to her that we do not have urology at this hospital and she understands that. She has a vehicle, but apparently does not have the money to pay for enough gas to drive up to [place] her back, if I am understanding the situation clearly. Patient and daughter were advised to return at any time if she begins running significant fever, 101 or 102 or more. Encourage fluid intake. - Vital Signs Vital signs: Temp Pulse Resp BP Pulse Ox 98.2 F 81 19 129/66 H 100 09/29/18 12:55 09/29/18 13:02 09/29/18 17:01 09/29/18 17:01 09/29/18 17:01 - Laboratory Result Diagrams: 09/29/18 13:08 09/29/18 13:08 Laboratory results interpreted by me: 09/29/18 09/29/18 09/29/18 12:54 13:08 13:08 RBC 3.49 L Hgb 9.9 L Hct 29.6 L RDW 15.2 H Eosinophils % 7.3 H BUN 21 H Creatinine 1.36 H Est GFR ( Amer) 46 L Est GFR (Non-Af Amer) 38 L Glucose 140 H Urine Protein 100 H Urine Blood LARGE H Ur Leukocyte Esterase LARGE H Discharge - Discharge Clinical Impression: Hematuria, Flank pain, Bladder cancer, UTI (urinary tract infection) Condition: Stable Disposition: HOME, SELF-CARE Additional Instructions: URINARY TRACT INFECTION: Your evaluation indicates that you have a urinary tract infection. This is due to germs growing in the bladder. This is a common problem. This infection usually responds quickly to antibiotics. Your antibiotic should be taken exactly as prescribed. Drink plenty of fluids -- three to four quarts a day. Occasionally, a bladder anesthetic will be prescribed to help stop the feeling of urgency until the antibiotic has a chance to clear the infection. This may cause your urine to be dark orange. Certain urine infections require a culture. If the doctor obtained a culture, the results will be back in two days. You should call to see if a change in treatment is needed. A repeat urinalysis after you finish treatment is often recommended. The physician will let you know if further testing is required. Call the doctor if you develop fever, chills, flank pain, inability to urinate, or blood in the urine. ANTIBIOTIC THERAPY: You have been given an antibiotic prescription. It's important that you take all the medication, unless instructed otherwise by your physician. Failure to complete the entire course can result in relapse of your condition. Common side effects of antibiotics include nausea, intestinal cramping, or diarrhea. Women may develop vaginal yeast infections, and babies can get yeast (thrush) in the mouth following the use of antibiotics. Contact your physician if you develop significant side effects from this medication. Allergy to this antibiotic can result in hives, wheezing, faintness, or itc meek. If symptoms of allergy occur, stop the medication and call the doctor. Continue to take your antibiotic. CEPHALEXIN: The antibiotic you've been prescribed is a member of the cephalosporin class. This type of antibiotic covers a wide variety of infections, including those of the skin, lungs, and urinary tract. It's useful for staph infections. This antibiotic is slightly similar to the penicillin family. In rare cases, a person who is allergic to penicillin will also be allergic to this medication. If you have had a severe allergic reaction to penicillin, and have not taken this antibiotic since that time, notify your doctor. Antibiotics which cover many germs ("broad spectrum" antibiotics) are more likely to cause diarrhea or "yeast" infections. Women prone to vaginal yeast problems may suffer an attack after taking this antibiotic. In infants, oral thrush (white spots "stuck" on the cheek) or yeast diaper rash may result. See your doctor if these problems occur. Call at once if you develop itching, hives, shortness of breath, or lightheadedness. FOLLOW-UP CARE: If you have been referred to a physician for follow-up care, call the physicians office for an appointment as you were instructed or within the next two days. If you experience worsening or a significant change in your symptoms, notify the physician immediately or return to the Emergency Department at any time for re-evaluation. I spoke at some length with Dr. Vaca. He believes that there are funds available can help get you to [facility] in [place] for your follow-up. They want to take your catheter out and that needs to be done by a urologist. We do not have a urologist on staff at this emergency department. Dr. Vaca said that you should expect someone from his office to contact you by noon tomorrow, and if not, you should be trying to contact them to see what he can be worked out to get you to see them about your follow-up care. Prescriptions: Hydromorphone HCl [Dilaudid 2 mg Tablet] 2 mg PO Q4HP PRN #8 tablet PRN Reason: Referrals: IRASEMA PARKER, MECHANICAL CAD DESIGNER-C [Primary Care Provider] - Follow up as needed
== END 2018-09-29 17:37 | disposition home or self-care (01) ==
LOC: ER 12:45
DX: R31.9 Hematuria, unspecified (principal); R10.9 Unspecified abdominal pain; M54.9 Dorsalgia, unspecified; C67.9 Malignant neoplasm of bladder, unspecified; N39.0 Urinary tract infection, site not specified; J44.9 Chronic obstructive pulmonary disease, unspecified; E03.9 Hypothyroidism, unspecified; Z88.0 Allergy status to penicillin; Z88.3 Allergy status to other anti-infective agents
CPT/HCPCS: 99284; 36415; 87086; 85025; 87088; 80053; 81001; 87186; A9270

== ENCOUNTER 2018-10-02 11:57 | Emergency (ER) | payer MEDICARE ==
[2018-10-02 12:04] VITALS: BP 118/56
--- NOTE | 2018-10-02 13:19 | ER Document Report ---
Doctor's Note Notes: 10/02/18 13:12 This is a 73-year-old female with a history of dementia, cancer with an obstructive uropathy that recently had tumor resection and ureter stent placement in [place] (Dr. Aguilar urologist). Patient presents today because she pulled out her Doevr catheter. Patient denies any pain. She states she does not want the catheter placed back in. Patient is accompanied by her daughter who states she does not want the Dover placed back in. Patient has previously been in this emergency room recently. At that time, she was requesting that the Dover be taken out. Notes from the of this month show that the previous provider had spoken to the covering urologist in [place] (Dr. Jimenes) who recommended the Dover stay in place and the patient follow-up in the office on September 30. Records reveal that the patient was back in this ER on September 29. The patient's daughter states that she was in the [place] emergency room on September 30. The daughter reports that she called Dr. Aguilar statistical secretary who stated that the patient did not have an appointment on that day. The patient herself is calm and in no distress and is sitting in the stretcher without any complaints of bleeding or discomfort. She is afebrile and hemodynamically stable. The patient's daughter however is overtly hostile with the nurse as well as myself. I have tried to get to the bottom of why the patient keeps going to the ER but the patient's daughter keeps telling me because they want to see a urologist. The patient's daughter knows that we do do not have a urologist. They went to [place] [facility] "because they have a urologist" but was referred to [place] because that is where the patient has had all her recent urologic care. I have tried to explain the recent procedure the patient had and the recommendations from the urologist but the daughtyer won't even look at me. Regarding the Dover: I think the patient will probably pull it out again if one is placed. When asked about the Dover being placed, the patient adamently refuses and the daughter refuses to have it placed as well. The patient and her daughter have walked out of the ER. I have discussed the case in detail with Elsa (nurse covering charge) who had interacted with both the patient and the patient's daughter during the - ER stay. At that time the psychological services had to be called in to speak to both mother and daughter because they did not appear to be getting along well at all. Given the difficulty in trying to extract information and the level of dysfunction apparent between the mother and daughter, I have contacted [facility] ([facility]) and filed a report so that the patient's home care situation can be looked into. From a clinical standpoint, the patient is clinically stable and in no distress and is able to void. The plan for the Dover is just to leave it out. From a clinical follow-up point of view, I have called Dr. Aguilar's office and left my personal cell phone number for Dr. Aguilar to call me back so that I can explain the difficulty that the daughter has been having to get urologic information and to hopefully help facilitate some sort of urologic follow-up. 10/02/18 13:23 10/02/18 13:47
== END 2018-10-02 13:00 | disposition left against medical advice (07) ==
LOC: ER 11:57
DX: Z48.816 Encounter for surgical aftercare following surgery on the genitourinary system (principal); Z53.20 Procedure and treatment not carried out because of patient's decision for unspecified reasons
CPT/HCPCS: 99281

== ENCOUNTER 2018-10-14 10:52 | Inpatient (IN) | payer MEDICARE ==
[2018-10-14 11:33] LABS: ABSOLUTE EOSINOPHILS # (AUTO) 0.2 10^3/uL (0.0-0.6); ABSOLUTE LYMPHOCYTES (AUTO) 0.6 10^3/uL (0.5-4.7); ABSOLUTE MONOCYTES (AUTO) 0.7 10^3/uL (0.1-1.4); ABSOLUTE NEUT (AUTO) 4.6 10^3/uL (1.7-8.2); BASOPHILS % (AUTO) 0.3 % (0-2); EOSINOPHILS % (AUTO) 3.9 % (0-6); HEMOGLOBIN 9.7 g/dL (12.0-15.5); LYMPHOCYTES % (AUTO) 10.4 % (13-45); MEAN CORPUSCULAR HEMOGLOBIN 28.2 pg (27.0-33.4); MEAN CORPUSCULAR HGB CONC 33.5 g/dL (32.0-36.0); MEAN CORPUSCULAR VOLUME 84 fl (80-97); MONOCYTES % (AUTO) 11.4 % (3-13); PLATELET COUNT 272 10^3/uL (150-450); RED BLOOD COUNT 3.45 10^6/uL (3.72-5.28); RED CELL DISTRIBUTION WIDTH 14.2 % (11.5-14.0); TOTAL CELLS COUNTED % (AUTO) 100 %; WHITE BLOOD COUNT 6.2 10^3/uL (4.0-10.5)
[2018-10-14 11:46] LABS: INTERNATIONAL RATION (INR) 1.13; PROTHROMBIN TIME 15.1 SEC (11.4-15.4)
[2018-10-14 11:54] LABS: ALANINE AMINOTRANSFERASE 9 U/L (9-52); ALBUMIN 4.1 g/dL (3.5-5.0); ALKALINE PHOSPHATASE 87 U/L (38-126); ANION GAP 16 (5-19); ASPARTATE AMINO TRANSFERASE 22 U/L (14-36); BILIRUBIN,DIRECT 0.2 mg/dL (0.0-0.4); BILIRUBIN,TOTAL 0.4 mg/dL (0.2-1.3); BLOOD UREA NITROGEN 19 mg/dL (7-20); CALCIUM 9.6 mg/dL (8.4-10.2); CARBON DIOXIDE 19 mmol/L (22-30); CHLORIDE 100 mmol/L (98-107); GLUCOSE 158 mg/dL (75-110); POTASSIUM 3.1 mmol/L (3.6-5.0); SODIUM 134.6 mmol/L (137-145); TOTAL PROTEIN 6.9 g/dL (6.3-8.2)
[2018-10-14 13:05] LABS: APPEARANCE,URINE CLOUDY; BILIRUBIN,URINE NEGATIVE (NEGATIVE); COLOR,URINE YELLOW; GLUCOSE, URINE NEGATIVE (NEGATIVE); KETONES,URINE NEGATIVE (NEGATIVE); LEUKOCYTE ESTERASE,URINE LARGE (NEGATIVE); NITRITE,URINE NEGATIVE (NEGATIVE); PROTEIN,URINE 30 mg/dL (NEGATIVE); URINE SPECIFIC GRAVITY 1.014; UROBILINOGEN,URINE NEGATIVE mg/dL (<2.0)
[2018-10-14] MEDS ORDERED: RINGERS SOLUTION,LACTATED 1,000 ML IV ONE (14:10)
--- NOTE | 2018-10-14 14:23 | ER Document Report ---
Entered by DIDIER PRINCE SCRIBE 10/14/18 1141 Acting as scribe for:ARJUN LOMELI MD ED General - General Stated Complaint: POSSIBLE DIARRHEA AND FEVER Time Seen by Provider: 10/14/18 11:01 Primary Care Provider: IRASEMA PARKER FNP-C [Primary Care Provider] - Follow up as needed Notes: 73-year-old female who presents to the emergency department today with complaints of fevers and diarrhea since last night. Patient has had C. difficile on 3 different occasions with the last one being on 06/20/2018. Daugh ter at bedside states that the patient's diarrhea last night did not have the same odor that her previous C. difficile diarrhea had. Daughter states the patient has not been eating or drinking for the last 24 hours. Daughter mentions that the patient has a "urinary stent" that was supposed to be removed on October 09 but when they got to [facility] the patient "lost her mind and refused to be seen". TRAVEL OUTSIDE OF THE [place] IN LAST 30 DAYS: No - Related Data Allergies/Adverse Reactions: amoxicillin Allergy (Verified 09/26/18 13:33) vancomycin Adverse Reaction (Mild, Verified 09/26/18 13:33) Past Medical History - General Information source: Patient, Relative, [facility] Records - Social History Smoking Status: Never Smoker Cigarette use (# per day): No Frequency of alcohol use: None Drug Abuse: None Family History: Reviewed & Not Pertinent Pulmonary Medical History: Reports: Hx COPD - possible Chemo related Endocrine Medical History: Reports: Hx Hypothyroidism Malignancy Medical History: Reports: Hx Breast Cancer Psychiatric Medical History: Reports: Hx Bipolar Disorder, Hx Depression - anxiety Infectious Medical History: Reports: Hx C-Diff - X3 Past Surgical History: Reports: Hx Abdominal Surgery - bladder surgery, Hx Breast Surgery - right breast removed, Hx Genitourinary Surgery - bladder, Hx Mastectomy, Hx Orthopedic Surgery Review of Systems - Review of Systems Constitutional: See HPI, Fever EENT: No symptoms reported Cardiovascular: No symptoms reported Respiratory: No symptoms reported Gastrointestinal: See HPI, Diarrhea Genitourinary: No symptoms reported Female Genitourinary: No symptoms reported Musculoskeletal: No symptoms reported Skin: No symptoms reported Hematologic/Lymphatic: No symptoms reported Neurological/Psychological: No symptoms reported -: Yes All other systems reviewed and negative Physical Exam - Vital signs Vitals: Resp 20 10/14/18 10:56 - Notes Notes: Physical Exam: General: Alert. HEENT: Normocephalic. Atraumatic. PERRL. Extraocular movements intact. Oropharynx clear. Neck: Supple. Non-tender. Respiratory: No respiratory distress. Clear and equal breath sounds bilaterally. Cardiovascular: Regular rate and rhythm. Abdominal: Normal Inspection. Non-tender. No distension. Normal Bowel Sounds. Back: Non-tender. No deformity or step off. Extremities: Moves all four extremities. Upper extremities: Normal inspection. Normal ROM. Lower extremities: Normal inspection. No edema. Normal ROM. Neurological: Normal cognition. AAOx4. Normal speech. Psychological: Normal affect. Normal Mood. Skin: Hot to the touch. Dry. Normal color. Course - Vital Signs Vital signs: Temp Pulse Resp BP Pulse Ox 99.9 F 19 141/72 H 98 10/14/18 10:58 10/14/18 13:01 10/14/18 13:00 10/14/18 13:01 - Laboratory Result Diagrams: 10/14/18 11:16 10/14/18 11:16 Laboratory results interpreted by me: 10/14/18 10/14/18 10/14/18 11:16 11:16 11:31 RBC 3.45 L Hgb 9.7 L Hct 29.0 L RDW 14.2 H Lymphocytes % 10.4 L Sodium 134.6 L Potassium 3.1 L Carbon Dioxide 19 L Creatinine 1.62 H Est GFR ( Amer) 37 L Est GFR (Non-Af Amer) 31 L Glucose 158 H Urine Protein Urine Blood Ur Leukocyte Esterase Stool for White Cells MANY H 10/14/18 12:40 RBC Hgb Hct RDW Lymphocytes % Sodium Potassium Carbon Dioxide Creatinine Est GFR ( Amer) Est GFR (Non-Af Amer) Glucose Urine Protein 30 H Urine Blood LARGE H Ur Leukocyte Esterase LARGE H Stool for White Cells - EKG Interpretation by Nm EKG shows normal: Sinus rhythm, [place], Intervals, QRS Complexes, ST-T Waves Rate: Normal - 86 Rhythm: NSR - Consults Dr. Garza Time consulted: 14:20 Consulted provider: will come to ER Discharge - Discharge Clinical Impression: Clostridium difficile diarrhea Urinary tract infection Qualifiers: Urinary tract infection type: site unspecified Hematuria presence: with hematuria Qualified Code(s): N39.0 - Urinary tract infection, site not specified; R31.9 - Hematuria, unspecified Fever Qualifiers: Fever type: unspecified Qualified Code(s): R50.9 - Fever, unspecified Condition: Stable Disposition: ADMITTED INPATIENT Admitting Provider: Hospitalist Unit Admitted: Medical Floor Referrals: IRASEMA PARKER FNP-C [Primary Care Provider] - Follow up as needed I personally performed the services described in the documentation, reviewed and edited the documentation which was dictated to the scribe in my presence, and it accurately records my words and actions.
[2018-10-14] MEDS ORDERED: ONDANSETRON 4 MG TAB.RAPDIS PO PRN (16:04)
[2018-10-14 16:17] LABS: VENOUS BLOOD BASE EXCESS -0.6 mmol/L; VENOUS BLOOD HCO3 23.8 mmol/L (20-32); VENOUS BLOOD PCO2 38.6 mmHg (35-63); VENOUS BLOOD PH 7.41 (7.30-7.42)
[2018-10-14] MEDS ORDERED: VANCOMYCIN HCL INJ 500 MG VIAL PO SCH ×2 (18:00→21:00)
[2018-10-14] MEDS ORDERED: (PENDING PHARMACY ID) (Lamotrigine [Lamictal] 200 MG) PO SCH (18:00)
[2018-10-14] MEDS ORDERED: TOPIRAMATE 100 MG TABLET PO SCH (18:00)
[2018-10-14] MEDS: ACETAMINOPHEN 325 MG TABLET PO PRN (18:05)
[2018-10-14] MEDS: CEFTRIAXONE 1 GM/D5W RTU 1 GM/50 ML RTUPB IV SCH (18:06)
[2018-10-14] MEDS: POTASSI CL 20 MEQ/50 ML RIDER 20 MEQ/50 ML RTUPB IV SCH ×2 (20:22→22:24)
--- NOTE | 2018-10-14 20:51 | PDOC H&P ---
History of Present Illness Admission Date/PCP: 10/14/18 14:35 IRASEMA PARKER, [employer] Patient complains of: Recent cystitis with recurrent Clostridium difficile colitis History of Present Illness: SRIKANTH COLVIN is a 73 year old female who was recently started on antibiotic therapy at a [facility]. She was started on antibiotics and then developed worsening diarrhea. She has had Clostridium difficile I believe twice in the past. With the colitis her intake was very limited. She has been having abdominal pain. Because of her worsening condition her daughter brought her to the emergency department. The patient is a poor historian secondary to bipolar disorder and dementia. Past Medical History Cardiac Medical History: Reports: None Pulmonary Medical History: Reports: Chronic Obstructive Pulmonary Disease (COPD) - possible Chemo related EENT Medical History: Reports: None Neurological Medical History: Reports: Other - Dementia Endocrine Medical History: Reports: Hypothyroidism Denies: Diabetes Mellitus Type 1, Diabetes Mellitus Type 2 Renal/ Medical History: Reports: Chronic Kidney Disease, Other - Recurrent cystitis Malignancy Medical History: Reports: Breast Cancer GI Medical History: Reports: None Musculoskeltal Medical History: Reports: Arthritis Skin Medical History: Reports: None Psychiatric Medical History: Reports: Bipolar Disorder, Dementia, Depression - anxiety Traumatic Medical History: Reports: None Hematology: Reports: Anemia Infectious Medical History: Reports: Clostridium Difficile - X3 Past Surgical History Past Surgical History: Reports: Mastectomy, Orthopedic Surgery Social History Information Source: Patient, Relative - Patient's daughter Lives with: Family Smoking Status: Never Smoker Frequency of Alcohol Use: None Hx Recreational Drug Use: No Drugs: None Hx Prescription Drug Abuse: No - Advance Directive Resuscitation Status: Do Not Resuscitate Surrogate healthcare decision maker:: The patient's daughter, Mary Resendez, is the designated decision maker. She is the only child and the next closest relative. I did encourage completion of a healthcare proxy. She did in fact show me the officially recognized DNR form. Family History Family History: Reviewed & Not Pertinent Parental Family History Reviewed: Yes Children Family History Reviewed: Yes Sibling(s) Family History Reviewed.: Yes Medication/Allergy Home Medications: Ferrous Sulfate [Feosol 325 mg Tablet] 325 mg PO QPM 06/20/18 Lamotrigine [Lamictal] 200 mg PO QPM 06/20/18 Levothyroxine Sodium [Synthroid 0.05 mg Tablet] 0.05 mg PO Q6AM 06/20/18 Quetiapine Fumarate [Seroquel 100 mg Tablet] 150 mg PO DAILY 06/20/18 Simvastatin [Zocor 10 mg Tablet] 20 mg PO QPM 06/20/18 Topiramate [Topamax 100 mg Tablet] 100 mg PO QPM 06/20/18 Venlafaxine HCl ER [Effexor Xr 75 mg Cap.sr] 150 mg PO DAILY 06/20/18 Omeprazole 20 mg PO DAILY 10/14/18 Allergies/Adverse Reactions: amoxicillin Allergy (Verified 10/14/18 15:36) Sulfa (Sulfonamide Antibiotics) Allergy (Verified 10/14/18 15:36) TONGUE SWELLING vancomycin Adverse Reaction (Mild, Verified 10/14/18 15:36) Review of Systems Constitutional: PRESENT: as per HPI, anorexia, headache(s). ABSENT: chills Eyes: ABSENT: visual disturbances Ears: ABSENT: hearing changes Nose, Mouth, and Throat: ABSENT: mouth pain, sore throat Cardiovascular: ABSENT: chest pain, edema, palpitations Respiratory: ABSENT: cough, dyspnea, sputum Gastrointestinal: PRESENT: abdominal pain, diarrhea Genitourinary: PRESENT: other - Pyuria. ABSENT: hematuria Musculoskeletal: ABSENT: back pain, muscle weakness Integumentary: ABSENT: lesions Neurological: ABSENT: abnormal movements, abnormal speech, tremor(s) Psychiatric: PRESENT: as per HPI Endocrine: ABSENT: cold intolerance, heat intolerance, polyuria Hematologic/Lymphatic: ABSENT: easy bleeding, easy bruising Physical Exam Vital Signs: Temp Pulse Resp BP Pulse Ox 98.6 F 30 H 155/70 H 95 10/14/18 18:22 10/14/18 18:01 10/14/18 18:00 10/14/18 18:01 Intake & Output 10/13/18 10/14/18 10/15/18 06:59 06:59 06:59 Intake Total 1000 Balance 1000 Weight 50.349 kg General appearance: PRESENT: mild distress, thin Head exam: PRESENT: normocephalic Eye exam: PRESENT: conjunctiva pink, EOMI. ABSENT: scleral icterus Ear exam: PRESENT: normal external ear exam Neck exam: ABSENT: carotid bruit, JVD, lymphadenopathy Respiratory exam: PRESENT: clear to auscultation donita. ABSENT: accessory muscle use, rales, rhonchi, wheezes Cardiovascular exam: PRESENT: RRR, +S1, +S2 GI/Abdominal exam: PRESENT: diminished bowel sounds, soft, tenderness. ABSENT: distended Rectal exam: PRESENT: deferred Extremities exam: ABSENT: pedal edema Musculoskeletal exam: PRESENT: normal inspection Neurological exam: PRESENT: alert, awake, oriented to person, oriented to place Psychiatric exam: PRESENT: flat affect. ABSENT: agitated, anxious Focused psych exam: ABSENT: restlessness Skin exam: PRESENT: dry, warm. ABSENT: rash Results Laboratory Results: 10/14/18 11:16 10/14/18 11:16 10/14/18 10/14/18 10/14/18 11:16 11:16 11:16 WBC 6.2 RBC 3.45 L Hgb 9.7 L Hct 29.0 L MCV 84 MCH 28.2 MCHC 33.5 RDW 14.2 H Plt Count 272 Seg Neutrophils % 74.0 Lymphocytes % 10.4 L Monocytes % 11.4 Eosinophils % 3.9 Basophils % 0.3 Absolute Neutrophils 4.6 Absolute Lymphocytes 0.6 Absolute Monocytes 0.7 Absolute Eosinophils 0.2 Absolute Basophils 0.0 VBG pH VBG pCO2 VBG HCO3 VBG Base Excess Sodium 134.6 L Potassium 3.1 L Chloride 100 Carbon Dioxide 19 L Anion Gap 16 BUN 19 Creatinine 1.62 H Est GFR ( Amer) 37 L Est GFR (Non-Af Amer) 31 L Glucose 158 H Lactic Acid 2.1 Calcium 9.6 Total Bilirubin 0.4 AST 22 ALT 9 Alkaline Phosphatase 87 Total Protein 6.9 Albumin 4.1 Urine Color Urine Appearance Urine pH Ur Specific [place] Urine Protein Urine Glucose (UA) Urine Ketones Urine Blood Urine Nitrite Ur Leukocyte Esterase Urine WBC (Auto) Urine RBC (Auto) Stool for White Cells 10/14/18 10/14/18 10/14/18 11:31 12:40 16:00 WBC RBC Hgb Hct MCV MCH MCHC RDW Plt Count Seg Neutrophils % Lymphocytes % Monocytes % Eosinophils % Basophils % Absolute Neutrophils Absolute Lymphocytes Absolute Monocytes Absolute Eosinophils Absolute Basophils VBG pH 7.41 VBG pCO2 38.6 VBG HCO3 23.8 VBG Base Excess -0.6 Sodium Potassium Chloride Carbon Dioxide Anion Gap BUN Creatinine Est GFR ( Amer) Est GFR (Non-Af Amer) Glucose Lactic Acid Calcium Total Bilirubin AST ALT Alkaline Phosphatase Total Protein Albumin Urine Color YELLOW Urine Appearance CLOUDY Urine pH 6.0 Ur Specific [place] 1.014 Urine Protein 30 H Urine Glucose (UA) NEGATIVE Urine Ketones NEGATIVE Urine Blood LARGE H Urine Nitrite NEGATIVE Ur Leukocyte Esterase LARGE H Urine WBC (Auto) >182 Urine RBC (Auto) 108 Stool for White Cells MANY H 10/14/18 16:00 WBC RBC Hgb Hct MCV MCH MCHC RDW Plt Count Seg Neutrophils % Lymphocytes % Monocytes % Eosinophils % Basophils % Absolute Neutrophils Absolute Lymphocytes Absolute Monocytes Absolute Eosinophils Absolute Basophils VBG pH VBG pCO2 VBG HCO3 VBG Base Excess Sodium Potassium Chloride Carbon Dioxide Anion Gap BUN Creatinine Est GFR ( Amer) Est GFR (Non-Af Amer) Glucose Lactic Acid 1.1 Calcium Total Bilirubin AST ALT Alkaline Phosphatase Total Protein Albumin Urine Color Urine Appearance Urine pH Ur Specific [place] Urine Protein Urine Glucose (UA) Urine Ketones Urine Blood Urine Nitrite Ur Leukocyte Esterase Urine WBC (Auto) Urine RBC (Auto) Stool for White Cells Assessment & Plan - Diagnosis (1) Clostridium difficile diarrhea Is this a current diagnosis for this admission?: Yes Plan: Because the patient is allergic to vancomycin I will place her on Xifaxan and metronidazole. I will start probiotic therapy as well. (2) Acute kidney injury Is this a current diagnosis for this admission?: Yes Plan: This may in fact be acute on chronic kidney injury. I will research further. Regardless I will continue IV fluids to replace volume loss from diarrhea and monitor kidney function and electrolytes. (3) Urinary tract infection Qualifiers: Urinary tract infection type: acute cystitis Hematuria presence: with hematuria Qualified Code(s): N30.01 - Acute cystitis with hematuria Is this a current diagnosis for this admission?: Yes Plan: I did get a call from [facility]. The patient did have a positive urine culture for Citrobacter freundi. Unfortunately the sensitivities were not available. She was found to have marked white blood cells as well as other indicators for infection on her urinalysis. A new urine culture was submitted today. I have started ceftriaxone and will adjust when the culture results are available. (4) Hypokalemia Is this a current diagnosis for this admission?: Yes Plan: I will replace the potassium by intravenous initially. I will monitor the potassium levels. When the diarrhea stops her potassium levels should normaliz e. (5) Hyponatremia Is this a current diagnosis for this admission?: Yes Plan: No acute intervention at this time. I will certainly monitor the serum sodium level and make adjustments to the treatment regimen when indicated. (6) Bladder cancer Qualifiers: Bladder location: unspecified site Qualified Code(s): C67.9 - Malignant neoplasm of bladder, unspecified Is this a current diagnosis for this admission?: Yes Plan: Evidently the patient has a ureteral stent to prevent the bladder cancer. This stent could be a source of recurrent infection. They will need to see urology. The patient's daughter states that the intent was to remove the stent at some point. (7) Bipolar disorder Qualifiers: Active/Remission status: currently active Current bipolar episode type: depressed Current episode severity: moderate Qualified Code(s): F31.32 - Bipolar disorder, current episode depressed, moderate Is this a current diagnosis for this admission?: Yes Plan: The patient is not exhibiting any psychotic features. She does have a flat affect. I will continue her current medications at this time. She is currently on Lamictal, Topamax, Effexor and Seroquel. (8) Dementia Qualifiers: Dementia type: unspecified type Dementia behavioral disturbance: without behavioral disturbance Qualified Code(s): F03.90 - Unspecified dementia without behavioral disturbance Is this a current diagnosis for this admission?: Yes Plan: I am not sure of the exact etiology of the dementia at this point. We are continuing the medications as noted above. The patient currently does not exhibit any behavioral disorder (9) Hypothyroidism Qualifiers: Hypothyroidism type: unspecified Qualified Code(s): E03.9 - Hypothyroidism, unspecified Is this a current diagnosis for this admission?: Yes Plan: Continue levothyroxine 50 mcg daily. - Time Time Spent: 50 to 70 Minutes Medications reviewed and adjusted accordingly: Yes Anticipated discharge: Home - Inpatient Certification Based on my medical assessment, after consideration of the patient's comorbidities, presenting symptoms, or acuity I expect that the services needed warrant INPATIENT care.: Yes I certify that my determination is in accordance with my understanding of Medicare's requirements for reasonable and necessary INPATIENT services [42 CFR 412.3e].: Yes Medical Necessity: Need Close Monitoring Due to Risk of Patient Decompensation, Need For IV Fluids, Need for Pain Control, Need for IV Antibiotics, Risk of C omplication if Not Cared For in Hospital Post Hospital Care: D/C Admitting Office Escort Documentation
--- NOTE | 2018-10-14 21:51 | EKG REPORT ---
SEVERITY:- NORMAL ECG - SINUS RHYTHM : Confirmed by: Kevin Holbrook 14-Oct-2018 21:51:12
[2018-10-14] MEDS: SIMVASTATIN 10 MG TABLET PO SCH (22:25)
[2018-10-14] MEDS: LAMOTRIGINE 100 MG TABLET PO SCH (22:25)
[2018-10-14] MEDS: FERROUS SULFATE 325 MG TABLET PO SCH (22:25)
[2018-10-14] MEDS: TOPIRAMATE 100 MG TABLET PO SCH (22:26)
[2018-10-15] MEDS: METRONIDAZOLE 500 MG/NS RTU 500 MG/100 ML RTUPB IV SCH ×3 (00:20→13:18)
[2018-10-15] MEDS: OXYCODONE-ACETAMINOPHEN 5-325 MG TABLET PO PRN ×2 (04:30→15:14)
[2018-10-15] MEDS: NORMAL SALINE 1000 ML 1,000 ML IV PRN ×2 (05:47→15:14)
[2018-10-15] MEDS: LANSOPRAZOLE 30 MG TAB.RAP.DR PO SCH (05:50)
[2018-10-15] MEDS: LEVOTHYROXINE SODIUM 0.05 MG TABLET PO SCH (05:51)
[2018-10-15 06:21] LABS: ABSOLUTE EOSINOPHILS # (AUTO) 1.1 10^3/uL (0.0-0.6); ABSOLUTE LYMPHOCYTES (AUTO) 0.8 10^3/uL (0.5-4.7); ABSOLUTE MONOCYTES (AUTO) 0.6 10^3/uL (0.1-1.4); ABSOLUTE NEUT (AUTO) 3.9 10^3/uL (1.7-8.2); BASOPHILS % (AUTO) 0.3 % (0-2); EOSINOPHILS % (AUTO) 17.1 % (0-6); HEMATOCRIT 27.7 % (36.0-47.0); HEMOGLOBIN 9.5 g/dL (12.0-15.5); LYMPHOCYTES % (AUTO) 12.3 % (13-45); MEAN CORPUSCULAR HEMOGLOBIN 28.6 pg (27.0-33.4); MEAN CORPUSCULAR HGB CONC 34.3 g/dL (32.0-36.0); MEAN CORPUSCULAR VOLUME 83 fl (80-97); MONOCYTES % (AUTO) 9.4 % (3-13); PLATELET COUNT 264 10^3/uL (150-450); RED BLOOD COUNT 3.33 10^6/uL (3.72-5.28); RED CELL DISTRIBUTION WIDTH 14.6 % (11.5-14.0); SEGMENTED NEUTROPHILS % (AUTO) 60.9 % (42-78); TOTAL CELLS COUNTED % (AUTO) 100 %; WHITE BLOOD COUNT 6.5 10^3/uL (4.0-10.5)
[2018-10-15 06:54] LABS: ANION GAP 11 (5-19); BLOOD UREA NITROGEN 18 mg/dL (7-20); CALCIUM 9.1 mg/dL (8.4-10.2); CARBON DIOXIDE 19 mmol/L (22-30); CHLORIDE 110 mmol/L (98-107); GLUCOSE 101 mg/dL (75-110); SODIUM 140.3 mmol/L (137-145)
[2018-10-15 06:56] LABS: POTASSIUM 3.6 mmol/L (3.6-5.0)
[2018-10-15] MEDS ORDERED: ENOXAPARIN SODIUM INJ 40 MG/0.4 ML DISP.SYRIN SUBCUT SCH (10:00)
[2018-10-15] MEDS: QUETIAPINE FUMARATE 100 MG TABLET PO SCH (10:23)
[2018-10-15] MEDS: LACTOBACILLUS ACIDOPHILUS 250 MG TAB PO SCH ×2 (10:23→18:21)
[2018-10-15] MEDS: VENLAFAXINE HCL 75 MG CAP.SR.24H PO SCH (10:23)
[2018-10-15] MEDS: RIFAXIMIN 200 MG TABLET PO SCH ×2 (10:24→13:19)
[2018-10-15] MEDS: ENOXAPARIN SODIUM INJ 30 MG/0.3 ML DISP.SYRIN SUBCUT SCH (10:24)
[2018-10-15] MEDS: FIDAXOMICIN 200 MG TABLET PO SCH ×2 (15:56→23:59)
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
[2018-10-15] MEDS: CEFTRIAXONE 1 GM/D5W RTU 1 GM/50 ML RTUPB IV SCH (18:21)
[2018-10-15] MEDS: SIMVASTATIN 10 MG TABLET PO SCH (18:21)
[2018-10-15] MEDS: FERROUS SULFATE 325 MG TABLET PO SCH ×2 (18:21→18:26)
[2018-10-15] MEDS: LAMOTRIGINE 100 MG TABLET PO SCH (18:21)
--- NOTE | 2018-10-15 21:05 | PDOC PROGRESS REPORT ---
Subjective Progress Note for:: 10/15/18 Subjective:: Feeling better today. Reports no loose stool so far today. Reason For Visit: RECURRENT CLOSTRIDIUM DIFFICILE colitis Physical Exam Vital Signs: Temp Pulse Resp BP Pulse Ox 97.4 F 71 14 117/55 L 99 10/15/18 15:00 10/15/18 15:00 10/15/18 15:00 10/15/18 15:00 10/15/18 15:00 Intake & Output 10/14/18 10/15/18 10/16/18 06:59 06:59 06:59 Intake Total 1300 1440 Balance 1300 1440 Weight 52.1 kg General appearance: PRESENT: no acute distress, cooperative Respiratory exam: PRESENT: clear to auscultation donita, symmetrical, unlabored. ABSENT: rales, rhonchi, wheezes Cardiovascular exam: PRESENT: RRR, +S1, +S2 GI/Abdominal exam: PRESENT: normal bowel sounds, soft, tenderness - Diffuse but more significant left lower quadrant. ABSENT: distended Rectal exam: PRESENT: deferred Extremities exam: ABSENT: calf tenderness, pedal edema Neurological exam: PRESENT: alert, awake, oriented to person, oriented to place, oriented to situation Psychiatric exam: PRESENT: flat affect. ABSENT: agitated, anxious Focused psych exam: ABSENT: restlessness Results Laboratory Results: 10/15/18 06:00 10/15/18 06:00 10/15/18 10/15/18 10/15/18 06:00 06:00 06:00 WBC 6.5 RBC 3.33 L Hgb 9.5 L Hct 27.7 L MCV 83 MCH 28.6 MCHC 34.3 RDW 14.6 H Plt Count 264 Seg Neutrophils % 60.9 Lymphocytes % 12.3 L Monocytes % 9.4 Eosinophils % 17.1 H D Basophils % 0.3 Absolute Neutrophils 3.9 Absolute Lymphocytes 0.8 Absolute Monocytes 0.6 Absolute Eosinophils 1.1 H Absolute Basophils 0.0 Sodium 140.3 Potassium 3.6 Chloride 110 H Carbon Dioxide 19 L Anion Gap 11 BUN 18 Creatinine 1.51 H Est GFR ( Amer) 41 L Est GFR (Non-Af Amer) 34 L Glucose 101 Lactic Acid 0.5 L Calcium 9.1 Phosphorus 3.0 Magnesium 2.0 Assessment & Plan - Diagnosis (1) Clostridium difficile diarrhea Is this a current diagnosis for this admission?: Yes Plan: Please also see infectious disease note. Vancomycin and metronidazole have been discontinued. We have initiated a course of fidaxomicin instead. We will try and avoid all other antibiotic treatments. Continue probiotics. (2) Acute renal failure superimposed on stage 3 chronic kidney disease Qualifiers: Acute renal failure type: unspecified Qualified Code(s): N17.9 - Acute kidney failure, unspecified; N18.3 - Chronic kidney disease, stage 3 (moderate) Is this a current diagnosis for this admission?: Yes Plan: Review of last years blood work showed that the patient likely has chronic grade 3 a renal failure. Her GFR decreased noticeably at the time of this admission. Her appetite is improving. I will recheck her serum chemistries and administer IV fluid if necessary. (3) Urinary tract infection Qualifiers: Hematuria presence: with hematuria Is this a current diagnosis for this admission?: No Plan: Acute cystitis ruled out based on the urine culture results. The patient has a history of bladder cancer. This may have caused the presence of blood on the urine dipstick. In addition she has a stent in place. Please also see infectious disease note. The urine culture had only 20-30,000 colony-forming units per milliliter of a gram-negative bacillus. It is more likely that there is colonization at the site of the stent. Once the Clostridium difficile colitis has resolved she will need to see a urologist to reassess the stent for possible removal. (4) Hypokalemia Is this a current diagnosis for this admission?: Yes Plan: Improved. Recheck electrolytes tomorrow. Potassium should stabilize with improvement in her diarrhea. (5) Hyponatremia Is this a current diagnosis for this admission?: Yes Plan: Resolved. Continue to monitor electrolytes. (6) Bladder cancer Qualifiers: Bladder location: unspecified site Qualified Code(s): C67.9 - Malignant neoplasm of bladder, unspecified Is this a current diagnosis for this admission?: Yes Plan: Will need follow-up with urology. (7) Bipolar disorder Qualifiers: Active/Remission status: currently active Current bipolar episode type: depressed Current episode severity: moderate Qualified Code(s): F31.32 - Bipolar disorder, current episode depressed, moderate Is this a current diagnosis for this admission?: Yes Plan: Stable on current regimen. (8) Dementia Qualifiers: Dementia type: unspecified type Dementia behavioral disturbance: without behavioral disturbance Qualified Code(s): F03.90 - Unspecified dementia without behavioral disturbance Is this a current diagnosis for this admission?: Yes Plan: Continue to monitor. Certainly could be associated with bipolar disorder. Today she actually was asking very appropriate questions about her stent. (9) Hypothyroidism Qualifiers: Hypothyroidism type: unspecified Qualified Code(s): E03.9 - Hypothyroidism, unspecified Is this a current diagnosis for this admission?: Yes Plan: Continue levothyroxine 50 mcg daily. - Time Time Spent with patient: 25-34 minutes Medications reviewed and adjusted accordingly: Yes Anticipated discharge: Home
[2018-10-15] MEDS: TOPIRAMATE 100 MG TABLET PO SCH (23:59)
[2018-10-16] MEDS: LANSOPRAZOLE 30 MG TAB.RAP.DR PO SCH (05:17)
[2018-10-16] MEDS: LEVOTHYROXINE SODIUM 0.05 MG TABLET PO SCH (05:18)
[2018-10-16] MEDS: OXYCODONE-ACETAMINOPHEN 5-325 MG TABLET PO PRN (05:18)
[2018-10-16 06:08] LABS: ANION GAP 10 (5-19); BLOOD UREA NITROGEN 15 mg/dL (7-20); CALCIUM 9.1 mg/dL (8.4-10.2); CARBON DIOXIDE 18 mmol/L (22-30); CHLORIDE 112 mmol/L (98-107); GLUCOSE 94 mg/dL (75-110); POTASSIUM 3.4 mmol/L (3.6-5.0); SODIUM 140.1 mmol/L (137-145)
[2018-10-16] MEDS: QUETIAPINE FUMARATE 100 MG TABLET PO SCH (11:48)
[2018-10-16] MEDS: FIDAXOMICIN 200 MG TABLET PO SCH ×2 (11:48→21:30)
[2018-10-16] MEDS: VENLAFAXINE HCL 75 MG CAP.SR.24H PO SCH (11:49)
[2018-10-16] MEDS: LACTOBACILLUS ACIDOPHILUS 250 MG TAB PO SCH ×2 (11:49→18:18)
[2018-10-16] MEDS: ENOXAPARIN SODIUM INJ 30 MG/0.3 ML DISP.SYRIN SUBCUT SCH (11:54)
[2018-10-16] MEDS: LAMOTRIGINE 100 MG TABLET PO SCH (18:17)
[2018-10-16] MEDS: FERROUS SULFATE 325 MG TABLET PO SCH (18:18)
[2018-10-16] MEDS: SIMVASTATIN 10 MG TABLET PO SCH (18:18)
[2018-10-16] MEDS: TOPIRAMATE 100 MG TABLET PO SCH (21:30)
--- NOTE | 2018-10-16 22:07 | PDOC PROGRESS REPORT ---
Subjective Progress Note for:: 10/16/18 Subjective:: Reports no diarrhea. Still having discomfort in the suprapubic area. Reason For Visit: RECURRENT CLOSTRIDIUM DIFFICILE,RECURRENT CYSTITIS Physical Exam Vital Signs: Temp Pulse Resp BP Pulse Ox 98.0 F 78 15 132/63 H 93 10/16/18 19:33 10/16/18 19:33 10/16/18 19:33 10/16/18 19:33 10/16/18 19:33 Intake & Output 10/15/18 10/16/18 10/17/18 06:59 06:59 06:59 Intake Total 1300 1920 1520 Balance 1300 1920 1520 Weight 52.1 kg 54.3 kg General appearance: PRESENT: no acute distress Respiratory exam: PRESENT: clear to auscultation donita, symmetrical, unlabored. ABSENT: accessory muscle use, rales, rhonchi, wheezes Cardiovascular exam: PRESENT: RRR, +S1, +S2 GI/Abdominal exam: PRESENT: normal bowel sounds, soft, tenderness - Very tender across the lower abdomen. More prominent on the left. Neurological exam: PRESENT: alert, awake, oriented to person, oriented to place, oriented to situation Psychiatric exam: PRESENT: flat affect Results Laboratory Results: 10/15/18 06:00 10/16/18 05:10 10/16/18 05:10 Sodium 140.1 Potassium 3.4 L Chloride 112 H Carbon Dioxide 18 L Anion Gap 10 BUN 15 Creatinine 1.46 H Est GFR ( Amer) 42 L Est GFR (Non-Af Amer) 35 L Glucose 94 Calcium 9.1 10/14/18 11:31 Stool - Stool - Final 10/14/18 11:31 Stool - Stool Stool Culture - Final NO SALMONELLA, SHIGELLA, CAMPYLOBACTER, OR E.COLI 0157 RECOVERED. NEGATIVE FOR SHIGA TOXINS 1&2. Assessment & Plan - Diagnosis (1) Clostridium difficile diarrhea Is this a current diagnosis for this admission?: Yes Plan: Continue Dificid. Monitor for loose stool. (2) Acute renal failure superimposed on stage 3 chronic kidney disease Qualifiers: Acute renal failure type: unspecified Qualified Code(s): N17.9 - Acute kidney failure, unspecified; N18.3 - Chronic kidney disease, stage 3 (moderate) Is this a current diagnosis for this admission?: Yes Plan: Appears to be back at baseline (3) Urinary tract infection Qualifiers: Hematuria presence: with hematuria Is this a current diagnosis for this admission?: No Plan: Acute cystitis ruled out based on the urine culture results. The patient has a history of bladder cancer. This may have caused the presence of blood on the urine dipstick. In addition she has a stent in place. Please also see infectious disease note. The urine culture had only 20-30,000 colony-forming units per milliliter of a gram-negative bacillus. It is more likely that there is colonization at the site of the stent. Once the Clostridium difficile colitis has resolved she will need to see a urologist to reassess the stent for possible removal. Because the patient is still having significant pain may consider imaging the pelvis to make sure there is no abscess or other findings. (4) Hypokalemia Is this a current diagnosis for this admission?: Yes (5) Hyponatremia Is this a current diagnosis for this admission?: Yes (6) Bladder cancer Qualifiers: Bladder location: unspecified site Qualified Code(s): C67.9 - Malignant neoplasm of bladder, unspecified Is this a current diagnosis for this admission?: Yes Plan: Continues to ask when the stent is going to be removed despite me explaining that her Clostridium difficile infection must be resolved first (7) Bipolar disorder Qualifiers: Active/Remission status: currently active Current bipolar episode type: depressed Current episode severity: moderate Qualified Code(s): F31.32 - Bipolar disorder, current episode depressed, moderate Is this a current diagnosis for this admission?: Yes (8) Dementia Qualifiers: Dementia type: unspecified type Dementia behavioral disturbance: without behavioral disturbance Qualified Code(s): F03.90 - Unspecified dementia without behavioral disturbance Is this a current diagnosis for this admission?: Yes (9) Hypothyroidism Qualifiers: Hypothyroidism type: unspecified Qualified Code(s): E03.9 - Hypothyroidism, unspecified Is this a current diagnosis for this admission?: Yes - Time Time Spent with patient: 15-24 minutes Medications reviewed and adjusted accordingly: Yes
--- NOTE | 2018-10-16 22:12 | Physician Advisory Note ---
Physician Advisor ProgressNote .: [facility], I have reviewed the medical record for this patient. Physician Advisor Statement: Please clarify: 1. Please state most likely baseline Cr - Do you believe pt actually has CKD stage 3 with no ALESIA? or "ALESIA on top of CKD stage 3, w/baseline Cr of ___?, or "ALESIA, baseline Cr =____; CKD stage 3 r/o'd", or ... 2. Has UTI been ruled out? If not, is it due to GNR? If ruled out, can this dx be removed from the dx list before d/c so it doesn't confuse coders? Thx, CK
[2018-10-17] MEDS: OXYCODONE-ACETAMINOPHEN 5-325 MG TABLET PO PRN ×3 (02:30→19:42)
[2018-10-17] MEDS: LANSOPRAZOLE 30 MG TAB.RAP.DR PO SCH (05:19)
[2018-10-17] MEDS: LEVOTHYROXINE SODIUM 0.05 MG TABLET PO SCH (05:19)
[2018-10-17] MEDS: VENLAFAXINE HCL 75 MG CAP.SR.24H PO SCH (09:27)
[2018-10-17] MEDS: LACTOBACILLUS ACIDOPHILUS 250 MG TAB PO SCH ×2 (09:27→17:40)
[2018-10-17] MEDS: FIDAXOMICIN 200 MG TABLET PO SCH ×2 (09:27→21:57)
[2018-10-17] MEDS: QUETIAPINE FUMARATE 100 MG TABLET PO SCH (09:28)
[2018-10-17] MEDS: ENOXAPARIN SODIUM INJ 30 MG/0.3 ML DISP.SYRIN SUBCUT SCH (09:29)
[2018-10-17] MEDS ORDERED: POTASSIUM CHLORIDE 10 MEQ CAPSULE.ER PO ONE (13:00)
[2018-10-17] MEDS: FERROUS SULFATE 325 MG TABLET PO SCH (17:40)
[2018-10-17] MEDS: SIMVASTATIN 10 MG TABLET PO SCH (17:40)
[2018-10-17] MEDS: LAMOTRIGINE 100 MG TABLET PO SCH (17:40)
--- NOTE | 2018-10-17 20:50 | PDOC PROGRESS REPORT ---
Subjective Progress Note for:: 10/17/18 Subjective:: Patient just medicated. Resting comfortably. Reason For Visit: RECURRENT CLOSTRIDIUM DIFFICILE,RECURRENT CYSTITIS Physical Exam Vital Signs: Temp Pulse Resp BP Pulse Ox 98.1 F 88 18 110/50 L 98 10/17/18 16:00 10/17/18 16:00 10/17/18 16:00 10/17/18 16:00 10/17/18 16:00 Intake & Output 10/16/18 10/17/18 10/18/18 06:59 06:59 06:59 Intake Total 1920 1840 911 Balance 192 1840 911 Weight 54.3 kg 51.9 kg General appearance: PRESENT: no acute distress Respiratory exam: PRESENT: clear to auscultation donita, symmetrical. ABSENT: rales, rhonchi, wheezes Cardiovascular exam: PRESENT: RRR, +S1, +S2 GI/Abdominal exam: PRESENT: normal bowel sounds, soft. ABSENT: tenderness Neurological exam: ABSENT: awake Results Laboratory Results: 10/15/18 06:00 10/16/18 05:10 10/14/18 12:40 Catheterized Urine Urine Culture - Final Citrobacter Freundii Assessment & Plan - Diagnosis (1) Clostridium difficile diarrhea Is this a current diagnosis for this admission?: Yes Plan: Continue Dificid. Bowel movements seem to be decreasing. (2) Urinary tract infection Qualifiers: Hematuria presence: with hematuria Is this a current diagnosis for this admission?: No Plan: After discussion with Dr. Soriano of infectious diseases at [facility] it was concluded that despite the urine growing Citrobacter it is colonization and not acute cystitis. The combination of the actual colony count and consistency of the organism from previous urine cultures would suggest that the stent that is in place is a nidus for colonization. The patient's daughter knows that the patient needs to see a urologist after discharge. (3) Acute kidney injury Is this a current diagnosis for this admission?: Yes Plan: Reviewing laboratory studies through last year it is noted that the patient previously had a normal serum creatinine through the end of 2017. Since September 2018 the patient has had this consistent elevated creatinine and decreased glomerular filtration rate. It is hard to know if we can expect her function to return to normal or if this will be her new baseline. Because it is only approximately 6 weeks duration this should still be considered an acute kidney injury rather than acute on chronic. (4) Hypokalemia Is this a current diagnosis for this admission?: Yes (5) Hyponatremia Is this a current diagnosis for this admission?: Yes (6) Bladder cancer Qualifiers: Bladder location: unspecified site Qualified Code(s): C67.9 - Malignant neoplasm of bladder, unspecified Is this a current diagnosis for this admission?: Yes (7) Bipolar disorder Qualifiers: Active/Remission status: currently active Current bipolar episode type: dep ressed Current episode severity: moderate Qualified Code(s): F31.32 - Bipolar disorder, current episode depressed, moderate Is this a current diagnosis for this admission?: Yes (8) Dementia Qualifiers: Dementia type: unspecified type Dementia behavioral disturbance: without behavioral disturbance Qualified Code(s): F03.90 - Unspecified dementia without behavioral disturbance Is this a current diagnosis for this admission?: Yes (9) Hypothyroidism Qualifiers: Hypothyroidism type: unspecified Qualified Code(s): E03.9 - Hypothyroidism, unspecified Is this a current diagnosis for this admission?: Yes - Time Time Spent with patient: Less than 15 minutes Medications reviewed and adjusted accordingly: Yes - Plan Summary Plan Summary: I did try and call the patient's daughter. Evidently it was a wrong number. I will pursue contacting the patient's daughter to ensure that they are trying to schedule a urology appointment soon after her discharge.
[2018-10-17] MEDS: ACETAMINOPHEN 325 MG TABLET PO PRN (21:55)
[2018-10-17] MEDS: TOPIRAMATE 100 MG TABLET PO SCH (21:56)
--- NOTE | 2018-10-17 22:16 | RADIOLOGY REPORT (SQ) ---
EXAM DESCRIPTION: CT ABDOMEN PELVIS WITHOUT IV CONTRAST COMPLETED DATE/TME: 10/17/2018 00:00 CLINICAL HISTORY: 73 years, Female, Increased low abdo pain. C. Diff and ureteral sten COMPARISON: 09/10/2018 CT abdomen/pelvis TECHNIQUE: 259 Images stored on PACS. All CT scanners at this facility use dose modulation, iterative reconstruction, and/or weight based dosing when appropriate to reduce radiation dose to as low as reasonably achievable (ALARA). [facility]: Dose Right [facility]: CareDose [facility]: Dose Right [facility]: Teradose 4D [facility]: [employer] LIMITATIONS: None. FINDINGS: Limited evaluation of the lung bases is unremarkable. Multiple, grossly stable compression fracture deformity throughout the lumbar spine. Osseous structures are otherwise grossly intact. Stable hepatic cysts. The spleen, adrenal glands, pancreas are grossly unremarkable. Left ureteral stent in place with persistent moderate left-sided hydronephrosis and hydroureter. New moderate to severe right-sided hydronephrosis and hydroureter, of indeterminate etiology. Subjective diffuse urinary bladder wall thickening however the urinary bladder is not distended. Calcifications in the pelvis are likely vascular in nature. Distal urinary tract calculus is not definitively seen. Large amount of stool in the colon. No evidence for bowel obstruction. No free air or free fluid. Mild haziness in the perirectal soft tissues which could reflect nonspecific proctitis. IMPRESSION: New moderate to severe right-sided hydronephrosis and hydroureter of indeterminate etiology. No definitive distal urinary tract calculus. Subjective urinary bladder wall thickening. Urinary bladder is not distended. Left ureteral stent in place with persistent moderate left hydronephrosis. Haziness of the perirectal fat and soft tissues which could reflect nonspecific proctitis. Stable hypodensities in the liver, likely small cysts.. TECHNICAL DOCUMENTATION: Quality ID # 436: Final reports with documentation of one or more dose reduction techniques (e.g., Automated exposure control, adjustment of the mA and/or kV according to patient size, use of iterative reconstruction technique) copyright 2011 [employer]- All Rights Reserved
[2018-10-18] MEDS: LEVOTHYROXINE SODIUM 0.05 MG TABLET PO SCH (06:57)
[2018-10-18] MEDS: LANSOPRAZOLE 30 MG TAB.RAP.DR PO SCH (06:57)
[2018-10-18] MEDS: OXYCODONE-ACETAMINOPHEN 5-325 MG TABLET PO PRN ×3 (07:09→22:00)
[2018-10-18] MEDS: QUETIAPINE FUMARATE 100 MG TABLET PO SCH (10:02)
[2018-10-18] MEDS: VENLAFAXINE HCL 75 MG CAP.SR.24H PO SCH (10:02)
[2018-10-18] MEDS: POTASSIUM CHLORIDE 10 MEQ CAPSULE.ER PO SCH (10:02)
[2018-10-18] MEDS: FIDAXOMICIN 200 MG TABLET PO SCH ×2 (10:03→22:00)
[2018-10-18] MEDS: LACTOBACILLUS ACIDOPHILUS 250 MG TAB PO SCH ×2 (10:03→17:47)
[2018-10-18] MEDS: ENOXAPARIN SODIUM INJ 30 MG/0.3 ML DISP.SYRIN SUBCUT SCH (10:06)
--- NOTE | 2018-10-18 15:06 | PDOC PROGRESS REPORT ---
Subjective Progress Note for:: 10/18/18 Subjective:: Resting comfortably. Reason For Visit: RECURRENT CLOSTRIDIUM DIFFICILE,RECURRENT CYSTITIS Physical Exam Vital Signs: Temp Pulse Resp BP Pulse Ox 98.1 F 74 16 130/54 H 95 10/18/18 12:41 10/18/18 12:41 10/18/18 12:41 10/18/18 12:41 10/18/18 12:41 Intake & Output 10/17/18 10/18/18 10/19/18 06:59 06:59 06:59 Intake Total 1840 1683 300 Balance 1840 1683 300 Weight 51.9 kg 51.1 kg General appearance: PRESENT: no acute distress, cooperative Respiratory exam: PRESENT: clear to auscultation donita. ABSENT: rales, wheezes Cardiovascular exam: PRESENT: RRR, +S1, +S2 GI/Abdominal exam: PRESENT: tenderness - Left lower quadrant Neurological exam: PRESENT: alert, awake, oriented to person, oriented to place, oriented to situation Psychiatric exam: PRESENT: flat affect Results Laboratory Results: 10/15/18 06:00 10/16/18 05:10 10/17/18 20:26 Stool Occult Blood NEGATIVE 10/14/18 12:40 Catheterized Urine Urine Culture - Final Citrobacter Freundii Impressions: Abdomen/Pelvis CT 10/17/18 00:00 IMPRESSION: New moderate to severe right-sided hydronephrosis and hydroureter of indeterminate etiology. No definitive distal urinary tract calculus. Subjective urinary bladder wall thickening. Urinary bladder is not distended. Left ureteral stent in place with persistent moderate left hydronephrosis. Haziness of the perirectal fat and soft tissues which could reflect nonspecific proctitis. Stable hypodensities in the liver, likely small cysts.. TECHNICAL DOCUMENTATION: Quality ID # 436: Final reports with documentation of one or more dose reduction techniques (e.g., Automated exposure control, adjustment of the mA and/or kV according to patient size, use of iterative reconstruction technique) copyright 2011 [employer]- All Rights Reserved Assessment & Plan - Diagnosis (1) Clostridium difficile diarrhea Is this a current diagnosis for this admission?: Yes Plan: Continue Dificid (2) Acute kidney injury Is this a current diagnosis for this admission?: Yes Plan: Serum creatinine continues to decrease slowly hopefully the injury resolved. Abnormal kidney function is been present since September. (3) Hypokalemia Is this a current diagnosis for this admission?: Yes Plan: Potassium just under the normal limit. Will increase to 20 mEq potassium chloride daily. (4) Hyponatremia Is this a current diagnosis for this admission?: Yes Plan: Resolved. Continue to monitor electrolytes. (5) Bladder cancer Qualifiers: Bladder location: unspecified site Qualified Code(s): C67.9 - Malignant neoplasm of bladder, unspecified Is this a current diagnosis for this admission?: Yes Plan: CT scan of the abdomen and pelvis reveals a dilated right ureter. Left ureter, where the stent is, is not dilated. There is some bladder wall thickening likely consistent with a bladder cancer. I will discuss with her daughter the fact that she really does need to see a urologist. (6) Bipolar disorder Qualifiers: Active/Remission status: currently active Current bipolar episode type: depressed Current episode severity: moderate Qualified Code(s): F31.32 - Bi polar disorder, current episode depressed, moderate Is this a current diagnosis for this admission?: Yes Plan: Continue current regimen (7) Hypothyroidism Qualifiers: Hypothyroidism type: unspecified Qualified Code(s): E03.9 - Hypothyroidism, unspecified Is this a current diagnosis for this admission?: Yes Plan: Continue levothyroxine 50 mcg daily. - Time Time Spent with patient: Less than 15 minutes Medications reviewed and adjusted accordingly: Yes
[2018-10-18] MEDS: SIMVASTATIN 10 MG TABLET PO SCH (17:47)
[2018-10-18] MEDS: LAMOTRIGINE 100 MG TABLET PO SCH (17:48)
[2018-10-18] MEDS: FERROUS SULFATE 325 MG TABLET PO SCH (17:48)
[2018-10-18] MEDS: TOPIRAMATE 100 MG TABLET PO SCH (22:00)
[2018-10-19] MEDS: LEVOTHYROXINE SODIUM 0.05 MG TABLET PO SCH (05:45)
[2018-10-19] MEDS: LANSOPRAZOLE 30 MG TAB.RAP.DR PO SCH (05:46)
[2018-10-19] MEDS: OXYCODONE-ACETAMINOPHEN 5-325 MG TABLET PO PRN ×3 (05:48→22:31)
[2018-10-19] MEDS: QUETIAPINE FUMARATE 100 MG TABLET PO SCH (10:26)
[2018-10-19] MEDS: VENLAFAXINE HCL 75 MG CAP.SR.24H PO SCH (10:26)
[2018-10-19] MEDS: LACTOBACILLUS ACIDOPHILUS 250 MG TAB PO SCH ×2 (10:28→18:09)
[2018-10-19] MEDS: FIDAXOMICIN 200 MG TABLET PO SCH ×2 (10:28→22:32)
[2018-10-19] MEDS: POTASSIUM CHLORIDE 10 MEQ CAPSULE.ER PO SCH (10:29)
[2018-10-19] MEDS: ENOXAPARIN SODIUM INJ 30 MG/0.3 ML DISP.SYRIN SUBCUT SCH (10:54)
[2018-10-19] MEDS: SIMVASTATIN 10 MG TABLET PO SCH (18:09)
[2018-10-19] MEDS: FERROUS SULFATE 325 MG TABLET PO SCH (18:10)
[2018-10-19] MEDS: LAMOTRIGINE 100 MG TABLET PO SCH (18:11)
[2018-10-19] MEDS: ACETAMINOPHEN 325 MG TABLET PO PRN (19:55)
[2018-10-19] MEDS: TOPIRAMATE 100 MG TABLET PO SCH (22:32)
--- NOTE | 2018-10-20 06:19 | PDOC PROGRESS REPORT ---
Subjective Progress Note for:: 10/19/18 Subjective:: Patient is sleeping comfortably. Awakens easily. Reason For Visit: RECURRENT CLOSTRIDIUM DIFFICILE,RECURRENT CYSTITIS Physical Exam Vital Signs: Temp Pulse Resp BP Pulse Ox 98.8 F 80 15 145/66 H 96 10/19/18 19:16 10/19/18 19:16 10/19/18 19:16 10/19/18 19:16 10/19/18 19:16 Intake & Output 10/18/18 10/19/18 10/20/18 06:59 06:59 06:59 Intake Total 1683 860 592 Balance 1683 860 592 Weight 51.1 kg 49.7 kg General appearance: PRESENT: no acute distress, cooperative Respiratory exam: PRESENT: clear to auscultation donita, symmetrical, unlabored. ABSENT: crackles, rales, rhonchi, wheezes Cardiovascular exam: PRESENT: RRR, +S1, +S2 GI/Abdominal exam: PRESENT: normal bowel sounds, soft, tenderness - Left lower quadrant. ABSENT: distended, guarding Neurological exam: PRESENT: alert, awake, oriented to person, oriented to place, oriented to situation Psychiatric exam: PRESENT: flat affect. ABSENT: agitated, anxious Results Laboratory Results: 10/15/18 06:00 10/16/18 05:10 10/14/18 16:00 Blood Blood Culture - Final NO GROWTH IN 5 DAYS 10/14/18 11:16 Blood Blood Culture - Final NO GROWTH IN 5 DAYS Impressions: Abdomen/Pelvis CT 10/17/18 00:00 IMPRESSION: New moderate to severe right-sided hydronephrosis and hydroureter of indeterminate etiology. No definitive distal urinary tract calculus. Subjective urinary bladder wall thickening. Urinary bladder is not distended. Left ureteral stent in place with persistent moderate left hydronephrosis. Haziness of the perirectal fat and soft tissues which could reflect nonspecific proctitis. Stable hypodensities in the liver, likely small cysts.. TECHNICAL DOCUMENTATION: Quality ID # 436: Final reports with documentation of one or more dose reduction techniques (e.g., Automated exposure control, adjustment of the mA and/or kV according to patient size, use of iterative reconstruction technique) copyright 2011 [employer]- All Rights Reserved Assessment & Plan - Diagnosis (1) Clostridium difficile diarrhea Is this a current diagnosis for this admission?: Yes Plan: Currently on Dificid. The patient reports diarrhea. Unfortunately she is not safe stool for nursing. She still has diarrhea 7 days after admission I will repeat the Clostridium difficile testing. (2) Acute kidney injury Is this a current diagnosis for this admission?: Yes Plan: CT scan showed hydronephrosis on the right. With the stent placed on the left there is no distention of the ureter. The patient will need urology follow-up after discharge. Her daughter is working on the appointment. (3) Hypokalemia Is this a current diagnosis for this admission?: Yes Plan: Monitor serum potassium levels and supplement as required. (4) Hyponatremia Is this a current diagnosis for this admission?: Yes Plan: Continue to monitor serum sodium levels. Adjust treatment plan if required. (5) Bladder cancer Qualifiers: Bladder location: unspecified site Qualified Code(s): C67.9 - Malignant neoplasm of bladder, unspecified Is this a current diagnosis for this admission?: Yes Plan: Continue follow-up with urology as an outpatient. It is likely to be the etiology of the right hydronephrosis. (6) Bipolar disorder Qualifiers: Active/Remission status: currently active Current bipolar episode type: depressed Current episode severity: moderate Qualified Code(s): F31.32 - Bipolar disorder, current episode depressed, moderate Is this a current diagnosis for this admission?: Yes Plan: Continue current medicines. Patient has been stable. (7) Hypothyroidism Qualifiers: Hypothyroidism type: unspecified Qualified Code(s): E03.9 - Hypothyroidism, unspecified Is this a current diagnosis for this admission?: Yes Plan: Continue levothyroxine. - Time Time Spent with patient: Less than 15 minutes Medications reviewed and adjusted accordingly: Yes Anticipated discharge: Home
[2018-10-20 06:43] LABS: HEMATOCRIT 25.7 % (36.0-47.0); HEMOGLOBIN 8.8 g/dL (12.0-15.5); MEAN CORPUSCULAR HEMOGLOBIN 28.7 pg (27.0-33.4); MEAN CORPUSCULAR HGB CONC 34.1 g/dL (32.0-36.0); MEAN CORPUSCULAR VOLUME 84 fl (80-97); PLATELET COUNT 312 10^3/uL (150-450); RED BLOOD COUNT 3.05 10^6/uL (3.72-5.28)
[2018-10-20] MEDS: LEVOTHYROXINE SODIUM 0.05 MG TABLET PO SCH (06:50)
[2018-10-20] MEDS: LANSOPRAZOLE 30 MG TAB.RAP.DR PO SCH (06:50)
[2018-10-20] MEDS: OXYCODONE-ACETAMINOPHEN 5-325 MG TABLET PO PRN ×2 (06:50→17:01)
[2018-10-20 07:00] LABS: ANION GAP 8 (5-19); BLOOD UREA NITROGEN 21 mg/dL (7-20); CALCIUM 9.6 mg/dL (8.4-10.2); CARBON DIOXIDE 24 mmol/L (22-30); CHLORIDE 109 mmol/L (98-107); GLUCOSE 89 mg/dL (75-110); POTASSIUM 4.9 mmol/L (3.6-5.0); SODIUM 140.9 mmol/L (137-145)
[2018-10-20] MEDS: QUETIAPINE FUMARATE 100 MG TABLET PO SCH (09:46)
[2018-10-20] MEDS: POTASSIUM CHLORIDE 10 MEQ CAPSULE.ER PO SCH (09:46)
[2018-10-20] MEDS: VENLAFAXINE HCL 75 MG CAP.SR.24H PO SCH (09:47)
[2018-10-20] MEDS: FIDAXOMICIN 200 MG TABLET PO SCH ×2 (09:47→21:55)
[2018-10-20] MEDS: LACTOBACILLUS ACIDOPHILUS 250 MG TAB PO SCH ×2 (09:47→17:01)
[2018-10-20] MEDS: ENOXAPARIN SODIUM INJ 30 MG/0.3 ML DISP.SYRIN SUBCUT SCH (09:50)
[2018-10-20] MEDS ORDERED: ONDANSETRON 4 MG TAB.RAPDIS PO PRN (12:30)
[2018-10-20] MEDS: FERROUS SULFATE 325 MG TABLET PO SCH (17:01)
[2018-10-20] MEDS: SIMVASTATIN 10 MG TABLET PO SCH (17:01)
[2018-10-20] MEDS: LAMOTRIGINE 100 MG TABLET PO SCH (17:01)
[2018-10-20] MEDS: TOPIRAMATE 100 MG TABLET PO SCH (21:55)
[2018-10-21] MEDS: OXYCODONE-ACETAMINOPHEN 5-325 MG TABLET PO PRN (05:02)
[2018-10-21] MEDS: LEVOTHYROXINE SODIUM 0.05 MG TABLET PO SCH (05:02)
[2018-10-21] MEDS: LANSOPRAZOLE 30 MG TAB.RAP.DR PO SCH (05:07)
[2018-10-21] MEDS: ENOXAPARIN SODIUM INJ 30 MG/0.3 ML DISP.SYRIN SUBCUT SCH (09:49)
[2018-10-21] MEDS: VENLAFAXINE HCL 75 MG CAP.SR.24H PO SCH (09:49)
[2018-10-21] MEDS: LACTOBACILLUS ACIDOPHILUS 250 MG TAB PO SCH ×2 (09:50→17:21)
[2018-10-21] MEDS: POTASSIUM CHLORIDE 10 MEQ CAPSULE.ER PO SCH (09:50)
[2018-10-21] MEDS: QUETIAPINE FUMARATE 100 MG TABLET PO SCH (09:50)
[2018-10-21] MEDS: FIDAXOMICIN 200 MG TABLET PO SCH ×2 (09:54→22:17)
--- NOTE | 2018-10-21 13:00 | PDOC PROGRESS REPORT ---
Subjective Progress Note for:: 10/20/18 Subjective:: The patient is resting in bed. She still complains of abdominal pain and still reports loose stool. Reason For Visit: RECURRENT CLOSTRIDIUM DIFFICILE,RECURRENT CYSTITIS Physical Exam Vital Signs: Temp Pulse Resp BP Pulse Ox 98.3 F 74 14 123/53 L 94 10/20/18 16:21 10/20/18 16:21 10/20/18 16:21 10/20/18 16:21 10/20/18 16:21 Intake & Output 10/19/18 10/20/18 10/21/18 06:59 06:59 06:59 Intake Total 860 912 680 Balance 860 912 680 Weight 49.7 kg 52.9 kg General appearance: PRESENT: no acute distress, cooperative, other - Resting in bed Respiratory exam: PRESENT: clear to auscultation donita, symmetrical. ABSENT: rales, rhonchi, wheezes Cardiovascular exam: PRESENT: RRR, +S1, +S2, systolic murmur - 2/6 GI/Abdominal exam: PRESENT: normal bowel sounds, soft, tenderness - Mostly left lower quadrant Rectal exam: PRESENT: deferred Neurological exam: PRESENT: alert, awake, oriented to person, oriented to place, oriented to situation Psychiatric exam: PRESENT: flat affect. ABSENT: agitated, anxious Results Laboratory Results: 10/20/18 05:32 10/20/18 05:32 10/20/18 10/20/18 05:32 05:32 WBC 7.0 RBC 3.05 L Hgb 8.8 L Hct 25.7 L MCV 84 MCH 28.7 MCHC 34.1 RDW 15.0 H Plt Count 312 Sodium 140.9 Potassium 4.9 Chloride 109 H Carbon Dioxide 24 Anion Gap 8 BUN 21 H Creatinine 2.11 H Est GFR ( Amer) 28 L Est GFR (Non-Af Amer) 23 L Glucose 89 Calcium 9.6 Magnesium 2.1 10/14/18 16:00 Blood Blood Culture - Final NO GROWTH IN 5 DAYS Impressions: Abdomen/Pelvis CT 10/17/18 00:00 IMPRESSION: New moderate to severe right-sided hydronephrosis and hydroureter of indeterminate etiology. No definitive distal urinary tract calculus. Subjective urinary bladder wall thickening. Urinary bladder is not distended. Left ureteral stent in place with persistent moderate left hydronephrosis. Haziness of the perirectal fat and soft tissues which could reflect nonspecific proctitis. Stable hypodensities in the liver, likely small cysts.. TECHNICAL DOCUMENTATION: Quality ID # 436: Final reports with documentation of one or more dose reduction techniques (e.g., Automated exposure control, adjustment of the mA and/or kV according to patient size, use of iterative reconstruction technique) copyright 2011 [employer]- All Rights Reserved Assessment & Plan - Diagnosis (1) Clostridium difficile diarrhea Is this a current diagnosis for this admission?: Yes Plan: Continue Dificid. She is on probiotic twice daily. If loose stools persist recheck Clostridium difficile toxin assay. Then consider dual therapy with vancomycin and Dificid or metronidazole and Dificid. (2) Acute kidney injury Is this a current diagnosis for this admission?: Yes Plan: The patient's renal function was improving. Last creatinine was several days ago. Recheck chemistries tomorrow. (3) Hypokalemia Is this a current diagnosis for this admission?: Yes Plan: Continue potassium supplementation and monitor electrolytes. (4) Hyponatremia Is this a current diagnosis for this admission?: Yes Plan: Resolved (5) Bladder cancer Qualifiers: Bladder location: unspecified site Qualified Code(s): C67.9 - Malignant neoplasm of bladder, unspecified Is this a current diagnosis for this admission?: Yes Plan: Continue follow-up with urology as an outpatient. It is likely to be the etiology of the right hydronephrosis. (6) Bipolar disorder Qualifiers: Active/Remission status: currently active Current bipolar episode type: depressed Current episode severity: moderate Qualified Code(s): F31.32 - Bipolar disorder, current episode depressed, moderate Is this a current diagnosis for this admission?: Yes Plan: Continue current medicines. Patient has been stable. (7) Hypothyroidism Qualifiers: Hypothyroidism type: unspecified Qualified Code(s): E03.9 - Hypothyroidism, unspecified Is this a current diagnosis for this admission?: Yes Plan: Continue levothyroxine. (8) Hydronephrosis due to obstruction of ureteral orifice Is this a current diagnosis for this admission?: Yes Plan: The patient has a history of bladder cancer. CT scan revealed thickening of the bladder wall on the right. The ureter appeared to taper significantly. She does have moderate to marked hydronephrosis. There is a stent in the left ureter without hydronephrosis. The patient's daughter is working on a follow-up with urology after discharge. - Time Time Spent with patient: Less than 15 minutes Medications reviewed and adjusted accordingly: Yes
[2018-10-21] MEDS: SIMVASTATIN 10 MG TABLET PO SCH (17:20)
[2018-10-21] MEDS: FERROUS SULFATE 325 MG TABLET PO SCH (17:21)
[2018-10-21] MEDS: LAMOTRIGINE 100 MG TABLET PO SCH (17:47)
[2018-10-21] MEDS: ACETAMINOPHEN 325 MG TABLET PO PRN ×2 (17:48→22:17)
[2018-10-21] MEDS ORDERED: NORMAL SALINE 1000 ML 1,000 ML IV PRN (17:49)
--- NOTE | 2018-10-21 17:57 | PDOC PROGRESS REPORT ---
Subjective Progress Note for:: 10/21/18 Subjective:: The patient is resting in her bed. She has been sleeping most of the day but was arousable. She states she just feels weak and tired and she does not have much of an appetite. She has had no fever or shaking chills. No chest pain or heart palpitations. She says she has had a little bit of nausea but no vomiting. She still has crampy abdominal pain and has had diarrhea once today. No urinary complaints. Reason For Visit: RECURRENT CLOSTRIDIUM DIFFICILE,RECURRENT CYSTITIS Physical Exam Vital Signs: Temp Pulse Resp BP Pulse Ox 98.2 F 78 17 123/55 L 92 10/21/18 16:06 10/21/18 16:06 10/21/18 16:06 10/21/18 16:06 10/21/18 16:06 Intake & Output 10/20/18 10/21/18 10/22/18 06:59 06:59 06:59 Intake Total 912 1080 473 Output Total 200 Balance 912 1080 273 Weight 52.9 kg 50.4 kg General appearance: PRESENT: thin, other - This is a 73-year-old ill-appearing female. She is curled up in the bed and appears to be quite weak Head exam: PRESENT: atraumatic, normocephalic Respiratory exam: PRESENT: clear to auscultation donita. ABSENT: rales, rhonchi, wheezes Cardiovascular exam: PRESENT: RRR. ABSENT: diastolic murmur, rubs, systolic murmur GI/Abdominal exam: PRESENT: hyperactive bowel sounds, soft, tenderness. ABSENT: distended, guarding, mass, organolmegaly, rebound Rectal exam: PRESENT: deferred Extremities exam: PRESENT: full ROM. ABSENT: calf tenderness, clubbing, pedal edema Neurological exam: PRESENT: alert, awake, oriented to person, oriented to place, oriented to time, oriented to situation, CN II-XII grossly intact. ABSENT: motor sensory deficit Skin exam: PRESENT: dry, intact, warm. ABSENT: cyanosis, rash Results Laboratory Results: 10/20/18 05:32 10/20/18 05:32 Impressions: Abdomen/Pelvis CT 10/17/18 00:00 IMPRESSION: New moderate to severe right-sided hydronephrosis and hydroureter of indeterminate etiology. No definitive distal urinary tract calculus. Subjective urinary bladder wall thickening. Urinary bladder is not distended. Left ureteral stent in place with persistent moderate left hydronephrosis. Haziness of the perirectal fat and soft tissues which could reflect nonspecific proctitis. Stable hypodensities in the liver, likely small cysts.. TECHNICAL DOCUMENTATION: Quality ID # 436: Final reports with documentation of one or more dose reduction techniques (e.g., Automated exposure control, adjustment of the mA and/or kV according to patient size, use of iterative reconstruction technique) copyright 2011 [employer]- All Rights Reserved Assessment & Plan - Diagnosis (1) Clostridium difficile diarrhea Is this a current diagnosis for this admission?: Yes Plan: The patient will continue Dificid. She looks as if she feels quite poorly today. (2) Acute on chronic renal failure Is this a current diagnosis for this admission?: Yes Plan: Creatinine worsened today and is up to 2.11 from 1.46 yesterday[address] I am goingto place her back on IV fluids today and will check a chemistry panel in the morning. (3) Hydronephrosis, right Is this a current diagnosis for this admission?: Yes Plan: At this point the plan is to follow this up as an outpatient. She has a stent placed on the left. In light of her worsening renal failure if this is not improved in the morning she may require further imaging. (4) Bladder cancer Qualifiers: Bladder location: unspecified site Qualified Code(s): C67.9 - Malignant neoplasm of bladder, unspecified Is this a current diagnosis for this admission?: Yes Plan: She will follow-up with urology as an outpatient. This may be the reason for her right hydronephrosis. (5) Hypokalemia Is this a current diagnosis for this admission?: Yes Plan: Repleted and resolved (6) Hyponatremia Is this a current diagnosis for this admission?: Yes Plan: Resolved (7) Anemia Qualifiers: Anemia type: unspecified type Qualified Code(s): D64.9 - Anemia, unspecified Is this a current diagnosis for this admission?: Yes Plan: Likely related to chronic disease and her underlying malignancy. (8) Bipolar disorder Qualifiers: Active/Remission status: currently active Current bipolar episode type: depressed Current episode severity: moderate Qualified Code(s): F31.32 - Bipolar disorder, current episode depressed, moderate Is this a current diagnosis for this admission?: Yes Plan: Currently appears to be stable. (9) Hypothyroidism Qualifiers: Hypothyroidism type: unspecified Qualified Code(s): E03.9 - Hypothyroidism, unspecified Is this a current diagnosis for this admission?: Yes Plan: Continue Synthroid (10) Do not resuscitate Is this a current diagnosis for this admission?: Yes - Time Time Spent with patient: 25-34 minutes - Inpatient Certification Medical Necessity: Need Close Monitoring Due to Risk of Patient Decompensation - Inpatient hospitalization remains necessary. The patient has worsening renal failure and is going to be placed back on IV fluids today. She has right hydronephrosis that may need further evaluation. She is being treated with Dificid for Clostridium difficile infection. She has all of these issues in the setting of known malignancy. She is at high risk of decompensation if she is sent home too soon. Timing of disposition will be determined by her clinical course, Need For IV Fluids, Other
[2018-10-21] MEDS: TOPIRAMATE 100 MG TABLET PO SCH (22:17)
[2018-10-22] MEDS: LEVOTHYROXINE SODIUM 0.05 MG TABLET PO SCH (05:46)
[2018-10-22] MEDS: LANSOPRAZOLE 30 MG TAB.RAP.DR PO SCH (05:46)
[2018-10-22 06:46] LABS: HEMATOCRIT 27.7 % (36.0-47.0); HEMOGLOBIN 9.4 g/dL (12.0-15.5); MEAN CORPUSCULAR HEMOGLOBIN 28.3 pg (27.0-33.4); MEAN CORPUSCULAR HGB CONC 33.8 g/dL (32.0-36.0); MEAN CORPUSCULAR VOLUME 84 fl (80-97); PLATELET COUNT 328 10^3/uL (150-450); RED BLOOD COUNT 3.32 10^6/uL (3.72-5.28); RED CELL DISTRIBUTION WIDTH 15.1 % (11.5-14.0); WHITE BLOOD COUNT 6.4 10^3/uL (4.0-10.5)
[2018-10-22 07:08] LABS: ANION GAP 11 (5-19); BLOOD UREA NITROGEN 27 mg/dL (7-20); CALCIUM 9.4 mg/dL (8.4-10.2); CARBON DIOXIDE 21 mmol/L (22-30); CHLORIDE 107 mmol/L (98-107); GLUCOSE 84 mg/dL (75-110); POTASSIUM 5.1 mmol/L (3.6-5.0)
[2018-10-22 07:13] LABS: ABSOLUTE LYMPHOCYTES# (MANUAL) 2.2 10^3/uL (0.5-4.7); ABSOLUTE MONOCYTES # (MANUAL) 0.8 10^3/uL (0.1-1.4); ABSOLUTE NEUTROPHILS# (MANUAL) 2.9 10^3/uL (1.7-8.2); BAND NEUTROPHILS % (MANUAL) 1 % (3-5); BASOPHILS % (MANUAL) 0 % (0-2); EOSINOPHILS % (MANUAL) 6 % (0-6); LYMPHOCYTES % (MANUAL) 35 % (13-45); MONOCYTES % (MANUAL) 13 % (3-13); SEGMENTED NEUTROPHILS % (MAN) 45 % (42-78); TOTAL CELLS COUNTED 100
[2018-10-22] MEDS: ACETAMINOPHEN 325 MG TABLET PO PRN (07:13)
[2018-10-22 07:14] LABS: ANISOCYTOSIS 1+; OVALOCYTES SLIGHT; PLATELET COMMENT ADEQUATE; POIKILOCYTOSIS SLIGHT
[2018-10-22] MEDS: LACTOBACILLUS ACIDOPHILUS 250 MG TAB PO SCH ×2 (09:12→17:15)
[2018-10-22] MEDS: QUETIAPINE FUMARATE 100 MG TABLET PO SCH (09:13)
[2018-10-22] MEDS: VENLAFAXINE HCL 75 MG CAP.SR.24H PO SCH (09:13)
[2018-10-22] MEDS: ENOXAPARIN SODIUM INJ 30 MG/0.3 ML DISP.SYRIN SUBCUT SCH (09:13)
[2018-10-22] MEDS: POTASSIUM CHLORIDE 10 MEQ CAPSULE.ER PO SCH (09:13)
[2018-10-22] MEDS: FIDAXOMICIN 200 MG TABLET PO SCH ×2 (09:14→23:17)
[2018-10-22] MEDS: OXYCODONE-ACETAMINOPHEN 5-325 MG TABLET PO PRN ×2 (11:01→23:16)
[2018-10-22] MEDS: LAMOTRIGINE 100 MG TABLET PO SCH (17:15)
[2018-10-22] MEDS: FERROUS SULFATE 325 MG TABLET PO SCH (17:15)
[2018-10-22] MEDS: SIMVASTATIN 10 MG TABLET PO SCH (17:15)
--- NOTE | 2018-10-22 18:00 | PDOC PROGRESS REPORT ---
Subjective Progress Note for:: 10/22/18 Subjective:: This is 73 years old female patient admitted with frequent diarrhea. Her stool for C. difficile is positive. Patient has history of prior C. difficile colitis. Currently she has been getting Dificid. This morning I seen patient resting in bed comfortably. Still she complains of intermittent diarrhea. I did Flagyl on top of Dificid. Reason For Visit: RECURRENT CLOSTRIDIUM DIFFICILE,RECURRENT CYSTITIS Physical Exam Vital Signs: Temp Pulse Resp BP Pulse Ox 97.9 F 71 16 106/47 L 96 10/22/18 15:21 10/22/18 15:21 10/22/18 15:21 10/22/18 15:21 10/22/18 15:21 Intake & Output 10/21/18 10/22/18 10/23/18 06:59 06:59 06:59 Intake Total 1080 973 739 Output Total 400 Balance 1080 573 739 Weight 50.4 kg 51.6 kg General appearance: PRESENT: no acute distress, well-developed, well-nourished Head exam: PRESENT: atraumatic, normocephalic Eye exam: PRESENT: conjunctiva pink. ABSENT: scleral icterus Mouth exam: PRESENT: moist Neck exam: ABSENT: carotid bruit, JVD, lymphadenopathy, thyromegaly Respiratory exam: PRESENT: clear to auscultation donita. ABSENT: rales, rhonchi, wheezes Cardiovascular exam: PRESENT: RRR. ABSENT: diastolic murmur, rubs, systolic murmur Pulses: PRESENT: normal dorsalis pedis pul Vascular exam: PRESENT: normal capillary refill GI/Abdominal exam: PRESENT: normal bowel sounds, soft. ABSENT: distended, guarding, mass, organolmegaly, rebound, tenderness Rectal exam: PRESENT: deferred Extremities exam: PRESENT: full ROM. ABSENT: calf tenderness, clubbing, pedal edema Neurological exam: PRESENT: alert, awake, oriented to person, oriented to place, oriented to time, oriented to situation. ABSENT: motor sensory deficit Psychiatric exam: PRESENT: normal mood. ABSENT: homicidal ideation, suicidal ideation Skin exam: PRESENT: dry, intact, warm. ABSENT: cyanosis, rash Results Laboratory Results: 10/22/18 06:20 10/22/18 06:20 10/22/18 10/22/18 06:20 06:20 WBC 6.4 RBC 3.32 L Hgb 9.4 L Hct 27.7 L MCV 84 MCH 28.3 MCHC 33.8 RDW 15.1 H Plt Count 328 Seg Neutrophils % Not Reportable Lymphocytes % Not Reportable Monocytes % Not Reportable Eosinophils % Not Reportable Basophils % Not Reportable Absolute Neutrophils Not Reportable Absolute Lymphocytes Not Reportable Absolute Monocytes Not Reportable Absolute Eosinophils Not Reportable Absolute Basophils Not Reportable Sodium 139.0 Potassium 5.1 H Chloride 107 Carbon Dioxide 21 L Anion Gap 11 BUN 27 H Creatinine 2.82 H Est GFR ( Amer) 20 L Est GFR (Non-Af Amer) 16 L Glucose 84 Calcium 9.4 Magnesium 2.0 Impressions: Abdomen/Pelvis CT 10/17/18 00:00 IMPRESSION: New moderate to severe right-sided hydronephrosis and hydroureter of indeterminate etiology. No definitive distal urinary tract calculus. Subjective urinary bladder wall thickening. Urinary bladder is not distended. Left ureteral stent in place with persistent moderate left hydronephrosis. Haziness of the perirectal fat and soft tissues which could reflect nonspecific proctitis. Stable hypodensities in the liver, likely small cysts.. TECHNICAL DOCUMENTATION: Quality ID # 436: Final reports with documentation of one or more dose reduction techniques (e.g., Automated exposure control, adjustment of the mA and/or kV according to patient size, use of iterative reconstruction technique) copyright 2011 [employer]- All Rights Reserved Assessment & Plan - Diagnosis (1) Recurrent colitis due to Clostridium difficile Is this a current diagnosis for this admission?: Yes Plan: Patient has been on Dificid and Flagyl is added. (2) Acute kidney injury superimposed on CKD Is this a current diagnosis for this admission?: Yes Plan: Her creatinine is creeping up from 1.62-2.82. We will continue cautious hydration avoid nephrotoxic agent and consulted nephr ologist. (3) COPD (chronic obstructive pulmonary disease) Is this a current diagnosis for this admission?: Yes Plan: Continue as needed bronchodilators. (4) Hypokalemia Is this a current diagnosis for this admission?: Yes Plan: Resolved (5) Hyponatremia Is this a current diagnosis for this admission?: Yes Plan: Resolved
[2018-10-22] MEDS: METRONIDAZOLE 500 MG TABLET PO SCH (23:17)
[2018-10-22] MEDS: TOPIRAMATE 100 MG TABLET PO SCH (23:17)
[2018-10-23] MEDS: LANSOPRAZOLE 30 MG TAB.RAP.DR PO SCH (05:43)
[2018-10-23] MEDS: LEVOTHYROXINE SODIUM 0.05 MG TABLET PO SCH (05:43)
[2018-10-23] MEDS: METRONIDAZOLE 500 MG TABLET PO SCH ×2 (05:43→15:14)
[2018-10-23] MEDS: OXYCODONE-ACETAMINOPHEN 5-325 MG TABLET PO PRN (08:21)
[2018-10-23] MEDS: LACTOBACILLUS ACIDOPHILUS 250 MG TAB PO SCH ×2 (10:36→17:20)
[2018-10-23] MEDS: FIDAXOMICIN 200 MG TABLET PO SCH (10:37)
[2018-10-23] MEDS: VENLAFAXINE HCL 75 MG CAP.SR.24H PO SCH (10:37)
[2018-10-23] MEDS: QUETIAPINE FUMARATE 100 MG TABLET PO SCH (10:37)
[2018-10-23] MEDS: ENOXAPARIN SODIUM INJ 30 MG/0.3 ML DISP.SYRIN SUBCUT SCH (10:40)
[2018-10-23] MEDS: POTASSIUM CHLORIDE 10 MEQ CAPSULE.ER PO SCH (10:48)
--- NOTE | 2018-10-23 11:40 | PDOC CONSULTATION ---
Consultation Consult Date: 10/23/18 Attending physician:: KARIN PEREZ Consult reason:: I was asked to see the patient due to acute kidney failure. History of Present Illness Admission Date/PCP: 10/14/18 14:35 IRASEMA PARKER, NARESH History of Present Illness: SRIKANTH COLVIN is a 73 year old female who is a very poor historian so history was obtained from records ,who was admitted on October 14, 2018 because of C. difficile colitis. Patient is being treated with that with a physician and now metronidazole. Per her nurse today her diarrhea has really slowed down. Patient also has history of bladder cancer and left ureter stent. A CT scan on October 17 showed that the patient also has a new moderate to severe right-sided hydronephrosis and hydroureter compared to the CT scan done in September 2018. Patient is being followed by urologist possibly from [place], patient not really sure and could not tell me at the moment. When the patient came in she had a BUN of 19, creatinine of 1.62 with estimated GFR of 31. She was given IV fluid hydration in view of her diarrhea so her kidney function has actually gotten better to BUN of 15, creatinine of 1.46 with estimated GFR of 35 on October 16. However subsequently her kidney function is gotten worse on October 20 she had a BUN of 21, creatinine of 2.11 with estimated GFR of 23 and today she has a BUN of 27, creatinine of 2.82 with estimated GFR of 16. Review of records show that patient's kidney function has started to get worse in September 2018 with creatinine ranging from 1.5-1.8 and estimated GFR of 27-38. Prior to that in 2017 her creatinine has ranged from 0.7-1.2 with estimated GFR of 39 to greater than 60. Patient could not tell me if she was told if she has had chronic kidney disease in the past. Patient's urine output is not being quantified unfortunately for the past few days since she was hospitalized. Upon talking to the patient she denies problems with urination and she just made about 100 mL of urine just now. She is not aware of any history of kidney stones. She told me that she is drinking about half a liter daily. She thinks she is eating but she is not really eating that much per nurses. She has intermittent abdominal pain. She otherwise denies any chest pains, shortness of breath, nausea or vomiting. Past Medical History Pulmonary Medical History: Reports: Chronic Obstructive Pulmonary Disease (COPD) - possible Chemo related Neurological Medical History: Reports: Other - Dementia Endocrine Medical History: Reports: Hypothyroidism Renal/ Medical History: Reports: Chronic Kidney Disease Stage III, Other - Recurrent cystitis Malignancy Medical History: Reports: Breast Cancer Musculoskeltal Medical History: Reports: Arthritis Psychiatric Medical History: Reports: Bipolar Disorder, Dementia, Depression - anxiety Infectious Medical History: Reports: Clostridium Difficile - X3 Hematology Medical History: Reports Anemia Past Surgical History Past Surgical History: Reports: Mastectomy, Orthopedic Surgery Social History Information Source: [facility] Records Lives with: Family Smoking Status: Never Smoker Frequency of Alcohol Use: None Hx Recreational Drug Use: No Drugs: None Hx Prescription Drug Abuse: No - Advance Directive Resuscitation Status: Do Not Resuscitate Family History Family History: Patient cannot tell me of any medical conditions from her family. But then again she is a poor historian. Parental Family History Reviewed: Yes Children Family History Reviewed: Yes Sibling(s) Family History Reviewed.: Yes Medication/Allergy Home Medications: Ferrous Sulfate [Feosol 325 mg Tablet] 325 mg PO QPM 06/20/18 Lamotrigine [Lamictal] 200 mg PO QPM 06/20/18 Levothyroxine Sodium [Synthroid 0.05 mg Tablet] 0.05 mg PO Q6AM 06/20/18 Quetiapine Fumarate [Seroquel 100 mg Tablet] 150 mg PO DAILY 06/20/18 Simvastatin [Zocor 10 mg Tablet] 20 mg PO QPM 06/20/18 Topiramate [Topamax 100 mg Tablet] 100 mg PO QPM 06/20/18 Venlafaxine HCl ER [Effexor Xr 75 mg Cap.sr] 150 mg PO DAILY 06/20/18 Omeprazole 20 mg PO DAILY 10/14/18 Allergies/Adverse Reactions: amoxicillin Allergy (Verified 10/14/18 15:36) Sulfa (Sulfonamide Antibiotics) Allergy (Verified 10/14/18 15:36) TONGUE SWELLING vancomycin Adverse Reaction (Mild, Verified 10/14/18 15:36) Review of Systems All systems: reviewed and no additional remarkable complaints except as stated Review of Systems: Constitutional: ABSENT: chills, fatigue, fever(s), headache(s), weight gain, weight loss Eyes: ABSENT: visual disturbances Ears: ABSENT: hearing changes Cardiovascular: ABSENT: chest pain, dyspnea on exertion, edema, orthropnea, pa lpitations Respiratory: ABSENT: cough, dyspnea, hemoptysis Gastrointestinal: ABSENT: Constipation, hematemesis, hematochezia, nausea, vomiting; admits abdominal pain and diarrhea Genitourinary: ABSENT: dysuria, hematuria Musculoskeletal: ABSENT: joint swelling Integumentary: ABSENT: rash, wounds Neurological: ABSENT: abnormal gait, abnormal speech, confusion, dizziness, focal weakness, numbness, syncope Psychiatric: ABSENT: anxiety, depression Endocrine: ABSENT: cold intolerance, heat intolerance, polydipsia, polyuria Hematologic/Lymphatic: ABSENT: easy bleeding, easy bruising, lymphadenopathy Physical Exam Vital Signs: Temp Pulse Resp BP Pulse Ox 98.2 F 76 20 129/72 H 97 10/23/18 07:55 10/23/18 07:55 10/23/18 07:55 10/23/18 07:55 10/23/18 07:55 Intake & Output 10/22/18 10/23/18 10/24/18 06:59 06:59 06:59 Intake Total 973 1189 Output Total 400 Balance 573 1189 Weight 51.6 kg 51.6 kg Exam: General appearance: No acute distress, cooperative, well-developed, well- nourished Head exam: PRESENT: atraumatic, normocephalic Eye exam: PRESENT: Conjunctiva Gorman, EOMI, PERRLA. ABSENT: conjunctival injection, scleral icterus Mouth exam: PRESENT: moist, neck supple, tongue midline Neck exam: PRESENT: full ROM. ABSENT: carotid bruit, JVD, lymphadenopathy, thyromegaly Respiratory exam: PRESENT: clear to auscultation bilaterally. ABSENT: rales, rhonchi, stridor, wheezes Cardiovascular exam: PRESENT: RRR, +S1, +S2. ABSENT: systolic murmur Pulses: PRESENT: normal radial pulses, normal dorsalis pedis pulses GI/Abdominal exam: PRESENT: normal bowel sounds, soft. Mild diffuse tenderness, no palpable mass ABSENT: guarding, mass Rectal exam: Deferred Extremities exam: PRESENT: full ROM. ABSENT: calf tenderness, pedal edema Musculoskeletal: PRESENT: full ROM. ABSENT: deformity Neurological exam: PRESENT: alert, Awake, Oriented to person, Oriented to place, Oriented to time, reflexes normal, CN II-XII grossly intact. ABSENT: motor sensory deficit Psychiatric exam: PRESENT: appropriate affect, not very accommodating and does not seem to answer so many questions. ABSENT: homicidal ideation, suicidal ideation Skin exam: PRESENT: intact, dry, warm. ABSENT: rash Results Laboratory Results: 10/22/18 06:20 10/22/18 06:20 Impressions: Abdomen/Pelvis CT 10/17/18 00:00 IMPRESSION: New moderate to severe right-sided hydronephrosis and hydroureter of indeterminate etiology. No definitive distal urinary tract calculus. Subjective urinary bladder wall thickening. Urinary bladder is not distended. Left ureteral stent in place with persistent moderate left hydronephrosis. Haziness of the perirectal fat and soft tissues which could reflect nonspecific proctitis. Stable hypodensities in the liver, likely small cysts.. TECHNICAL DOCUMENTATION: Quality ID # 436: Final reports with documentation of one or more dose reduction techniques (e.g., Automated exposure control, adjustment of the mA and/or kV according to patient size, use of iterative reconstruction technique) copyright 2011 [employer]- All Rights Reserved Assessment & Plan - Diagnosis (1) Acute kidney injury superimposed on CKD Is this a current diagnosis for this admission?: Yes Plan: Patient appears to be euvolemic. Urine output is not being quantified unfortunately. I think it is most likely related to the patient's bladder cancer that can cause bladder outlet obstruction. Patient needs to be evaluated by a urologist to evaluate the patency of the left ureter with a stent as well as evaluate the new moderate to severe hydronephrosis on the right side. Unfort unately we do not have urology construction consultant today. I recommended the patient be transferred where she was previously seen by the urologist who diagnosed her with bladder cancer and placed a left ureteral stent. I discussed this recommendation with Dr. Stephani Blackwood and he agreed. I mention possible transfer to the patient and she sort of agreed to it saying if she could be helped then she would go for it. (2) Hydronephrosis, right Is this a current diagnosis for this admission?: Yes Plan: New and moderate to severe from CAT scan on 10/17/2018. Patient needs immediate urology evaluation at this time due to worsening kidney function. (3) Obstructive uropathy Is this a current diagnosis for this admission?: Yes (4) Bladder cancer Qualifiers: Bladder location: unspecified site Qualified Code(s): C67.9 - Malignant ne oplasm of bladder, unspecified Is this a current diagnosis for this admission?: Yes (5) Hyperkalemia Is this a current diagnosis for this admission?: Yes Plan: Discontinue potassium supplements. (6) Metabolic acidosis Is this a current diagnosis for this admission?: Yes Plan: Likely secondary to combination of her C. difficile diarrhea and acute kidney injury. (7) Clostridium difficile diarrhea Is this a current diagnosis for this admission?: Yes Plan: Slowly improving on current treatment. (8) Anemia Qualifiers: Anemia type: unspecified type Qualified Code(s): D64.9 - Anemia, unspecif ied Is this a current diagnosis for this admission?: Yes (9) Bipolar disorder Qualifiers: Active/Remission status: currently active Current bipolar episode type: depressed Current episode severity: moderate Qualified Code(s): F31.32 - Bipolar disorder, current episode depressed, moderate Is this a current diagnosis for this admission?: Yes (10) Dementia Qualifiers: Dementia type: unspecified type Dementia behavioral disturbance: without behavioral disturbance Qualified Code(s): F03.90 - Unspecified dementia with out behavioral disturbance Is this a current diagnosis for this admission?: Yes - Notes Notes: Thank you very much for this consultation. Discussed recommendation with Dr. Jaffe. Discussed plan with her nurse today. He tried to contact the daughter but at this time was not able to. - Time Time Spent: Greater than 70 Minutes
--- NOTE | 2018-10-23 15:07 | PDOC TRANSFER SUMMARY ---
General Admission Date/PCP: 10/14/18 14:35 IRASEMAKisha PARKER, FRUIT GROWER-C Transfer Date: 10/23/18 Resuscitation Status: Do Not Resuscitate - Transfer Diagnosis (1) Recurrent colitis due to Clostridium difficile Is this a current diagnosis for this admission?: Yes (2) Acute kidney injury superimposed on CKD Is this a current diagnosis for this admission?: Yes (3) COPD (chronic obstructive pulmonary disease) Is this a current diagnosis for this admission?: Yes (4) Hypokalemia Is this a current diagnosis for this admission?: Yes (5) Hyponatremia Is this a current diagnosis for this admission?: Yes - Transfer Medications Home Medications: Ferrous Sulfate [Feosol 325 mg Tablet] 325 mg PO QPM 06/20/18 Lamotrigine [Lamictal] 200 mg PO QPM 06/20/18 Levothyroxine Sodium [Synthroid 0.05 mg Tablet] 0.05 mg PO Q6AM 06/20/18 Quetiapine Fumarate [Seroquel 100 mg Tablet] 150 mg PO DAILY 06/20/18 Simvastatin [Zocor 10 mg Tablet] 20 mg PO QPM 06/20/18 Topiramate [Topamax 100 mg Tablet] 100 mg PO QPM 06/20/18 Venlafaxine HCl ER [Effexor Xr 75 mg Cap.sr] 150 mg PO DAILY 06/20/18 Omeprazole 20 mg PO DAILY 10/14/18 Transfer Medications: Current Medications Acetaminophen (Tylenol 325 Mg Tablet) 650 mg PO Q4HP PRN PRN Reason: FOR PAIN OR TEMP Stop: 11/13/18 16:03 Last Admin: 10/22/18 07:13 Dose: 650 mg Documented by: Enoxaparin Sodium (Lovenox Inj 30 Mg/0.3 Ml Disp.Syrin) 30 mg SUBCUT DAILY [facility] Stop: 11/14/18 09:59 Last Admin: 10/23/18 10:40 Dose: Not Given Documented by: Ferrous Sulfate (Feosol 325 Mg Tablet) 325 mg PO QPM [facility] Stop: 11/13/18 17:59 Last Admin: 10/22/18 17:15 Dose: 325 mg Documented by: Fidaxomicin (Dificid 200 Mg Tablet) 200 mg PO Q12 [facility] Stop: 10/25/18 15:29 Last Admin: 10/23/18 10:37 Dose: 200 mg Documented by: Sodium Chloride (Nacl 0.9% 1000 Ml Iv Soln) 1,000 mls @ 125 mls/hr IV CONTINUOUS PRN PRN Reason: THIS MED IS NOT "PRN" Stop: 11/20/18 17:48 Lactobacillus Acidophilus (Bacid 250 Mg Tablet) 500 mg PO BID [facility] Stop: 11/14/18 09:59 Last Admin: 10/23/18 10:36 Dose: 500 mg Documented by: Lamotrigine (Lamictal 100 Mg Tablet) 200 mg PO QPM [facility] Stop: 11/13/18 17:59 Last Admin: 10/22/18 17:15 Dose: 200 mg Documented by: Lansoprazole (Prevacid 30 Mg Odt Tablet) 30 mg PO Q6AM [facility] Stop: 11/14/18 05:59 Last Admin: 10/23/18 05:43 Dose: 30 mg Documented by: Levothyroxine Sodium (Synthroid 0.05 Mg Tablet) 0.05 mg PO Q6AM [facility] Stop: 11/14/18 05:59 Last Admin: 10/23/18 05:43 Dose: 0.05 mg Documented by: Metronidazole (Flagyl 500 Mg Tablet) 500 mg PO Q8 [facility] Stop: 10/29/18 21:59 Last Admin: 10/23/18 05:43 Dose: 500 mg Documented by: Ondansetron HCl (Zofran Odt 4 Mg Tablet) 4 mg PO Q4HP PRN PRN Reason: FOR NAUSEA/VOMITING Stop: 11/13/18 16:03 Oxycodone/Acetaminophen (Percocet 5-325 Mg Tablet) 1 tab PO Q4HP PRN PRN Reason: PAIN Stop: 10/29/18 08:50 Last Admin: 10/23/18 08:21 Dose: 1 tab Documented by: Quetiapine Fumarate (Seroquel 100 Mg Tablet) 150 mg PO DAILY [facility] Stop: 11/14/18 09:59 Last Admin: 10/23/18 10:37 Dose: 150 mg Documented by: Simvastatin (Zocor 10 Mg Tablet) 20 mg PO QPM [facility] Stop: 11/13/18 17:59 Last Admin: 10/22/18 17:15 Dose: 20 mg Documented by: Sodium Chloride (Saline Flush 2.5 Ml Monoject Prefil Syrin) 2.5 ml IV Q8 [facility] Stop: 11/13/18 21:59 Last Admin: 10/23/18 05:47 Dose: 2.5 ml Documented by: Topiramate (Topamax 100 Mg Tablet) 100 mg PO QHS [facility] Stop: 11/13/18 21:59 Last Admin: 10/22/18 23:17 Dose: 100 mg Documented by: Venlafaxine HCl (Effexor Xr 75 Mg Cap.Sr) 150 mg PO DAILY [facility] Stop: 11/14/18 09:59 Last Admin: 10/23/18 10:37 Dose: 150 mg Documented by: - Allergies Allergies/Adverse Reactions: amoxicillin Allergy (Verified 10/14/18 15:36) Sulfa (Sulfonamide Antibiotics) Allergy (Verified 10/14/18 15:36) TONGUE SWELLING vancomycin Adverse Reaction (Mild, Verified 10/14/18 15:36) Hospital Course Hospital Course: This is 73 years old female patient with past medical history of COPD, dementia, CKD, history of breast and bladder cancer, bipolar disorder and depression brought by her daughter for diarrhea and dehydration. Patient has prior to attacks of C. difficile colitis. During her admission her stool also found to be positive for C. difficile colitis. Patient has been on Dificid and as of yesterday metronidazole is added since patient still complaining of diarrhea. The frequency" she says of her diarrhea has improved after the addition of Flagyl. The other acute problem patient has is worsening kidney function.When the patient came in she had a BUN of 19, creatinine of 1.62 with estimated GFR of 31. She was given IV fluid hydration in view of her diarrhea so her kidney function has actually gotten better to BUN of 15, creatinine of 1.46 with estimated GFR of 35 on October 16. However subsequently her kidney function is gotten worse on October 20 she had a BUN of 21, creatinine of 2.11 with estimated GFR of 23 and today she has a BUN of 27, creatinine of 2.82 with estimated GFR of 16. Her CT of the abdomen and pelvis reported as new moderate to severe right hydronephrosis and hydroureter. For this problem patient is going to be transferred to [facility] and I discussed the case with urologist Dr. barrett and hospitalist Dr. Bailey. This morning I seen patient resting in bed comfortably she is not in pain or any form of distress. Her vital signs are within normal limits. Physical Exam Vital Signs: Temp Pulse Resp BP Pulse Ox 98.1 F 74 16 146/65 H 96 10/23/18 12:31 10/23/18 12:31 10/23/18 12:31 10/23/18 12:31 10/23/18 12:31 Intake & Output 10/22/18 10/23/18 10/24/18 06:59 06:59 06:59 Intake Total 973 1189 118 Output Total 400 100 Balance 573 1189 18 Weight 51.6 kg 51.6 kg General appearance: PRESENT: no acute distress Head exam: PRESENT: atraumatic Eye exam: PRESENT: conjunctiva pink Mouth exam: PRESENT: moist Neck exam: ABSENT: carotid bruit, JVD, lymphadenopathy, thyromegaly Respiratory exam: PRESENT: clear to auscultation donita. ABSENT: rales, rhonchi, wheezes Cardiovascular exam: PRESENT: RRR. ABSENT: diastolic murmur, rubs, systolic murmur GI/Abdominal exam: PRESENT: normal bowel sounds, soft. ABSENT: distended, guarding, mass, organolmegaly, rebound, tenderness Neurological exam: PRESENT: alert, awake Results Laboratory Results: 10/22/18 06:20 10/22/18 06:20 Impressions: Abdomen/Pelvis CT 10/17/18 00:00 IMPRESSION: New moderate to severe right-sided hydronephrosis and hydroureter of indeterminate etiology. No definitive distal urinary tract calculus. Subjective urinary bladder wall thickening. Urinary bladder is not distended. Left ureteral stent in place with persistent moderate left hydronephrosis. Haziness of the perirectal fat and soft tissues which could reflect nonspecific proctitis. Stable hypodensities in the liver, likely small cysts.. TECHNICAL DOCUMENTATION: Quality ID # 436: Final reports with documentation of one or more dose reduction techniques (e.g., Automated exposure control, adjustment of the mA and/or kV according to patient size, use of iterative reconstruction technique) copyright 2011 [employer]- All Rights Reserved
[2018-10-23] MEDS: FERROUS SULFATE 325 MG TABLET PO SCH (17:20)
[2018-10-23] MEDS: SIMVASTATIN 10 MG TABLET PO SCH (17:20)
[2018-10-23] MEDS: LAMOTRIGINE 100 MG TABLET PO SCH (17:32)
[2018-10-23 20:54] VITALS: BP 136/57
== END 2018-10-23 20:38 | disposition short-term general hospital (02) | DRG 372 ==
LOC: ER 10:52 → EH 14:35 → 4N 19:11
PROVIDERS: ADMIT Hospitalist; ATTEND Hospitalist
DX: A04.71 Enterocolitis due to Clostridium difficile, recurrent (principal); N17.9 Acute kidney failure, unspecified; E87.1 Hypo-osmolality and hyponatremia; N13.30 Unspecified hydronephrosis; E87.6 Hypokalemia; J44.9 Chronic obstructive pulmonary disease, unspecified; F03.90 Unspecified dementia, unspecified severity, without behavioral disturbance, psychotic disturbance, mood disturbance, and anxiety; Z85.3 Personal history of malignant neoplasm of breast; C67.9 Malignant neoplasm of bladder, unspecified; F31.9 Bipolar disorder, unspecified; Z96.0 Presence of urogenital implants; N18.3 Chronic kidney disease, stage 3 (moderate); M19.90 Unspecified osteoarthritis, unspecified site; F41.9 Anxiety disorder, unspecified; D64.9 Anemia, unspecified; E03.9 Hypothyroidism, unspecified; Z88.2 Allergy status to sulfonamides; Z88.1 Allergy status to other antibiotic agents; Z88.0 Allergy status to penicillin; Z79.890 Hormone replacement therapy
CPT/HCPCS: 36415; 74176; 80048; 80053; 81001; 82272; 82803; 83605; 83735; 84100; 85025; 85027; 85610; 87040; 87045; 87086; 87088; 87186; 87205; 87493; 89055; 93005; 93010; 99285; A9270 GY; J0696; J1650; J3480; J3490; J7030; J7120

== ENCOUNTER 2018-11-04 11:17 | Emergency (ER) | payer MEDICARE ==
[2018-11-04 11:53] LABS: ABSOLUTE BASOPHILS # (AUTO) 0.1 10^3/uL (0.0-0.2); ABSOLUTE EOSINOPHILS # (AUTO) 0.1 10^3/uL (0.0-0.6); ABSOLUTE LYMPHOCYTES (AUTO) 1.1 10^3/uL (0.5-4.7); ABSOLUTE MONOCYTES (AUTO) 0.7 10^3/uL (0.1-1.4); ABSOLUTE NEUT (AUTO) 4.6 10^3/uL (1.7-8.2); BASOPHILS % (AUTO) 0.9 % (0-2); EOSINOPHILS % (AUTO) 2.1 % (0-6); HEMOGLOBIN 9.9 g/dL (12.0-15.5); LYMPHOCYTES % (AUTO) 16.5 % (13-45); MEAN CORPUSCULAR HEMOGLOBIN 28.4 pg (27.0-33.4); MEAN CORPUSCULAR HGB CONC 34.2 g/dL (32.0-36.0); MEAN CORPUSCULAR VOLUME 83 fl (80-97); MONOCYTES % (AUTO) 10.2 % (3-13); PLATELET COUNT 387 10^3/uL (150-450); RED BLOOD COUNT 3.48 10^6/uL (3.72-5.28); RED CELL DISTRIBUTION WIDTH 14.2 % (11.5-14.0); SEGMENTED NEUTROPHILS % (AUTO) 70.3 % (42-78); TOTAL CELLS COUNTED % (AUTO) 100 %; WHITE BLOOD COUNT 6.5 10^3/uL (4.0-10.5)
[2018-11-04 12:15] LABS: ALANINE AMINOTRANSFERASE 20 U/L (9-52); ALBUMIN 4.5 g/dL (3.5-5.0); ALKALINE PHOSPHATASE 98 U/L (38-126); ANION GAP 13 (5-19); ASPARTATE AMINO TRANSFERASE 25 U/L (14-36); BILIRUBIN,DIRECT 0.2 mg/dL (0.0-0.4); BILIRUBIN,TOTAL 0.4 mg/dL (0.2-1.3); BLOOD UREA NITROGEN 14 mg/dL (7-20); CARBON DIOXIDE 27 mmol/L (22-30); CHLORIDE 95 mmol/L (98-107); GLUCOSE 112 mg/dL (75-110); POTASSIUM 4.4 mmol/L (3.6-5.0); SODIUM 135.4 mmol/L (137-145); TOTAL PROTEIN 8.2 g/dL (6.3-8.2)
[2018-11-04] MEDS ORDERED: MORPHINE SULFATE 10 MG/ML INJ IV ONE (12:42)
[2018-11-04] MEDS ORDERED: ONDANSETRON HCL INJ/PF 4 MG/2 ML SDV IV ONE (12:42)
--- NOTE | 2018-11-04 12:55 | ER Document Report ---
ED General - General Chief Complaint: Nausea/Vomiting/Diarrhea Stated Complaint: NAUSEA,VOMITING Time Seen by Provider: 11/04/18 11:59 Primary Care Provider: IRASEMA PARKER FNP-C [Primary Care Provider] - Follow up tomorrow Mode of Arrival: Medic Information source: Patient, Relative, [facility] Records Cannot obtain history due to: Dementia Notes: 73-year-old female with dementia, COPD, bladder cancer, bipolar disorder presents with complaint of abdominal pain, diarrhea. Daughter reports that the patient was recently discharged from the hospital after a C. difficile infection. She was also seen at [facility] where her left renal stent was replaced. Patient is complaining of left upper quadrant and left flank pain which is not new for the patient. Patient reports diarrhea but states that it is just a soft stool that is normal in color and unlike her diarrhea that she was experiencing with C. difficile. Patient is a DNR. Her daughter is at the bedside and they consistently Bicker [id number]. I am very familiar with the patient as I have taken care of her multiple times before. Daughter states that the patient's dementia, bipolar disorder and mood swings are worsening. None of these complaints are new. Daughter reports that she called the patient's urologist Dr. garcia and spoke to Tia who suggest that the patient be transferred to [facility]. TRAVEL OUTSIDE OF THE [place] IN LAST 30 DAYS: No - HPI Onset: Other Onset/Duration: Persistent Quality of pain: Achy Severity: Mild Associated symptoms: Other - Abdominal. denies: Diarrhea, Nausea, Vomiting Exacerbated by: Denies Relieved by: Denies Similar symptoms previously: Yes Recently seen / treated by doctor: Yes - Related Data Allergies/Adverse Reactions: amoxicillin Allergy (Verified 10/14/18 15:36) Sulfa (Sulfonamide Antibiotics) Allergy (Verified 10/14/18 15:36) TONGUE SWELLING vancomycin Adverse Reaction (Mild, Verified 10/14/18 15:36) Past Medical History - General Information source: Patient Cannot obtain history due to: Dementia, Uncooperative - Social History Smoking Status: Former Smoker Frequency of alcohol use: None Drug Abuse: None Family History: Reviewed & Not Pertinent Patient has suicidal ideation: No Patient has homicidal ideation: No Pulmonary Medical History: Reports: Hx COPD - possible Chemo related Endocrine Medical History: Reports: Hx Hypothyroidism. Denies: Hx Diabetes Mellitus Type 1, Hx Diabetes Mellitus Type 2 Renal/ Medical History: Denies: Hx Peritoneal Dialysis Malignancy Medical History: Reports: Hx Breast Cancer Musculoskeletal Medical History: Reports Hx Arthritis Psychiatric Medical History: Reports: Hx Bipolar Disorder, Hx Dementia, Hx Depression - anxiety Infectious Medical History: Reports: Hx C-Diff - X3 Past Surgical History: Reports: Hx Abdominal Surgery - bladder surgery, Hx Br east Surgery - right breast removed, Hx Genitourinary Surgery - bladder, Hx Mastectomy, Hx Orthopedic Surgery Review of Systems - Review of Systems Constitutional: Recent illness. denies: Fever EENT: denies: Blurred vision, Difficulty swallowing Cardiovascular: denies: Chest pain, Palpitations, Dizziness Respiratory: denies: Cough, Short of breath, Wheezing Gastrointestinal: Abdominal pain, Nausea, Poor appetite, Poor fluid intake. denies: Vomiting, Blood in vomit, Black stools Genitourinary: Flank pain. denies: Dysuria Female Genitourinary: No symptoms reported Musculoskeletal: Back pain Skin: denies: Rash Hematologic/Lymphatic: No symptoms reported Neurological/Psychological: Dementia -: Yes All other systems reviewed and negative Physical Exam - Vital signs Vitals: Resp Pulse Ox 15 100 11/04/18 11:33 11/04/18 11:33 Course - Re-evaluation Re-evalutation: Laboratory 11/04/18 11/04/18 11/04/18 11:24 11:34 11:34 WBC 6.5 RBC 3.48 L Hgb 9.9 L Hct 29.0 L MCV 83 MCH 28.4 MCHC 34.2 RDW 14.2 H Plt Count 387 Seg Neutrophils % 70.3 Lymphocytes % 16.5 Monocytes % 10.2 Eosinophils % 2.1 Basophils % 0.9 Absolute Neutrophils 4.6 Absolute Lymphocytes 1.1 Absolute Monocytes 0.7 Absolute Eosinophils 0.1 Absolute Basophils 0.1 PT 14.9 INR 1.11 Sodium 135.4 L Potassium 4.4 Chloride 95 L Carbon Dioxide 27 Anion Gap 13 BUN 14 Creatinine 1.49 H Est GFR ( Amer) 41 L Est GFR (Non-Af Amer) 34 L Glucose 112 H Calcium 10.0 Total Bilirubin 0.4 Direct Bilirubin 0.2 Neonat Total Bilirubin Not Reportable Neonat Direct Bilirubin Not Reportable Neonat Indirect Bili Not Reportable AST 25 ALT 20 Alkaline Phosphatase 98 Total Protein 8.2 Albumin 4.5 73-year-old female with dementia, COPD, bladder cancer, bipolar disorder presents with complaint of abdominal pain, diarrhea. Daughter reports that the patient was recently discharged from the hospital after a C. difficile infection. She was also seen at [facility] where her left renal stent was replaced. Patient is complaining of left upper quadrant and left flank pain which is not new for the patient. Patient reports diarrhea but states that it is just a soft stool that is normal in color and unlike her diarrhea that she was experiencing with C. difficile. Patient is a DNR. Her daughter is at the bedside and they consistently Bicker [id number]. I am very familiar with the patient as I have taken care of her multiple times before. Daughter states that the patient's dementia, bipolar disorder and mood swings are worsening. None of these complaints are new. Daughter reports that she called the patient's urologist Dr. garcia and spoke to Tia who suggest that the patient be transferred to [facility]. Patient is afebrile, alert, awake, in no acute distress. She is refusing blood work, rectal temperature. I did touch base with Dr. tam nurse practitioner who states that Dr. garcia never said that the patient required transfer to [facility]. I did consult social work to assess need for home health or possible long-term placement as patient's daughter seems to be struggling with taking care of her. Patient is up and walking around. She is requesting discharge home. Daughter is tearful and states that with the patient displays at home and what she says when she gets to the hospital are always different. I informed the daughter that the patient's urologist will arrange for follow-up but does not want the patient transferred. Patient would likely benefit from hospice, comfort care, home health. 11/04/18 12:55 Patient refusing blood draw, rectal temperature. 11/04/18 12:59 Spoke to Stacy tam nurse practitioner who will contact Dr Garcia to call me back. 11/04/18 17:01 11/04/18 17:02 Patient was evaluated and treated as appropriate for the patient's presenting symptoms and complaint, with consideration of any critical or life threatening conditions that may be associated with their obtained history and exam as noted above. All results were discussed with patient and her daughter who is at the bedside patient provided the opportunity to ask questions, and express concerns. Patient was educated on treatments based on their presumed diagnosis as noted above. At this time we will discharge the patient with return precautions and follow-up recommendations. Verbal discharge instructions given a the bedside. Medication warnings reviewed. Patient is in agreement with this plan and has verbalized understanding of return precautions. After careful consideration I feel that that patient can be safely discharged from the emergency department, they were advised to followup with a primary care physician in 2-3 days. Dictation on this chart was performed using voice recognition software and may result in unintended grammatical, spelling, syntax or errors. - Vital Signs Vital signs: Temp Pulse Resp BP Pulse Ox 98.0 F 79 22 H 144/75 H 86 L 11/04/18 11:42 11/04/18 11:42 11/04/18 13:01 11/04/18 12:01 11/04/18 13:01 - Laboratory Result Diagrams: 11/04/18 11:34 11/04/18 11:34 Laboratory results interpreted by me: 11/04/18 11/04/18 11:34 11:34 RBC 3.48 L Hgb 9.9 L Hct 29.0 L RDW 14.2 H Sodium 135.4 L Chloride 95 L Creatinine 1.49 H Est GFR ( Amer) 41 L Est GFR (Non-Af Amer) 34 L Glucose 112 H Discharge - Discharge Clinical Impression: Chronic abdominal pain Dementia Qualifiers: Dementia type: unspecified type Dementia behavioral disturbance: without behavioral disturbance Qualified Code(s): F03.90 - Unspecified dementia without behavioral disturbance Bladder cancer Qualifiers: Bladder location: unspecified site Qualified Code(s): C67.9 - Malignant neoplasm of bladder, unspecified Condition: Good Disposition: HOME, SELF-CARE Instructions: Abdominal Pain ([facility]), Dementia ([facility]) Forms: Elevated Blood Pressure Referrals: IRASEMA PARKER, PROFESSIONAL FEE CODER-C [Primary Care Provider] - Follow up tomorrow
[2018-11-04 13:03] VITALS: BP 144/75
[2018-11-04 13:10] LABS: INTERNATIONAL RATION (INR) 1.11; PROTHROMBIN TIME 14.9 SEC (11.4-15.4)
== END 2018-11-04 14:17 | disposition home or self-care (01) ==
LOC: ER 11:17
DX: R10.9 Unspecified abdominal pain (principal); G89.29 Other chronic pain; C67.9 Malignant neoplasm of bladder, unspecified; F03.90 Unspecified dementia, unspecified severity, without behavioral disturbance, psychotic disturbance, mood disturbance, and anxiety; R11.2 Nausea with vomiting, unspecified; R19.7 Diarrhea, unspecified; J44.9 Chronic obstructive pulmonary disease, unspecified; Z87.891 Personal history of nicotine dependence
CPT/HCPCS: 36415; 80053; 85025; 85610; 99284

== ENCOUNTER 2018-11-07 13:10 | Inpatient (IN) | payer MEDICARE ==
[2018-11-07 13:37] LABS: ABSOLUTE BASOPHILS # (AUTO) 0.1 10^3/uL (0.0-0.2); ABSOLUTE EOSINOPHILS # (AUTO) 0.4 10^3/uL (0.0-0.6); ABSOLUTE LYMPHOCYTES (AUTO) 0.9 10^3/uL (0.5-4.7); ABSOLUTE MONOCYTES (AUTO) 0.5 10^3/uL (0.1-1.4); ABSOLUTE NEUT (AUTO) 4.9 10^3/uL (1.7-8.2); BASOPHILS % (AUTO) 1.1 % (0-2); EOSINOPHILS % (AUTO) 5.8 % (0-6); HEMOGLOBIN 9.5 g/dL (12.0-15.5); LYMPHOCYTES % (AUTO) 13.4 % (13-45); MEAN CORPUSCULAR HEMOGLOBIN 28.3 pg (27.0-33.4); MEAN CORPUSCULAR VOLUME 83 fl (80-97); MONOCYTES % (AUTO) 6.9 % (3-13); PLATELET COUNT 411 10^3/uL (150-450); RED BLOOD COUNT 3.36 10^6/uL (3.72-5.28); RED CELL DISTRIBUTION WIDTH 14.5 % (11.5-14.0); SEGMENTED NEUTROPHILS % (AUTO) 72.8 % (42-78); TOTAL CELLS COUNTED % (AUTO) 100 %; WHITE BLOOD COUNT 6.7 10^3/uL (4.0-10.5)
[2018-11-07 14:04] LABS: ALANINE AMINOTRANSFERASE 12 U/L (9-52); ALBUMIN 4.2 g/dL (3.5-5.0); ALKALINE PHOSPHATASE 85 U/L (38-126); ANION GAP 14 (5-19); ASPARTATE AMINO TRANSFERASE 26 U/L (14-36); BILIRUBIN,DIRECT 0.4 mg/dL (0.0-0.4); BILIRUBIN,TOTAL 0.4 mg/dL (0.2-1.3); BLOOD UREA NITROGEN 22 mg/dL (7-20); CALCIUM 10.1 mg/dL (8.4-10.2); CARBON DIOXIDE 27 mmol/L (22-30); CHLORIDE 96 mmol/L (98-107); GLUCOSE 135 mg/dL (75-110); POTASSIUM 5.2 mmol/L (3.6-5.0); SODIUM 136.8 mmol/L (137-145); TOTAL PROTEIN 7.5 g/dL (6.3-8.2)
[2018-11-07] MEDS ORDERED: NORMAL SALINE 1000 ML 1,000 ML IV ONE (15:25)
--- NOTE | 2018-11-07 15:36 | ER Document Report ---
ED General - General Chief Complaint: Diarrhea Stated Complaint: WEAKNESS Time Seen by Provider: 11/07/18 15:19 Mode of Arrival: Ambulatory Information source: Patient Notes: This is a 73-year-old woman with a history of renal cancer with obstructive uropathy status post stent placements bilaterally, history of recent C. difficile colitis, brought to the emergency room by the mother because of increased weakness, fainting spells, decreased ambulation, decreased p.o. intake and diarrhea. TRAVEL OUTSIDE OF THE [place] IN LAST 30 DAYS: No - HPI Onset: Last week Onset/Duration: Gradual Quality of pain: No pain Severity: None Pain Level: Denies Associated symptoms: denies: Chills, Fever Exacerbated by: Denies Relieved by: Denies Similar symptoms previously: Yes Recently seen / treated by doctor: Yes - Related Data Allergies/Adverse Reactions: amoxicillin Allergy (Verified 10/14/18 15:36) Sulfa (Sulfonamide Antibiotics) Allergy (Verified 10/14/18 15:36) TONGUE SWELLING vancomycin Adverse Reaction (Mild, Verified 10/14/18 15:36) Past Medical History - General Information source: Patient - Social History Smoking Status: Unknown if Ever Smoked Cigarette use (# per day): No Chew tobacco use (# tins/day): No Frequency of alcohol use: None Drug Abuse: None Lives with: Family Family History: Reviewed & Not Pertinent Patient has suicidal ideation: No Patient has homicidal ideation: No - Past Medical History Cardiac Medical History: Reports: None Pulmonary Medical History: Reports: Hx COPD - possible Chemo related Endocrine Medical History: Reports: Hx Hypothyroidism. Denies: Hx Diabetes Mellitus Type 1, Hx Diabetes Mellitus Type 2 Renal/ Medical History: Denies: Hx Peritoneal Dialysis Malignancy Medical History: Reports: Hx Breast Cancer Musculoskeletal Medical History: Reports Hx Arthritis Psychiatric Medical History: Reports: Hx Bipolar Disorder, Hx Dementia, Hx Depression - anxiety Infectious Medical History: Reports: Hx C-Diff - X3 Past Surgical History: Reports: Hx Abdominal Surgery - bladder surgery, Hx Breast Surgery - right breast removed, Hx Genitourinary Surgery - bladder, Hx Ma stectomy, Hx Orthopedic Surgery Review of Systems - Review of Systems Constitutional: denies: Chills, Fever EENT: No symptoms reported Cardiovascular: No symptoms reported Respiratory: No symptoms reported Gastrointestinal: No symptoms reported Genitourinary: No symptoms reported Female Genitourinary: No symptoms reported Musculoskeletal: No symptoms reported Skin: No symptoms reported Hematologic/Lymphatic: No symptoms reported Neurological/Psychological: See HPI Physical Exam - Vital signs Vitals: BP 110/63 11/07/18 13:16 Notes: Physical exam: GENERAL: 73-year-old female, alert, she does appear weak, chronically ill. HEAD: Atraumatic, normocephalic. EYES: Pupils equal round and reactive to light, extraocular movements intact, sclera anicteric, conjunctiva are normal. ENT: TMs normal, nares patent, oropharynx clear without exudates. dry mucous membranes. NECK: Normal range of motion, supple without obvious mass. LUNGS: Breath sounds clear to auscultation bilaterally and equal. No wheezes rales or rhonchi. HEART: Regular rate and rhythm without murmurs, rubs or gallops. ABDOMEN: Soft, normoactive bowel sounds. No tenderness to palpation. No gua rding, no rebound. No masses appreciated. EXTREMITIES: Normal range of motion, no pitting or edema. No clubbing or cyanosis. NEUROLOGICAL: Cranial nerves II through XII grossly intact. Normal speech, moving all extremities. PSYCH: Normal mood, normal affect. SKIN: Warm, Dry, normal turgor, no rashes or lesions noted. Course - Vital Signs Vital signs: Temp Pulse Resp BP Pulse Ox 97.8 F 76 23 H 112/53 L 96 11/07/18 13:24 11/07/18 13:24 11/07/18 16:01 11/07/18 16:01 11/07/18 16:01 - Laboratory Result Diagrams: 11/07/18 13:21 11/07/18 13:21 Laboratory results interpreted by me: 11/07/18 11/07/18 13:21 13:21 RBC 3.36 L Hgb 9.5 L Hct 28.0 L RDW 14.5 H Sodium 136.8 L Potassium 5.2 H Chloride 96 L BUN 22 H Creatinine 1.77 H Est GFR ( Amer) 34 L Est GFR (Non-Af Amer) 28 L Glucose 135 H Discharge - Discharge Clinical Impression: Dehydration, Near syncope, Acute kidney injury Condition: Stable Disposition: ADMITTED INPATIENT Admitting Provider: Hospitalist - Dr Orellana Unit Admitted: Telemetry
[2018-11-07] MEDS ORDERED: ONDANSETRON HCL INJ/PF 4 MG/2 ML SDV IV PRN (16:16)
--- NOTE | 2018-11-07 16:16 | PDOC H&P ---
History of Present Illness Admission Date/PCP: IRASEMA PARKER, HAZARDOUS MATERIALS WASTE TECHNICIAN-C History of Present Illness: SRIKANTH COLVIN is a 73 year old female with past medical history of COPD, dementia, bipolar disorder, CKD and history of bladder cancer, brought by her daughter for decreased p.o. intake, recurrent fall and diarrhea. 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 Because of her underlying dementia and bipolar disorder patient is not able to give any meaningful history. My history is based on ER documentation and from her daughter who is in the room during my encounter. I need this patient from previous admission and I myself transfer this patient 16 days ago to [facility] for right hydronephrosis and hydroureter. Per her daughter patient got right ureteral stent and also the replaced the stent on the left side. There is no report of fever, nausea, vomiting. Her daughter states "I am no more able to her" and request shelter placement. Past Medical History Pulmonary Medical History: Reports: Chronic Obstructive Pulmonary Disease (COPD) - possible Chemo related Endocrine Medical History: Reports: Hypothyroidism Denies: Diabetes Mellitus Type 1, Diabetes Mellitus Type 2 Malignancy Medical History: Reports: Breast Cancer Musculoskeltal Medical History: Reports: Arthritis Psychiatric Medical History: Reports: Bipolar Disorder, Dementia, Depression - anxiety Hematology: Reports: Anemia Infectious Medical History: Reports: Clostridium Difficile - X3 Past Surgical History Past Surgical History: Reports: Mastectomy, Orthopedic Surgery Social History Smoking Status: Former Smoker Frequency of Alcohol Use: None Hx Recreational Drug Use: No Drugs: None Hx Prescription Drug Abuse: No - Advance Directive Resuscitation Status: Do Not Resuscitate Family History Family History: Reviewed & Not Pertinent, Hypertension Parental Family History Reviewed: Yes Children Family History Reviewed: Yes Sibling(s) Family History Reviewed.: Yes Medication/Allergy Home Medications: Ferrous Sulfate [Feosol 325 mg Tablet] 325 mg PO QPM 06/20/18 Lamotrigine [Lamictal] 200 mg PO QPM 06/20/18 Levothyroxine Sodium [Synthroid 0.05 mg Tablet] 0.05 mg PO Q6AM 06/20/18 Quetiapine Fumarate [Seroquel 100 mg Tablet] 150 mg PO DAILY 06/20/18 Simvastatin [Zocor 10 mg Tablet] 20 mg PO QPM 06/20/18 Topiramate [Topamax 100 mg Tablet] 100 mg PO QPM 06/20/18 Venlafaxine HCl ER [Effexor Xr 75 mg Cap.sr] 150 mg PO DAILY 06/20/18 Omeprazole 20 mg PO DAILY 10/14/18 Allergies/Adverse Reactions: amoxicillin Allergy (Verified 10/14/18 15:36) Sulfa (Sulfonamide Antibiotics) Allergy (Verified 10/14/18 15:36) TONGUE SWELLING vancomycin Adverse Reaction (Mild, Verified 10/14/18 15:36) Review of Systems ROS unobtainable: Due to mental status Physical Exam Vital Signs: Temp Pulse Resp BP Pulse Ox 97.8 F 76 17 110/63 96 11/07/18 13:24 11/07/18 13:24 11/07/18 15:00 11/07/18 13:24 11/07/18 15:00 Intake & Output 11/06/18 11/07/18 11/08/18 06:59 06:59 06:59 Weight 50.349 kg General appearance: PRESENT: mild distress Head exam: PRESENT: atraumatic, normocephalic Eye exam: PRESENT: conjunctiva pink Mouth exam: PRESENT: dry mucosa Respiratory exam: PRESENT: clear to auscultation donita. ABSENT: rales, rhonchi, wheezes Cardiovascular exam: PRESENT: RRR. ABSENT: diastolic murmur, rubs, systolic murmur GI/Abdominal exam: PRESENT: normal bowel sounds, soft. ABSENT: distended, guarding, mass, organolmegaly, rebound, tenderness Neurological exam: PRESENT: alert, awake Results Laboratory Results: 11/07/18 13:21 11/07/18 13:21 11/07/18 11/07/18 13:21 13:21 WBC 6.7 RBC 3.36 L Hgb 9.5 L Hct 28.0 L MCV 83 MCH 28.3 MCHC 34.0 RDW 14.5 H Plt Count 411 Seg Neutrophils % 72.8 Lymphocytes % 13.4 Monocytes % 6.9 Eosinophils % 5.8 Basophils % 1.1 Absolute Neutrophils 4.9 Absolute Lymphocytes 0.9 Absolute Monocytes 0.5 Absolute Eosinophils 0.4 Absolute Basophils 0.1 Sodium 136.8 L Potassium 5.2 H Chloride 96 L Carbon Dioxide 27 Anion Gap 14 BUN 22 H Creatinine 1.77 H Est GFR ( Amer) 34 L Est GFR (Non-Af Amer) 28 L Glucose 135 H Calcium 10.1 Total Bilirubin 0.4 AST 26 ALT 12 Alkaline Phosphatase 85 Total Protein 7.5 Albumin 4.2 Assessment & Plan - Diagnosis (1) Dehydration to decreased oral intake Is this a current diagnosis for this admission?: Yes Plan: We will cautiously hydrate her. (2) Diarrhea Qualifiers: Diarrhea type: unspecified type Qualified Code(s): R19.7 - Diarrhea, unspecified Is this a current diagnosis for this admission?: Yes Plan: Which also contributed to her dehydration. Stool for C. difficile colitis requested and results pending. Since patient has history of recurrent C. difficile colitis will put her in isolation and empirically started her on Flagyl and Vanco. (3) Acute kidney injury superimposed on CKD Is this a current diagnosis for this admission?: Yes Plan: Cautious hydration and will avoid nephrotoxic agents. (4) COPD (chronic obstructive pulmonary disease) Qualifiers: Emphysema type: unspecified Is this a current diagnosis for this admission?: Yes Plan: We will put her on DuoNeb as needed. (5) Bipolar disorder Is this a current diagnosis for this admission?: Yes Plan: Continue her home medication (6) Dementia Is this a current diagnosis for this admission?: Yes Plan: Stable (7) H of Bladder ca, bilateral hydronephrosi Is this a current diagnosis for this admission?: Yes Plan: Status post bilateral stent placement.
[2018-11-07] MEDS ORDERED: VANCOMYCIN HCL INJ 500 MG VIAL PO SCH (18:00)
[2018-11-07 19:14] LABS: APPEARANCE,URINE SLIGHTLY-CLOUDY; BILIRUBIN,URINE NEGATIVE (NEGATIVE); COLOR,URINE STRAW; GLUCOSE, URINE NEGATIVE (NEGATIVE); KETONES,URINE NEGATIVE (NEGATIVE); LEUKOCYTE ESTERASE,URINE LARGE (NEGATIVE); NITRITE,URINE NEGATIVE (NEGATIVE); PROTEIN,URINE 30 mg/dL (NEGATIVE); URINE SPECIFIC GRAVITY 1.003; UROBILINOGEN,URINE NEGATIVE mg/dL (<2.0)
[2018-11-07] MEDS: HEPARIN SOD (PORCINE) 5,000 UNIT/ML 1 ML SYRINGE SUBCUT SCH ×2 (20:44→21:12)
[2018-11-07] MEDS: NORMAL SALINE 1000 ML 1,000 ML IV PRN (21:12)
[2018-11-07] MEDS: VANCOMYCIN HCL INJ 500 MG VIAL PO SCH ×2 (21:12→21:36)
[2018-11-07] MEDS: METRONIDAZOLE 500 MG TABLET PO SCH (21:30)
[2018-11-07] MEDS: IPRATROPIUM/ALBUTEROL 0.5-2.5 MG/3 ML AMPUL NEB SCH (21:36)
[2018-11-07] MEDS: ACETAMINOPHEN 325 MG TABLET PO PRN (22:58)
--- NOTE | 2018-11-07 23:05 | RADIOLOGY REPORT (SQ) ---
EXAM DESCRIPTION: XR ABDOMEN 2 VIEWS SUPINE ERECT COMPLETED DATE/TME: 11/07/2018 00:00 CLINICAL HISTORY: 73 years, Female, abdominal pain COMPARISON: None. FINDINGS: Nonobstructive bowel gas pattern. No abnormal calcifications. No acute osseous abnormality. Bilateral double-J nephroureteral stents are in place. IMPRESSION: No acute abnormality.
[2018-11-08] MEDS: IPRATROPIUM/ALBUTEROL 0.5-2.5 MG/3 ML AMPUL NEB SCH ×3 (01:57→14:46)
[2018-11-08] MEDS: VANCOMYCIN HCL INJ 500 MG VIAL PO SCH (02:05)
[2018-11-08] MEDS: NORMAL SALINE 1000 ML 1,000 ML IV PRN ×2 (05:00→11:13)
[2018-11-08] MEDS: METRONIDAZOLE 500 MG TABLET PO SCH ×3 (05:00→21:56)
[2018-11-08] MEDS: HEPARIN SOD (PORCINE) 5,000 UNIT/ML 1 ML SYRINGE SUBCUT SCH ×3 (05:10→22:01)
[2018-11-08 06:56] LABS: ABSOLUTE BASOPHILS # (AUTO) 0.1 10^3/uL (0.0-0.2); ABSOLUTE EOSINOPHILS # (AUTO) 0.7 10^3/uL (0.0-0.6); ABSOLUTE LYMPHOCYTES (AUTO) 1.3 10^3/uL (0.5-4.7); ABSOLUTE MONOCYTES (AUTO) 0.6 10^3/uL (0.1-1.4); ABSOLUTE NEUT (AUTO) 4.6 10^3/uL (1.7-8.2); BASOPHILS % (AUTO) 1.1 % (0-2); HEMATOCRIT 28.1 % (36.0-47.0); HEMOGLOBIN 9.4 g/dL (12.0-15.5); MEAN CORPUSCULAR HEMOGLOBIN 28.1 pg (27.0-33.4); MEAN CORPUSCULAR HGB CONC 33.5 g/dL (32.0-36.0); MEAN CORPUSCULAR VOLUME 84 fl (80-97); MONOCYTES % (AUTO) 8.7 % (3-13); PLATELET COUNT 392 10^3/uL (150-450); RED BLOOD COUNT 3.36 10^6/uL (3.72-5.28); RED CELL DISTRIBUTION WIDTH 14.4 % (11.5-14.0); SEGMENTED NEUTROPHILS % (AUTO) 63.2 % (42-78); TOTAL CELLS COUNTED % (AUTO) 100 %; WHITE BLOOD COUNT 7.3 10^3/uL (4.0-10.5)
[2018-11-08 07:19] LABS: ANION GAP 11 (5-19); BLOOD UREA NITROGEN 20 mg/dL (7-20); CALCIUM 9.5 mg/dL (8.4-10.2); CARBON DIOXIDE 26 mmol/L (22-30); CHLORIDE 103 mmol/L (98-107); GLUCOSE 100 mg/dL (75-110); POTASSIUM 4.7 mmol/L (3.6-5.0); SODIUM 139.8 mmol/L (137-145)
[2018-11-08] MEDS: LACTOBACILLUS ACIDOPHILUS 250 MG TAB PO SCH ×2 (10:16→17:52)
[2018-11-08] MEDS: ACETAMINOPHEN 325 MG TABLET PO PRN ×2 (10:16→21:56)
[2018-11-08] MEDS: FAMOTIDINE 20 MG TABLET PO SCH ×2 (12:19→21:56)
[2018-11-08] MEDS ORDERED: IPRATROPIUM/ALBUTEROL 0.5-2.5 MG/3 ML AMPUL NEB PRN (14:46)
[2018-11-08] MEDS: DICYCLOMINE HCL 20 MG TABLET PO SCH ×3 (14:59→21:56)
--- NOTE | 2018-11-08 14:59 | PDOC PROGRESS REPORT ---
Subjective Progress Note for:: 11/08/18 Subjective:: Patient seen resting the side of the bed. She is awake, alert, oriented x3. She is complaining of epigastric to left upper quadrant pain. She denies any diarrhea. She actually had a formed bowel movement this morning. Her C. difficile was negative. She denies any nausea or vomiting. She denies any dysuria. She denies any significant arthralgias or myalgias. She denies any chest pain, shortness of breath or cough. She denies any headache or dizziness. Remaining review of systems are negative. Reason For Visit: DEHYDRATION,RECURRENT FALL,DIARRHEA Physical Exam Vital Signs: Temp Pulse Resp BP Pulse Ox 98.1 F 88 18 124/76 93 11/08/18 08:53 11/08/18 08:53 11/08/18 08:53 11/08/18 08:53 11/08/18 08:53 Intake & Output 11/07/18 11/08/18 11/09/18 06:59 06:59 06:59 Intake Total 2255 1000 Output Total 400 Balance 1855 1000 Weight 49.3 kg General appearance: PRESENT: no acute distress, well-developed, well-nourished Head exam: PRESENT: atraumatic, normocephalic Eye exam: PRESENT: conjunctiva pink, EOMI, PERRLA. ABSENT: scleral icterus Ear exam: PRESENT: normal external ear exam Mouth exam: PRESENT: moist, tongue midline Neck exam: ABSENT: carotid bruit, JVD, lymphadenopathy, thyromegaly Respiratory exam: PRESENT: clear to auscultation donita. ABSENT: rales, rhonchi, wheezes Cardiovascular exam: PRESENT: RRR. ABSENT: diastolic murmur, rubs, systolic murmur Pulses: PRESENT: normal dorsalis pedis pul Vascular exam: PRESENT: normal capillary refill GI/Abdominal exam: PRESENT: normal bowel sounds, soft, tenderness - Epigastric Rectal exam: PRESENT: deferred Extremities exam: PRESENT: full ROM. ABSENT: calf tenderness, clubbing, pedal edema Musculoskeletal exam: PRESENT: ambulatory, full ROM Neurological exam: PRESENT: alert, awake, oriented to person, oriented to place, oriented to time, oriented to situation, CN II-XII grossly intact. ABSENT: motor sensory deficit Psychiatric exam: PRESENT: appropriate affect, normal mood. ABSENT: homicidal ideation, suicidal ideation Skin exam: PRESENT: dry, intact, warm. ABSENT: cyanosis, rash Results Laboratory Results: 11/08/18 06:46 11/08/18 06:46 11/07/18 11/08/18 11/08/18 18:14 06:46 06:46 WBC 7.3 RBC 3.36 L Hgb 9.4 L Hct 28.1 L MCV 84 MCH 28.1 MCHC 33.5 RDW 14.4 H Plt Count 392 Seg Neutrophils % 63.2 Lymphocytes % 18.0 Monocytes % 8.7 Eosinophils % 9.0 H Basophils % 1.1 Absolute Neutrophils 4.6 Absolute Lymphocytes 1.3 Absolute Monocytes 0.6 Absolute Eosinophils 0.7 H Absolute Basophils 0.1 Sodium 139.8 Potassium 4.7 Chloride 103 Carbon Dioxide 26 Anion Gap 11 BUN 20 Creatinine 1.47 H Est GFR ( Amer) 42 L Est GFR (Non-Af Amer) 35 L Glucose 100 Calcium 9.5 Urine Color STRAW Urine Appearance SLIGHTLY-CLOUDY Urine pH 7.0 Ur Specific [place] 1.003 Urine Protein 30 H Urine Glucose (UA) NEGATIVE Urine Ketones NEGATIVE Urine Blood LARGE H Urine Nitrite NEGATIVE Ur Leukocyte Esterase LARGE H Urine WBC (Auto) 38 Urine RBC (Auto) 1 Impressions: Abdomen X-Ray 11/07/18 00:00 IMPRESSION: No acute abnormality. Assessment & Plan - Diagnosis (1) Diarrhea Qualifiers: Diarrhea type: unspecified type Qualified Code(s): R19.7 - Diarrhea, unspecified Is this a current diagnosis for this admission?: Yes Plan: Diarrhea has resolved. C. difficile was negative. She is mostly complaining of epigastric pain. We will stop Flagyl and oral vancomycin. (2) Acute kidney injury superimposed on CKD Is this a current diagnosis for this admission?: Yes Plan: Still has poor oral intake. We will cut IV fluids back to 75 cc/h. Creatinine is improved today's to 1.34. (3) Bipolar disorder Is this a current diagnosis for this admission?: Yes Plan: Continue home medications. (4) COPD (chronic obstructive pulmonary disease) Qualifiers: Emphysema type: unspecified Is this a current diagnosis for this admission?: Yes Plan: Continue inhalers. Nebulizers will be as needed. (5) Dehydration to decreased oral intake Is this a current diagnosis for this admission?: Yes Plan: As above in #1. She is complaining of epigastric discomfort we will start her on some Pepcid and Bentyl and see if that improves her symptoms. (6) Dementia Is this a current diagnosis for this admission?: Yes (7) H of Bladder ca, bilateral hydronephrosi Is this a current diagnosis for this admission?: Yes Plan: Analysis shows large amount of leukocytes and blood. Urine cultures pending. He is afebrile with no white count elevation. She is too demented to tell if she has any symptoms. Will await urine culture. - Time Time Spent with patient: 25-34 minutes Total Critical Time (Minutes): 25 Medications reviewed and adjusted accordingly: Yes Anticipated discharge: Acute Rehab Within: when bed available - Inpatient Certification Based on my medical assessment, after consideration of the patient's comorbidities, presenting symptoms, or acuity I expect that the services needed warrant INPATIENT care.: Yes I certify that my determination is in accordance with my understanding of Medicare's requirements for reasonable and necessary INPATIENT services [42 CFR 412.3e].: Yes Medical Necessity: Significant Comorbidiites Make Outpatient Treatment Too Risky, Risk of Complication if Not Cared For in Hospital
[2018-11-09] MEDS: NORMAL SALINE 1000 ML 1,000 ML IV PRN (07:00)
[2018-11-09] MEDS: HEPARIN SOD (PORCINE) 5,000 UNIT/ML 1 ML SYRINGE SUBCUT SCH ×3 (07:06→22:03)
[2018-11-09] MEDS: METRONIDAZOLE 500 MG TABLET PO SCH (07:06)
[2018-11-09 09:38] LABS: ANION GAP 11 (5-19); BLOOD UREA NITROGEN 16 mg/dL (7-20); CALCIUM 9.9 mg/dL (8.4-10.2); CARBON DIOXIDE 26 mmol/L (22-30); CHLORIDE 103 mmol/L (98-107); GLUCOSE 113 mg/dL (75-110); POTASSIUM 4.2 mmol/L (3.6-5.0); SODIUM 139.5 mmol/L (137-145)
[2018-11-09] MEDS: FAMOTIDINE 20 MG TABLET PO SCH ×2 (09:41→22:02)
[2018-11-09] MEDS: LACTOBACILLUS ACIDOPHILUS 250 MG TAB PO SCH ×2 (09:41→17:43)
[2018-11-09] MEDS: DICYCLOMINE HCL 20 MG TABLET PO SCH ×4 (09:42→22:02)
--- NOTE | 2018-11-09 11:18 | PDOC PROGRESS REPORT ---
Subjective Progress Note for:: 11/09/18 Subjective:: Patient seen resting the side of the bed. She is awake and alert. She thinks she is at home. She does know her daughter when she comes in. Nursing reports she did pull her IV out this morning and refused to let them reinserted. She is complaining of remittent epigastric to left upper quadrant pain. She denies any diarrhea. She actually had a formed bowel movement this morning. Her C. difficile was negative. She denies any nausea or vomiting. She denies any dysuria. She denies any significant arthralgias or myalgias. She denies any chest pain, shortness of breath or cough. She denies any headache or dizziness. Remaining review of systems are negative. Reason For Visit: DEHYDRATION,RECURRENT FALL,DIARRHEA Physical Exam Vital Signs: Temp Pulse Resp BP Pulse Ox 98.5 F 40 L 19 143/76 H 100 11/09/18 07:56 11/09/18 07:56 11/09/18 07:56 11/09/18 07:56 11/09/18 07:56 Intake & Output 11/08/18 11/09/18 11/10/18 06:59 06:59 06:59 Intake Total 2255 3213 Output Total 400 2250 Balance 1855 963 Weight 49.3 kg 52.8 kg General appearance: PRESENT: no acute distress, thin, well-developed Head exam: PRESENT: atraumatic, normocephalic Eye exam: PRESENT: conjunctiva pink, EOMI, PERRLA. ABSENT: scleral icterus Ear exam: PRESENT: normal external ear exam Mouth exam: PRESENT: moist, tongue midline Neck exam: ABSENT: carotid bruit, JVD, lymphadenopathy, thyromegaly Respiratory exam: PRESENT: clear to auscultation donita. ABSENT: rales, rhonchi, wheezes Cardiovascular exam: PRESENT: RRR. ABSENT: diastolic murmur, rubs, systolic murmur Pulses: PRESENT: normal dorsalis pedis pul Vascular exam: PRESENT: normal capillary refill GI/Abdominal exam: PRESENT: normal bowel sounds, soft, tenderness - epigastric to palpation. ABSENT: distended, guarding, mass, organolmegaly, rebound Neurological exam: PRESENT: alert, altered, awake, oriented to person, CN II-XII grossly intact Psychiatric exam: PRESENT: anxious Focused psych exam: PRESENT: flight of ideas Skin exam: PRESENT: dry, intact, warm. ABSENT: cyanosis, rash Results Laboratory Results: 11/08/18 06:46 11/09/18 09:07 11/09/18 09:07 Sodium 139.5 Potassium 4.2 Chloride 103 Carbon Dioxide 26 Anion Gap 11 BUN 16 Creatinine 1.31 H Est GFR ( Amer) 48 L Est GFR (Non-Af Amer) 40 L Glucose 113 H Calcium 9.9 Magnesium 1.7 Impressions: Abdomen X-Ray 11/07/18 00:00 IMPRESSION: No acute abnormality. Assessment & Plan - Diagnosis (1) Diarrhea Qualifiers: Diarrhea type: unspecified type Qualified Code(s): R19.7 - Diarrhea, unspecified Is this a current diagnosis for this admission?: Yes Plan: Diarrhea has resolved. C. difficile was negative. She is mostly complaining of epigastric pain. Have added Pepcid bid and bentyl (2) Acute kidney injury superimposed on CKD Is this a current diagnosis for this admission?: Yes Plan: Creatinine improved to 1.31 today. She pulled her IV out this morning refused to allow nursing to restart it. We have encouraged her to increase her hydration. She has poor appetite her dementia. Dehydration will be a concern. We will continue to monitor. (3) Bipolar disorder Is this a current diagnosis for this admission?: Yes Plan: Continue home medications. (4) COPD (chronic obstructive pulmonary disease) Qualifiers: Emphysema type: unspecified Is this a current diagnosis for this admission?: Yes Plan: Continue inhalers. Nebulizers will be as needed. (5) Dehydration to decreased oral intake Is this a current diagnosis for this admission?: Yes Plan: As above in #1. She is complaining of epigastric discomfort we will start her on some Pepcid and Bentyl and see if that improves her symptoms. (6) Dementia Is this a current diagnosis for this admission?: Yes Plan: This has been worsening. Daughter states she roams at night. Feels she needs at least short-term her pain and perhaps long-term care. (7) H of Bladder ca, bilateral hydronephrosi Is this a current diagnosis for this admission?: Yes Plan: Analysis shows large amount of leukocytes and blood. Urine cultures pending. He is afebrile with no white count elevation. She is too demented to tell if she has any symptoms. Will await urine culture. - Time Time Spent with patient: 35 or more minutes Total Critical Time (Minutes): 30 Medications reviewed and adjusted accordingly: Yes - Inpatient Certification Based on my medical assessment, after consideration of the patient's comorbidities, presenting symptoms, or acuity I expect that the services needed warrant INPATIENT care.: Yes I certify that my determination is in accordance with my understanding of Medicare's requirements for reasonable and necessary INPATIENT services [42 CFR 412.3e].: Yes Medical Necessity: Need For IV Fluids
[2018-11-09] MEDS: ACETAMINOPHEN 325 MG TABLET PO PRN (17:43)
[2018-11-10] MEDS: HEPARIN SOD (PORCINE) 5,000 UNIT/ML 1 ML SYRINGE SUBCUT SCH ×3 (05:09→22:29)
[2018-11-10] MEDS: FAMOTIDINE 20 MG TABLET PO SCH ×2 (10:12→22:44)
[2018-11-10] MEDS: LACTOBACILLUS ACIDOPHILUS 250 MG TAB PO SCH ×2 (10:12→17:35)
[2018-11-10] MEDS: DICYCLOMINE HCL 20 MG TABLET PO SCH ×4 (10:12→22:43)
--- NOTE | 2018-11-10 11:56 | PDOC PROGRESS REPORT ---
Subjective Progress Note for:: 11/10/18 Subjective:: 11/10/2018-no acute events in the last 24 hours. Patient is complaining of occasional epigastric pain. No episodes of diarrhea anymore. Patient is afebrile. Culture is growing gram-positive cocci. To start on levofloxacin 500 mg IV daily. No episodes of nausea vomiting or diarrhea. Be going to do the acute abdominal series for the epigastric pain. Reason For Visit: DEHYDRATION,RECURRENT FALL,DIARRHEA Physical Exam Vital Signs: Temp Pulse Resp BP Pulse Ox 98.7 F 83 18 144/71 H 97 11/10/18 07:26 11/10/18 07:26 11/10/18 07:26 11/10/18 07:26 11/10/18 07:26 Intake & Output 11/09/18 11/10/18 11/11/18 06:59 06:59 06:59 Intake Total 3213 1200 Output Total 2250 Balance 963 1200 Weight 52.8 kg 49.7 kg General appearance: PRESENT: thin Head exam: PRESENT: atraumatic Eye exam: PRESENT: PERRLA Mouth exam: PRESENT: moist, tongue midline Neck exam: ABSENT: carotid bruit, JVD, lymphadenopathy, thyromegaly Respiratory exam: PRESENT: decreased breath sounds Cardiovascular exam: PRESENT: tachycardia GI/Abdominal exam: PRESENT: normal bowel sounds, soft. ABSENT: distended, guarding, mass, organolmegaly, rebound, tenderness Extremities exam: PRESENT: full ROM. ABSENT: calf tenderness, clubbing, pedal edema Neurological exam: PRESENT: alert, awake, oriented to person, oriented to place, oriented to time, oriented to situation, CN II-XII grossly intact. ABSENT: motor sensory deficit Psychiatric exam: PRESENT: appropriate affect, normal mood. ABSENT: homicidal ideation, suicidal ideation Results Laboratory Results: 11/08/18 06:46 11/09/18 09:07 Impressions: Abdomen X-Ray 11/07/18 00:00 IMPRESSION: No acute abnormality. Assessment & Plan - Diagnosis (1) Diarrhea Qualifiers: Diarrhea type: unspecified type Qualified Code(s): R19.7 - Diarrhea, unspecified Is this a current diagnosis for this admission?: Yes Plan: 11/10/2018-patient is admitted with diarrhea leading to dehydration. C. difficile was negative. No episodes of loose stools in the last 24 hours. Diarrhea is resolved. (2) Urinary tract infection Qualifiers: Hematuria presence: with hematuria Is this a current diagnosis for this admission?: Yes Plan: 11/10/2018-patient has history of recurrent UTI during the hospital stay urine culture is positive for gram-positive cocci. Started on levofloxacin 500 mg IV daily. Once the cultures are available we going to adjust antibiotics. (3) Acute kidney injury superimposed on CKD Is this a current diagnosis for this admission?: Yes Plan: 11/10/2018-patient is admitted with elevated creatinine from the baseline 0.8 in June last year, on admission creatinine is 1.77 improved to 1.31 yesterday. Acute kidney injury most likely secondary to prerenal causes which was resolving. (4) Dementia Is this a current diagnosis for this admission?: No Plan: 11/10/2018-patient has history of dementia. On examination alert and awake communicating okay. In my opinion patient's mental status at baseline. (5) COPD (chronic obstructive pulmonary disease) Qualifiers: Emphysema type: unspecified Is this a current diagnosis for this admission?: No Plan: 11/10/2018-patient has history of COPD not on home oxygen. On examination chest bilateral entry was decreased no wheezing no crepitations are noticed. (6) H of Bladder ca, bilateral hydronephrosi Is this a current diagnosis for this admission?: Yes Plan: 11/10/2018-patient has history of bladder cancer and bilateral hydronephrosis, urine culture shows gram-positive cocci started on levofloxacin 500 mg IV daily today. Waiting for the sensitivity report. (7) Bipolar disorder Qualifiers: Active/Remission status: currently active Current bipolar episode type: depressed Current episode severity: moderate Qualified Code(s): F31.32 - Bipolar disorder, current episode depressed, moderate Is this a current diagnosis for this admission?: No Plan: 11/10/2018-patient has history of bipolar disorder on Seroquel, Effexor, Topamax at home those medications are resumed during the hospital stay. Family is requesting for a short-term rehab facility placement physical therapy consult was requested and manager social media consult was requested. - Time Time Spent with patient: 15-24 minutes Medications reviewed and adjusted accordingly: Yes Anticipated discharge: SNF
--- NOTE | 2018-11-10 16:04 | RADIOLOGY REPORT (SQ) ---
EXAM DESCRIPTION: ACUTE ABDOMEN SERIES COMPLETED DATE/TIME: 11/10/2018 3:34 pm REASON FOR STUDY: abd pain COMPARISON: 11/07/2018 NUMBER OF VIEWS: Three views. TECHNIQUE: Frontal chest, supine abdomen and upright/decubitus abdomen radiographic images acquired. LIMITATIONS: None. FINDINGS: CHEST: Lungs clear of infiltrates. FREE AIR: None. No abnormal gas collections. BOWEL GAS PATTERN: Occasional gas fluid levels in nondilated small bowel. No dilated loops or air flu id levels. CALCIFICATIONS: No suspicious calcifications. HARDWARE: None in the abdomen. SOFT TISSUES: Unchanged position of bilateral ureteral stents. BONES: No acute fracture. No worrisome bone lesions. OTHER: No other significant finding. IMPRESSION: NO RADIOGRAPHIC EVIDENCE FOR ACUTE ABDOMINAL DISEASE. TECHNICAL DOCUMENTATION: JOB ID: [id number] [employer]- All Rights Reserved Reading location - IP/workstation name: [email or web address]
[2018-11-10] MEDS: TOPIRAMATE 100 MG TABLET PO SCH (17:36)
[2018-11-10] MEDS: FERROUS SULFATE 325 MG TABLET PO SCH (17:37)
[2018-11-10] MEDS: SIMVASTATIN 10 MG TABLET PO SCH (17:38)
[2018-11-10] MEDS: LAMOTRIGINE 100 MG TABLET PO SCH (17:39)
[2018-11-10] MEDS ORDERED: (PENDING PHARMACY ID) (Lamotrigine [Lamictal] 200 MG) PO SCH (18:00)
[2018-11-10] MEDS ORDERED: LEVOFLOXACIN 500 MG/D5W RTU 500 MG/100 ML RTUPB IV SCH (18:00)
[2018-11-10] MEDS ORDERED: FIDAXOMICIN 200 MG PO SCH (18:00)
[2018-11-10] MEDS ORDERED: LACTOBACILLUS ACIDOPHILUS PO SCH (22:00)
[2018-11-10] MEDS: LEVOFLOXACIN 500 MG TABLET PO SCH (22:43)
[2018-11-10] MEDS: FIDAXOMICIN 200 MG TABLET PO SCH (22:43)
[2018-11-11] MEDS: HEPARIN SOD (PORCINE) 5,000 UNIT/ML 1 ML SYRINGE SUBCUT SCH ×3 (06:20→21:01)
[2018-11-11] MEDS: LEVOTHYROXINE SODIUM 0.05 MG TABLET PO SCH (06:22)
[2018-11-11 06:36] LABS: ABSOLUTE BASOPHILS # (AUTO) 0.1 10^3/uL (0.0-0.2); ABSOLUTE EOSINOPHILS # (AUTO) 0.5 10^3/uL (0.0-0.6); ABSOLUTE LYMPHOCYTES (AUTO) 1.6 10^3/uL (0.5-4.7); ABSOLUTE MONOCYTES (AUTO) 0.8 10^3/uL (0.1-1.4); ABSOLUTE NEUT (AUTO) 5.1 10^3/uL (1.7-8.2); BASOPHILS % (AUTO) 0.8 % (0-2); EOSINOPHILS % (AUTO) 6.3 % (0-6); HEMATOCRIT 29.2 % (36.0-47.0); HEMOGLOBIN 9.9 g/dL (12.0-15.5); LYMPHOCYTES % (AUTO) 19.5 % (13-45); MEAN CORPUSCULAR HEMOGLOBIN 27.8 pg (27.0-33.4); MEAN CORPUSCULAR HGB CONC 33.7 g/dL (32.0-36.0); MEAN CORPUSCULAR VOLUME 83 fl (80-97); MONOCYTES % (AUTO) 9.9 % (3-13); PLATELET COUNT 369 10^3/uL (150-450); RED BLOOD COUNT 3.54 10^6/uL (3.72-5.28); RED CELL DISTRIBUTION WIDTH 14.6 % (11.5-14.0); SEGMENTED NEUTROPHILS % (AUTO) 63.5 % (42-78); TOTAL CELLS COUNTED % (AUTO) 100 %
[2018-11-11 06:57] LABS: ALANINE AMINOTRANSFERASE 21 U/L (9-52); ALKALINE PHOSPHATASE 79 U/L (38-126); ANION GAP 12 (5-19); ASPARTATE AMINO TRANSFERASE 19 U/L (14-36); BILIRUBIN,DIRECT 0.2 mg/dL (0.0-0.4); BILIRUBIN,TOTAL 0.2 mg/dL (0.2-1.3); BLOOD UREA NITROGEN 26 mg/dL (7-20); CARBON DIOXIDE 25 mmol/L (22-30); CHLORIDE 103 mmol/L (98-107); GLUCOSE 97 mg/dL (75-110); POTASSIUM 5.1 mmol/L (3.6-5.0); TOTAL PROTEIN 7.2 g/dL (6.3-8.2)
[2018-11-11] MEDS ORDERED: LACTOBACILLUS ACIDOPHILUS PO SCH (08:00)
[2018-11-11] MEDS: FAMOTIDINE 20 MG TABLET PO SCH ×2 (10:39→21:01)
[2018-11-11] MEDS: LACTOBACILLUS ACIDOPHILUS 250 MG TAB PO SCH ×2 (10:39→17:44)
[2018-11-11] MEDS: FIDAXOMICIN 200 MG TABLET PO SCH (10:40)
[2018-11-11] MEDS: LEVOFLOXACIN 500 MG TABLET PO SCH (10:40)
[2018-11-11] MEDS: VENLAFAXINE HCL 75 MG CAP.SR.24H PO SCH (10:40)
[2018-11-11] MEDS: QUETIAPINE FUMARATE 100 MG TABLET PO SCH (10:40)
[2018-11-11] MEDS: DICYCLOMINE HCL 20 MG TABLET PO SCH ×4 (10:40→21:01)
--- NOTE | 2018-11-11 11:12 | PDOC PROGRESS REPORT ---
Subjective Progress Note for:: 11/11/18 Subjective:: 11/10/2018-no acute events in the last 24 hours. Patient is complaining of occasional epigastric pain. No episodes of diarrhea anymore. Patient is afebrile. Culture is growing gram-positive cocci. To start on levofloxacin 500 mg IV daily. No episodes of nausea vomiting or diarrhea. Be going to do the acute abdominal series for the epigastric pain. 11/11/2018-11/11/2018-no acute events in the last 24 hours. Patient is afebrile. Urine culture came back positive for E faecalis. Patient is presently on daptomycin and levofloxacin the bacteria is resistant to levofloxacin. Plan is to discontinue levofloxacin and nitrofurantoin. Reason For Visit: DEHYDRATION,RECURRENT FALL,DIARRHEA Physical Exam Vital Signs: Temp Pulse Resp BP Pulse Ox 98.4 F 87 18 121/64 100 11/10/18 23:41 11/10/18 23:41 11/10/18 20:00 11/10/18 23:41 11/10/18 23:41 Intake & Output 11/10/18 11/11/18 11/12/18 06:59 06:59 06:59 Intake Total 1200 1220 Output Total 2050 Balance 1200 -830 Weight 49.7 kg 49 kg General appearance: PRESENT: no acute distress, thin Head exam: PRESENT: atraumatic Eye exam: PRESENT: PERRLA Mouth exam: PRESENT: moist, tongue midline Neck exam: ABSENT: carotid bruit, JVD, lymphadenopathy, thyromegaly Respiratory exam: PRESENT: decreased breath sounds Cardiovascular exam: PRESENT: RRR. ABSENT: diastolic murmur, rubs, systolic murmur GI/Abdominal exam: PRESENT: normal bowel sounds, soft. ABSENT: distended, guarding, mass, organolmegaly, rebound, tenderness Extremities exam: PRESENT: full ROM. ABSENT: calf tenderness, clubbing, pedal edema Neurological exam: PRESENT: alert, awake, oriented to person, oriented to place, oriented to time, oriented to situation, CN II-XII grossly intact. ABSENT: motor sensory deficit Psychiatric exam: PRESENT: appropriate affect, normal mood. ABSENT: homicidal ideation, suicidal ideation Results Laboratory Results: 11/11/18 05:22 11/11/18 05:22 11/11/18 11/11/18 05:22 05:22 WBC 8.0 RBC 3.54 L Hgb 9.9 L Hct 29.2 L MCV 83 MCH 27.8 MCHC 33.7 RDW 14.6 H Plt Count 369 Seg Neutrophils % 63.5 Lymphocytes % 19.5 Monocytes % 9.9 Eosinophils % 6.3 H Basophils % 0.8 Absolute Neutrophils 5.1 Absolute Lymphocytes 1.6 Absolute Monocytes 0.8 Absolute Eosinophils 0.5 Absolute Basophils 0.1 Sodium 140.0 Potassium 5.1 H Chloride 103 Carbon Dioxide 25 Anion Gap 12 BUN 26 H Creatinine 1.83 H Est GFR ( Amer) 33 L Est GFR (Non-Af Amer) 27 L Glucose 97 Calcium 10.0 Magnesium 1.8 Total Bilirubin 0.2 AST 19 ALT 21 Alkaline Phosphatase 79 Total Protein 7.2 Albumin 4.0 11/08/18 10:45 Clean Catch Midstream Urine Culture - Final Enterococcus Faecalis(Group D) C.albicans/C.dubliniensis Impressions: Abdomen X-Ray 11/07/18 00:00 IMPRESSION: No acute abnormality. Acute Abdomen Series 11/10/18 00:00 IMPRESSION: NO RADIOGRAPHIC EVIDENCE FOR ACUTE ABDOMINAL DISEASE. Assessment & Plan - Diagnosis (1) Diarrhea Qualifiers: Diarrhea type: unspecified type Qualified Code(s): R19.7 - Diarrhea, unspecified Is this a current diagnosis for this admission?: Yes Plan: 11/10/2018-patient is admitted with diarrhea leading to dehydration. C. difficile was negative. No episodes of loose stools in the last 24 hours. Diarrhea is resolved. 11/11/2018-patient was admitted with diarrhea and dehydration diarrhea is resolved. C. difficile is negative. (2) Urinary tract infection Qualifiers: Hematuria presence: with hematuria Is this a current diagnosis for this admission?: Yes Plan: 11/10/2018-patient has history of recurrent UTI during the hospital stay urine culture is positive for gram-positive cocci. Started on levofloxacin 500 mg IV daily. Once the cultures are available we going to adjust antibiotics. 10/14/2018-urine culture came back positive for E faecalis sensitivity to daptomycin and resistant to levofloxacin . Plan is to discontinue levofloxacin and start on nitrofurantoin from today. (3) Acute kidney injury superimposed on CKD Is this a current diagnosis for this admission?: Yes Plan: 11/10/2018-patient is admitted with elevated creatinine from the baseline 0.8 in June last year, on admission creatinine is 1.77 improved to 1.31 yesterday. Acute kidney injury most likely secondary to prerenal causes which was resolving. 11/11/2018-patient was admitted with elevated creatinine of 1.77. Her baseline creatinine is around 0.8 in June last year. Today creatinine went back up to 1.83. Blood pressure today is 121/64 I tried to explain to the patient That she need to be on IV fluids but patient is refusing for IV access. Patient was encouraged to drink plenty of fluids. (4) Dementia Is this a current diagnosis for this admission?: No Plan: 11/10/2018-patient has history of dementia. On examination alert and awake communicating okay. In my opinion patient's mental status at baseline. 11/11/2018-patient has history of dementia. She able to give her date of and she knows she was in the hospital but occasionally she is getting confused and anxious. She might have underlying chronic dementia. (5) COPD (chronic obstructive pulmonary disease) Qualifiers: Emphysema type: unspecified Is this a current diagnosis for this admission?: No Plan: 11/10/2018-patient has history of COPD not on home oxygen. On examination chest bilateral entry was decreased no wheezing no crepitations are noticed. 11/11/2018-patient has history of COPD pulse ox is 100% on room air here. On examination chest bilateral entry was decreased no wheezing no crepitations. (6) H of Bladder ca, bilateral hydronephrosi Is this a current diagnosis for this admission?: Yes Plan: 11/10/2018-patient has history of bladder cancer and bilateral hydronephrosis, urine culture shows gram-positive cocci started on levofloxacin 500 mg IV daily today. Waiting for the sensitivity report. 11/11/2018-patient has history of bladder cancer and bilateral hydronephrosis. Urine culture is positive for i E faecalis. Presently on levofloxacin and started on nitrofurantoin. (7) Bipolar disorder Qualifiers: Active/Remission status: currently active Current bipolar episode type: depressed Current episode severity: moderate Qualified Code(s): F31.32 - Bipolar disorder, current episode depressed, moderate Is this a current diagnosis for this admission?: No Plan: 11/10/2018-patient has history of bipolar disorder on Seroquel, Effexor, Topamax at home those medications are resumed during the hospital stay. Family is requesting for a short-term rehab facility placement physical therapy consult was requested and social work nurse consult was requested. 11/11/2018-patient has history of bipolar disorder presently on Seroquel, Effexor and Topamax plan is to continue those medications during the hospital stay.
[2018-11-11] MEDS: NITROFURANTOIN 5 MG/ML SUSP 60 ML PO SCH (17:42)
[2018-11-11] MEDS: TOPIRAMATE 100 MG TABLET PO SCH (17:43)
[2018-11-11] MEDS: FERROUS SULFATE 325 MG TABLET PO SCH (17:44)
[2018-11-11] MEDS: LAMOTRIGINE 100 MG TABLET PO SCH (17:44)
[2018-11-11] MEDS: SIMVASTATIN 10 MG TABLET PO SCH (17:44)
[2018-11-12] MEDS: TRAMADOL HCL 50 MG TABLET PO PRN (02:20)
[2018-11-12] MEDS: HEPARIN SOD (PORCINE) 5,000 UNIT/ML 1 ML SYRINGE SUBCUT SCH ×3 (05:10→23:24)
[2018-11-12] MEDS: LEVOTHYROXINE SODIUM 0.05 MG TABLET PO SCH (05:25)
[2018-11-12] MEDS: FAMOTIDINE 20 MG TABLET PO SCH ×2 (11:33→23:47)
[2018-11-12] MEDS: DICYCLOMINE HCL 20 MG TABLET PO SCH ×4 (11:33→23:47)
[2018-11-12] MEDS: QUETIAPINE FUMARATE 100 MG TABLET PO SCH (11:33)
[2018-11-12] MEDS: VENLAFAXINE HCL 75 MG CAP.SR.24H PO SCH (11:33)
[2018-11-12] MEDS: LACTOBACILLUS ACIDOPHILUS 250 MG TAB PO SCH ×2 (11:33→18:11)
[2018-11-12] MEDS: NITROFURANTOIN 5 MG/ML SUSP 60 ML PO SCH ×2 (11:35→18:11)
--- NOTE | 2018-11-12 13:50 | PDOC PROGRESS REPORT ---
Subjective Progress Note for:: 11/12/18 Subjective:: 11/10/2018-no acute events in the last 24 hours. Patient is complaining of occasional epigastric pain. No episodes of diarrhea anymore. Patient is afebrile. Culture is growing gram-positive cocci. To start on levofloxacin 500 mg IV daily. No episodes of nausea vomiting or diarrhea. Be going to do the acute abdominal series for the epigastric pain. 11/11/2018-11/11/2018-no acute events in the last 24 hours. Patient is afebrile. Urine culture came back positive for E faecalis. Patient is presently on daptomycin and levofloxacin the bacteria is resistant to levofloxacin. Plan is to discontinue levofloxacin and nitrofurantoin. 11/12/2018-no acute events in the last 24 hours. Patient is afebrile. Blood pressure this morning is 103/54 and creatinine went up to 1.83 started on IV fluids normal saline 50 cc/h. To continue to closely monitor the blood pressure today and recheck the labs tomorrow in my opinion she is not stable enough to go home today. Reason For Visit: DEHYDRATION,RECURRENT FALL,DIARRHEA Physical Exam Vital Signs: Temp Pulse Resp BP Pulse Ox 98.5 F 93 18 103/54 L 96 11/12/18 07:57 11/12/18 07:57 11/12/18 07:57 11/12/18 07:57 11/12/18 07:57 Intake & Output 11/11/18 11/12/18 11/13/18 06:59 06:59 06:59 Intake Total 1220 975 Output Total 2050 700 Balance -830 275 Weight 49 kg 49.2 kg General appearance: PRESENT: no acute distress Head exam: PRESENT: atraumatic Eye exam: PRESENT: PERRLA Ear exam: PRESENT: normal external ear exam Mouth exam: PRESENT: moist, tongue midline Neck exam: ABSENT: carotid bruit, JVD, lymphadenopathy, thyromegaly Respiratory exam: PRESENT: decreased breath sounds Cardiovascular exam: PRESENT: RRR. ABSENT: diastolic murmur, rubs, systolic murmur GI/Abdominal exam: PRESENT: normal bowel sounds, soft. ABSENT: distended, guarding, mass, organolmegaly, rebound, tenderness Extremities exam: PRESENT: full ROM. ABSENT: calf tenderness, clubbing, pedal edema Neurological exam: PRESENT: alert, awake, oriented to person, oriented to place, oriented to time, oriented to situation, CN II-XII grossly intact. ABSENT: motor sensory deficit Psychiatric exam: PRESENT: appropriate affect, normal mood. ABSENT: homicidal ideation, suicidal ideation Results Laboratory Results: 11/11/18 05:22 11/11/18 05:22 Impressions: Abdomen X-Ray 11/07/18 00:00 IMPRESSION: No acute abnormality. Acute Abdomen Series 11/10/18 00:00 IMPRESSION: NO RADIOGRAPHIC EVIDENCE FOR ACUTE ABDOMINAL DISEASE. Assessment & Plan - Diagnosis (1) Diarrhea Qualifiers: Diarrhea type: unspecified type Qualified Code(s): R19.7 - Diarrhea, unspecified Is this a current diagnosis for this admission?: Yes Plan: 11/10/2018-patient is admitted with diarrhea leading to dehydration. C. difficile was negative. No episodes of loose stools in the last 24 hours. Diarrhea is resolved. 11/11/2018-patient was admitted with diarrhea and dehydration diarrhea is resolved. C. difficile is negative. 11/[id number]-podc-old female admitted for diarrhea and dehydration recurrent falls diarrhea was resolved. C. difficile was negative. (2) Urinary tract infection Qualifiers: Hematuria presence: with hematuria Is this a current diagnosis for this admission?: Yes Plan: 11/10/2018-patient has history of recurrent UTI during the hospital stay urine culture is positive for gram-positive cocci. Started on levofloxacin 500 mg IV daily. Once the cultures are available we going to adjust antibiotics. 11/11/2018-urine culture came back positive for E faecalis sensitivity to daptomycin and resistant to levofloxacin . Plan is to discontinue levofloxacin and start on nitrofurantoin from today. 11/12/2018-patient is admitted with urinary tract infection positive for E faecalis sensitive to daptomycin plan is to continue the daptomycin. T-max is 98.5. (3) Acute kidney injury superimposed on CKD Is this a current diagnosis for this admission?: Yes Plan: 11/10/2018-patient is admitted with elevated creatinine from the baseline 0.8 in June last year, on admission creatinine is 1.77 improved to 1.31 yesterday. Acute kidney injury most likely secondary to prerenal causes which was resolving. 11/11/2018-patient was admitted with elevated creatinine of 1.77. Her baseline c reatinine is around 0.8 in June last year. Today creatinine went back up to 1.83. Blood pressure today is 121/64 I tried to explain to the patient That she need to be on IV fluids but patient is refusing for IV access. Patient was encouraged to drink plenty of fluids. 11/12/2018-patient's admission creatinine is 1.77 went up to 1.83 today may be secondary to poor oral intake acute kidney injury may be secondary to prerenal causes to start IV fluids normal saline 50 cc/h and to recheck the labs again tomorrow. (4) Dementia Is this a current diagnosis for this admission?: No Plan: 11/10/2018-patient has history of dementia. On examination alert and awake communicating okay. In my opinion patient's mental status at baseline. 11/11/2018-patient has history of dementia. She able to give her date of and she knows she was in the hospital but occasionally she is getting confused and anxious. She might have underlying chronic dementia. 11/12/2018-patient has history of dementia but today she is alert and awake communicating very well no problems of confusion no problems in recalling the events. (5) COPD (chronic obstructive pulmonary disease) Qualifiers: Emphysema type: unspecified Is this a current diagnosis for this admission?: No Plan: 11/10/2018-patient has history of COPD not on home oxygen. On examination chest bilateral entry was decreased no wheezing no crepitations are noticed. 11/11/2018-patient has history of COPD pulse ox is 100% on room air here. On examination chest bilateral entry was decreased no wheezing no crepitations. 11/12/2018-patient has history of COPD pulse ox today is 96% on room air chest examination bilateral entry was decreased no wheezing no crepitations. Plan is to continue the present management. (6) H of Bladder ca, bilateral hydronephrosi Is this a current diagnosis for this admission?: Yes Plan: 11/10/2018-patient has history of bladder cancer and bilateral hydronephrosis, urine culture shows gram-positive cocci started on levofloxacin 500 mg IV daily today. Waiting for the sensitivity report. 11/11/2018-patient has history of bladder cancer and bilateral hydronephrosis. Urine culture is positive for i E faecalis. Presently on levofloxacin and started on nitrofurantoin. 11/12/2018-patient has history of bladder cancer with bilateral hydronephrosis. Urine culture showing E. Faecalis. Presently she is on nitrofurantoin. (7) Bipolar disorder Qualifiers: Active/Remission status: currently active Current bipolar episode type: depressed Current episode severity: moderate Qualified Code(s): F31.32 - Bipolar disorder, current episode depressed, moderate Is this a current diagnosis for this admission?: No Plan: 11/10/2018-patient has history of bipolar disorder on Seroquel, Effexor, Topamax at home those medications are resumed during the hospital stay. Family is requesting for a short-term rehab facility placement physical therapy consult was requested and social services technician consult was requested. 11/11/2018-patient has history of bipolar disorder presently on Seroquel, Effexor and Topamax plan is to continue those medications during the hospital stay. 11/12/2018-patient has history of bipolar disorder on Seroquel, Effexor, Topamax plan is to continue the treatment during the hospital stay. (8) Hypotension Is this a current diagnosis for this admission?: Yes Plan: 11/12/2018-patient his blood pressure today is 103/54 with elevated creatinine of 1.83 started on IV fluids normal saline 50 cc/h we going to closely monitor her blood pressures and recheck the labs tomorrow. Hypotension may be secondary to poor oral intake. - Time Time Spent with patient: 15-24 minutes Medications reviewed and adjusted accordingly: Yes Anticipated discharge: Home
[2018-11-12] MEDS: TOPIRAMATE 100 MG TABLET PO SCH (18:11)
[2018-11-12] MEDS: FERROUS SULFATE 325 MG TABLET PO SCH (18:11)
[2018-11-12] MEDS: SIMVASTATIN 10 MG TABLET PO SCH (18:11)
[2018-11-12] MEDS: LAMOTRIGINE 100 MG TABLET PO SCH (18:12)
[2018-11-13] MEDS: HEPARIN SOD (PORCINE) 5,000 UNIT/ML 1 ML SYRINGE SUBCUT SCH ×3 (06:23→23:14)
[2018-11-13] MEDS: LEVOTHYROXINE SODIUM 0.05 MG TABLET PO SCH (06:26)
[2018-11-13 06:53] LABS: ABSOLUTE EOSINOPHILS # (AUTO) 0.6 10^3/uL (0.0-0.6); ABSOLUTE MONOCYTES (AUTO) 0.4 10^3/uL (0.1-1.4); ABSOLUTE NEUT (AUTO) 3.8 10^3/uL (1.7-8.2); BASOPHILS % (AUTO) 0.5 % (0-2); EOSINOPHILS % (AUTO) 10.4 % (0-6); HEMATOCRIT 28.3 % (36.0-47.0); HEMOGLOBIN 9.6 g/dL (12.0-15.5); LYMPHOCYTES % (AUTO) 16.7 % (13-45); MEAN CORPUSCULAR HEMOGLOBIN 28.2 pg (27.0-33.4); MEAN CORPUSCULAR HGB CONC 33.8 g/dL (32.0-36.0); MEAN CORPUSCULAR VOLUME 83 fl (80-97); MONOCYTES % (AUTO) 7.5 % (3-13); PLATELET COUNT 320 10^3/uL (150-450); RED CELL DISTRIBUTION WIDTH 14.7 % (11.5-14.0); SEGMENTED NEUTROPHILS % (AUTO) 64.9 % (42-78); TOTAL CELLS COUNTED % (AUTO) 100 %; WHITE BLOOD COUNT 5.9 10^3/uL (4.0-10.5)
[2018-11-13 07:04] LABS: ALANINE AMINOTRANSFERASE 23 U/L (9-52); ALBUMIN 3.8 g/dL (3.5-5.0); ALKALINE PHOSPHATASE 81 U/L (38-126); ANION GAP 17 (5-19); ASPARTATE AMINO TRANSFERASE 18 U/L (14-36); BILIRUBIN,DIRECT 0.2 mg/dL (0.0-0.4); BILIRUBIN,TOTAL 0.2 mg/dL (0.2-1.3); BLOOD UREA NITROGEN 27 mg/dL (7-20); CALCIUM 9.9 mg/dL (8.4-10.2); CARBON DIOXIDE 22 mmol/L (22-30); CHLORIDE 100 mmol/L (98-107); GLUCOSE 93 mg/dL (75-110); POTASSIUM 4.7 mmol/L (3.6-5.0); SODIUM 139.2 mmol/L (137-145)
[2018-11-13] MEDS: LACTOBACILLUS ACIDOPHILUS 250 MG TAB PO SCH ×2 (11:31→17:53)
[2018-11-13] MEDS: FAMOTIDINE 20 MG TABLET PO SCH ×2 (11:32→23:14)
[2018-11-13] MEDS: QUETIAPINE FUMARATE 100 MG TABLET PO SCH (11:32)
[2018-11-13] MEDS: NITROFURANTOIN 5 MG/ML SUSP 60 ML PO SCH ×2 (11:33→17:55)
[2018-11-13] MEDS: DICYCLOMINE HCL 20 MG TABLET PO SCH ×4 (11:33→23:14)
[2018-11-13] MEDS: VENLAFAXINE HCL 75 MG CAP.SR.24H PO SCH (11:33)
--- NOTE | 2018-11-13 14:24 | PDOC PROGRESS REPORT ---
Subjective Progress Note for:: 11/13/18 Subjective:: 11/10/2018-no acute events in the last 24 hours. Patient is complaining of occasional epigastric pain. No episodes of diarrhea anymore. Patient is afebrile. Culture is growing gram-positive cocci. To start on levofloxacin 500 mg IV daily. No episodes of nausea vomiting or diarrhea. Be going to do the acute abdominal series for the epigastric pain. 11/11/2018-11/11/2018-no acute events in the last 24 hours. Patient is afebrile. Urine culture came back positive for E faecalis. Patient is presently on daptomycin and levofloxacin the bacteria is resistant to levofloxacin. Plan is to discontinue levofloxacin and nitrofurantoin. 11/12/2018-no acute events in the last 24 hours. Patient is afebrile. Blood pressure this morning is 103/54 and creatinine went up to 1.83 started on IV fluids normal saline 50 cc/h. To continue to closely monitor the blood pressure today and recheck the labs tomorrow in my opinion she is not stable enough to go home today. 11/13/2018-no acute events in the last 24 hours. Patient is afebrile. Blood pressure today is 111/43. Patient creatinine is continued to trend up it is 1.93 today. Yesterday order for IV fluids but the patient refused IV access. Try to convince her that she need hydration patient said she understood but she does want to get IV fluids. We encouraged her to drink plenty of fluids. Reason For Visit: DEHYDRATION,RECURRENT FALL,DIARRHEA Physical Exam Vital Signs: Temp Pulse Resp BP Pulse Ox 97.6 F 105 H 16 110/51 L 100 11/13/18 12:00 11/13/18 12:00 11/13/18 12:00 11/13/18 12:00 11/13/18 12:00 Intake & Output 11/12/18 11/13/18 11/14/18 06:59 06:59 06:59 Intake Total 975 900 Output Total 700 1300 Balance 275 -400 Weight 49.2 kg 49.2 kg General appearance: PRESENT: no acute distress, thin Head exam: PRESENT: atraumatic Eye exam: PRESENT: PERRLA Neck exam: ABSENT: carotid bruit, JVD, lymphadenopathy, thyromegaly Respiratory exam: PRESENT: decreased breath sounds Cardiovascular exam: PRESENT: RRR. ABSENT: diastolic murmur, rubs, systolic murmur GI/Abdominal exam: PRESENT: normal bowel sounds, soft. ABSENT: distended, guarding, mass, organolmegaly, rebound, tenderness Extremities exam: PRESENT: full ROM. ABSENT: calf tenderness, clubbing, pedal edema Neurological exam: PRESENT: alert, awake, oriented to person, oriented to place, oriented to time, oriented to situation, CN II-XII grossly intact. ABSENT: motor sensory deficit Psychiatric exam: PRESENT: appropriate affect, normal mood. ABSENT: homicidal ideation, suicidal ideation Results Laboratory Results: 11/13/18 05:27 11/13/18 05:27 11/13/18 11/13/18 05:27 05:27 WBC 5.9 RBC 3.40 L Hgb 9.6 L Hct 28.3 L MCV 83 MCH 28.2 MCHC 33.8 RDW 14.7 H Plt Count 320 Seg Neutrophils % 64.9 Lymphocytes % 16.7 Monocytes % 7.5 Eosinophils % 10.4 H Basophils % 0.5 Absolute Neutrophils 3.8 Absolute Lymphocytes 1.0 Absolute Monocytes 0.4 Absolute Eosinophils 0.6 Absolute Basophils 0.0 Sodium 139.2 Potassium 4.7 Chloride 100 Carbon Dioxide 22 Anion Gap 17 BUN 27 H Creatinine 1.93 H Est GFR ( Amer) 31 L Est GFR (Non-Af Amer) 25 L Glucose 93 Calcium 9.9 Magnesium 2.1 Total Bilirubin 0.2 AST 18 ALT 23 Alkaline Phosphatase 81 Total Protein 7.0 Albumin 3.8 Impressions: Abdomen X-Ray 11/07/18 00:00 IMPRESSION: No acute abnormality. Acute Abdomen Series 11/10/18 00:00 IMPRESSION: NO RADIOGRAPHIC EVIDENCE FOR ACUTE ABDOMINAL DISEASE. Assessment & Plan - Diagnosis (1) Diarrhea Qualifiers: Diarrhea type: unspecified type Qualified Code(s): R19.7 - Diarrhea, unspecified Is this a current diagnosis for this admission?: Yes Plan: 11/10/2018-patient is admitted with diarrhea leading to dehydration. C. difficile was negative. No episodes of loose stools in the last 24 hours. Diarrhea is r esolved. 11/11/2018-patient was admitted with diarrhea and dehydration diarrhea is resolved. C. difficile is negative. 11/12/[id number]-opts-old female admitted for diarrhea and dehydration recurrent fall s diarrhea was resolved. C. difficile was negative. 11/13/2018-this 3-year-old female admitted with diarrhea and dehydration, recurrent falls with diarrhea was resolved C. difficile was negative. (2) Urinary tract infection Qualifiers: Hematuria presence: with hematuria Is this a current diagnosis for this admission?: Yes Plan: 11/10/2018-patient has history of recurrent UTI during the hospital stay urine culture is positive for gram-positive cocci. Started on levofloxacin 500 mg IV daily. Once the cultures are available we going to adjust antibiotics. 11/11/2018-urine culture came back positive for E faecalis sensitivity to daptomycin and resistant to levofloxacin . Plan is to discontinue levofloxacin and start on nitrofurantoin from today. 11/12/2018-patient is admitted with urinary tract infection positive for E faecalis sensitive to daptomycin plan is to continue the daptomycin. T-max is 98.5. 11/13/2018 urine culture is showing if faecalis sensitive to daptomycin patient receiving nitrofurantoin right now T-max is 98.8. (3) Acute kidney injury superimposed on CKD Is this a current diagnosis for this admission?: Yes Plan: 11/10/2018-patient is admitted with elevated creatinine from the baseline 0.8 in June last year, on admission creatinine is 1.77 improved to 1.31 yesterday. Acute kidney injury most likely secondary to prerenal causes which was resolving. 11/11/2018-patient was admitted with elevated creatinine of 1.77. Her baseline creatinine is around 0.8 in June last year. Today creatinine went back up to 1.83. Blood pressure today is 121/64 I tried to explain to the patient That she need to be on IV fluids but patient is refusing for IV access. Patient was encouraged to drink plenty of fluids. 11/12/2018-patient's admission creatinine is 1.77 went up to 1.83 today may be secondary to poor oral intake acute kidney injury may be secondary to prerenal causes to start IV fluids normal saline 50 cc/h and to recheck the labs again tomorrow. 03/2019 patient's admission creatinine is 1.77 and today it is 1.93 yesterday placed an order for IV fluids but the patient refused IV access and refused to take IV fluids. I talked to her this morning in length need to take fluids by mouth and also by IV access patient likely to drink plenty of fluids but refusing the IV fluids. (4) Dementia Is this a current diagnosis for this admission?: No Plan: 11/10/2018-patient has history of dementia. On examination alert and awake communicating okay. In my opinion patient's mental status at baseline. 11/11/2018-patient has history of dementia. She able to give her date of and she knows she was in the hospital but occasionally she is getting confused and anxious. She might have underlying chronic dementia. 11/12/2018-patient has history of dementia but today she is alert and awake communicating very well no problems of confusion no problems in recalling the events. 11/13/2018-patient has history of dementia but she is communicating very well this morning no signs of any confusion no problems in recalling the issues. (5) COPD (chronic obstructive pulmonary disease) Qualifiers: Emphysema type: unspecified Is this a current diagnosis for this admission?: No Plan: 11/10/2018-patient has history of COPD not on home oxygen. On examination chest bilateral entry was decreased no wheezing no crepitations are noticed. 11/11/2018-patient has history of COPD pulse ox is 100% on room air here. On examination chest bilateral entry was decreased no wheezing no crepitations. 11/12/2018-patient has history of COPD pulse ox today is 96% on room air chest examination bilateral entry was decreased no wheezing no crepitations. Plan is to continue the present management. (6) H of Bladder ca, bilateral hydronephrosi Is this a current diagnosis for this admission?: Yes Plan: 11/10/2018-patient has history of bladder cancer and bilateral hydronephrosis, urine culture shows gram-positive cocci started on levofloxacin 500 mg IV daily today. Waiting for the sensitivity report. 11/11/2018-patient has history of bladder cancer and bilateral hydronephrosis. Urine culture is positive for i E faecalis. Presently on levofloxacin and started on nitrofurantoin. 11/12/2018-patient has history of bladder cancer with bilateral hydronephrosis. Urine culture showing E. Faecalis. Presently she is on nitrofurantoin. 11/13/2018-patient has history of bladder cancer with bilateral hydronephrosis, urine culture is growing Enterococcus faecalis presently she is on nitro furantoin patient is afebrile. (7) Bipolar disorder Qualifiers: Active/Remission status: currently active Current bipolar episode type: depressed Current episode severity: moderate Qualified Code(s): F31.32 - Bipolar disorder, current episode depressed, moderate Is this a current diagnosis for this admission?: No Plan: 11/10/2018-patient has history of bipolar disorder on Seroquel, Effexor, Topamax at home those medications are resumed during the hospital stay. Family is requesting for a short-term rehab facility placement physical therapy consult was requested and child welfare social worker consult was requested. 11/11/2018-patient has history of bipolar disorder presently on Seroquel, Effexor and Topamax plan is to continue those medications during the hospital stay. 11/12/2018-patient has history of bipolar disorder on Seroquel, Effexor, Topamax plan is to continue the treatment during the hospital stay. 11/13/2018-patient history of bipolar disorder on Seroquel, Effexor, Topamax she is currently receiving these medications during the hospital stay. (8) Hypotension Is this a current diagnosis for this admission?: Yes Plan: 11/12/2018-patient his blood pressure today is 103/54 with elevated creatinine of 1.83 started on IV fluids normal saline 50 cc/h we going to closely monitor her blood pressures and recheck the labs tomorrow. Hypotension may be secondary to poor oral intake. 03/2019-patient blood pressure today is 111/43 with a heart rate of 88 blood pressure is well controlled hypertension is resolved. - Time Time Spent with patient: Less than 15 minutes Medications reviewed and adjusted accordingly: Yes Anticipated discharge: SN[facility]
[2018-11-13] MEDS: FERROUS SULFATE 325 MG TABLET PO SCH (17:54)
[2018-11-13] MEDS: SIMVASTATIN 10 MG TABLET PO SCH (17:54)
[2018-11-13] MEDS: TOPIRAMATE 100 MG TABLET PO SCH (17:55)
[2018-11-13] MEDS: LAMOTRIGINE 100 MG TABLET PO SCH (17:55)
[2018-11-14] MEDS: NORMAL SALINE 1000 ML 1,000 ML IV PRN ×2 (02:13→20:09)
[2018-11-14 05:43] LABS: ABSOLUTE EOSINOPHILS # (AUTO) 0.7 10^3/uL (0.0-0.6); ABSOLUTE LYMPHOCYTES (AUTO) 0.7 10^3/uL (0.5-4.7); ABSOLUTE MONOCYTES (AUTO) 0.4 10^3/uL (0.1-1.4); BASOPHILS % (AUTO) 0.3 % (0-2); EOSINOPHILS % (AUTO) 8.6 % (0-6); HEMATOCRIT 26.8 % (36.0-47.0); HEMOGLOBIN 9.1 g/dL (12.0-15.5); LYMPHOCYTES % (AUTO) 8.7 % (13-45); MEAN CORPUSCULAR HEMOGLOBIN 28.5 pg (27.0-33.4); MEAN CORPUSCULAR VOLUME 84 fl (80-97); MONOCYTES % (AUTO) 5.2 % (3-13); PLATELET COUNT 297 10^3/uL (150-450); RED CELL DISTRIBUTION WIDTH 14.8 % (11.5-14.0); SEGMENTED NEUTROPHILS % (AUTO) 77.2 % (42-78); TOTAL CELLS COUNTED % (AUTO) 100 %; WHITE BLOOD COUNT 7.7 10^3/uL (4.0-10.5)
[2018-11-14] MEDS: HEPARIN SOD (PORCINE) 5,000 UNIT/ML 1 ML SYRINGE SUBCUT SCH ×3 (05:44→22:21)
[2018-11-14] MEDS: LEVOTHYROXINE SODIUM 0.05 MG TABLET PO SCH (05:46)
[2018-11-14 06:21] LABS: ALANINE AMINOTRANSFERASE 11 U/L (9-52); ALBUMIN 3.7 g/dL (3.5-5.0); ALKALINE PHOSPHATASE 79 U/L (38-126); ANION GAP 14 (5-19); ASPARTATE AMINO TRANSFERASE 18 U/L (14-36); BILIRUBIN,DIRECT 0.2 mg/dL (0.0-0.4); BILIRUBIN,TOTAL 0.2 mg/dL (0.2-1.3); BLOOD UREA NITROGEN 23 mg/dL (7-20); CALCIUM 9.7 mg/dL (8.4-10.2); CARBON DIOXIDE 19 mmol/L (22-30); CHLORIDE 106 mmol/L (98-107); GLUCOSE 93 mg/dL (75-110); POTASSIUM 4.2 mmol/L (3.6-5.0); SODIUM 138.9 mmol/L (137-145); TOTAL PROTEIN 6.4 g/dL (6.3-8.2)
--- NOTE | 2018-11-14 11:13 | PDOC PROGRESS REPORT ---
Subjective Progress Note for:: 11/14/18 Subjective:: 11/10/2018-no acute events in the last 24 hours. Patient is complaining of occasional epigastric pain. No episodes of diarrhea anymore. Patient is afebrile. Culture is growing gram-positive cocci. To start on levofloxacin 500 mg IV daily. No episodes of nausea vomiting or diarrhea. Be going to do the acute abdominal series for the epigastric pain. 11/11/2018-11/11/2018-no acute events in the last 24 hours. Patient is afebrile. Urine culture came back positive for E faecalis. Patient is presently on daptomycin and levofloxacin the bacteria is resistant to levofloxacin. Plan is to discontinue levofloxacin and nitrofurantoin. 11/12/2018-no acute events in the last 24 hours. Patient is afebrile. Blood pressure this morning is 103/54 and creatinine went up to 1.83 started on IV fluids normal saline 50 cc/h. To continue to closely monitor the blood pressure today and recheck the labs tomorrow in my opinion she is not stable enough to go home today. 11/13/2018-no acute events in the last 24 hours. Patient is afebrile. Blood pressure today is 111/43. Patient creatinine is continued to trend up it is 1.93 today. Yesterday order for IV fluids but the patient refused IV access. Try to convince her that she need hydration patient said she understood but she does want to get IV fluids. We encouraged her to drink plenty of fluids. 11/14/2018- No acute events in the last 24 hours. Patient is afebrile. Blood pressure today is 108/44. Asymptomatic. Daughter is requesting for psych evaluation because she is concerned about children safety. Daughter wants the patient to go to a long-term care facility. Psych consult was placed. Patient is currently awake communicating very well not in distress. Reason For Visit: DEHYDRATION,RECURRENT FALL,DIARRHEA Physical Exam Vital Signs: Temp Pulse Resp BP Pulse Ox 98.6 F 86 16 108/44 L 94 11/14/18 08:38 11/14/18 08:38 11/14/18 08:38 11/14/18 08:38 11/14/18 08:38 Intake & Output 11/13/18 11/14/18 11/15/18 06:59 06:59 06:59 Intake Total 900 1787 Output Total 1300 2049 Balance -400 -263 Weight 49.2 kg 49.4 kg General appearance: PRESENT: disheveled, thin Head exam: PRESENT: atraumatic Eye exam: PRESENT: PERRLA Neck exam: ABSENT: carotid bruit, JVD, lymphadenopathy, thyromegaly Respiratory exam: PRESENT: clear to auscultation donita. ABSENT: rales, rhonchi, wheezes Cardiovascular exam: PRESENT: RRR. ABSENT: diastolic murmur, rubs, systolic murmur GI/Abdominal exam: PRESENT: normal bowel sounds, soft. ABSENT: distended, guarding, mass, organolmegaly, rebound, tenderness Extremities exam: PRESENT: full ROM. ABSENT: calf tenderness, clubbing, pedal edema Neurological exam: PRESENT: alert, awake, oriented to person, oriented to place, oriented to time, oriented to situation, CN II-XII grossly intact. ABSENT: motor sensory deficit Psychiatric exam: PRESENT: appropriate affect, normal mood. ABSENT: homicidal ideation, suicidal ideation Results Laboratory Results: 11/14/18 05:12 11/14/18 05:12 11/14/18 11/14/18 05:12 05:12 WBC 7.7 RBC 3.20 L Hgb 9.1 L Hct 26.8 L MCV 84 MCH 28.5 MCHC 34.0 RDW 14.8 H Plt Count 297 Seg Neutrophils % 77.2 Lymphocytes % 8.7 L Monocytes % 5.2 Eosinophils % 8.6 H Basophils % 0.3 Absolute Neutrophils 6.0 Absolute Lymphocytes 0.7 Absolute Monocytes 0.4 Absolute Eosinophils 0.7 H Absolute Basophils 0.0 Sodium 138.9 Potassium 4.2 Chloride 106 Carbon Dioxide 19 L Anion Gap 14 BUN 23 H Creatinine 1.64 H Est GFR ( Amer) 37 L Est GFR (Non-Af Amer) 31 L Glucose 93 Calcium 9.7 Magnesium 2.1 Total Bilirubin 0.2 AST 18 ALT 11 Alkaline Phosphatase 79 Total Protein 6.4 Albumin 3.7 Impressions: Abdomen X-Ray 11/07/18 00:00 IMPRESSION: No acute abnormality. Acute Abdomen Series 11/10/18 00:00 IMPRESSION: NO RADIOGRAPHIC EVIDENCE FOR ACUTE ABDOMINAL DISEASE. Assessment & Plan - Diagnosis (1) Diarrhea Qualifiers: Diarrhea type: unspecified type Qualified Code(s): R19.7 - Diarrhea, unspecified Is this a current diagnosis for this admission?: Yes Plan: 11/10/2018-patient is admitted with diarrhea leading to dehydration. C. difficile was negative. No episodes of loose stools in the last 24 hours. Diarrhea is resolved. 11/11/2018-patient was admitted with diarrhea and dehydration diarrhea is resolved. C. difficile is negative. 11/12/[id number]-of[age]-old female admitted for diarrhea and dehydration recurrent falls diarrhea was resolved. C. difficile was negative. 11/13/2018-this 73-year-old female admitted with diarrhea and dehydration, recurrent falls with diarrhea was resolved C. difficile was negative. 11/14/[id number]-ejzp-old female admitted for diarrhea which was resolved. C. difficile was negative. (2) Urinary tract infection Qualifiers: Hematuria presence: with hematuria Is this a current diagnosis for this admission?: Yes Plan: 11/10/2018-patient has history of recurrent UTI during the hospital stay urine culture is positive for gram-positive cocci. Started on levofloxacin 500 mg IV daily. Once the cultures are available we going to adjust antibiotics. 11/11/2018-urine culture came back positive for E faecalis sensitivity to daptomycin and resistant to levofloxacin . Plan is to discontinue levofloxacin and start on nitrofurantoin from today. 11/12/2018-patient is admitted with urinary tract infection positive for E faecalis sensitive to daptomycin plan is to continue the daptomycin. T-max is 98.5. 11/13/2018 urine culture is showing if faecalis sensitive to daptomycin patient receiving nitrofurantoin right now T-max is 98.8. 11/14/2018-urine culture shows E faecalis. Presently on nitrofurantoin. Patient is afebrile with a temperature of 98.6 plan is to continue the antibiotic therapy. (3) Acute kidney injury superimposed on CKD Is this a current diagnosis for this admission?: Yes Plan: 11/10/2018-patient is admitted with elevated creatinine from the baseline 0.8 in June last year, on admission creatinine is 1.77 improved to 1.31 yesterday. Acute kidney injury most likely secondary to prerenal causes which was resolving. 11/11/2018-patient was admitted with elevated creatinine of 1.77. Her baseline creatinine is around 0.8 in June last year. Today creatinine went back up to 1.83. Blood pressure today is 121/64 I tried to explain to the patient That she need to be on IV fluids but patient is refusing for IV access. Patient was encouraged to drink plenty of fluids. 11/12/2018-patient's admission creatinine is 1.77 went up to 1.83 today may be secondary to poor oral intake acute kidney injury may be secondary to prerenal causes to start IV fluids normal saline 50 cc/h and to recheck the labs again tomorrow. 03/2019 patient's admission creatinine is 1.77 and today it is 1.93 yesterday placed an order for IV fluids but the patient refused IV access and refused to take IV fluids. I talked to her this morning in length need to take fluids by mouth and also by IV access patient likely to drink plenty of fluids but refusing the IV fluids. 11/14/2018-patient's admission creatinine is 1.77 it was improved to 1.64 patient agreed with IV fluid therapy yesterday she receiving normal saline at 50 cc/h. Acute kidney injury most likely prerenal is resolving. (4) Dementia Is this a current diagnosis for this admission?: No Plan: 11/10/2018-patient has history of dementia. On examination alert and awake communicating okay. In my opinion patient's mental status at baseline. 11/11/2018-patient has history of dementia. She able to give her date of and she knows she was in the hospital but occasionally she is getting confused and anxious. She might have underlying chronic dementia. 11/12/2018-patient has history of dementia but today she is alert and awake communicating very well no problems of confusion no problems in recalling the events. 11/13/2018-patient has history of dementia but she is communicating very well this morning no signs of any confusion no problems in recalling the issues. 11/14/2018-patient's condition is stable. (5) COPD (chronic obstructive pulmonary disease) Qualifiers: Emphysema type: unspecified Is this a current diagnosis for this admission?: No Plan: 11/10/2018-patient has history of COPD not on home oxygen. On examination chest bilateral entry was decreased no wheezing no crepitations are noticed. 11/11/2018-patient has history of COPD pulse ox is 100% on room air here. On exa mination chest bilateral entry was decreased no wheezing no crepitations. 11/12/2018-patient has history of COPD pulse ox today is 96% on room air chest examination bilateral entry was decreased no wheezing no crepitations. Plan is to continue the present management. 11/14/2018-pulse ox today is 94% on room air. Chest examination chest bilateral entry was decreased no wheezing no crepitations. (6) H of Bladder ca, bilateral hydronephrosi Is this a current diagnosis for this admission?: Yes Plan: 11/10/2018-patient has history of bladder cancer and bilateral hydronephrosis, urine culture shows gram-positive cocci started on levofloxacin 500 mg IV daily today. Waiting for the sensitivity report. 11/11/2018-patient has history of bladder cancer and bilateral hydronephrosis. Urine culture is positive for i E faecalis. Presently on levofloxacin and started on nitrofurantoin. 11/12/2018-patient has history of bladder cancer with bilateral hydronephrosis. Urine culture showing E. Faecalis. Presently she is on nitrofurantoin. 11/13/2018-patient has history of bladder cancer with bilateral hydronephrosis, urine culture is growing Enterococcus faecalis presently she is on nitrofurantoin patient is afebrile. 11/14/2018-patient has history of bladder cancer with bilateral hydronephrosis urine culture shows E faecalis presently on nitrofurantoin plan is to continue the course of antibiotic therapy patient is afebrile. (7) Bipolar disorder Qualifiers: Active/Remission status: currently active Current bipolar episode type: depressed Current episode severity: moderate Qualified Code(s): F31.32 - Bipolar disorder, current episode depressed, moderate Is this a current diagnosis for this admission?: No Plan: 11/10/2018-patient has history of bipolar disorder on Seroquel, Effexor, Topamax at home those medications are resumed during the hospital stay. Family is requesting for a short-term rehab facility placement physical therapy consult was requested and social service agency director consult was requested. 11/11/2018-patient has history of bipolar disorder presently on Seroquel, Effexor and Topamax plan is to continue those medications during the hospital stay. 11/12/2018-patient has history of bipolar disorder on Seroquel, Effexor, Topamax plan is to continue the treatment during the hospital stay. 11/13/2018-patient history of bipolar disorder on Seroquel, Effexor, Topamax she is currently receiving these medications during the hospital stay. 11/14/2018-patient has history of bipolar disorder daughter is requesting for a psych evaluation. Consult was placed. (8) Hypotension Is this a current diagnosis for this admission?: Yes Plan: 11/12/2018-patient his blood pressure today is 103/54 with elevated creatinine of 1.83 started on IV fluids normal saline 50 cc/h we going to closely monitor her blood pressures and recheck the labs tomorrow. Hypotension may be secondary to poor oral intake. 11/13/2018-patient blood pressure today is 111/43 with a heart rate of 88 blood pressure is well controlled hypertension is resolved. 11/14/2018-patient blood pressure is 118/88 today with pulse rate of 79 hypotension is resolved. - Time Medications reviewed and adjusted accordingly: Yes
[2018-11-14] MEDS: LACTOBACILLUS ACIDOPHILUS 250 MG TAB PO SCH ×2 (11:44→17:29)
[2018-11-14] MEDS: FAMOTIDINE 20 MG TABLET PO SCH ×2 (11:44→22:20)
[2018-11-14] MEDS: VENLAFAXINE HCL 75 MG CAP.SR.24H PO SCH (11:44)
[2018-11-14] MEDS: QUETIAPINE FUMARATE 100 MG TABLET PO SCH (11:44)
[2018-11-14] MEDS: DICYCLOMINE HCL 20 MG TABLET PO SCH ×4 (11:45→22:20)
[2018-11-14] MEDS: NITROFURANTOIN 5 MG/ML SUSP 60 ML PO SCH ×2 (11:45→17:30)
--- NOTE | 2018-11-14 13:12 | PSYCHOLOGICAL NOTE ---
Addendum entered and electronically signed by CHRIS IRENE LCSWA 11/14/18 14:50: Capacity request is noted; capacity evaluation will be conducted 24-48 hours after medication recommendations have been implemented. Original Note: Psych Note - Psych Note Date seen by psych provider: 11/14/18 Psych Note: Reason for consult: medication recommendations Patient has a history of bipolar when she was younger however has been officially diagnosed with dementia. There is concern the patient has had an increase in aggression. Attending physicians are asked to consider to avoid prescribing benzodiazepines (e.g. Ativan, Xanax, Valium, Klonopin), antipsyc hotics (e.g. Haldol, Geodon, Zyprexa, Seroquel), some sleep aids (e.g. Ambien, Lunesta, Sonata), narcotic pain medications, and high-dose steroids (prednisone) as these have been known to cause and/or increased symptoms of aggression, psychosis, or paranoia in patients with neurodegenerative processes such as dementia, Alzheimer's disease, traumatic brain injury, etc. Medication recommendations have been obtained from [facility]'s contracted psychiatrist Dr. Aron OLVERA are as follows please discontinue Seroquel and Topamax. Reduce Effexor to 75mg for 5 days then discontinue. Please start Depakote 250mg daily and Buspar 5mg twice daily.
[2018-11-14] MEDS: DIVALPROEX SODIUM 250 MG TAB.SR.24H PO SCH (13:57)
[2018-11-14] MEDS: LAMOTRIGINE 100 MG TABLET PO SCH (17:29)
[2018-11-14] MEDS: FERROUS SULFATE 325 MG TABLET PO SCH (17:29)
[2018-11-14] MEDS: SIMVASTATIN 10 MG TABLET PO SCH (17:30)
[2018-11-14] MEDS: BUSPIRONE HCL 10 MG TABLET PO SCH (22:20)
[2018-11-15] MEDS: LEVOTHYROXINE SODIUM 0.05 MG TABLET PO SCH (05:22)
[2018-11-15] MEDS: HEPARIN SOD (PORCINE) 5,000 UNIT/ML 1 ML SYRINGE SUBCUT SCH ×2 (05:22→15:12)
--- NOTE | 2018-11-15 09:51 | PDOC CONSULTATION ---
Consultation-Blank Consultation: Reviewed Patient's chart to include Dr. Hardwick's progress notes. His notes outline the patient's mental status daily and indicate she is alert and oriented with good recall of events and good communication. Discharge planning notes indicate the Patient has been accepted at a rehab facility and will be discharg ed on Saturday barring any changes. Contacted Dr. Hardwick to discuss case and he indicated a capacity evaluation was not needed and asked to wait on any evaluation at this point. He indicated he would contact the behavioral health team should a psychiatric evaluation be needed. Thank you for this kind referral.
--- NOTE | 2018-11-15 10:25 | PDOC PROGRESS REPORT ---
Subjective Progress Note for:: 11/15/18 Subjective:: 11/10/2018-no acute events in the last 24 hours. Patient is complaining of occasional epigastric pain. No episodes of diarrhea anymore. Patient is afebrile. Culture is growing gram-positive cocci. To start on levofloxacin 500 mg IV daily. No episodes of nausea vomiting or diarrhea. Be going to do the acute abdominal series for the epigastric pain. 11/11/2018-11/11/2018-no acute events in the last 24 hours. Patient is afebrile. Urine culture came back positive for E faecalis. Patient is presently on daptomycin and levofloxacin the bacteria is resistant to levofloxacin. Plan is to discontinue levofloxacin and nitrofurantoin. 11/12/2018-no acute events in the last 24 hours. Patient is afebrile. Blood pressure this morning is 103/54 and creatinine went up to 1.83 started on IV fluids normal saline 50 cc/h. To continue to closely monitor the blood pressure today and recheck the labs tomorrow in my opinion she is not stable enough to go home today. 11/13/2018-no acute events in the last 24 hours. Patient is afebrile. Blood pressure today is 111/43. Patient creatinine is continued to trend up it is 1.93 today. Yesterday order for IV fluids but the patient refused IV access. Try to convince her that she need hydration patient said she understood but she does want to get IV fluids. We encouraged her to drink plenty of fluids. 11/14/2018- No acute events in the last 24 hours. Patient is afebrile. Blood pressure today is 108/44. Asymptomatic. Daughter is requesting for psych evaluation because she is concerned about children safety. Daughter wants the patient to go to a long-term care facility. Psych consult was placed. Patient is currently awake communicating very well not in distress. 11/25/2018 no acute events in the last 24 hours. Patient is afebrile. Patient got a place offering private halfway. Probably she will go there on Saturday. No complaints from the patient today. Communicating very well. Not in distress. Reason For Visit: DEHYDRATION,RECURRENT FALL,DIARRHEA Physical Exam Vital Signs: Temp Pulse Resp BP Pulse Ox 97.6 F 83 20 153/78 H 99 11/15/18 07:36 11/15/18 07:36 11/15/18 07:36 11/15/18 07:36 11/15/18 07:36 Intake & Output 11/14/18 11/15/18 11/16/18 06:59 06:59 07:59 Intake Total 1787 1363 Output Total 2058 525 Balance -263 838 Weight 49.4 kg 48.7 kg General appearance: PRESENT: no acute distress Head exam: PRESENT: atraumatic Eye exam: PRESENT: PERRLA Mouth exam: PRESENT: moist, tongue midline Neck exam: ABSENT: carotid bruit, JVD, lymphadenopathy, thyromegaly Respiratory exam: PRESENT: clear to auscultation donita. ABSENT: rales, rhonchi, wheezes Cardiovascular exam: PRESENT: RRR. ABSENT: diastolic murmur, rubs, systolic murmur GI/Abdominal exam: PRESENT: normal bowel sounds, soft. ABSENT: distended, guarding, mass, organolmegaly, rebound, tenderness Extremities exam: PRESENT: full ROM. ABSENT: calf tenderness, clubbing, pedal edema Neurological exam: PRESENT: alert, awake, oriented to person, oriented to place, oriented to time, oriented to situation, CN II-XII grossly intact. ABSENT: motor sensory deficit Psychiatric exam: PRESENT: appropriate affect, normal mood. ABSENT: homicidal ideation, suicidal ideation Results Laboratory Results: 11/14/18 05:12 11/14/18 05:12 Impressions: Abdomen X-Ray 11/07/18 00:00 IMPRESSION: No acute abnormality. Acute Abdomen Series 11/10/18 00:00 IMPRESSION: NO RADIOGRAPHIC EVIDENCE FOR ACUTE ABDOMINAL DISEASE. Assessment & Plan - Diagnosis (1) Diarrhea Qualifiers: Diarrhea type: unspecified type Qualified Code(s): R19.7 - Diarrhea, unspecified Is this a current diagnosis for this admission?: Yes Plan: 11/10/2018-patient is admitted with diarrhea leading to dehydration. C. difficile was negative. No episodes of loose stools in the last 24 hours. Diarrhea is resolved. 11/11/2018-patient was admitted with diarrhea and dehydration diarrhea is res olved. C. difficile is negative. 11/12/[id number]-lnjj-old female admitted for diarrhea and dehydration recurrent falls diarrhea was resolved. C. difficile was negative. 11/13/2018-this 73-year-old female admitted with diarrhea and dehydration, recurrent falls with diarrhea was resolved C. difficile was negative. 11/14/[id number]-[id number]-old female admitted for diarrhea which was resolved. C. difficile was negative. 11/15/2018-diarrhea is resolved. (2) Urinary tract infection Qualifiers: Hematuria presence: with hematuria Is this a current diagnosis for this admission?: Yes Plan: 11/10/2018-patient has history of recurrent UTI during the hospital stay urine culture is positive for gram-positive cocci. Started on levofloxacin 500 mg IV daily. Once the cultures are available we going to adjust antibiotics. 11/11/2018-urine culture came back positive for E faecalis sensitivity to daptomycin and resistant to levofloxacin . Plan is to discontinue levofloxacin and start on nitrofurantoin from today. 11/12/2018-patient is admitted with urinary tract infection positive for E faecalis sensitive to daptomycin plan is to continue the daptomycin. T-max is 98.5. 11/13/2018 urine culture is showing if faecalis sensitive to daptomycin patient receiving nitrofurantoin right now T-max is 98.8. 11/14/2018-urine culture shows E faecalis. Presently on nitrofurantoin. Patient is afebrile with a temperature of 98.6 plan is to continue the antibiotic therapy. 11/15/2018 urine culture is positive for Enterococcus faecalis on nitrofurantoin. Her temperature today is 97.6. Afebrile. Plan is to continue the present management. (3) Acute kidney injury superimposed on CKD Is this a current diagnosis for this admission?: Yes Plan: 11/10/2018-patient is admitted with elevated creatinine from the baseline 0.8 in June last year, on admission creatinine is 1.77 improved to 1.31 yesterday. Acute kidney injury most likely secondary to prerenal causes which was resolving. 11/11/2018-patient was admitted with elevated creatinine of 1.77. Her baseline creatinine is around 0.8 in June last year. Today creatinine went back up to 1.83. Blood pressure today is 121/64 I tried to explain to the patient That she need to be on IV fluids but patient is refusing for IV access. Patient was encouraged to drink plenty of fluids. 11/12/2018-patient's admission creatinine is 1.77 went up to 1.83 today may be secondary to poor oral intake acute kidney injury may be secondary to prerenal causes to start IV fluids normal saline 50 cc/h and to recheck the labs again tomorrow. 03/2019 patient's admission creatinine is 1.77 and today it is 1.93 yesterday placed an order for IV fluids but the patient refused IV access and refused to take IV fluids. I talked to her this morning in length need to take fluids by mouth and also by IV access patient likely to drink plenty of fluids but refusing the IV fluids. 11/14/2018-patient's admission creatinine is 1.77 it was improved to 1.64 patient agreed with IV fluid therapy yesterday she receiving normal saline at 50 cc/h. Acute kidney injury most likely prerenal is resolving. 11/15/2018-on admission creatinine is 1.77 it was improved to 1.64 we going to check the labs again today she is getting IV fluids normal saline at 50 cc/h. (4) Dementia Is this a current diagnosis for this admission?: No Plan: 11/10/2018-patient has history of dementia. On examination alert and awake communicating okay. In my opinion patient's mental status at baseline. 11/11/2018-patient has history of dementia. She able to give her date of and she knows she was in the hospital but occasionally she is getting confused and anxious. She might have underlying chronic dementia. 11/12/2018-patient has history of dementia but today she is alert and awake communicating very well no problems of confusion no problems in recalling the events. 11/13/2018-patient has history of dementia but she is communicating very well this morning no signs of any confusion no problems in recalling the issues. 11/14/2018-patient's condition is stable. 11/15/2018-patient might have underlying dementia following the psychiatric recommendations. Appreciate Dr. Farah's input. (5) COPD (chronic obstructive pulmonary disease) Qualifiers: Emphysema type: unspecified Is this a current diagnosis for this admission?: No Plan: 11/10/2018-patient has history of COPD not on home oxygen. On examination chest bilateral entry was decreased no wheezing no crepitations are noticed. 11/11/2018-patient has history of COPD pulse ox is 100% on room air here. On examination chest bilateral entry was decreased no wheezing no crepitations. 11/12/2018-patient has history of COPD pulse ox today is 96% on room air chest examination bilateral entry was decreased no wheezing no crepitations. Plan is to continue the present management. 11/14/2018-pulse ox today is 94% on room air. Chest examination chest bilateral entry was decreased no wheezing no crepitations. 11/15/2018-pulse ox today is 96% on room air. Chest bilateral entry was decreased no wheezing no crepitations. Plan is to continue the present management. (6) H of Bladder ca, bilateral hydronephrosi Is this a current diagnosis for this admission?: Yes Plan: 11/10/2018-patient has history of bladder cancer and bilateral hydronephrosis, urine culture shows gram-positive cocci started on levofloxacin 500 mg IV daily today. Waiting for the sensitivity report. 11/11/2018-patient has history of bladder cancer and bilateral hydronephrosis. Urine culture is positive for i E faecalis. Presently on levofloxacin and started on nitrofurantoin. 11/12/2018-patient has history of bladder cancer with bilateral hydronephrosis. Urine culture showing E. Faecalis. Presently she is on nitrofurantoin. 11/13/2018-patient has history of bladder cancer with bilateral hydronephrosis, urine culture is growing Enterococcus faecalis presently she is on ni trofurantoin patient is afebrile. 11/14/2018-patient has history of bladder cancer with bilateral hydronephrosis urine culture shows E faecalis presently on nitrofurantoin plan is to continue the course of antibiotic therapy patient is afebrile. 11/15/2018-patient has history of bladder cancer with bilateral hydronephrosis, urine culture is positive for Enterococcus faecalis presently on nitrofurantoin. Plan is to complete the antibiotic therapy. (7) Bipolar disorder Qualifiers: Active/Remission status: currently active Current bipolar episode type: depressed Current episode severity: moderate Qualified Code(s): F31.32 - Bipolar disorder, current episode depressed, moderate Is this a current diagnosis for this admission?: No Plan: 11/10/2018-patient has history of bipolar disorder on Seroquel, Effexor, Topamax at home those medications are resumed during the hospital stay. Family is requesting for a short-term rehab facility placement physical therapy consult was requested and sr. social media & mobile manager consult was requested. 11/11/2018-patient has history of bipolar disorder presently on Seroquel, Effexor and Topamax plan is to continue those medications during the hospital stay. 11/12/2018-patient has history of bipolar disorder on Seroquel, Effexor, Topamax plan is to continue the treatment during the hospital stay. 11/13/2018-patient history of bipolar disorder on Seroquel, Effexor, Topamax she is currently receiving these medications during the hospital stay. 11/14/2018-patient has history of bipolar disorder daughter is requesting for a psych evaluation. Consult was placed. 11/15/2018-patient has history of bipolar disorder as per segment recommendations Seroquel was discontinued Topamax was discontinued started on BuSpar and Depakote. Effexor was dose was decreased. Also added Cogentin to the medi cations. (8) Hypotension Is this a current diagnosis for this admission?: Yes Plan: 11/12/2018-patient his blood pressure today is 103/54 with elevated creatinine of 1.83 started on IV fluids normal saline 50 cc/h we going to closely monitor her blood pressures and recheck the labs tomorrow. Hypotension may be secondary to poor oral intake. 11/13/2018-patient blood pressure today is 111/43 with a heart rate of 88 blood pressure is well controlled hypertension is resolved. 11/14/2018-patient blood pressure is 118/88 today with pulse rate of 79 hypotension is resolved. 11/15/2018-blood pressure today is 153/78 hypotension is resolved. - Time Time Spent with patient: 15-24 minutes Medications reviewed and adjusted accordingly: Yes Anticipated discharge: [facility]
[2018-11-15 10:50] LABS: ABSOLUTE EOSINOPHILS # (AUTO) 0.6 10^3/uL (0.0-0.6); ABSOLUTE LYMPHOCYTES (AUTO) 0.6 10^3/uL (0.5-4.7); ABSOLUTE MONOCYTES (AUTO) 0.4 10^3/uL (0.1-1.4); BASOPHILS % (AUTO) 0.6 % (0-2); EOSINOPHILS % (AUTO) 9.1 % (0-6); HEMATOCRIT 28.1 % (36.0-47.0); HEMOGLOBIN 9.4 g/dL (12.0-15.5); LYMPHOCYTES % (AUTO) 8.6 % (13-45); MEAN CORPUSCULAR HEMOGLOBIN 27.6 pg (27.0-33.4); MEAN CORPUSCULAR HGB CONC 33.3 g/dL (32.0-36.0); MEAN CORPUSCULAR VOLUME 83 fl (80-97); MONOCYTES % (AUTO) 5.9 % (3-13); PLATELET COUNT 323 10^3/uL (150-450); RED BLOOD COUNT 3.38 10^6/uL (3.72-5.28); SEGMENTED NEUTROPHILS % (AUTO) 75.8 % (42-78); TOTAL CELLS COUNTED % (AUTO) 100 %; WHITE BLOOD COUNT 6.6 10^3/uL (4.0-10.5)
[2018-11-15 11:03] LABS: ALANINE AMINOTRANSFERASE 24 U/L (9-52); ALKALINE PHOSPHATASE 90 U/L (38-126); ANION GAP 13 (5-19); ASPARTATE AMINO TRANSFERASE 20 U/L (14-36); BILIRUBIN,DIRECT 0.2 mg/dL (0.0-0.4); BILIRUBIN,TOTAL 0.2 mg/dL (0.2-1.3); BLOOD UREA NITROGEN 21 mg/dL (7-20); CARBON DIOXIDE 22 mmol/L (22-30); CHLORIDE 102 mmol/L (98-107); GLUCOSE 84 mg/dL (75-110); POTASSIUM 4.3 mmol/L (3.6-5.0); SODIUM 136.6 mmol/L (137-145); TOTAL PROTEIN 7.4 g/dL (6.3-8.2)
[2018-11-15] MEDS: BUSPIRONE HCL 10 MG TABLET PO SCH ×2 (11:44→21:19)
[2018-11-15] MEDS: LACTOBACILLUS ACIDOPHILUS 250 MG TAB PO SCH ×2 (11:44→18:28)
[2018-11-15] MEDS: FAMOTIDINE 20 MG TABLET PO SCH ×2 (11:47→21:20)
[2018-11-15] MEDS: DIVALPROEX SODIUM 250 MG TAB.SR.24H PO SCH (11:47)
[2018-11-15] MEDS: VENLAFAXINE HCL 75 MG CAP.SR.24H PO SCH (11:48)
[2018-11-15] MEDS: DICYCLOMINE HCL 20 MG TABLET PO SCH ×4 (13:23→21:20)
[2018-11-15] MEDS: NITROFURANTOIN 5 MG/ML SUSP 60 ML PO SCH ×2 (13:25→18:29)
[2018-11-15] MEDS: LAMOTRIGINE 100 MG TABLET PO SCH (18:28)
[2018-11-15] MEDS: FERROUS SULFATE 325 MG TABLET PO SCH (18:29)
[2018-11-15] MEDS: SIMVASTATIN 10 MG TABLET PO SCH (18:29)
[2018-11-16] MEDS: HEPARIN SOD (PORCINE) 5,000 UNIT/ML 1 ML SYRINGE SUBCUT SCH ×4 (00:23→21:16)
[2018-11-16] MEDS: LEVOTHYROXINE SODIUM 0.05 MG TABLET PO SCH (06:58)
--- NOTE | 2018-11-16 09:47 | PDOC PROGRESS REPORT ---
Subjective Progress Note for:: 11/16/18 Subjective:: 11/10/2018-no acute events in the last 24 hours. Patient is complaining of occasional epigastric pain. No episodes of diarrhea anymore. Patient is afebrile. Culture is growing gram-positive cocci. To start on levofloxacin 500 mg IV daily. No episodes of nausea vomiting or diarrhea. Be going to do the acute abdominal series for the epigastric pain. 11/11/2018-11/11/2018-no acute events in the last 24 hours. Patient is afebrile. Urine culture came back positive for E faecalis. Patient is presently on daptomycin and levofloxacin the bacteria is resistant to levofloxacin. Plan is to discontinue levofloxacin and nitrofurantoin. 11/12/2018-no acute events in the last 24 hours. Patient is afebrile. Blood pressure this morning is 103/54 and creatinine went up to 1.83 started on IV fluids normal saline 50 cc/h. To continue to closely monitor the blood pressure today and recheck the labs tomorrow in my opinion she is not stable enough to go home today. 11/13/2018-no acute events in the last 24 hours. Patient is afebrile. Blood pressure today is 111/43. Patient creatinine is continued to trend up it is 1.93 today. Yesterday order for IV fluids but the patient refused IV access. Try to convince her that she need hydration patient said she understood but she does want to get IV fluids. We encouraged her to drink plenty of fluids. 11/14/2018- No acute events in the last 24 hours. Patient is afebrile. Blood pressure today is 108/44. Asymptomatic. Daughter is requesting for psych evaluation because she is concerned about children safety. Daughter wants the patient to go to a long-term care facility. Psych consult was placed. Patient is currently awake communicating very well not in distress. 11/15/2018 no acute events in the last 24 hours. Patient is afebrile. Patient got a place [facility]. Probably she will go there on Saturday. No complaints from the patient today. Communicating very well. Not in distress. 11/16/2018-no acute events in the last 24 hours. Patient is afebrile. Patient is going to go to [facility] tomorrow. No acute events in the last 24 hours. Patient is afebrile. Comfortably sleeping in the bed. Reason For Visit: DEHYDRATION,RECURRENT FALL,DIARRHEA Physical Exam Vital Signs: Temp Pulse Resp BP Pulse Ox 98.4 F 96 16 133/55 H 93 11/16/18 08:00 11/16/18 08:00 11/16/18 08:00 11/16/18 08:00 11/16/18 08:00 Intake & Output 11/15/18 11/16/18 11/17/18 05:59 06:59 06:59 Intake Total Output Total Balance Weight General appearance: PRESENT: thin Head exam: PRESENT: atraumatic Eye exam: PRESENT: PERRLA Mouth exam: PRESENT: moist, tongue midline Neck exam: ABSENT: carotid bruit, JVD, lymphadenopathy, thyromegaly Respiratory exam: PRESENT: decreased breath sounds Cardiovascular exam: PRESENT: RRR. ABSENT: diastolic murmur, rubs, systolic murmur Vascular exam: PRESENT: normal capillary refill GI/Abdominal exam: PRESENT: normal bowel sounds, soft. ABSENT: distended, guarding, mass, organolmegaly, rebound, tenderness Extremities exam: PRESENT: full ROM. ABSENT: calf tenderness, clubbing, pedal edema Neurological exam: PRESENT: alert, awake, oriented to person, oriented to place, oriented to time, oriented to situation, CN II-XII grossly intact. ABSENT: motor sensory deficit Psychiatric exam: PRESENT: appropriate affect, normal mood. ABSENT: homicidal ideation, suicidal ideation Results Laboratory Results: 11/15/18 10:31 11/15/18 10:31 11/15/18 11/15/18 10:31 10:31 WBC 6.6 RBC 3.38 L Hgb 9.4 L Hct 28.1 L MCV 83 MCH 27.6 MCHC 33.3 RDW 15.0 H Plt Count 323 Seg Neutrophils % 75.8 Lymphocytes % 8.6 L Monocytes % 5.9 Eosinophils % 9.1 H Basophils % 0.6 Absolute Neutrophils 5.0 Absolute Lymphocytes 0.6 Absolute Monocytes 0.4 Absolute Eosinophils 0.6 Absolute Basophils 0.0 Sodium 136.6 L Potassium 4.3 Chloride 102 Carbon Dioxide 22 Anion Gap 13 BUN 21 H Creatinine 1.48 H Est GFR ( Amer) 42 L Est GFR (Non-Af Amer) 34 L Glucose 84 Calcium 10.0 Magnesium 2.2 Total Bilirubin 0.2 AST 20 ALT 24 Alkaline Phosphatase 90 Total Protein 7.4 Albumin 4.0 Impressions: Abdomen X-Ray 11/07/18 00:00 IMPRESSION: No acute abnormality. Acute Abdomen Series 11/10/18 00:00 IMPRESSION: NO RADIOGRAPHIC EVIDENCE FOR ACUTE ABDOMINAL DISEASE. Assessment & Plan - Diagnosis (1) Diarrhea Qualifiers: Diarrhea type: unspecified type Qualified Code(s): R19.7 - Diarrhea, unspecified Is this a current diagnosis for this admission?: Yes Plan: 11/10/2018-patient is admitted with diarrhea leading to dehydration. C. difficile was negative. No episodes of loose stools in the last 24 hours. Diarrhea is resolved. 11/11/2018-patient was admitted with diarrhea and dehydration diarrhea is resolved. C. difficile is negative. 11/12/[id number]-ugnx-old female admitted for diarrhea and dehydration recurrent falls diarrhea was resolved. C. difficile was negative. 11/13/2018-this 73-year-old female admitted with diarrhea and dehydration, recurrent falls with diarrhea was resolved C. difficile was negative. 11/14/[id number]-tvdd-old female admitted for diarrhea which was resolved. C. difficile was negative. 11/15/2018-diarrhea is resolved. 11/16/2018 this elderly female came in with severe diarrhea and dehydration diarrhea is resolved. Dehydration is resolved. C. difficile is negative. (2) Urinary tract infection Qualifiers: Hematuria presence: with hematuria Is this a current diagnosis for this admission?: Yes Plan: 11/10/2018-patient has history of recurrent UTI during the hospital stay urine culture is positive for gram-positive cocci. Started on levofloxacin 500 mg IV daily. Once the cultures are available we going to adjust antibiotics. 11/11/2018-urine culture came back positive for E faecalis sensitivity to daptomycin and resistant to levofloxacin . Plan is to discontinue levofloxacin and start on nitrofurantoin from today. 11/12/2018-patient is admitted with urinary tract infection positive for E faecalis sensitive to daptomycin plan is to continue the daptomycin. T-max is 98.5. 11/13/2018 urine culture is showing if faecalis sensitive to daptomycin patient receiving nitrofurantoin right now T-max is 98.8. 11/14/2018-urine culture shows E faecalis. Presently on nitrofurantoin. Patient is afebrile with a temperature of 98.6 plan is to continue the antibiotic therapy. 11/15/2018 urine culture is positive for Enterococcus faecalis on nitrofurantoin. Her temperature today is 97.6. Afebrile. Plan is to continue the present management. 11/16/2018-urine culture came back positive for Enterococcus faecalis on nitrofurantoin. Vital signs today 98.4. She is afebrile for the last several days. Plan is to discontinue antibiotic therapy today. (3) Acute kidney injury superimposed on CKD Is this a current diagnosis for this admission?: Yes Plan: 11/10/2018-patient is admitted with elevated creatinine from the baseline 0.8 in June last year, on admission creatinine is 1.77 improved to 1.31 yesterday. Acute kidney injury most likely secondary to prerenal causes which was resolv ing. 11/11/2018-patient was admitted with elevated creatinine of 1.77. Her baseline creatinine is around 0.8 in June last year. Today creatinine went back up to 1.83. Blood pressure today is 121/64 I tried to explain to the patient That she need to be on IV fluids but patient is refusing for IV access. Patient was encouraged to drink plenty of fluids. 11/12/2018-patient's admission creatinine is 1.77 went up to 1.83 today may be secondary to poor oral intake acute kidney injury may be secondary to prerenal causes to start IV fluids normal saline 50 cc/h and to recheck the labs again tomorrow. 03/2019 patient's admission creatinine is 1.77 and today it is 1.93 yesterday placed an order for IV fluids but the patient refused IV access and refused to take IV fluids. I talked to her this morning in length need to take fluids by mouth and also by IV access patient likely to drink plenty of fluids but refusing the IV fluids. 11/14/2018-patient's admission creatinine is 1.77 it was improved to 1.64 patient agreed with IV fluid therapy yesterday she receiving normal saline at 50 cc/h. Acute kidney injury most likely prerenal is resolving. 11/15/2018-on admission creatinine is 1.77 it was improved to 1.64 we going to check the labs again today she is getting IV fluids normal saline at 50 cc/h. 11/16/2018-on admission creatinine is 1.77 yesterday it was improved to 1.48 acute kidney injury most likely due to prerenal causes resolved. (4) Dementia Is this a current diagnosis for this admission?: No Plan: 11/10/2018-patient has history of dementia. On examination alert and awake communicating okay. In my opinion patient's mental status at baseline. 11/11/2018-patient has history of dementia. She able to give her date of and she knows she was in the hospital but occasionally she is getting confused and anxi ous. She might have underlying chronic dementia. 11/12/2018-patient has history of dementia but today she is alert and awake communicating very well no problems of confusion no problems in recalling the events. 11/13/2018-patient has history of dementia but she is communicating very well this morning no signs of any confusion no problems in recalling the issues. 11/14/2018-patient's condition is stable. 11/15/2018-patient might have underlying dementia following the psychiatric recommendations. Appreciate Dr. Farah's input. 11/16/2018-patient has history of underlying dementia the following psychiatric recommendations and adjusted her medications. No acute events in the last 48 hours. (5) COPD (chronic obstructive pulmonary disease) Qualifiers: Emphysema type: unspecified Is this a current diagnosis for this admission?: No Plan: 11/10/2018-patient has history of COPD not on home oxygen. On examination chest bilateral entry was decreased no wheezing no crepitations are noticed. 11/11/2018-patient has history of COPD pulse ox is 100% on room air here. On examination chest bilateral entry was decreased no wheezing no crepitations. 11/12/2018-patient has history of COPD pulse ox today is 96% on room air chest examination bilateral entry was decreased no wheezing no crepitations. Plan is to continue the present management. 11/14/2018-pulse ox today is 94% on room air. Chest examination chest bilateral entry was decreased no wheezing no crepitations. 11/15/2018-pulse ox today is 96% on room air. Chest bilateral entry was decreased no wheezing no crepitations. Plan is to continue the present management. 11/16/2018-pulse ox today is 93% on room air. She has history of COPD chest bilateral decreased but no wheezing no crepitations. Does not need to go to the custodial on oxygen. (6) H of Bladder ca, bilateral hydronephrosi Is this a current diagnosis for this admission?: Yes Plan: 11/10/2018-patient has history of bladder cancer and bilateral hydronephrosis, urine culture shows gram-positive cocci started on levofloxacin 500 mg IV daily today. Waiting for the sensitivity report. 11/11/2018-patient has history of bladder cancer and bilateral hydronephrosis. Urine culture is positive for i E faecalis. Presently on levofloxacin and started on nitrofurantoin. 11/12/2018-patient has history of bladder cancer with bilateral hydronephrosis. Urine culture showing E. Faecalis. Presently she is on nitrofurantoin. 11/13/2018-patient has history of bladder cancer with bilateral hydronephrosis, urine culture is growing Enterococcus faecalis presently she is on nitrofurantoin patient is afebrile. 11/14/2018-patient has history of bladder cancer with bilateral hydronephrosis urine culture shows E faecalis presently on nitrofurantoin plan is to continue the course of antibiotic therapy patient is afebrile. 11/15/2018-patient has history of bladder cancer with bilateral hydronephrosis, urine culture is positive for Enterococcus faecalis presently on nitrofurantoin. Plan is to complete the antibiotic therapy. 11/16/2018-urine culture is positive for E faecalis completed the course of antibiotic therapy. (7) Bipolar disorder Qualifiers: Active/Remission status: currently active Current bipolar episode type: depressed Current episode severity: moderate Qualified Code(s): F31.32 - Bipolar disorder, current episode depressed, moderate Is this a current diagnosis for this admission?: No (8) Hypotension Is this a current diagnosis for this admission?: Yes Plan: 11/12/2018-patient his blood pressure today is 103/54 with elevated creatinine of 1.83 started on IV fluids normal saline 50 cc/h we going to closely monitor her blood pressures and recheck the labs tomorrow. Hypotension may be secondary to poor oral intake. 11/13/2018-patient blood pressure today is 111/43 with a heart rate of 88 blood pressure is well controlled hypertension is resolved. 11/14/2018-patient blood pressure is 118/88 today with pulse rate of 79 hypotension is resolved. 11/15/2018-blood pressure today is 153/78 hypotension is resolved. 11/16/2018-blood pressure today is 133/55 stable. Hypotension is resolved. - Time Time Spent with patient: Less than 15 minutes Medications reviewed and adjusted accordingly: Yes Anticipated discharge: SNF
[2018-11-16] MEDS: DICYCLOMINE HCL 20 MG TABLET PO SCH ×4 (10:51→21:15)
[2018-11-16] MEDS: VENLAFAXINE HCL 75 MG CAP.SR.24H PO SCH (10:51)
[2018-11-16] MEDS: FAMOTIDINE 20 MG TABLET PO SCH ×2 (10:51→21:15)
[2018-11-16] MEDS: DIVALPROEX SODIUM 250 MG TAB.SR.24H PO SCH (10:52)
[2018-11-16] MEDS: LACTOBACILLUS ACIDOPHILUS 250 MG TAB PO SCH ×2 (10:52→17:57)
[2018-11-16] MEDS: BUSPIRONE HCL 10 MG TABLET PO SCH ×2 (10:52→21:14)
[2018-11-16] MEDS: TRAMADOL HCL 50 MG TABLET PO PRN (15:49)
[2018-11-16] MEDS: LAMOTRIGINE 100 MG TABLET PO SCH (17:58)
[2018-11-16] MEDS: SIMVASTATIN 10 MG TABLET PO SCH (17:58)
[2018-11-16] MEDS: FERROUS SULFATE 325 MG TABLET PO SCH (17:58)
[2018-11-17] MEDS: LEVOTHYROXINE SODIUM 0.05 MG TABLET PO SCH (06:10)
[2018-11-17] MEDS: HEPARIN SOD (PORCINE) 5,000 UNIT/ML 1 ML SYRINGE SUBCUT SCH ×2 (06:12→14:13)
[2018-11-17 07:34] LABS: ABSOLUTE EOSINOPHILS # (AUTO) 0.5 10^3/uL (0.0-0.6); ABSOLUTE LYMPHOCYTES (AUTO) 1.4 10^3/uL (0.5-4.7); ABSOLUTE MONOCYTES (AUTO) 0.5 10^3/uL (0.1-1.4); ABSOLUTE NEUT (AUTO) 2.7 10^3/uL (1.7-8.2); EOSINOPHILS % (AUTO) 9.5 % (0-6); HEMATOCRIT 27.4 % (36.0-47.0); HEMOGLOBIN 9.2 g/dL (12.0-15.5); LYMPHOCYTES % (AUTO) 26.5 % (13-45); MEAN CORPUSCULAR HEMOGLOBIN 27.7 pg (27.0-33.4); MEAN CORPUSCULAR HGB CONC 33.5 g/dL (32.0-36.0); MEAN CORPUSCULAR VOLUME 83 fl (80-97); MONOCYTES % (AUTO) 10.6 % (3-13); PLATELET COUNT 302 10^3/uL (150-450); RED BLOOD COUNT 3.32 10^6/uL (3.72-5.28); RED CELL DISTRIBUTION WIDTH 14.8 % (11.5-14.0); SEGMENTED NEUTROPHILS % (AUTO) 52.4 % (42-78); TOTAL CELLS COUNTED % (AUTO) 100 %; WHITE BLOOD COUNT 5.1 10^3/uL (4.0-10.5)
[2018-11-17 07:57] LABS: ALANINE AMINOTRANSFERASE 10 U/L (9-52); ALBUMIN 3.8 g/dL (3.5-5.0); ALKALINE PHOSPHATASE 81 U/L (38-126); ANION GAP 12 (5-19); ASPARTATE AMINO TRANSFERASE 20 U/L (14-36); BILIRUBIN,DIRECT 0.2 mg/dL (0.0-0.4); BILIRUBIN,TOTAL 0.2 mg/dL (0.2-1.3); BLOOD UREA NITROGEN 23 mg/dL (7-20); CALCIUM 10.2 mg/dL (8.4-10.2); CARBON DIOXIDE 25 mmol/L (22-30); CHLORIDE 102 mmol/L (98-107); GLUCOSE 81 mg/dL (75-110); POTASSIUM 4.5 mmol/L (3.6-5.0); SODIUM 138.6 mmol/L (137-145); TOTAL PROTEIN 6.9 g/dL (6.3-8.2)
[2018-11-17] MEDS: VENLAFAXINE HCL 75 MG CAP.SR.24H PO SCH (09:51)
[2018-11-17] MEDS: DICYCLOMINE HCL 20 MG TABLET PO SCH ×2 (09:51→14:32)
[2018-11-17] MEDS: LACTOBACILLUS ACIDOPHILUS 250 MG TAB PO SCH (09:51)
[2018-11-17] MEDS: BUSPIRONE HCL 10 MG TABLET PO SCH (09:52)
[2018-11-17] MEDS: FAMOTIDINE 20 MG TABLET PO SCH (09:52)
[2018-11-17] MEDS: DIVALPROEX SODIUM 250 MG TAB.SR.24H PO SCH (09:52)
[2018-11-17 12:46] VITALS: BP 128/71
--- NOTE | 2018-11-17 13:28 | PDOC TRANSFER SUMMARY ---
General - Admit/Disc Date/PCP Admission Date/Primary Care Provider: 11/07/18 16:52 JENNIFER PARRA-Carlton Discharge Date: 11/17/18 - Discharge Diagnosis (1) Diarrhea Is this a current diagnosis for this admission?: Yes Summary: 11/10/2018-patient is admitted with diarrhea leading to dehydration. C. difficile was negative. No episodes of loose stools in the last 24 hours. Diarrhea is resolved. 11/11/2018-patient was admitted with diarrhea and dehydration diarrhea is resolved. C. difficile is negative. 11/12/[id number]-xfox-old female admitted for diarrhea and dehydration recurrent falls diarrhea was resolved. C. difficile was negative. 11/13/2018-this 73-year-old female admitted with diarrhea and dehydration, recurrent falls with diarrhea was resolved C. difficile was negative. 11/14/[id number]-tfky-old female admitted for diarrhea which was resolved. C. difficile was negative. 11/15/2018-diarrhea is resolved. 11/16/2018 this elderly female came in with severe diarrhea and dehydration diarrhea is resolved. Dehydration is resolved. C. difficile is negative. 11/17/2018 this 73-year-old female admitted with severe diarrhea and dehydration diarrhea was resolved during the hospital stay and C. difficile was negative. (2) Urinary tract infection Is this a current diagnosis for this admission?: Yes Summary: 11/10/2018-patient has history of recurrent UTI during the hospital stay urine culture is positive for gram-positive cocci. Started on levofloxacin 500 mg IV daily. Once the cultures are available we going to adjust antibiotics. 11/11/2018-urine culture came back positive for E faecalis sensitivity to daptomycin and resistant to levofloxacin . Plan is to discontinue levofloxacin and start on nitrofurantoin from today. 11/12/2018-patient is admitted with urinary tract infection positive for E faecalis sensitive to daptomycin plan is to continue the daptomycin. T-max is 98.5. 11/13/2018 urine culture is showing if faecalis sensitive to daptomycin patient receiving nitrofurantoin right now T-max is 98.8. 11/14/2018-urine culture shows E faecalis. Presently on nitrofurantoin. Patient is afebrile with a temperature of 98.6 plan is to continue the antibiotic therapy. 11/15/2018 urine culture is positive for Enterococcus faecalis on nitrofurantoin. Her temperature today is 97.6. Afebrile. Plan is to continue the present management. 11/16/2018-urine culture came back positive for Enterococcus faecalis on nitrofurantoin. Vital signs today 98.4. She is afebrile for the last several d ays. Plan is to discontinue antibiotic therapy today. 11/17/2018-during the admission found to have urine culture positive for Enterococcus faecalis she was treated with nitrofurantoin was discontinued yesterday patient is afebrile for the last few days T-max is 97.9 today. (3) Acute kidney injury superimposed on CKD Is this a current diagnosis for this admission?: Yes Summary: 11/10/2018-patient is admitted with elevated creatinine from the baseline 0.8 in June last year, on admission creatinine is 1.77 improved to 1.31 yesterday. Acute kidney injury most likely secondary to prerenal causes which was resolving. 11/11/2018-patient was admitted with elevated creatinine of 1.77. Her baseline creatinine is around 0.8 in June last year. Today creatinine went back up to 1.83. Blood pressure today is 121/64 I tried to explain to the patient That she need to be on IV fluids but patient is refusing for IV access. Patient was encouraged to drink plenty of fluids. 11/12/2018-patient's admission creatinine is 1.77 went up to 1.83 today may be secondary to poor oral intake acute kidney injury may be secondary to prerenal causes to start IV fluids normal saline 50 cc/h and to recheck the labs again tomorrow. 03/2019 patient's admission creatinine is 1.77 and today it is 1.93 yesterday placed an order for IV fluids but the patient refused IV access and refused to take IV fluids. I talked to her this morning in length need to take fluids by mouth and also by IV access patient likely to drink plenty of fluids but refusing the IV fluids. 11/14/2018-patient's admission creatinine is 1.77 it was improved to 1.64 patient agreed with IV fluid therapy yesterday she receiving normal saline at 50 cc/h. Acute kidney injury most likely prerenal is resolving. 11/15/2018-on admission creatinine is 1.77 it was improved to 1.64 we going to check the labs again today she is getting IV fluids normal saline at 50 cc/h. 11/16/2018-on admission creatinine is 1.77 yesterday it was improved to 1.48 acute kidney injury most likely due to prerenal causes resolved. 11/17/2018-this elderly female came in with creatinine of 1.77 and it was improved to 1.68. Patient was encouraged to drink plenty of oral fluids she was also treated with IV normal saline. Acute kidney injury most likely secondary to poor oral intake which was resolving. (4) Dementia Is this a current diagnosis for this admission?: No Summary: 11/10/2018-patient has history of dementia. On examination alert and awake communicating okay. In my opinion patient's mental status at baseline. 11/11/2018-patient has history of dementia. She able to give her date of and she knows she was in the hospital but occasionally she is getting confused and anxious. She might have underlying chronic dementia. 11/12/2018-patient has history of dementia but today she is alert and awake communicating very well no problems of confusion no problems in recalling the events. 11/13/2018-patient has history of dementia but she is communicating very well this morning no signs of any confusion no problems in recalling the issues. 11/14/2018-patient's condition is stable. 11/15/2018-patient might have underlying dementia following the psychiatric recommendations. Appreciate Dr. Farah's input. 11/16/2018-patient has history of underlying dementia the following psychiatric recommendations and adjusted her medications. No acute events in the last 48 hours. 11/17/2018-patient has history of dementia. Psych consult was requested patient's medications are adjusted based on the psych recommendations. (5) COPD (chronic obstructive pulmonary disease) Is this a current diagnosis for this admission?: No Summary: 11/10/2018-patient has history of COPD not on home oxygen. On examination chest bilateral entry was decreased no wheezing no crepitations are noticed. 11/11/2018-patient has history of COPD pulse ox is 100% on room air here. On examination chest bilateral entry was decreased no wheezing no crepitations. 11/12/2018-patient has history of COPD pulse ox today is 96% on room air chest examination bilateral entry was decreased no wheezing no crepitations. Plan is to continue the present management. 11/14/2018-pulse ox today is 94% on room air. Chest examination chest bilateral entry was decreased no wheezing no crepitations. 11/15/2018-pulse ox today is 96% on room air. Chest bilateral entry was decreased no wheezing no crepitations. Plan is to continue the present management. 11/16/2018-pulse ox today is 93% on room air. She has history of COPD chest bilateral decreased but no wheezing no crepitations. Does not need to go to the [facility] on oxygen. 11/17/2018-pulse ox on room air today is 98% patient has history of COPD on examination chest bilateral entry was decreased no wheezing no crepitations. chest X-ray ruled out pneumonia. (6) H of Bladder ca, bilateral hydronephrosi Is this a current diagnosis for this admission?: Yes Summary: 11/10/2018-patient has history of bladder cancer and bilateral hydronephrosis, urine culture shows gram-positive cocci started on levofloxacin 500 mg IV daily today. Waiting for the sensitivity report. 11/11/2018-patient has history of bladder cancer and bilateral hydronephrosis. Urine culture is positive for i E faecalis. Presently on levofloxacin and started on nitrofurantoin. 11/12/2018-patient has history of bladder cancer with bilateral hydronephrosis. Urine culture showing E. Faecalis. Presently she is on nitrofurantoin. 11/13/2018-patient has history of bladder cancer with bilateral hydronephrosis, urine culture is growing Enterococcus faecalis presently she is on nitro furantoin patient is afebrile. 11/14/2018-patient has history of bladder cancer with bilateral hydronephrosis urine culture shows E faecalis presently on nitrofurantoin plan is to continue the course of antibiotic therapy patient is afebrile. 11/15/2018-patient has history of bladder cancer with bilateral hydronephrosis, urine culture is positive for Enterococcus faecalis presently on nitrofurantoin. Plan is to complete the antibiotic therapy. 11/16/2018-urine culture is positive for E faecalis completed the course of antibiotic therapy. 11/17/2018-patient has history of bladder cancer and bilateral hydronephrosis. Treated for E faecalis. (7) Bipolar disorder Is this a current diagnosis for this admission?: No Summary: 11/17/2018-patient has history of bipolar disorder medications are adjusted based on the psychiatric recommendations. (8) Hypotension Is this a current diagnosis for this admission?: Yes Summary: 11/12/2018-patient his blood pressure today is 103/54 with elevated creatinine of 1.83 started on IV fluids normal saline 50 cc/h we going to closely monitor her blood pressures and recheck the labs tomorrow. Hypotension may be secondary to poor oral intake. 11/13/2018-patient blood pressure today is 111/43 with a heart rate of 88 blood pressure is well controlled hypertension is resolved. 11/14/2018-patient blood pressure is 118/88 today with pulse rate of 79 hypotension is resolved. 11/15/2018-blood pressure today is 153/78 hypotension is resolved. 11/16/2018-blood pressure today is 133/55 stable. Hypotension is resolved. 11/17/2018-patient blood pressure today is 117/60 stable. Hypotension is resolved. Hypotension due to poor oral intake. - Additional Information Resuscitation Status: Do Not Resuscitate Discharge Diet: Cardiac Discharge Activity: Activity As Tolerated Home Medications: Ferrous Sulfate [Feosol 325 mg Tablet] 325 mg PO QPM 06/20/18 Lamotrigine [Lamictal] 200 mg PO QPM 06/20/18 Levothyroxine Sodium [Synthroid 0.05 mg Tablet] 0.05 mg PO Q6AM 06/20/18 Simvastatin [Zocor 10 mg Tablet] 20 mg PO QPM 06/20/18 Omeprazole 20 mg PO DAILY 10/14/18 Lactobacillus Acidophilus [Acidophilus] 20 mg PO QHS 11/07/18 Lactobacillus Acidophilus [Probiotic Acidophilus] 40 mg PO QAM 11/07/18 Acetaminophen [Tylenol 325 mg Tablet] 650 mg PO Q4HP PRN tablet 11/17/18 Buspirone HCl [Buspar 10 mg Tablet] 5 mg PO Q12 tablet 11/17/18 Dicyclomine HCl [Bentyl 20 mg Tablet] 20 mg PO QID tablet 11/17/18 Divalproex Sodium [Depakote ER 250 mg Tablet] 250 mg PO DAILY tab.sr.24h 11/17/18 Famotidine [Pepcid 20 mg Tablet] 20 mg PO Q12 tablet 11/17/18 Lamotrigine [Lamictal 100 mg Tablet] 200 mg PO QPM tablet 11/17/18 Venlafaxine HCl ER [Effexor Xr 75 mg Cap.sr] 75 mg PO DAILY cap.sr.24h 11/17/18 History of Present Illness Admission Date/PCP: 11/07/18 16:52 NARESH PARRA History of Present Illness: SRIKANTH COLVIN is a 73 year old female 73 year old female with past medical history of COPD, dementia, bipolar disorder, CKD and history of bladder cancer, brought by her daughter for decreased p.o. intake, recurrent fall and diarrhea. 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 Because of her underlying dementia and bipolar disorder patient is not able to give any meaningful history. My history is based on ER documentation and from her daughter who is in the room during my encounter. I need this patient from previous admission and I myself transfer this patient 16 days ago to [facility] for right hydronephrosis and hydroureter. Per her daughter patient got right ureteral stent and also the replaced the stent on the left side. There is no report of fever, nausea, vomiting. Her daughter states "I am no more able to her" and request fpc placement. Physical Exam Vital Signs: Temp Pulse Resp BP Pulse Ox 99.0 F 80 16 128/71 H 98 11/17/18 12:38 11/17/18 12:38 11/17/18 12:38 11/17/18 12:38 11/17/18 12:38 Intake & Output 11/16/18 11/17/18 11/18/18 06:59 06:59 06:59 Intake Total 1366 Balance 1366 Weight 48.7 kg General appearance: PRESENT: no acute distress, thin Head exam: PRESENT: atraumatic Eye exam: PRESENT: PERRLA Mouth exam: PRESENT: moist, tongue midline Neck exam: ABSENT: carotid bruit, JVD, lymphadenopathy, thyromegaly Respiratory exam: PRESENT: decreased breath sounds Cardiovascular exam: PRESENT: RRR. ABSENT: diastolic murmur, rubs, systolic murmur GI/Abdominal exam: PRESENT: normal bowel sounds, soft. ABSENT: distended, guarding, mass, organolmegaly, rebound, tenderness Extremities exam: PRESENT: full ROM. ABSENT: calf tenderness, clubbing, pedal edema Neurological exam: PRESENT: alert, awake, oriented to person, oriented to place, oriented to time, oriented to situation, CN II-XII grossly intact. ABSENT: motor sensory deficit Psychiatric exam: PRESENT: appropriate affect, normal mood. ABSENT: homicidal ideation, suicidal ideation Results Laboratory Results: 11/17/18 06:46 11/17/18 06:46 11/17/18 11/17/18 06:46 06:46 WBC 5.1 RBC 3.32 L Hgb 9.2 L Hct 27.4 L MCV 83 MCH 27.7 MCHC 33.5 RDW 14.8 H Plt Count 302 Seg Neutrophils % 52.4 Lymphocytes % 26.5 Monocytes % 10.6 Eosinophils % 9.5 H Basophils % 1.0 Absolute Neutrophils 2.7 Absolute Lymphocytes 1.4 Absolute Monocytes 0.5 Absolute Eosinophils 0.5 Absolute Basophils 0.0 Sodium 138.6 Potassium 4.5 Chloride 102 Carbon Dioxide 25 Anion Gap 12 BUN 23 H Creatinine 1.68 H Est GFR ( Amer) 36 L Est GFR (Non-Af Amer) 30 L Glucose 81 Calcium 10.2 Magnesium 2.4 H Total Bilirubin 0.2 AST 20 ALT 10 Alkaline Phosphatase 81 Total Protein 6.9 Albumin 3.8 Impressions: Abdomen X-Ray 11/07/18 00:00 IMPRESSION: No acute abnormality. Acute Abdomen Series 11/10/18 00:00 IMPRESSION: NO RADIOGRAPHIC EVIDENCE FOR ACUTE ABDOMINAL DISEASE. Qualifiers - * PATIENT BEING DISCHARGED WITH ANY OF THE FOLLOWING DIAGNOSIS: No VTE patient discharged on overlapping Therapy?: No
== END 2018-11-17 16:10 | disposition short-term general hospital (02) | DRG 392 ==
LOC: ER 13:10 → EH 16:52 → UNDOADMIN 16:52 → 4N 18:39
PROVIDERS: ADMIT Internal Medicine; ATTEND Internal Medicine
PROC: 3E0F73Z Introduction of Anti-inflammatory into Respiratory Tract, Via Natural or Artificial Opening (ICD-10-PCS; principal; 2018-11-07)
DX: R19.7 Diarrhea, unspecified (principal); N39.0 Urinary tract infection, site not specified; N17.9 Acute kidney failure, unspecified; F31.32 Bipolar disorder, current episode depressed, moderate; E86.0 Dehydration; Z66 Do not resuscitate; R29.6 Repeated falls; B95.2 Enterococcus as the cause of diseases classified elsewhere; N18.9 Chronic kidney disease, unspecified; F03.90 Unspecified dementia, unspecified severity, without behavioral disturbance, psychotic disturbance, mood disturbance, and anxiety; J44.9 Chronic obstructive pulmonary disease, unspecified; I95.9 Hypotension, unspecified; E03.9 Hypothyroidism, unspecified; M19.91 Primary osteoarthritis, unspecified site; F41.9 Anxiety disorder, unspecified; I12.9 Hypertensive chronic kidney disease with stage 1 through stage 4 chronic kidney disease, or unspecified chronic kidney disease; D63.1 Anemia in chronic kidney disease; R31.9 Hematuria, unspecified; Z85.51 Personal history of malignant neoplasm of bladder; Z79.899 Other long term (current) drug therapy; Z85.3 Personal history of malignant neoplasm of breast; Z90.10 Acquired absence of unspecified breast and nipple; Z87.891 Personal history of nicotine dependence; Z88.1 Allergy status to other antibiotic agents; Z88.3 Allergy status to other anti-infective agents; Z88.2 Allergy status to sulfonamides; Z82.49 Family history of ischemic heart disease and other diseases of the circulatory system
CPT/HCPCS: 36415; 74019; 74022; 80048; 80053; 81001; 83735; 85025; 87086; 87088; 87186; 87493; 96360; 99291; J3370; J3490; J7030

== ENCOUNTER 2018-12-07 23:50 | Inpatient (IN) | payer MEDICARE ==
[2018-12-08] MEDS ORDERED: NORMAL SALINE 1000 ML 500 ML IV ONE (00:58)
--- NOTE | 2018-12-08 01:09 | ER Document Report ---
ED General - General Chief Complaint: Fall Stated Complaint: FALL Time Seen by Provider: 12/07/18 23:55 Primary Care Provider: IRASEMA PARKER FNP-C [Primary Care Provider] - Follow up as needed Notes: Patient is a 73-year old female with past medical history of COPD, dementia, bipolar disorder, CKD and history of bladder cancer, brought by her daughter for decreased p.o. intake, recurrent falls, increasing confusion. History is limited secondary to the patient's degree of dementia. The daughter reports that she took her out of the nursing facility 3 days ago as she was concerned about the care of the patient was receiving. She states that the patient has had increasing instability with her gait, is refusing to eat or drink, and seems more agitated. She also reports the patient has been having nausea and vomiting. No fever. Similar to when she was hospitalized the beginning of the month. History is otherwise limited secondary to patient's dementia and inability to comply with history taking. TRAVEL OUTSIDE OF THE [place] IN LAST 30 DAYS: No - Related Data Allergies/Adverse Reactions: amoxicillin Allergy (Verified 10/14/18 15:36) Sulfa (Sulfonamide Antibiotics) Allergy (Verified 10/14/18 15:36) TONGUE SWELLING vancomycin Adverse Reaction (Mild, Verified 10/14/18 15:36) Past Medical History - General Information source: Relative Cannot obtain history due to: Dementia - Social History Smoking Status: Former Smoker Frequency of alcohol use: None Drug Abuse: None Lives with: Parents Family History: Reviewed & Not Pertinent Patient has suicidal ideation: No Patient has homicidal ideation: No Pulmonary Medical History: Reports: Hx COPD - possible Chemo related Endocrine Medical History: Reports: Hx Hypothyroidism. Denies: Hx Diabetes Mellitus Type 1, Hx Diabetes Mellitus Type 2 Renal/ Medical History: Denies: Hx Peritoneal Dialysis Malignancy Medical History: Reports: Hx Breast Cancer Musculoskeletal Medical History: Reports Hx Arthritis Psychiatric Medical History: Reports: Hx Bipolar Disorder, Hx Dementia, Hx Depression - anxiety Infectious Medical History: Reports: Hx C-Diff - X3 Past Surgical History: Reports: Hx Abdominal Surgery - bladder surgery, Hx Breast Surgery - right breast removed, Hx Genitourinary Surgery - bladder, Hx Mastectomy, Hx Orthopedic Surgery Review of Systems - Review of Systems -: Yes ROS unobtainable due to patient's medical condition Physical Exam - Vital signs Vitals: Temp Pulse Resp BP Pulse Ox 97.3 F 77 16 141/57 H 93 12/08/18 00:08 12/08/18 00:08 12/08/18 00:08 12/08/18 00:08 12/08/18 00:08 Interpretation: Hypertensive Notes: PHYSICAL EXAMINATION: GENERAL: Frail, elderly female, somewhat agitated HEAD: Atraumatic, normocephalic. EYES: Pupils equal round and reactive to light, extraocular movements intact, sclera anicteric, conjunctiva are normal. ENT: nares patent, oropharynx clear without exudates. Dry mucous membranes. NECK: Normal range of motion, supple without lymphadenopathy LUNGS: Breath sounds clear to auscultation bilaterally and equal. No wheezes rales or rhonchi. HEART: Regular tachycardia without murmurs ABDOMEN: Soft, nontender, normoactive bowel sounds. No guarding, no rebound. No masses appreciated. EXTREMITIES: no pitting or edema. No cyanosis. NEUROLOGICAL: No focal neurological deficits. Moves all extremities spontaneously. PSYCH: Alert, oriented only to person SKIN: Warm, Dry, normal turgor, no rashes or lesions noted. Course - Re-evaluation Re-evalutation: 12/08/18 01:08 Patient presents with her daughter by EMS due to concerns of a fall. The patie nt has apparently been deteriorating significantly since her discharge, was actually taken out of the nursing facility to she was discharged 3 days ago secondary to concerns of her treatment at that facility. Her daughter relates that she is very worried about weight loss and states that the medications that the patient was prescribed by her behavioral health service have worsened her ability to walk and made her even more agitated and confused. The patient apparently fell tonight, unable to be redirected to stay in bed. Was found lying on the ground by the daughter several moments after she stepped out of the room to get her something to drink. On exam the patient has no evidence of tra chari although given her advanced age and uncertain nature of mechanism of injury a CT of the head and cervical spine will be obtained. Patient is also apparently been coughing and chest x-ray be obtained. Will obtain standard laboratory is and then reassess. 12/08/18 02:28 Labs demonstrate worsening of the patient's baseline chronic kidney disease as well as findings consistent with pyelonephritis on urinalysis. CT the head, cervical spine and chest x-ray are all unremarkable. Given the patient's increasing confusion, instability, worsening kidney function, pyelonephritis will hospitalize. Cultures have been obtained. Will begin IV ceftriaxone. Patient is a DNR and DNI. I did discuss with the daughter who is open to consideration of hospice at time of discharge. I discussed with Dr. Dunham who has accepted the patient for admission. - Vital Signs Vital signs: Temp Pulse Resp BP Pulse Ox 97.3 F 77 16 141/57 H 93 12/08/18 00:08 12/08/18 00:08 12/08/18 00:08 12/08/18 00:08 12/08/18 00:39 - Laboratory Result Diagrams: 12/08/18 00:29 12/08/18 00:29 Laboratory results interpreted by me: 12/08/18 12/08/18 12/08/18 00:29 00:29 01:40 RBC 3.16 L Hgb 8.9 L Hct 26.1 L RDW 15.3 H Seg Neutrophils % 83.7 H Lymphocytes % 6.8 L Absolute Neutrophils 8.7 H Sodium 132.2 L Potassium 3.5 L BUN 29 H Creatinine 2.02 H Est GFR ( Amer) 29 L Est GFR (Non-Af Amer) 24 L Glucose 118 H Urine Protein 100 H Urine Ketones TRACE H Urine Blood LARGE H Ur Leukocyte Esterase LARGE H Valproic Acid 40.8 L - Diagnostic Test Radiology reviewed: Image reviewed, Reports reviewed Radiology results interpreted by me: 12/08/18 02:28 Chest x-ray: No acute infiltrate or pneumothorax CT head: No acute intracranial bleed or mass Discharge - Discharge Clinical Impression: Pyelonephritis, Do not resuscitate Nausea and vomiting Qualifiers: Vomiting type: unspecified Vomiting Intractability: non-intractable Qualified Code(s): R11.2 - Nausea with vomiting, unspecified Failure to thrive Qualifiers: Failure to thrive age range: in adult Qualified Code(s): R62.7 - Adult failure to thrive Acute on chronic renal failure Qualifiers: Acute renal failure type: unspecified Chronic kidney disease stage: unspecified stage Qualified Code(s): N17.9 - Acute kidney failure, unspecified; N18.9 - Chronic kidney disease, unspecified Condition: Fair Disposition: ADMITTED INPATIENT Admitting Provider: Hospitalist Unit Admitted: Medical Floor Referrals: IRASEMA PARKER, DEPOSITION OPERATOR-C [Primary Care Provider] - Follow up as needed
[2018-12-08 01:23] LABS: ABSOLUTE EOSINOPHILS # (AUTO) 0.2 10^3/uL (0.0-0.6); ABSOLUTE LYMPHOCYTES (AUTO) 0.7 10^3/uL (0.5-4.7); ABSOLUTE MONOCYTES (AUTO) 0.8 10^3/uL (0.1-1.4); ABSOLUTE NEUT (AUTO) 8.7 10^3/uL (1.7-8.2); BASOPHILS % (AUTO) 0.1 % (0-2); EOSINOPHILS % (AUTO) 1.5 % (0-6); HEMATOCRIT 26.1 % (36.0-47.0); HEMOGLOBIN 8.9 g/dL (12.0-15.5); LYMPHOCYTES % (AUTO) 6.8 % (13-45); MEAN CORPUSCULAR HEMOGLOBIN 28.1 pg (27.0-33.4); MEAN CORPUSCULAR VOLUME 83 fl (80-97); MONOCYTES % (AUTO) 7.9 % (3-13); PLATELET COUNT 320 10^3/uL (150-450); RED BLOOD COUNT 3.16 10^6/uL (3.72-5.28); RED CELL DISTRIBUTION WIDTH 15.3 % (11.5-14.0); SEGMENTED NEUTROPHILS % (AUTO) 83.7 % (42-78); TOTAL CELLS COUNTED % (AUTO) 100 %; WHITE BLOOD COUNT 10.3 10^3/uL (4.0-10.5)
[2018-12-08] MEDS ORDERED: ONDANSETRON HCL INJ/PF 4 MG/2 ML SDV IV ONE (01:25)
[2018-12-08] MEDS ORDERED: ONDANSETRON HCL INJ/PF 4 MG/2 ML SDV ONE (01:25)
[2018-12-08 01:29] LABS: ALANINE AMINOTRANSFERASE 18 U/L (9-52); ALBUMIN 3.5 g/dL (3.5-5.0); ALKALINE PHOSPHATASE 84 U/L (38-126); ANION GAP 10 (5-19); ASPARTATE AMINO TRANSFERASE 32 U/L (14-36); BILIRUBIN,DIRECT 0.4 mg/dL (0.0-0.4); BILIRUBIN,TOTAL 0.5 mg/dL (0.2-1.3); BLOOD UREA NITROGEN 29 mg/dL (7-20); CALCIUM 9.5 mg/dL (8.4-10.2); CARBON DIOXIDE 24 mmol/L (22-30); CHLORIDE 98 mmol/L (98-107); CREATINE KINASE 94 U/L (30-135); GLUCOSE 118 mg/dL (75-110); POTASSIUM 3.5 mmol/L (3.6-5.0); SODIUM 132.2 mmol/L (137-145); TOTAL PROTEIN 7.2 g/dL (6.3-8.2)
--- NOTE | 2018-12-08 01:31 | RADIOLOGY REPORT (SQ) ---
CLINICAL HISTORY: fall COMPARISON: None. TECHNIQUE: XR CHEST 1 VIEW 12/08/2018 12:58 AM CDT FINDINGS: The heart is borderline in size. Right axillary lymph surgical clips are present. Lungs are clear without consolidation, atelectasis, mass or edema. There is no pleural effusion. There is no pneumothorax. There is an old fracture of the left humeral shaft. There appears to be old deformity of the lateral left clavicle. IMPRESSION: Clear lungs.
--- NOTE | 2018-12-08 01:36 | RADIOLOGY REPORT (SQ) ---
EXAM DESCRIPTION: CT CERVICAL SPINE WITHOUT IV CONTRAST COMPLETED DATE/TME: 12/08/2018 00:58 CLINICAL HISTORY: 73 years Female, fall Comparison: None. Technique: No contrast. Coronal and sagittal reformat. This exam was performed according to our departmental dose-optimization program, which includes automated exposure control, adjustment of the mA and/or kV according to patient size and/or use of iterative reconstruction technique.[facility]: Dose Right [facility]: CareDose [facility]: Dose Right [facility]: Teradose 4D [facility]: [employer] LIMITATIONS: None Findings: 1.0 cm, likely benign lytic expansile lesion of the right C4 pedicle, moderate disc desiccation in the mid and lower cervical spine, 0.3 cm degenerative C3 anterolisthesis and 0.3 cm degenerative C4 retrolisthesis, mild/moderate bilateral C6, C7, and C5 bony foraminal stenosis. Bony demineralization. Emphysematous lung. Small disc bulge contrast mild/moderate spinal canal stenosis at C4-C5 and C5-C6 and C6-C7 levels. Mild reversed lordotic curvature of the mid cervical spine probably degenerative. Atherosclerotic vascular disease. No fracture. Normal vertebral heights. Partially imaged nuchal soft tissues, inferior cranium, and upper thorax appear otherwise grossly intact. IMPRESSION: No acute findings.
--- NOTE | 2018-12-08 01:47 | RADIOLOGY REPORT (SQ) ---
EXAM DESCRIPTION: CT HEAD WITHOUT IV CONTRAST COMPLETED DATE/TME: 12/08/2018 00:00 CLINICAL HISTORY: 73 years, Female, FALL COMPARISON: 01/08/2018 TECHNIQUE: Axial CT images of the brain were obtained without contrast. Sagittal and coronal reformats were performed. DLP 990 Images stored on PACS. All CT scanners at this facility use dose modulation, iterative reconstruction, and/or weight based dosing when appropriate to reduce radiation dose to as low as reasonably achievable (ALARA). [facility]: Dose Right [facility]: CareDose [facility]: Dose Right [facility]: Teradose 4D [facility]: [employer] LIMITATIONS: None. FINDINGS: There is diffuse cerebral atrophy with periventricular and deep white matter chronic microvascular changes. There is no cortical infarct, hemorrhage, mass, edema, hydrocephalus, or extra-axial fluid collection. The paranasal sinuses are clear. There is no acute fracture. IMPRESSION: No acute intracranial abnormality TECHNICAL DOCUMENTATION: Quality ID # [id number]: Final reports with documentation of one or more dose reduction techniques (e.g., Automated exposure control, adjustment of the mA and/or kV according to patient size, use of iterative reconstruction technique) copyright 2011 [employer]- All Rights Reserved
[2018-12-08 01:56] LABS: APPEARANCE,URINE CLOUDY; BILIRUBIN,URINE NEGATIVE (NEGATIVE); COLOR,URINE YELLOW; GLUCOSE, URINE NEGATIVE (NEGATIVE); KETONES,URINE TRACE mg/dL (NEGATIVE); LEUKOCYTE ESTERASE,URINE LARGE (NEGATIVE); NITRITE,URINE NEGATIVE (NEGATIVE); PROTEIN,URINE 100 mg/dL (NEGATIVE); URINE SPECIFIC GRAVITY 1.011; UROBILINOGEN,URINE NEGATIVE mg/dL (<2.0)
[2018-12-08] MEDS ORDERED: CEFTRIAXONE INJ 1000 MG VIAL IV ONE (02:13)
[2018-12-08] MEDS ORDERED: MAG HYDROX/AL HYDROX/SIMETH SUSP 30 ML UDCUP PO PRN (02:18)
[2018-12-08] MEDS ORDERED: IPRATROPIUM/ALBUTEROL 0.5-2.5 MG/3 ML AMPUL NEB PRN (02:18)
[2018-12-08] MEDS ORDERED: NORMAL SALINE 1000 ML 1,000 ML IV PRN (02:30)
[2018-12-08] MEDS ORDERED: ACETAMINOPHEN 325 MG TABLET PO ONE (03:13)
[2018-12-08] MEDS: HEPARIN SOD (PORCINE) 5,000 UNIT/ML 1 ML SYRINGE SUBCUT SCH ×3 (06:07→21:21)
[2018-12-08] MEDS ORDERED: VANCOMYCIN HCL 1,250 MG in DEXTROSE 5%-WATER 250 ML IV ONE (06:26)
--- NOTE | 2018-12-08 06:29 | PDOC H&P ---
History of Present Illness Admission Date/PCP: 12/08/18 02:38 IRASEMA PARKER, JENNIFER-Carlton Patient complains of: Generalized weakness History of Present Illness: SRIKANTH COLVIN is a 73 year old female with a past medical history of advanced dementia with agitation, bipolar disorder, CKD 3 and recurrent urinary tract infection. Patient is brought to the emergency room by her daughter after being found on the ground without evidence of injury complaining of weakness. Patient's mental status is at baseline requiring 100% care. In the emergency room she is found to have urinary tract infection, acute on chronic renal failure and anemia. She is referred to the hospitalist for admission. Daughter describes frequent episodes of severe agitation verifying CODE STATUS is DNR requesting hospice consult. Patient is unable to provide me any meaningful history. Past Medical History Pulmonary Medical History: Reports: Chronic Obstructive Pulmonary Disease (COPD) - possible Chemo related Endocrine Medical History: Reports: Hypothyroidism Denies: Diabetes Mellitus Type 1, Diabetes Mellitus Type 2 Malignancy Medical History: Reports: Breast Cancer Musculoskeltal Medical History: Reports: Arthritis Psychiatric Medical History: Reports: Bipolar Disorder, Dementia, Depression Hematology: Reports: Anemia Infectious Medical History: Reports: Clostridium Difficile - X3 Past Surgical History Past Surgical History: Reports: Mastectomy, Orthopedic Surgery Social History Information Source: Relative, Emergency Med Personnel, [facility] Records Lives with: Parents Smoking Status: Never Smoker Frequency of Alcohol Use: None Hx Recreational Drug Use: No Drugs: None Hx Prescription Drug Abuse: No - Advance Directive Resuscitation Status: Do Not Resuscitate Family History Family History: Hypertension Parental Family History Reviewed: Yes Children Family History Reviewed: Yes Sibling(s) Family History Reviewed.: Yes Medication/Allergy Home Medications: Ferrous Sulfate [Feosol 325 mg Tablet] 325 mg PO QPM 06/20/18 Lamotrigine [Lamictal] 200 mg PO QPM 06/20/18 Levothyroxine Sodium [Synthroid 0.05 mg Tablet] 0.05 mg PO Q6AM 06/20/18 Simvastatin [Zocor 10 mg Tablet] 20 mg PO QPM 06/20/18 Omeprazole 20 mg PO DAILY 10/14/18 Lactobacillus Acidophilus [Acidophilus] 20 mg PO QHS 11/07/18 Lactobacillus Acidophilus [Probiotic Acidophilus] 40 mg PO QAM 11/07/18 Acetaminophen [Tylenol 325 mg Tablet] 650 mg PO Q4HP PRN tablet 11/17/18 Buspirone HCl [Buspar 10 mg Tablet] 5 mg PO Q12 tablet 11/17/18 Dicyclomine HCl [Bentyl 20 mg Tablet] 20 mg PO QID tablet 11/17/18 Divalproex Sodium [Depakote ER 250 mg Tablet] 250 mg PO DAILY tab.sr.24h 11/17 Famotidine [Pepcid 20 mg Tablet] 20 mg PO Q12 tablet 11/17/18 Lamotrigine [Lamictal 100 mg Tablet] 200 mg PO QPM tablet 11/17/18 Venlafaxine HCl ER [Effexor Xr 75 mg Cap.sr] 75 mg PO DAILY cap.sr.24h 11/17/18 Allergies/Adverse Reactions: amoxicillin Allergy (Verified 10/14/18 15:36) Sulfa (Sulfonamide Antibiotics) Allergy (Verified 10/14/18 15:36) TONGUE SWELLING vancomycin Adverse Reaction (Mild, Verified 10/14/18 15:36) Review of Systems ROS unobtainable: Due to mental status Physical Exam Vital Signs: Temp Pulse Resp BP Pulse Ox 97.5 F 73 20 122/58 L 96 12/08/18 04:28 12/08/18 04:28 12/08/18 04:28 12/08/18 04:28 12/08/18 04:28 Intake & Output 12/06/18 12/07/18 12/08/18 11:59 11:59 11:59 Weight 47 kg General appearance: PRESENT: mild distress, thin, well-developed. ABSENT: cooperative, disheveled, well-nourished Head exam: PRESENT: atraumatic, normocephalic Eye exam: PRESENT: conjunctiva pink, EOMI, PERRLA. ABSENT: scleral icterus Ear exam: PRESENT: normal external ear exam Mouth exam: PRESENT: moist, tongue midline Neck exam: ABSENT: carotid bruit, JVD, lymphadenopathy, thyromegaly Respiratory exam: PRESENT: clear to auscultation donita. ABSENT: rales, rhonchi, wheezes Cardiovascular exam: PRESENT: tachycardia. ABSENT: diastolic murmur, rubs, systolic murmur Pulses: PRESENT: normal dorsalis pedis pul Vascular exam: PRESENT: normal capillary refill GI/Abdominal exam: PRESENT: normal bowel sounds, soft. ABSENT: distended, guarding, mass, organolmegaly, rebound, tenderness Rectal exam: PRESENT: deferred Extremities exam: PRESENT: full ROM. ABSENT: calf tenderness, clubbing, pedal edema Neurological exam: PRESENT: alert, altered, awake, CN II-XII grossly intact Psychiatric exam: PRESENT: agitated, unusual affect. ABSENT: appropriate affect Skin exam: PRESENT: dry, intact, warm. ABSENT: cyanosis, rash Results Laboratory Results: 12/08/18 00:29 12/08/18 00:29 12/08/18 12/08/18 12/08/18 00:29 00:29 01:23 WBC 10.3 RBC 3.16 L Hgb 8.9 L Hct 26.1 L MCV 83 MCH 28.1 MCHC 34.0 RDW 15.3 H Plt Count 320 Seg Neutrophils % 83.7 H Lymphocytes % 6.8 L Monocytes % 7.9 Eosinophils % 1.5 Basophils % 0.1 Absolute Neutrophils 8.7 H Absolute Lymphocytes 0.7 Absolute Monocytes 0.8 Absolute Eosinophils 0.2 Absolute Basophils 0.0 Sodium 132.2 L Potassium 3.5 L Chloride 98 Carbon Dioxide 24 Anion Gap 10 BUN 29 H Creatinine 2.02 H Est GFR ( Amer) 29 L Est GFR (Non-Af Amer) 24 L Glucose 118 H Lactic Acid 0.8 Calcium 9.5 Total Bilirubin 0.5 AST 32 ALT 18 Alkaline Phosphatase 84 Total Protein 7.2 Albumin 3.5 Urine Color Urine Appearance Urine pH Ur Specific [employer] Urine Protein Urine Glucose (UA) Urine Ketones Urine Blood Urine Nitrite Ur Leukocyte Esterase Urine WBC (Auto) Urine RBC (Auto) 12/08/18 01:40 WBC RBC Hgb Hct MCV MCH MCHC RDW Plt Count Seg Neutrophils % Lymphocytes % Monocytes % Eosinophils % Basophils % Absolute Neutrophils Absolute Lymphocytes Absolute Monocytes Absolute Eosinophils Absolute Basophils Sodium Potassium Chloride Carbon Dioxide Anion Gap BUN Creatinine Est GFR ( Amer) Est GFR (Non-Af Amer) Glucose Lactic Acid Calcium Total Bilirubin AST ALT Alkaline Phosphatase Total Protein Albumin Urine Color YELLOW Urine Appearance CLOUDY Urine pH 6.0 Ur Specific [employer] 1.011 Urine Protein 100 H Urine Glucose (UA) NEGATIVE Urine Ketones TRACE H Urine Blood LARGE H Urine Nitrite NEGATIVE Ur Leukocyte Esterase LARGE H Urine WBC (Auto) >182 Urine RBC (Auto) 137 12/08/18 12/08/18 00:29 00:29 Creatine Kinase 94 Troponin I < 0.012 Impressions: Cervical Spine CT 12/08/18 00:58 IMPRESSION: No acute findings. Chest X-Ray 12/08/18 00:58 IMPRESSION: Clear lungs. Assessment and Plan - Diagnosis (1) Urinary tract infection Qualifiers: Hematuria presence: with hematuria Is this a current diagnosis for this admission?: Yes Plan: Vancomycin ordered for sensitive E faecalis cultured last month. Follow-up urine and blood culture. (2) Acute on chronic renal failure Qualifiers: Acute renal failure type: unspecified Chronic kidney disease stage: unspecified stage Qualified Code(s): N17.9 - Acute kidney failure, unspecified; N18.9 - Chronic kidney disease, unspecified Is this a current diagnosis for this admission?: Yes Plan: Avoid nephrotoxic meds and doses follow-up chemistry (3) Bladder cancer Qualifiers: Is this a current diagnosis for this admission?: Yes Plan: Supportive care not a candidate for aggressive management given profound dementia. (4) Dementia Is this a current diagnosis for this admission?: Yes Plan: Advanced dementia with psychosis. Supportive care, DNR with hospice referral ordered - Time Time Spent with patient: 35 or more minutes - Inpatient Certification Medical Necessity: Need Close Monitoring Due to Risk of Patient Decompensation
[2018-12-08] MEDS ORDERED: VANCOMYCIN HCL 0 MG in DEXTROSE 5%-WATER 250 ML IV NR (06:30)
[2018-12-08] MEDS ORDERED: VANCOMYCIN HCL 1,000 MG in DEXTROSE 5%-WATER 250 ML IV ONE (07:00)
[2018-12-08] MEDS: DOCUSATE SODIUM 100 MG CAPSULE PO SCH ×2 (09:44→17:17)
[2018-12-08] MEDS ORDERED: CEFTRIAXONE 1 GM/D5W RTU 1 GM/50 ML RTUPB IV SCH (10:00)
[2018-12-08] MEDS ORDERED: VANCOMYCIN HCL 750 MG in DEXTROSE 5%-WATER 250 ML IV SCH (10:00)
[2018-12-08] MEDS: LORAZEPAM INJ 2 MG/1 ML VIAL IV PRN ×2 (15:43→22:34)
[2018-12-09] MEDS: HEPARIN SOD (PORCINE) 5,000 UNIT/ML 1 ML SYRINGE SUBCUT SCH ×3 (05:15→21:02)
[2018-12-09 05:26] LABS: ABSOLUTE EOSINOPHILS # (AUTO) 0.1 10^3/uL (0.0-0.6); ABSOLUTE LYMPHOCYTES (AUTO) 0.8 10^3/uL (0.5-4.7); ABSOLUTE MONOCYTES (AUTO) 0.8 10^3/uL (0.1-1.4); ABSOLUTE NEUT (AUTO) 6.5 10^3/uL (1.7-8.2); BASOPHILS % (AUTO) 0.4 % (0-2); EOSINOPHILS % (AUTO) 1.8 % (0-6); HEMATOCRIT 23.1 % (36.0-47.0); LYMPHOCYTES % (AUTO) 9.8 % (13-45); MEAN CORPUSCULAR HEMOGLOBIN 27.2 pg (27.0-33.4); MEAN CORPUSCULAR HGB CONC 33.2 g/dL (32.0-36.0); MEAN CORPUSCULAR VOLUME 82 fl (80-97); MONOCYTES % (AUTO) 9.2 % (3-13); PLATELET COUNT 306 10^3/uL (150-450); RED BLOOD COUNT 2.81 10^6/uL (3.72-5.28); SEGMENTED NEUTROPHILS % (AUTO) 78.8 % (42-78); TOTAL CELLS COUNTED % (AUTO) 100 %; WHITE BLOOD COUNT 8.3 10^3/uL (4.0-10.5)
[2018-12-09 05:44] LABS: ANION GAP 12 (5-19); BLOOD UREA NITROGEN 23 mg/dL (7-20); CALCIUM 8.6 mg/dL (8.4-10.2); CARBON DIOXIDE 20 mmol/L (22-30); CHLORIDE 107 mmol/L (98-107); GLUCOSE 90 mg/dL (75-110); POTASSIUM 3.7 mmol/L (3.6-5.0); SODIUM 138.7 mmol/L (137-145)
[2018-12-09 05:47] LABS: HEMOGLOBIN 7.7 g/dL (12.0-15.5)
[2018-12-09] MEDS: DOCUSATE SODIUM 100 MG CAPSULE PO SCH ×2 (09:57→17:43)
[2018-12-09] MEDS: NORMAL SALINE 1000 ML 1,000 ML IV PRN ×3 (09:57→21:02)
[2018-12-09] MEDS: CEFTRIAXONE 1 GM/D5W RTU 1 GM/50 ML RTUPB IV SCH (09:59)
--- NOTE | 2018-12-09 21:31 | PDOC PROGRESS REPORT ---
Subjective Progress Note for:: 12/09/18 Subjective:: SRIKANTH COLVIN is a 73 year old female with a PMH of advanced dementia with agitation, bipolar disorder, CKD 3 and recurrent UTI. Patient is brought to the emergency room by her daughter after being found on the ground without evidence of injury complaining of weakness. Patient's mental status is at baseline requiring 100% care. She is referred to the hospitalist for admission. Daughter describes frequent episodes of severe agitation verifying CODE STATUS is DNR requesting hospice consult. Nursing staff expresses concerns about the daughter's ability to care for the patient at home because patient is unsteady on her feet, unable to ambulate w/o assistance and is a fall risk. Daughter reports she is currently caring for a 7 mo old baby at home. States that if the baby cried the patient becomes very agitated stating "shut that baby up" otherwise "I will throw it out the window." The patient's daughter expresses safety concerns about bringing the patient home as well as her ability to care for the patient. According to the daughter, the patient lost 15lbs within weeks of going to [facility]. She voices concerns about the patient's nutritional status and the ability of SNF staff to care for her mother. Will initiate Megace today to stimulate appetite and (hopefully) get patient interested in eating. Daughter was informed that she must make decision regarding hospice vs SNF vs home care by tomorrow. Reason For Visit: ARF UTI DEMENTIA Physical Exam Vital Signs: Temp Pulse Resp BP Pulse Ox 98.3 F 83 20 168/86 H 92 12/09/18 19:50 12/09/18 19:50 12/09/18 19:50 12/09/18 19:50 12/09/18 19:50 Intake & Output 12/08/18 12/09/18 12/10/18 06:59 06:59 06:59 Intake Total 1350 1141 Output Total 0 2 Balance 0 1348 1141 Weight 47 kg 50.7 kg General appearance: PRESENT: thin Eye exam: PRESENT: conjunctiva pale, PERRLA Mouth exam: PRESENT: dry mucosa Teeth exam: PRESENT: poor dentation Neck exam: PRESENT: full ROM Respiratory exam: PRESENT: clear to auscultation donita, symmetrical, unlabored Cardiovascular exam: PRESENT: RRR Pulses: PRESENT: normal radial pulses, normal dorsalis pedis pul Vascular exam: PRESENT: normal capillary refill GI/Abdominal exam: PRESENT: hypoactive bowel sounds. ABSENT: distended, tenderness Rectal exam: PRESENT: deferred Extremities exam: PRESENT: full ROM. ABSENT: pedal edema Musculoskeletal exam: PRESENT: full ROM. ABSENT: ambulatory Neurological exam: PRESENT: alert, awake, oriented to person. ABSENT: oriented to place, oriented to time, oriented to situation Skin exam: PRESENT: dry, intact Results Laboratory Results: 12/09/18 04:29 12/09/18 04:29 12/09/18 12/09/18 04:29 04:29 WBC 8.3 RBC 2.81 L Hgb 7.7 L Hct 23.1 L MCV 82 MCH 27.2 MCHC 33.2 RDW 15.0 H Plt Count 306 Seg Neutrophils % 78.8 H Lymphocytes % 9.8 L Monocytes % 9.2 Eosinophils % 1.8 Basophils % 0.4 Absolute Neutrophils 6.5 Absolute Lymphocytes 0.8 Absolute Monocytes 0.8 Absolute Eosinophils 0.1 Absolute Basophils 0.0 Sodium 138.7 Potassium 3.7 Chloride 107 Carbon Dioxide 20 L Anion Gap 12 BUN 23 H Creatinine 2.06 H Est GFR ( Amer) 28 L Est GFR (Non-Af Amer) 23 L Glucose 90 Calcium 8.6 12/08/18 01:40 Catheterized Urine Urine Culture - Final C.albicans/C.dubliniensis 12/08/18 12/08/18 00:29 00:29 Creatine Kinase 94 Troponin I < 0.012 Impressions: Cervical Spine CT 12/08/18 00:58 IMPRESSION: No acute findings. Chest X-Ray 12/08/18 00:58 IMPRESSION: Clear lungs. Status: Imported from PACS Assessment and Plan - Diagnosis (1) Urinary tract infection Qualifiers: Hematuria presence: with hematuria Is this a current diagnosis for this admission?: Yes Plan: Present upon admission Large leuk esterase and >182 WBC Continue IV Rocephin (2) Bipolar affective Is this a current diagnosis for this admission?: Yes Plan: H Bipolar Continue home Depakote and Buspar (3) Failure to thrive Qualifiers: Failure to thrive age range: in adult Qualified Code(s): R62.7 - Adult failure to thrive Is this a current diagnosis for this admission?: Yes Plan: Secondary to dementia and malnutrition Patient recently sent to [facility] Daughter reports the patient lost 15lbs within weeks Poor appetite coupled with difficulty feeding herself Initiate Megace today to stimulate appetite (4) Do not resuscitate Is this a current diagnosis for this admission?: Yes Plan: Confirmed by daughter that the patient's code status is DNR - Time Time Spent with patient: 15-24 minutes Medications reviewed and adjusted accordingly: Yes Anticipated discharge: Home - Inpatient Certification Based on my medical assessment, after consideration of the patient's comorbidities, presenting symptoms, or acuity I expect that the services needed warrant INPATIENT care.: Yes I certify that my determination is in accordance with my understanding of Medicare's requirements for reasonable and necessary INPATIENT services [42 CFR 412.3e].: Yes Medical Necessity: Risk of Complication if Not Cared For in Hospital
[2018-12-09] MEDS ORDERED: FAMOTIDINE 20 MG TABLET PO SCH (22:00)
[2018-12-09] MEDS: FERROUS SULFATE 325 MG TABLET PO SCH (22:23)
[2018-12-09] MEDS: SIMVASTATIN 10 MG TABLET PO SCH (22:23)
[2018-12-09] MEDS: FAMOTIDINE 20 MG TABLET PO SCH (22:23)
[2018-12-09] MEDS: BUSPIRONE HCL 10 MG TABLET PO SCH (22:23)
[2018-12-09] MEDS: LAMOTRIGINE 100 MG TABLET PO SCH (22:23)
[2018-12-10] MEDS: HEPARIN SOD (PORCINE) 5,000 UNIT/ML 1 ML SYRINGE SUBCUT SCH ×3 (05:26→21:32)
[2018-12-10] MEDS: LEVOTHYROXINE SODIUM 0.05 MG TABLET PO SCH (06:09)
[2018-12-10] MEDS: NORMAL SALINE 1000 ML 1,000 ML IV PRN (08:20)
[2018-12-10] MEDS: LORAZEPAM INJ 2 MG/1 ML VIAL IV PRN ×2 (08:20→21:33)
--- NOTE | 2018-12-10 08:38 | ADVANCED CARE ---
- Diagnosis (1) Urinary tract infection Diagnosis Current: Yes (2) Bipolar affective Diagnosis Current: Yes (3) Failure to thrive Diagnosis Current: Yes (4) Do not resuscitate Diagnosis Current: Yes Attendance: DaughterMary Resuscitation Status: Do Not Resuscitate Discussion: Discussed advanced care planning with patient's daughter via telephone. The patient was previously at [facility] following [facility] hospitalization for UTI and dementia. Daughter states she was very unhappy with the care that the patient received while at the SNF. She was often covered in bruises, in multiple stages of healing. Daughter reports on one occasion she went to visit her mother, and she was found "on the floor." Additionally, daughter reports that the patient lost approximately 15 pounds in the short amount of time that she was at [facility]. The daughter states she is concerned about her ability to care for the patient at home. Patient requires 1-2 person assist to get out of bed to the bathroom, she is unable to ambulate on her own and requires someone to assist with feeding. The patient has the ability to feed herself, but without prompting she will not eat. Additionally, the patient has made multiple threats towards the daughter's children. The patient stating that she would physically harm them if they were not quiet while in the house. On one occasion, the patient stated that she would throw her 7 month old grandchild "out the window." At the end of the discussion, the patient's daughter could not decide if she wanted to bring the patient home on hospice or have her placed in another facility. The daughter expressed that she would be interested in placing the patient in a different SNF, as long as the patient would have someone to help her eat. Informed the daughter that there was very little medical necessity called for inpatient hospitalization, a decision regarding the patient's disposition would need to be made within 24 hours. The daughter stated understanding, plan to follow-up with her tomorrow. Care Planning Goals: In home hospice vs. SNF Document(s) Completed: none. Need medical POA paperwork from daughter Time Spent: 20
[2018-12-10] MEDS ORDERED: BULGARICUS PO SCH (10:00)
[2018-12-10] MEDS ORDERED: ACIDOPHILUS PO SCH (10:00)
[2018-12-10] MEDS: DOCUSATE SODIUM 100 MG CAPSULE PO SCH ×2 (11:47→17:52)
[2018-12-10] MEDS: VENLAFAXINE HCL 75 MG CAP.SR.24H PO SCH (11:50)
[2018-12-10] MEDS: LACTOBACILLUS ACIDOPHILUS 250 MG TAB PO SCH (11:50)
[2018-12-10] MEDS: BUSPIRONE HCL 10 MG TABLET PO SCH ×2 (11:50→21:32)
[2018-12-10] MEDS: CEFTRIAXONE 1 GM/D5W RTU 1 GM/50 ML RTUPB IV SCH (11:50)
[2018-12-10] MEDS: DIVALPROEX SODIUM 250 MG TAB.SR.24H PO SCH (12:10)
[2018-12-10] MEDS ORDERED: IPRATROPIUM/ALBUTEROL 0.5-2.5 MG/3 ML AMPUL NEB PRN (13:12)
--- NOTE | 2018-12-10 13:57 | PDOC PROGRESS REPORT ---
Subjective Progress Note for:: 12/10/18 Subjective:: 12/10/2018-no acute events in the last 24 hours. Patient is afebrile. Sleeping in the bed does not want to wake up and talk to me. Waiting for either intermediate placement or hospice placement. Reason For Visit: ARF UTI DEMENTIA Physical Exam Vital Signs: Temp Pulse Resp BP Pulse Ox 99.9 F 87 16 155/75 H 94 12/10/18 01:13 12/10/18 09:33 12/10/18 09:33 12/10/18 01:13 12/10/18 09:33 Intake & Output 12/09/18 12/10/18 12/11/18 06:59 06:59 06:59 Intake Total 1350 2554 50 Output Total 2 0 Balance 1348 2554 50 Weight 50.7 kg 51.6 kg General appearance: PRESENT: no acute distress, thin Head exam: PRESENT: atraumatic Eye exam: PRESENT: PERRLA Mouth exam: PRESENT: moist, tongue midline Neck exam: ABSENT: carotid bruit, JVD, lymphadenopathy, thyromegaly Respiratory exam: PRESENT: decreased breath sounds Cardiovascular exam: PRESENT: RRR, systolic murmur. ABSENT: diastolic murmur, rubs GI/Abdominal exam: PRESENT: normal bowel sounds, soft. ABSENT: distended, guarding, mass, organolmegaly, rebound, tenderness Extremities exam: PRESENT: full ROM. ABSENT: calf tenderness, clubbing, pedal edema Neurological exam: PRESENT: alert, awake, oriented to person, oriented to place, oriented to time, oriented to situation, CN II-XII grossly intact. ABSENT: motor sensory deficit Psychiatric exam: PRESENT: appropriate affect, normal mood. ABSENT: homicidal ideation, suicidal ideation Results Laboratory Results: 12/09/18 04:29 12/09/18 04:29 12/08/18 01:40 Catheterized Urine Urine Culture - Final C.albicans/C.dubliniensis 12/08/18 12/08/18 00:29 00:29 Creatine Kinase 94 Troponin I < 0.012 Impressions: Cervical Spine CT 12/08/18 00:58 IMPRESSION: No acute findings. Chest X-Ray 12/08/18 00:58 IMPRESSION: Clear lungs. Assessment and Plan - Diagnosis (1) Urinary tract infection Qualifiers: Hematuria presence: with hematuria Is this a current diagnosis for this admission?: Yes Plan: Present upon admission Large leuk esterase and >182 WBC Continue IV Rocephin 12/10/2018-UTI probably secondary to colonization. Patient is afebrile for the last several days. IV is Rocephin is discontinued today. (2) Failure to thrive Qualifiers: Failure to thrive age range: in adult Qualified Code(s): R62.7 - Adult failure to thrive Is this a current diagnosis for this admission?: Yes Plan: Secondary to dementia and malnutrition Patient recently sent to [facility] Daughter reports the patient lost 15lbs within weeks Poor appetite coupled with difficulty feeding herself Initiate Megace today to stimulate appetite 12/10/2018-has very poor appetite. Failure to thrive probably secondary to advanced dementia. In private intermediate she lost more than 15 pounds daughter was concerned about it and took her mom home but unable to provide adequate care brought her to the hospital for further evaluation. Patient is on Megace right now. Dietary consult was requested. (3) Do not resuscitate Is this a current diagnosis for this admission?: Yes Plan: Confirmed by daughter that the patient's code status is DNR 12/10/2018-patient CODE STATUS is DNR/DNI. (4) Bipolar affective Is this a current diagnosis for this admission?: Yes Plan: H Bipolar Continue home Depakote and Buspar 12/10/2018-patient has bipolar disorder at home she is on Depakote and BuSpar plan is to continue the meds during the hospital stay. - Time Time Spent with patient: 15-24 minutes Anticipated discharge: SNF
[2018-12-10] MEDS: DICYCLOMINE HCL 20 MG TABLET PO SCH ×3 (14:39→21:32)
[2018-12-10] MEDS: SIMVASTATIN 10 MG TABLET PO SCH (17:52)
[2018-12-10] MEDS: FERROUS SULFATE 325 MG TABLET PO SCH (17:52)
[2018-12-10] MEDS: LAMOTRIGINE 100 MG TABLET PO SCH (17:52)
[2018-12-10] MEDS ORDERED: (PENDING PHARMACY ID) (Lamotrigine [Lamictal] 200 MG) PO SCH (18:00)
[2018-12-10] MEDS: FAMOTIDINE 20 MG TABLET PO SCH (21:32)
[2018-12-11] MEDS: HEPARIN SOD (PORCINE) 5,000 UNIT/ML 1 ML SYRINGE SUBCUT SCH ×3 (06:30→21:25)
[2018-12-11] MEDS: LACTOBACILLUS ACIDOPHILUS 250 MG TAB PO SCH (10:27)
[2018-12-11] MEDS: LEVOTHYROXINE SODIUM 0.05 MG TABLET PO SCH (10:27)
[2018-12-11] MEDS: VENLAFAXINE HCL 75 MG CAP.SR.24H PO SCH (10:27)
[2018-12-11] MEDS: DOCUSATE SODIUM 100 MG CAPSULE PO SCH ×2 (10:27→18:51)
[2018-12-11] MEDS: BUSPIRONE HCL 10 MG TABLET PO SCH ×2 (10:27→21:24)
[2018-12-11] MEDS: DICYCLOMINE HCL 20 MG TABLET PO SCH ×4 (10:27→21:25)
[2018-12-11] MEDS: DIVALPROEX SODIUM 250 MG TAB.SR.24H PO SCH (10:37)
[2018-12-11] MEDS: ACETAMINOPHEN 325 MG TABLET PO PRN (13:26)
--- NOTE | 2018-12-11 15:35 | PDOC PROGRESS REPORT ---
Subjective Progress Note for:: 12/11/18 Subjective:: 12/10/2018-no acute events in the last 24 hours. Patient is afebrile. Sleeping in the bed does not want to wake up and talk to me. Waiting for either long-term placement or hospice placement. 12/11/2018-no acute events in the last 24 hours. Patient is afebrile. Awake more alert compared to yesterday. Appetite is still poor. Waiting for placement. Reason For Visit: ARF UTI DEMENTIA Physical Exam Vital Signs: Temp Pulse Resp BP Pulse Ox 98.3 F 83 15 152/77 H 93 12/11/18 11:52 12/11/18 11:52 12/11/18 11:52 12/11/18 11:52 12/11/18 11:52 Intake & Output 12/10/18 12/11/18 12/12/18 06:59 06:59 06:59 Intake Total 2554 1725 Output Total 0 2 Balance 2554 1723 Weight 51.6 kg 53.3 kg General appearance: PRESENT: no acute distress, disheveled, thin Head exam: PRESENT: atraumatic Eye exam: PRESENT: PERRLA Neck exam: ABSENT: carotid bruit, JVD, lymphadenopathy, thyromegaly Respiratory exam: PRESENT: clear to auscultation donita. ABSENT: rales, rhonchi, wheezes Cardiovascular exam: PRESENT: tachycardia GI/Abdominal exam: PRESENT: normal bowel sounds, soft. ABSENT: distended, guarding, mass, organolmegaly, rebound, tenderness Extremities exam: PRESENT: full ROM. ABSENT: calf tenderness, clubbing, pedal edema Neurological exam: PRESENT: alert, awake, oriented to person, oriented to place, oriented to time, oriented to situation, CN II-XII grossly intact. ABSENT: motor sensory deficit Psychiatric exam: PRESENT: appropriate affect, normal mood. ABSENT: homicidal i deation, suicidal ideation Results Laboratory Results: 12/09/18 04:29 12/09/18 04:29 12/08/18 12/08/18 00:29 00:29 Creatine Kinase 94 Troponin I < 0.012 Impressions: Cervical Spine CT 12/08/18 00:58 IMPRESSION: No acute findings. Chest X-Ray 12/08/18 00:58 IMPRESSION: Clear lungs. Assessment and Plan - Diagnosis (1) Urinary tract infection Qualifiers: Hematuria presence: with hematuria Is this a current diagnosis for this admission?: Yes Plan: Present upon admission Large leuk esterase and >182 WBC Continue IV Rocephin 12/10/2018-UTI probably secondary to colonization. Patient is afebrile for the last several days. IV is Rocephin is discontinued today. 12/11/2018-patient has UTI probably secondary to colonization she is afebrile. Antibiotics are discontinued. T-max is 98.3. (2) Failure to thrive Qualifiers: Failure to thrive age range: in adult Qualified Code(s): R62.7 - Adult failure to thrive Is this a current diagnosis for this admission?: Yes Plan: Secondary to dementia and malnutrition Patient recently sent to [facility] Daughter reports the patient lost 15lbs within weeks Poor appetite coupled with difficulty feeding herself Initiate Megace today to stimulate appetite 12/10/2018-has very poor appetite. Failure to thrive probably secondary to advanced dementia. In private long-term she lost more than 15 pounds daughter was concerned about it and took her mom home but unable to provide adequate care brought her to the hospital for further evaluation. Patient is on Megace right now. Dietary consult was requested. 12/11/2018-failure to thrive most likely secondary to advanced dementia. She is on Megace. But her appetite is very very minimal. I talked to the patient larisa te a bit and encouraged her to eat and also explained to her without proper nutrition she may end up getting bedsores patient understood but she said she does not have any appetite (3) Do not resuscitate Is this a current diagnosis for this admission?: Yes Plan: Confirmed by daughter that the patient's code status is DNR 12/10/2018-patient CODE STATUS is DNR/DNI. (4) Bipolar affective Is this a current diagnosis for this admission?: Yes Plan: PMH Bipolar Continue home Depakote and Buspar 12/10/2018-patient has bipolar disorder at home she is on Depakote and BuSpar plan is to continue the meds during the hospital stay. 12/11/2018-patient has a history of bipolar disorder plan is to continue the present management. - Time Time Spent with patient: 15-24 minutes Medications reviewed and adjusted accordingly: Yes Anticipated discharge: SNF
[2018-12-11] MEDS: SIMVASTATIN 10 MG TABLET PO SCH (18:51)
[2018-12-11] MEDS: LAMOTRIGINE 100 MG TABLET PO SCH (18:51)
[2018-12-11] MEDS: FERROUS SULFATE 325 MG TABLET PO SCH (18:51)
[2018-12-11] MEDS: LORAZEPAM INJ 2 MG/1 ML VIAL IV PRN (18:51)
[2018-12-11] MEDS: FAMOTIDINE 20 MG TABLET PO SCH (21:24)
[2018-12-12] MEDS: HEPARIN SOD (PORCINE) 5,000 UNIT/ML 1 ML SYRINGE SUBCUT SCH ×2 (05:14→17:55)
[2018-12-12] MEDS: LEVOTHYROXINE SODIUM 0.05 MG TABLET PO SCH (11:46)
[2018-12-12] MEDS: DICYCLOMINE HCL 20 MG TABLET PO SCH ×3 (11:46→17:54)
[2018-12-12] MEDS: LACTOBACILLUS ACIDOPHILUS 250 MG TAB PO SCH (11:47)
[2018-12-12] MEDS: DOCUSATE SODIUM 100 MG CAPSULE PO SCH ×2 (11:47→17:52)
[2018-12-12] MEDS: BUSPIRONE HCL 10 MG TABLET PO SCH (11:47)
[2018-12-12] MEDS: DIVALPROEX SODIUM 250 MG TAB.SR.24H PO SCH (11:48)
[2018-12-12] MEDS: VENLAFAXINE HCL 75 MG CAP.SR.24H PO SCH (11:48)
--- NOTE | 2018-12-12 14:03 | PDOC PROGRESS REPORT ---
Subjective Progress Note for:: 12/12/18 Subjective:: 12/10/2018-no acute events in the last 24 hours. Patient is afebrile. Sleeping in the bed does not want to wake up and talk to me. Waiting for either retirement placement or hospice placement. 12/11/2018-no acute events in the last 24 hours. Patient is afebrile. Awake more alert compared to yesterday. Appetite is still poor. Waiting for placement. 12/12/2018-no acute events in the last 24 hours. Patient is afebrile. Appetite still very poor. Waiting for assisted living placement. Reason For Visit: ARF UTI DEMENTIA Physical Exam Vital Signs: Temp Pulse Resp BP Pulse Ox 98.6 F 82 18 154/74 H 95 12/12/18 11:45 12/12/18 11:45 12/12/18 11:45 12/12/18 11:45 12/12/18 11:45 Intake & Output 12/11/18 12/12/18 12/13/18 06:59 06:59 06:59 Intake Total 1725 Output Total 2 Balance 1723 Weight 53.3 kg 52.6 kg General appearance: PRESENT: disheveled, thin Head exam: PRESENT: atraumatic Eye exam: PRESENT: PERRLA Neck exam: ABSENT: carotid bruit, JVD, lymphadenopathy, thyromegaly Respiratory exam: PRESENT: clear to auscultation donita. ABSENT: rales, rhonchi, wheezes Cardiovascular exam: PRESENT: RRR. ABSENT: diastolic murmur, rubs, systolic murmur GI/Abdominal exam: PRESENT: normal bowel sounds, soft. ABSENT: distended, guarding, mass, organolmegaly, rebound, tenderness Extremities exam: PRESENT: full ROM. ABSENT: calf tenderness, clubbing, pedal edema Neurological exam: PRESENT: alert, awake, oriented to situation, CN II-XII grossly intact. ABSENT: motor sensory deficit Psychiatric exam: PRESENT: appropriate affect, normal mood. ABSENT: homicidal ideation, suicidal ideation Results Laboratory Results: 12/09/18 04:29 12/09/18 04:29 12/08/18 12/08/18 00:29 00:29 Creatine Kinase 94 Troponin I < 0.012 Impressions: Cervical Spine CT 12/08/18 00:58 IMPRESSION: No acute findings. Chest X-Ray 12/08/18 00:58 IMPRESSION: Clear lungs. Assessment and Plan - Diagnosis (1) Urinary tract infection Qualifiers: Hematuria presence: with hematuria Is this a current diagnosis for this admission?: Yes Plan: Present upon admission Large leuk esterase and >182 WBC Continue IV Rocephin 12/10/2018-UTI probably secondary to colonization. Patient is afebrile for the last several days. IV is Rocephin is discontinued today. 12/11/2018-patient has UTI probably secondary to colonization she is afebrile. Antibiotics are discontinued. T-max is 98.3. 12/12/2018-patient is afebrile afebrile probably she has bacterial colonization of the urine. (2) Failure to thrive Qualifiers: Failure to thrive age range: in adult Qualified Code(s): R62.7 - Adult failure to thrive Is this a current diagnosis for this admission?: Yes Plan: Secondary to dementia and malnutrition Patient recently sent to [facility] Daughter reports the patient lost 15lbs within weeks Poor appetite coupled with difficulty feeding herself Initiate Megace today to stimulate appetite 12/10/2018-has very poor appetite. Failure to thrive probably secondary to advanced dementia. In private retirement she lost more than 15 pounds daughter was concerned about it and took her mom home but unable to provide [facility] care brought her to the hospital for further evaluation. Patient is on Megace right now. Dietary consult was requested. 12/11/2018-failure to thrive most likely secondary to advanced dementia. She is on Megace. But her appetite is very very minimal. I talked to the patient quite a bit and encouraged her to eat and also explained to her without proper nutrition she may end up getting bedsores patient understood but she said she does not have any appetite 12/12/2018-patient was started on Megace her appetite is still very very poor. We try to convince her to eat so far unsuccessful. (3) Do not resuscitate Is this a current diagnosis for this admission?: Yes (4) Bipolar affective Is this a current diagnosis for this admission?: Yes Plan: [facility] Bipolar Continue home Depakote and Buspar 12/10/2018-patient has bipolar disorder at home she is on Depakote and BuSpar plan is to continue the meds during the hospital stay. 12/11/2018-patient has a history of bipolar disorder plan is to continue the present management. 12/12/2018-patient has advanced dementia with behavioral problems. She is calm and comfortable in the bed today. (5) Acute on chronic renal failure Qualifiers: Acute renal failure type: unspecified Chronic kidney disease stage: unspecified stage Qualified Code(s): N17.9 - Acute kidney failure, unspecified; N18.9 - Chronic kidney disease, unspecified Is this a current diagnosis for this admission?: Yes Plan: Avoid nephrotoxic meds and doses follow-up chemistry 12/12/2018-patient's baseline creatinine is around 1.5-1.8 creatinine latest one is 2.06 acute on chronic renal failure most likely secondary to poor oral intake. - Time Time Spent with patient: 15-24 minutes Medications reviewed and adjusted accordingly: Yes Anticipated discharge: SNF
[2018-12-12] MEDS: DIVALPROEX SODIUM 125 MG CAP.SPRINK PO SCH (14:21)
[2018-12-12] MEDS: FERROUS SULFATE 325 MG TABLET PO SCH (17:52)
[2018-12-12] MEDS: SIMVASTATIN 10 MG TABLET PO SCH (17:52)
[2018-12-12] MEDS: LAMOTRIGINE 100 MG TABLET PO SCH (17:52)
[2018-12-12] MEDS: ACETAMINOPHEN 325 MG TABLET PO PRN (17:57)
[2018-12-12] MEDS: LORAZEPAM INJ 2 MG/1 ML VIAL IV PRN (18:48)
[2018-12-13] MEDS: DICYCLOMINE HCL 20 MG TABLET PO SCH ×5 (03:55→21:03)
[2018-12-13] MEDS: DIVALPROEX SODIUM 125 MG CAP.SPRINK PO SCH ×3 (03:55→21:08)
[2018-12-13] MEDS: HEPARIN SOD (PORCINE) 5,000 UNIT/ML 1 ML SYRINGE SUBCUT SCH ×4 (03:55→21:03)
[2018-12-13] MEDS: FAMOTIDINE 20 MG TABLET PO SCH ×2 (03:55→21:08)
[2018-12-13] MEDS: BUSPIRONE HCL 10 MG TABLET PO SCH ×3 (03:55→21:07)
[2018-12-13] MEDS: LORAZEPAM INJ 2 MG/1 ML VIAL IV PRN (11:18)
[2018-12-13] MEDS: LACTOBACILLUS ACIDOPHILUS 250 MG TAB PO SCH (11:21)
[2018-12-13] MEDS: DOCUSATE SODIUM 100 MG CAPSULE PO SCH ×3 (11:22→20:29)
[2018-12-13] MEDS: VENLAFAXINE HCL 75 MG CAP.SR.24H PO SCH (11:22)
--- NOTE | 2018-12-13 11:34 | PDOC PROGRESS REPORT ---
Subjective Progress Note for:: 12/13/18 Subjective:: 12/10/2018-no acute events in the last 24 hours. Patient is afebrile. Sleeping in the bed does not want to wake up and talk to me. Waiting for either retirement placement or hospice placement. 12/11/2018-no acute events in the last 24 hours. Patient is afebrile. Awake more alert compared to yesterday. Appetite is still poor. Waiting for placement. 12/12/2018-no acute events in the last 24 hours. Patient is afebrile. Appetite still very poor. Waiting for assisted living placement. 12/13/2018-no acute events in the last 24 hours. Patient is afebrile. She able to eat her breakfast by herself this morning. She is waiting for placement in assisted living. Reason For Visit: ARF UTI DEMENTIA Physical Exam Vital Signs: Temp Pulse Resp BP Pulse Ox 97.7 F 81 16 172/81 H 95 12/13/18 08:00 12/13/18 08:00 12/13/18 08:00 12/13/18 08:00 12/13/18 08:00 Intake & Output 12/12/18 12/13/18 12/14/18 06:59 06:59 06:59 Intake Total 100 Balance 100 Weight 52.6 kg 52.9 kg General appearance: PRESENT: no acute distress, disheveled, thin Head exam: PRESENT: atraumatic Eye exam: PRESENT: PERRLA Mouth exam: PRESENT: moist, tongue midline Neck exam: ABSENT: carotid bruit, JVD, lymphadenopathy, thyromegaly Respiratory exam: PRESENT: decreased breath sounds Cardiovascular exam: PRESENT: RRR. ABSENT: diastolic murmur, rubs, systolic murmur GI/Abdominal exam: PRESENT: normal bowel sounds, soft. ABSENT: distended, guarding, mass, organolmegaly, rebound, tenderness Extremities exam: PRESENT: full ROM. ABSENT: calf tenderness, clubbing, pedal edema Neurological exam: PRESENT: alert, awake, oriented to person, oriented to place, oriented to time, oriented to situation, CN II-XII grossly intact. ABSENT: motor sensory deficit Psychiatric exam: PRESENT: appropriate affect, normal mood. ABSENT: homicidal ideation, suicidal ideation Results Laboratory Results: 12/09/18 04:29 12/09/18 04:29 12/08/18 03:40 Blood Blood Culture - Final NO GROWTH IN 5 DAYS 12/08/18 02:23 Blood Blood Culture - Final NO GROWTH IN 5 DAYS 12/08/18 12/08/18 00:29 00:29 Creatine Kinase 94 Troponin I < 0.012 Impressions: Cervical Spine CT 12/08/18 00:58 IMPRESSION: No acute findings. Chest X-Ray 12/08/18 00:58 IMPRESSION: Clear lungs. Assessment and Plan - Diagnosis (1) Urinary tract infection Qualifiers: Hematuria presence: with hematuria Is this a current diagnosis for this admission?: Yes Plan: Present upon admission Large leuk esterase and >182 WBC Continue IV Rocephin 12/10/2018-UTI probably secondary to colonization. Patient is afebrile for the last several days. IV is Rocephin is discontinued today. 12/11/2018-patient has UTI probably secondary to colonization she is afebrile. Antibiotics are discontinued. T-max is 98.3. 12/12/2018-patient is afebrile afebrile probably she has bacterial colonization of the urine. 12/13/2018-patient is afebrile. Temperature is 97.7.. Not on antibiotics. (2) Failure to thrive Qualifiers: Failure to thrive age range: in adult Qualified Code(s): R62.7 - Adult failure to thrive Is this a current diagnosis for this admission?: Yes Plan: Secondary to dementia and malnutrition Patient recently sent to [facility] Daughter reports the patient lost 15lbs within weeks Poor appetite coupled with difficulty feeding herself Initiate Megace today to stimulate appetite 12/10/2018-has very poor appetite. Failure to thrive probably secondary to advanced dementia. In private retirement she lost more than 15 pounds daughter was concerned about it and took her mom home but unable to provide adequate care brought her to the hospital for further evaluation. Patient is on Megace right now. Dietary consult was requested. 12/11/2018-failure to thrive most likely secondary to advanced dementia. She is on Megace. But her appetite is very very minimal. I talked to the patient quite a bit and encouraged her to eat and also explained to her without proper nutrition she may end up getting bedsores patient understood but she said she does not have any appetite 12/12/2018-patient was started on Megace her appetite is still very very poor. We try to convince her to eat so far unsuccessful. 12/13/2018-patient is on Megace she able to eat breakfast this morning. Every day we try to encourage her to eat more food. (3) Do not resuscitate Is this a current diagnosis for this admission?: Yes (4) Bipolar affective Is this a current diagnosis for this admission?: Yes Plan: [facility] Bipolar Continue home Depakote and Buspar 12/10/2018-patient has bipolar disorder at home she is on Depakote and BuSpar plan is to continue the meds during the hospital stay. 12/11/2018-patient has a history of bipolar disorder plan is to continue the present management. 12/12/2018-patient has advanced dementia with behavioral problems. She is calm and comfortable in the bed today. 12/13/2018-patient has advanced dementia no behavioral problems noticed today. Nurses telling me patient was more agitated from this morning requiring IV Ativan. (5) Acute on chronic renal failure Qualifiers: Acute renal failure type: unspecified Chronic kidney disease stage: unspecified stage Qualified Code(s): N17.9 - Acute kidney failure, unspecified; N18.9 - Chronic kidney disease, unspecified Is this a current diagnosis for this admission?: Yes Plan: Avoid nephrotoxic meds and doses follow-up chemistry 12/12/2018-patient's baseline creatinine is around 1.5-1.8 creatinine latest one is 2.06 acute on chronic renal failure most likely secondary to poor oral intake. 12/13/2018-patient's latest creatinine is 2.06 plan to recheck labs tomorrow acute on chronic renal insufficiency most likely secondary to poor oral intake. - Time Time Spent with patient: 15-24 minutes Medications reviewed and adjusted accordingly: Yes Anticipated discharge: SNF
[2018-12-13] MEDS: LEVOTHYROXINE SODIUM 0.05 MG TABLET PO SCH (11:35)
[2018-12-13] MEDS: SIMVASTATIN 10 MG TABLET PO SCH (19:26)
[2018-12-13] MEDS: FERROUS SULFATE 325 MG TABLET PO SCH (19:26)
[2018-12-13] MEDS: LAMOTRIGINE 100 MG TABLET PO SCH (19:26)
[2018-12-14 04:16] LABS: ABSOLUTE EOSINOPHILS # (AUTO) 0.2 10^3/uL (0.0-0.6); ABSOLUTE LYMPHOCYTES (AUTO) 1.1 10^3/uL (0.5-4.7); ABSOLUTE NEUT (AUTO) 7.9 10^3/uL (1.7-8.2); BASOPHILS % (AUTO) 0.4 % (0-2); HEMATOCRIT 22.1 % (36.0-47.0); LYMPHOCYTES % (AUTO) 10.5 % (13-45); MEAN CORPUSCULAR HEMOGLOBIN 27.6 pg (27.0-33.4); MEAN CORPUSCULAR HGB CONC 33.5 g/dL (32.0-36.0); MEAN CORPUSCULAR VOLUME 82 fl (80-97); MONOCYTES % (AUTO) 9.6 % (3-13); PLATELET COUNT 350 10^3/uL (150-450); RED BLOOD COUNT 2.69 10^6/uL (3.72-5.28); RED CELL DISTRIBUTION WIDTH 15.5 % (11.5-14.0); SEGMENTED NEUTROPHILS % (AUTO) 77.5 % (42-78); TOTAL CELLS COUNTED % (AUTO) 100 %; WHITE BLOOD COUNT 10.2 10^3/uL (4.0-10.5)
[2018-12-14 04:21] LABS: HEMOGLOBIN 7.4 g/dL (12.0-15.5)
[2018-12-14 04:30] LABS: ALANINE AMINOTRANSFERASE 22 U/L (9-52); ALBUMIN 3.2 g/dL (3.5-5.0); ALKALINE PHOSPHATASE 78 U/L (38-126); ANION GAP 11 (5-19); ASPARTATE AMINO TRANSFERASE 25 U/L (14-36); BILIRUBIN,DIRECT 0.3 mg/dL (0.0-0.4); BILIRUBIN,TOTAL 0.3 mg/dL (0.2-1.3); BLOOD UREA NITROGEN 24 mg/dL (7-20); CALCIUM 9.6 mg/dL (8.4-10.2); CARBON DIOXIDE 20 mmol/L (22-30); CHLORIDE 111 mmol/L (98-107); GLUCOSE 124 mg/dL (75-110); POTASSIUM 3.6 mmol/L (3.6-5.0); SODIUM 142.1 mmol/L (137-145); TOTAL PROTEIN 6.4 g/dL (6.3-8.2)
[2018-12-14] MEDS: HEPARIN SOD (PORCINE) 5,000 UNIT/ML 1 ML SYRINGE SUBCUT SCH ×3 (05:25→21:25)
[2018-12-14] MEDS: LEVOTHYROXINE SODIUM 0.05 MG TABLET PO SCH (05:25)
[2018-12-14] MEDS: DOCUSATE SODIUM 100 MG CAPSULE PO SCH ×2 (10:08→20:01)
[2018-12-14] MEDS: LACTOBACILLUS ACIDOPHILUS 250 MG TAB PO SCH (10:12)
[2018-12-14] MEDS: BUSPIRONE HCL 10 MG TABLET PO SCH ×2 (10:12→21:25)
[2018-12-14] MEDS: VENLAFAXINE HCL 75 MG CAP.SR.24H PO SCH (10:14)
[2018-12-14] MEDS: DIVALPROEX SODIUM 125 MG CAP.SPRINK PO SCH ×2 (10:14→21:25)
[2018-12-14] MEDS: DICYCLOMINE HCL 20 MG TABLET PO SCH ×3 (10:14→21:25)
[2018-12-14] MEDS: LORAZEPAM INJ 2 MG/1 ML VIAL IV PRN (12:20)
[2018-12-14] MEDS ORDERED: NORMAL SALINE 250 ML IV PRN ×2 (13:30)
--- NOTE | 2018-12-14 13:39 | PDOC PROGRESS REPORT ---
Subjective Progress Note for:: 12/14/18 Subjective:: 12/10/2018-no acute events in the last 24 hours. Patient is afebrile. Sleeping in the bed does not want to wake up and talk to me. [facility]ing [place] [facility] [place] or hospice placement. 12/11/2018-no acute events in the last 24 hours. Patient is afebrile. Awake more alert compared to yesterday. Appetite is still poor. Waiting for placement. 12/12/2018-no acute events in the last 24 hours. Patient is afebrile. Appetite still very poor. Waiting for assisted living placement. 12/13/2018-no acute events in the last 24 hours. Patient is afebrile. She able to eat her breakfast by herself this morning. She is waiting for placement in assisted living. 12/14/2018-no acute events in the last 24 hours. Patient is afebrile. More alert more awake. Hemoglobin dropped to 7.4 today. To transfuse 1 unit of PRBC. Patient says no problems. Reason For Visit: ARF UTI DEMENTIA Physical Exam Vital Signs: Temp Pulse Resp BP Pulse Ox 98.0 F 81 24 H 166/78 H 99 12/14/18 11:33 12/14/18 11:33 12/14/18 11:33 12/14/18 11:33 12/14/18 11:33 Intake & Output 12/13/18 12/14/18 12/15/18 06:59 06:59 06:59 Intake Total 100 100 Balance 100 100 Weight 52.9 kg 51.7 kg General appearance: PRESENT: disheveled, thin Head exam: PRESENT: atraumatic Eye exam: PRESENT: PERRLA Mouth exam: PRESENT: moist, tongue midline Neck exam: ABSENT: carotid bruit, JVD, lymphadenopathy, thyromegaly Respiratory exam: PRESENT: clear to auscultation donita. ABSENT: rales, rhonchi, wheezes Cardiovascular exam: PRESENT: tachycardia GI/Abdominal exam: PRESENT: normal bowel sounds, soft. ABSENT: distended, guarding, mass, organolmegaly, rebound, tenderness Extremities exam: PRESENT: full ROM. ABSENT: calf tenderness, clubbing, pedal edema Neurological exam: PRESENT: alert, awake, oriented to person, oriented to place, oriented to time, oriented to situation, CN II-XII grossly intact. ABSENT: mot or sensory deficit Psychiatric exam: PRESENT: appropriate affect, normal mood. ABSENT: homicidal ideation, suicidal ideation Results Laboratory Results: 12/14/18 04:01 12/14/18 04:01 12/14/18 12/14/18 04:01 04:01 WBC 10.2 RBC 2.69 L Hgb 7.4 L Hct 22.1 L MCV 82 MCH 27.6 MCHC 33.5 RDW 15.5 H Plt Count 350 Seg Neutrophils % 77.5 Lymphocytes % 10.5 L Monocytes % 9.6 Eosinophils % 2.0 Basophils % 0.4 Absolute Neutrophils 7.9 Absolute Lymphocytes 1.1 Absolute Monocytes 1.0 Absolute Eosinophils 0.2 Absolute Basophils 0.0 Sodium 142.1 Potassium 3.6 Chloride 111 H Carbon Dioxide 20 L Anion Gap 11 BUN 24 H Creatinine 2.37 H Est GFR ( Amer) 24 L Est GFR (Non-Af Amer) 20 L Glucose 124 H Calcium 9.6 Magnesium 2.0 Total Bilirubin 0.3 AST 25 ALT 22 Alkaline Phosphatase 78 Total Protein 6.4 Albumin 3.2 L 12/08/18 12/08/18 00:29 00:29 Creatine Kinase 94 Troponin I < 0.012 Impressions: Cervical Spine CT 12/08/18 00:58 IMPRESSION: No acute findings. Chest X-Ray 12/08/18 00:58 IMPRESSION: Clear lungs. Assessment and Plan - Diagnosis (1) Urinary tract infection Qualifiers: Hematuria presence: with hematuria Is this a current diagnosis for this admission?: Yes (2) Failure to thrive Qualifiers: Failure to thrive age range: in adult Qualified Code(s): R62.7 - Adult failure to thrive Is this a current diagnosis for this admission?: Yes (3) Do not resuscitate Is this a current diagnosis for this admission?: Yes (4) Bipolar affective Is this a current diagnosis for this admission?: Yes (5) Acute on chronic renal failure Qualifiers: Acute renal failure type: unspecified Chronic kidney disease stage: unspecified stage Qualified Code(s): N17.9 - Acute kidney failure, un specified; N18.9 - Chronic kidney disease, unspecified Is this a current diagnosis for this admission?: Yes (6) Anemia Qualifiers: Anemia type: unspecified type Qualified Code(s): D64.9 - Anemia, uns pecified Is this a current diagnosis for this admission?: Yes Plan: 12/14/2018-patient has history of anemia of chronic disease. Most likely sec ondary to chronic kidney disease. Hemoglobin dropped to 7.4 to transfuse 1 unit of PRBC today and recheck the labs tomorrow. (7) Acute on chronic renal failure Is this a current diagnosis for this admission?: Yes Plan: 12/14/2018-patient's latest creatinine is 2.37. Acute on chronic kidney injury most likely secondary to poor oral intake. (8) Failure to thrive Is this a current diagnosis for this admission?: Yes Plan: Secondary to dementia and malnutrition Patient recently sent to [facility] Daughter reports the patient lost 15lbs within weeks Poor appetite coupled with difficulty feeding herself Initiate Megace today to stimulate appetite 12/10/2018-has very poor appetite. Failure to thrive probably secondary to advanced dementia. In [facility] [place] [facility] she lost more than 15 pounds daughter was concerned about it and took her mom home but unable to provide adequate care brought her to the hospital for further evaluation. Patient is on Megace right now. Dietary consult was requested. 12/11/2018-failure to thrive most likely secondary to advanced dementia. She is on Megace. But her appetite is very very minimal. I talked to the patient quite a bit and encouraged her to eat and also explained to her without proper nutrition she may end up getting bedsores patient understood but she said she does not have any appetite 12/12/2018-patient was started on Megace her appetite is still very very poor. We try to convince her to eat so far unsuccessful. 12/13/2018-patient is on Megace she able to eat breakfast this morning. Every day we try to encourage her to eat more food. 12/14/2018-plan is to continue the present management. - Time Time Spent with patient: 15-24 minutes Medications reviewed and adjusted accordingly: Yes Anticipated discharge: SNF
[2018-12-14] MEDS: SIMVASTATIN 10 MG TABLET PO SCH (20:01)
[2018-12-14] MEDS: LAMOTRIGINE 100 MG TABLET PO SCH (20:01)
[2018-12-14] MEDS: FERROUS SULFATE 325 MG TABLET PO SCH (20:02)
[2018-12-14] MEDS: FAMOTIDINE 20 MG TABLET PO SCH (21:25)
[2018-12-15] MEDS: HEPARIN SOD (PORCINE) 5,000 UNIT/ML 1 ML SYRINGE SUBCUT SCH ×3 (05:47→23:12)
[2018-12-15] MEDS: LEVOTHYROXINE SODIUM 0.05 MG TABLET PO SCH (05:47)
[2018-12-15 07:53] LABS: ABSOLUTE EOSINOPHILS # (AUTO) 0.1 10^3/uL (0.0-0.6); ABSOLUTE LYMPHOCYTES (AUTO) 1.1 10^3/uL (0.5-4.7); ABSOLUTE MONOCYTES (AUTO) 0.9 10^3/uL (0.1-1.4); ABSOLUTE NEUT (AUTO) 8.8 10^3/uL (1.7-8.2); BASOPHILS % (AUTO) 0.4 % (0-2); EOSINOPHILS % (AUTO) 1.3 % (0-6); HEMATOCRIT 26.1 % (36.0-47.0); HEMOGLOBIN 8.8 g/dL (12.0-15.5); LYMPHOCYTES % (AUTO) 9.7 % (13-45); MEAN CORPUSCULAR HGB CONC 33.6 g/dL (32.0-36.0); MEAN CORPUSCULAR VOLUME 84 fl (80-97); MONOCYTES % (AUTO) 8.2 % (3-13); PLATELET COUNT 349 10^3/uL (150-450); RED BLOOD COUNT 3.13 10^6/uL (3.72-5.28); RED CELL DISTRIBUTION WIDTH 15.2 % (11.5-14.0); SEGMENTED NEUTROPHILS % (AUTO) 80.4 % (42-78); TOTAL CELLS COUNTED % (AUTO) 100 %; WHITE BLOOD COUNT 10.9 10^3/uL (4.0-10.5)
[2018-12-15] MEDS: DICYCLOMINE HCL 20 MG TABLET PO SCH ×4 (11:46→23:14)
[2018-12-15] MEDS: VENLAFAXINE HCL 75 MG CAP.SR.24H PO SCH (12:03)
[2018-12-15] MEDS: DIVALPROEX SODIUM 125 MG CAP.SPRINK PO SCH ×2 (12:03→23:14)
[2018-12-15] MEDS: BUSPIRONE HCL 10 MG TABLET PO SCH ×2 (12:19→23:11)
[2018-12-15] MEDS: LACTOBACILLUS ACIDOPHILUS 250 MG TAB PO SCH (13:30)
[2018-12-15] MEDS: DOCUSATE SODIUM 100 MG CAPSULE PO SCH ×2 (13:30→19:23)
[2018-12-15] MEDS ORDERED: LORAZEPAM INJ 2 MG/1 ML VIAL ONE (14:23)
[2018-12-15] MEDS: LORAZEPAM INJ 2 MG/1 ML VIAL IV PRN (14:27)
--- NOTE | 2018-12-15 14:46 | PDOC TRANSFER SUMMARY ---
General - Admit/Disc Date/PCP Admission Date/Primary Care Provider: 12/08/18 02:38 IRASEMAKisha PARKER, [facility] REP-C Discharge Date: 12/15/18 - Discharge Diagnosis (1) Urinary tract infection Is this a current diagnosis for this admission?: Yes Summary: 12/15/2018 patient is admitted for the UTI probably colonization of the bacteria in the urine. (2) Failure to thrive Is this a current diagnosis for this admission?: Yes Summary: Secondary to dementia and malnutrition Patient recently sent to [facility] Daughter reports the patient lost 15lbs within weeks Poor appetite coupled with difficulty feeding herself Initiate Megace today to stimulate appetite 12/10/2018-has very poor appetite. Failure to thrive probably secondary to advanced dementia. In [facility] she lost more than 15 pounds daughter was concerned about it and took her mom home but unable to provide adequate care brought her to the hospital for further evaluation. Patient is on Megace right now. Dietary consult was requested. 12/11/2018-failure to thrive most likely secondary to advanced dementia. She is on Megace. But her appetite is very very minimal. I talked to the patient quite a bit and encouraged her to eat and also explained to her without proper nutrition she may end up getting bedsores patient understood but she said she does not have any appetite 12/12/2018-patient was started on Megace her appetite is still very very poor. We try to convince her to eat so far unsuccessful. 12/13/2018-patient is on Megace she able to eat breakfast this morning. Every day we try to encourage her to eat more food. 12/14/2018-plan is to continue the present management. 12/15/2018-patient has very very poor appetite. Failure to thrive. We encouraged her to eat more. She was on Megace. (3) Do not resuscitate Is this a current diagnosis for this admission?: No Summary: Patient CODE STATUS is DNR/DNI. (4) Bipolar affective Is this a current diagnosis for this admission?: Yes Summary: Patient has history of bipolar disorder plan is to resume her medications when she in the prison. (5) Acute on chronic renal failure Is this a current diagnosis for this admission?: Yes Summary: 12/14/2018-patient's latest creatinine is 2.37. Acute on chronic kidney injury most likely secondary to poor oral intake. 12/15/2018-patient creatinine is 2.37 acute on chronic renal failure most likely secondary to poor oral intake. (6) Anemia Is this a current diagnosis for this admission?: Yes Summary: 12/14/2018-patient has history of anemia of chronic disease. Most likely secondary to chronic kidney disease. Hemoglobin dropped to 7.4 to transfuse 1 unit of PRBC today and recheck the labs tomorrow. 12/15/2018-patient has history of anemia of chronic disease. Most likely secondary to chronic kidney disease. Latest hemoglobin is point 1:08 unit of transfusion yesterday. (7) Acute on chronic renal failure Is this a current diagnosis for this admission?: Yes (8) Failure to thrive Is this a current diagnosis for this admission?: Yes - Additional Information Resuscitation Status: Do Not Resuscitate Discharge Diet: Cardiac Discharge Activity: Activity As Tolerated Home Medications: Ferrous Sulfate [Feosol 325 mg Tablet] 325 mg PO QPM 06/20/18 Lamotrigine [Lamictal] 200 mg PO QPM 06/20/18 Levothyroxine Sodium [Synthroid 0.05 mg Tablet] 0.05 mg PO Q6AM 06/20/18 Simvastatin [Zocor 10 mg Tablet] 20 mg PO QPM 06/20/18 Buspirone HCl [Buspar 10 mg Tablet] 5 mg PO Q12 tablet 11/17/18 Dicyclomine HCl [Bentyl 20 mg Tablet] 20 mg PO QID tablet 11/17/18 Divalproex Sodium [Depakote ER 250 mg Tablet] 250 mg PO DAILY tab.sr.24h 11/17/18 Famotidine [Pepcid 20 mg Tablet] 20 mg PO Q12 tablet 11/17/18 Venlafaxine HCl ER [Effexor Xr 75 mg Cap.sr] 75 mg PO DAILY cap.sr.24h 11/17/18 Ipratropium/Albuterol Sulfate [Duoneb 3 ml Ampul] 3 ml NEB [id number] PRN 12/08/18 L. Acidophilus/L.bulgaricus [Lactobacillus Tablet] 1 each PO DAILY 12/08/18 Tramadol HCl [Ultram 50 mg Tablet] 50 mg PO Q12HP PRN 12/08/18 Acetaminophen [Tylenol 325 mg Tablet] 650 mg PO Q4HP PRN tablet 12/15/18 Docusate Sodium [Colace 100 mg Capsule] 100 mg PO BID capsule 12/15/18 Ipratropium/Albuterol Sulfate [Duoneb 3 ml Ampul] 3 ml NEB [id number] PRN vial.neb 12/15/18 Mag Hydrox/Al Hydrox/Simeth [Maalox Plus Susp 30 Udcup] 30 ml PO Q6HP PRN udc 12/15/18 History of Present Illness Admission Date/PCP: 12/08/18 02:38 IRASEMA PARKER, [facility] REP-C History of Present Illness: SRIKANTH COLVIN is a 73 year old female 73 year old female with a past medical history of advanced dementia with agitation, bipolar disorder, CKD 3 and recurrent urinary tract infection. Patient is brought to the emergency room by her daughter after being found on the ground without evidence of injury complaining of weakness. Patient's mental status is at baseline requiring 100% care. In the emergency room she is found to have urinary tract infection, acute on chronic renal failure and anemia. She is referred to the hospitalist for admission. Daughter describes frequent episodes of severe agitation verifying CODE STATUS is DNR requesting hospice consult. Patient is unable to provide me any meaningful history. Physical Exam Vital Signs: Temp Pulse Resp BP Pulse Ox 98.4 F 88 18 153/74 H 94 12/14/18 23:10 12/14/18 23:10 12/14/18 23:10 12/14/18 23:10 12/14/18 23:10 Intake & Output 12/14/18 12/15/18 12/16/18 06:59 06:59 06:59 Intake Total 100 470 118 Balance 100 470 118 Weight 51.7 kg 51.7 kg General appearance: PRESENT: no acute distress Head exam: PRESENT: atraumatic Eye exam: PRESENT: PERRLA Mouth exam: PRESENT: moist, tongue midline Neck exam: ABSENT: carotid bruit, JVD, lymphadenopathy, thyromegaly Respiratory exam: PRESENT: clear to auscultation donita. ABSENT: rales, rhonchi, wheezes Cardiovascular exam: PRESENT: RRR. ABSENT: diastolic murmur, rubs, systolic murmur GI/Abdominal exam: PRESENT: normal bowel sounds, soft. ABSENT: distended, guarding, mass, organolmegaly, rebound, tenderness Extremities exam: PRESENT: full ROM. ABSENT: calf tenderness, clubbing, pedal edema Neurological exam: PRESENT: other - Advanced dementia Psychiatric exam: PRESENT: agitated, anxious Results Laboratory Results: 12/15/18 07:35 12/14/18 04:01 12/14/18 12/15/18 14:18 07:35 WBC 10.9 H RBC 3.13 L Hgb 8.8 L Hct 26.1 L MCV 84 MCH 28.0 MCHC 33.6 RDW 15.2 H Plt Count 349 Seg Neutrophils % 80.4 H Lymphocytes % 9.7 L Monocytes % 8.2 Eosinophils % 1.3 Basophils % 0.4 Absolute Neutrophils 8.8 H Absolute Lymphocytes 1.1 Absolute Monocytes 0.9 Absolute Eosinophils 0.1 Absolute Basophils 0.0 Blood Type A POSITIVE Antibody Screen NEGATIVE 12/08/18 12/08/18 00:29 00:29 Creatine Kinase 94 Troponin I < 0.012 Impressions: Cervical Spine CT 12/08/18 00:58 IMPRESSION: No acute findings. Chest X-Ray 12/08/18 00:58 IMPRESSION: Clear lungs. Transfer Plan - Disposition Transfer Plan: [facility] - Time Spent with Patient Time spent with patient: Greater than 30 Minutes Qualifiers - * PATIENT BEING DISCHARGED WITH ANY OF THE FOLLOWING DIAGNOSIS: No VTE patient discharged on overlapping Therapy?: No Plan Discharge Plan: Going to facility with the dementia unit. Time Spent: Greater than 30 Minutes
[2018-12-15] MEDS: FERROUS SULFATE 325 MG TABLET PO SCH (19:23)
[2018-12-15] MEDS: SIMVASTATIN 10 MG TABLET PO SCH (19:23)
[2018-12-15] MEDS: LAMOTRIGINE 100 MG TABLET PO SCH (19:23)
[2018-12-15] MEDS: FAMOTIDINE 20 MG TABLET PO SCH (23:11)
[2018-12-16] MEDS: LEVOTHYROXINE SODIUM 0.05 MG TABLET PO SCH (07:21)
[2018-12-16] MEDS: HEPARIN SOD (PORCINE) 5,000 UNIT/ML 1 ML SYRINGE SUBCUT SCH ×3 (07:21→23:27)
[2018-12-16] MEDS: LORAZEPAM INJ 2 MG/1 ML VIAL IV PRN (11:59)
[2018-12-16] MEDS: DIVALPROEX SODIUM 125 MG CAP.SPRINK PO SCH ×2 (15:31→23:26)
[2018-12-16] MEDS: DOCUSATE SODIUM 100 MG CAPSULE PO SCH ×2 (15:31→17:49)
[2018-12-16] MEDS: LACTOBACILLUS ACIDOPHILUS 250 MG TAB PO SCH (15:31)
[2018-12-16] MEDS: BUSPIRONE HCL 10 MG TABLET PO SCH ×2 (15:31→23:26)
[2018-12-16] MEDS: VENLAFAXINE HCL 75 MG CAP.SR.24H PO SCH (15:32)
[2018-12-16] MEDS: DICYCLOMINE HCL 20 MG TABLET PO SCH ×3 (15:32→23:26)
--- NOTE | 2018-12-16 16:41 | Progress Note ---
Provider Note Provider Note: This is a 73 yr old female with advanced dementia, failure to thrive and acute on chronic renal failure. She has been discharged yesterday and is just waiting for bed placement. No acute issues. She is comfortable asleep upon my examination. No change in assessment and plan. Anticipating bed availability within the next 24 hrs.
[2018-12-16] MEDS: FERROUS SULFATE 325 MG TABLET PO SCH (17:49)
[2018-12-16] MEDS: LAMOTRIGINE 100 MG TABLET PO SCH (17:50)
[2018-12-16] MEDS: SIMVASTATIN 10 MG TABLET PO SCH (17:50)
[2018-12-16] MEDS: FAMOTIDINE 20 MG TABLET PO SCH (23:27)
[2018-12-17] MEDS: LORAZEPAM INJ 2 MG/1 ML VIAL IV PRN ×2 (04:07→20:51)
[2018-12-17] MEDS: HEPARIN SOD (PORCINE) 5,000 UNIT/ML 1 ML SYRINGE SUBCUT SCH ×3 (06:02→22:57)
[2018-12-17] MEDS: LEVOTHYROXINE SODIUM 0.05 MG TABLET PO SCH (06:02)
[2018-12-17] MEDS: VENLAFAXINE HCL 75 MG CAP.SR.24H PO SCH (10:57)
[2018-12-17] MEDS: LACTOBACILLUS ACIDOPHILUS 250 MG TAB PO SCH (10:57)
[2018-12-17] MEDS: DIVALPROEX SODIUM 125 MG CAP.SPRINK PO SCH ×2 (10:57→22:57)
[2018-12-17] MEDS: BUSPIRONE HCL 10 MG TABLET PO SCH ×2 (10:57→22:57)
[2018-12-17] MEDS: DICYCLOMINE HCL 20 MG TABLET PO SCH ×4 (10:57→22:56)
[2018-12-17] MEDS: DOCUSATE SODIUM 100 MG CAPSULE PO SCH ×2 (10:58→18:27)
--- NOTE | 2018-12-17 17:11 | Progress Note ---
Provider Note Provider Note: This is a 73 yr old female with advanced dementia, failure to thrive and acute on chronic renal failure. She has been discharged yesterday and is just waiting for bed placement. 12/16: No acute issues. She is comfortable asleep upon my examination. No change in assessment and plan. Anticipating bed availability within the next 24 hrs. 12/17: No acute event overnight. She is more awake and conversant this morning. No change in assessment and plan. Awaiting bed at [facility] pending a PPD testing per facility requirement.
[2018-12-17] MEDS ORDERED: TUBERCULIN,PURIF.PROT.DERIV. 5 TU/0.1 ML TEST 1 ML VIAL ID ONE (18:00)
[2018-12-17] MEDS: SIMVASTATIN 10 MG TABLET PO SCH (18:26)
[2018-12-17] MEDS: FERROUS SULFATE 325 MG TABLET PO SCH (18:26)
[2018-12-17] MEDS: LAMOTRIGINE 100 MG TABLET PO SCH (19:02)
[2018-12-17] MEDS: FAMOTIDINE 20 MG TABLET PO SCH (22:57)
[2018-12-18] MEDS: ACETAMINOPHEN 325 MG TABLET PO PRN (04:01)
[2018-12-18] MEDS: HEPARIN SOD (PORCINE) 5,000 UNIT/ML 1 ML SYRINGE SUBCUT SCH ×3 (05:48→22:42)
[2018-12-18] MEDS: LEVOTHYROXINE SODIUM 0.05 MG TABLET PO SCH (05:49)
[2018-12-18 11:32] LABS: ANION GAP 10 (5-19); BLOOD UREA NITROGEN 31 mg/dL (7-20); CALCIUM 9.6 mg/dL (8.4-10.2); CARBON DIOXIDE 21 mmol/L (22-30); CHLORIDE 107 mmol/L (98-107); GLUCOSE 116 mg/dL (75-110); POTASSIUM 3.4 mmol/L (3.6-5.0); SODIUM 138.1 mmol/L (137-145)
[2018-12-18] MEDS: DICYCLOMINE HCL 20 MG TABLET PO SCH ×3 (12:11→22:42)
[2018-12-18] MEDS: LACTOBACILLUS ACIDOPHILUS 250 MG TAB PO SCH (12:11)
[2018-12-18] MEDS: DOCUSATE SODIUM 100 MG CAPSULE PO SCH ×2 (12:12→17:18)
[2018-12-18] MEDS: VENLAFAXINE HCL 75 MG CAP.SR.24H PO SCH (12:12)
[2018-12-18] MEDS: BUSPIRONE HCL 10 MG TABLET PO SCH ×2 (12:12→22:42)
[2018-12-18] MEDS: DIVALPROEX SODIUM 125 MG CAP.SPRINK PO SCH ×2 (12:12→22:42)
[2018-12-18] MEDS: LORAZEPAM INJ 2 MG/1 ML VIAL IV PRN (12:49)
--- NOTE | 2018-12-18 17:05 | Progress Note ---
Provider Note Provider Note: This is a 73 yr old female with advanced dementia, failure to thrive and acute on chronic renal failure. She has been discharged yesterday and is just waiting for bed placement. 12/16: No acute issues. She is comfortable asleep upon my examination. No change in assessment and plan. Anticipating bed availability within the next 24 hrs. 12/17: She is more awake and conversant this morning. No change in assessment and plan. Awaiting bed at [facility] pending a PPD testing per facility requirement. 12/18: No acute event overnight. Discussed in length with patient's daughter with facilities planner and nurse in room. Discussed in length final disposition and POC about proceeding with hospice. She is amenable to proceeding with plan about patient going to [facility] under hospice care. Addressed questions about patient's renal function, CKD, prior ureteral stents and prior history of breast and bladder CA. Rediscussed goals of hospice again and she verbalized understanding.
[2018-12-18] MEDS: FERROUS SULFATE 325 MG TABLET PO SCH (17:18)
[2018-12-18] MEDS: LAMOTRIGINE 100 MG TABLET PO SCH (17:19)
[2018-12-18] MEDS: SIMVASTATIN 10 MG TABLET PO SCH (17:19)
[2018-12-18] MEDS: HALOPERIDOL LACTATE INJ 5 MG/1 ML VIAL IV PRN (20:28)
[2018-12-18] MEDS: FAMOTIDINE 20 MG TABLET PO SCH (22:43)
[2018-12-19] MEDS: HALOPERIDOL LACTATE INJ 5 MG/1 ML VIAL IV PRN ×2 (03:15→10:40)
[2018-12-19] MEDS: DICYCLOMINE HCL 20 MG TABLET PO SCH ×4 (08:13→21:06)
[2018-12-19] MEDS: LEVOTHYROXINE SODIUM 0.05 MG TABLET PO SCH (08:13)
[2018-12-19] MEDS: HEPARIN SOD (PORCINE) 5,000 UNIT/ML 1 ML SYRINGE SUBCUT SCH ×3 (08:13→21:07)
[2018-12-19] MEDS ORDERED: POTASSIUM CHLORIDE 10 MEQ CAPSULE.ER PO ONE (08:40)
[2018-12-19] MEDS: DOCUSATE SODIUM 100 MG CAPSULE PO SCH ×2 (09:13→18:19)
[2018-12-19] MEDS: BUSPIRONE HCL 10 MG TABLET PO SCH ×2 (09:13→22:56)
[2018-12-19] MEDS: LACTOBACILLUS ACIDOPHILUS 250 MG TAB PO SCH (09:13)
[2018-12-19] MEDS: VENLAFAXINE HCL 75 MG CAP.SR.24H PO SCH (09:14)
[2018-12-19] MEDS: DIVALPROEX SODIUM 125 MG CAP.SPRINK PO SCH ×2 (09:14→21:07)
[2018-12-19] MEDS: POTASSI CL 20 MEQ/50 ML RIDER 20 MEQ/50 ML RTUPB IV SCH ×2 (10:38→12:43)
[2018-12-19] MEDS: NORMAL SALINE 1000 ML 1,000 ML IV PRN (12:44)
[2018-12-19 13:59] LABS: ANION GAP 13 (5-19); BLOOD UREA NITROGEN 28 mg/dL (7-20); CALCIUM 9.2 mg/dL (8.4-10.2); CARBON DIOXIDE 21 mmol/L (22-30); CHLORIDE 103 mmol/L (98-107); GLUCOSE 176 mg/dL (75-110); POTASSIUM 3.2 mmol/L (3.6-5.0); SODIUM 136.9 mmol/L (137-145)
--- NOTE | 2018-12-19 14:03 | Progress Note ---
Provider Note Provider Note: This is a 73 yr old female with advanced dementia, failure to thrive and acute on chronic renal failure. She has been discharged yesterday and is just waiting for bed placement. 12/16: No acute issues. She is comfortable asleep upon my examination. No change in assessment and plan. Anticipating bed availability within the next 24 hrs. 12/17: She is more awake and conversant this morning. No change in assessment and plan. She has been discharged and is just awaiting bed at [facility] pending a PPD testing per facility requirement. 12/18: Discussed in length with patient's daughter with systems planner and nurse in room. Discussed in length final disposition and POC about proceeding with hospice. She is amenable to proceeding with plan about patient going to [facility] under hospice care. Addressed questions about patient's renal function, CKD, prior ureteral stents and prior history of breast and bladder CA. Redi scussed goals of hospice again and she verbalized understanding. 12/19: No acute event overnight. Assessment and plan remain unchanged. Patient is comfortable this morning but is refusing to take oral medications. Updated this morning that, apparently, patient's Medicaid is still pending and has not been approved yet contrary to what was initially relayed.
[2018-12-19] MEDS: POTASSIUM CHLORIDE 20 MEQ/50 ML RTU IV SCH ×2 (18:16→20:17)
[2018-12-19] MEDS: LAMOTRIGINE 100 MG TABLET PO SCH (18:19)
[2018-12-19] MEDS: SIMVASTATIN 10 MG TABLET PO SCH (18:19)
[2018-12-19] MEDS: FERROUS SULFATE 325 MG TABLET PO SCH (18:19)
[2018-12-19] MEDS: LORAZEPAM INJ 2 MG/1 ML VIAL IV PRN (20:56)
[2018-12-19] MEDS: ACETAMINOPHEN 325 MG TABLET PO PRN (20:57)
[2018-12-19] MEDS: FAMOTIDINE 20 MG TABLET PO SCH (21:06)
[2018-12-20 04:57] LABS: ANION GAP 12 (5-19); BLOOD UREA NITROGEN 28 mg/dL (7-20); CALCIUM 9.2 mg/dL (8.4-10.2); CARBON DIOXIDE 20 mmol/L (22-30); CHLORIDE 105 mmol/L (98-107); GLUCOSE 107 mg/dL (75-110); POTASSIUM 3.6 mmol/L (3.6-5.0); SODIUM 136.6 mmol/L (137-145)
[2018-12-20] MEDS: HEPARIN SOD (PORCINE) 5,000 UNIT/ML 1 ML SYRINGE SUBCUT SCH ×3 (05:07→22:48)
[2018-12-20] MEDS: LEVOTHYROXINE SODIUM 0.05 MG TABLET PO SCH (05:07)
[2018-12-20] MEDS: NORMAL SALINE 1000 ML 1,000 ML IV PRN ×2 (09:59→20:38)
[2018-12-20] MEDS: LORAZEPAM INJ 2 MG/1 ML VIAL IV PRN ×2 (09:59→19:57)
[2018-12-20] MEDS: DOCUSATE SODIUM 100 MG CAPSULE PO SCH ×2 (10:07→17:35)
[2018-12-20] MEDS: DICYCLOMINE HCL 20 MG TABLET PO SCH ×4 (10:07→22:49)
[2018-12-20] MEDS: BUSPIRONE HCL 10 MG TABLET PO SCH ×2 (10:07→22:47)
[2018-12-20] MEDS: LACTOBACILLUS ACIDOPHILUS 250 MG TAB PO SCH (10:07)
[2018-12-20] MEDS: DIVALPROEX SODIUM 125 MG CAP.SPRINK PO SCH ×3 (10:09→22:48)
[2018-12-20] MEDS: VENLAFAXINE HCL 75 MG CAP.SR.24H PO SCH (10:14)
--- NOTE | 2018-12-20 14:42 | Progress Note ---
Provider Note Provider Note: This is a 73 yr old female with advanced dementia, failure to thrive and acute on chronic renal failure. She has been discharged yesterday and is just waiting for bed placement. 12/16: No acute issues. She is comfortable asleep upon my examination. No change in assessment and plan. Anticipating bed availability within the next 24 hrs. 12/17: She is more awake and conversant this morning. No change in assessment and plan. She has been discharged and is just awaiting bed at [facility] pending a PPD testing per facility requirement. 12/18: Discussed in length with patient's daughter with production control planner and nurse in room. Discussed in length final disposition and POC about proceeding with hospice. She is amenable to proceeding with plan about patient going to [facility] under hospice care. Addressed questions about patient's renal function, CKD, prior ureteral stents and prior history of breast and bladder CA. Redis cussed goals of hospice again and she verbalized understanding. 12/19: Patient is comfortable this morning but is refusing to take oral medications. Updated this morning that, apparently, patient's Medicaid is still pending and has not been approved yet contrary to what was initially relayed. 12/20: No acute event overnight. Assessment and plan remain unchanged. Awaiting Medicaid approval.
[2018-12-20] MEDS: LAMOTRIGINE 100 MG TABLET PO SCH (17:35)
[2018-12-20] MEDS: FERROUS SULFATE 325 MG TABLET PO SCH (17:35)
[2018-12-20] MEDS: SIMVASTATIN 10 MG TABLET PO SCH (17:36)
[2018-12-20] MEDS: HALOPERIDOL LACTATE INJ 5 MG/1 ML VIAL IV PRN (20:27)
[2018-12-20] MEDS: FAMOTIDINE 20 MG TABLET PO SCH (22:48)
[2018-12-21] MEDS: HEPARIN SOD (PORCINE) 5,000 UNIT/ML 1 ML SYRINGE SUBCUT SCH ×3 (05:34→21:23)
[2018-12-21] MEDS: LEVOTHYROXINE SODIUM 0.05 MG TABLET PO SCH (05:35)
[2018-12-21] MEDS: NORMAL SALINE 1000 ML 1,000 ML IV PRN ×2 (05:39→16:35)
[2018-12-21] MEDS: LORAZEPAM INJ 2 MG/1 ML VIAL IV PRN ×2 (09:52→16:34)
[2018-12-21] MEDS: BUSPIRONE HCL 10 MG TABLET PO SCH ×2 (09:55→21:23)
[2018-12-21] MEDS: DICYCLOMINE HCL 20 MG TABLET PO SCH ×4 (09:55→21:23)
[2018-12-21] MEDS: LACTOBACILLUS ACIDOPHILUS 250 MG TAB PO SCH (09:58)
[2018-12-21] MEDS: VENLAFAXINE HCL 75 MG CAP.SR.24H PO SCH (09:59)
[2018-12-21] MEDS: DOCUSATE SODIUM 100 MG CAPSULE PO SCH ×2 (09:59→18:28)
[2018-12-21] MEDS: DIVALPROEX SODIUM 125 MG CAP.SPRINK PO SCH ×2 (09:59→21:24)
[2018-12-21] MEDS: HALOPERIDOL LACTATE INJ 5 MG/1 ML VIAL IV PRN ×2 (13:43→21:22)
--- NOTE | 2018-12-21 14:59 | Progress Note ---
Provider Note Provider Note: This is a 73 yr old female with advanced dementia, failure to thrive and acute on chronic renal failure. She has been discharged yesterday and is just waiting for bed placement. 12/16: No acute issues. She is comfortable asleep upon my examination. No change in assessment and plan. Anticipating bed availability within the next 24 hrs. 12/17: She is more awake and conversant this morning. No change in assessment and plan. She has been discharged and is just awaiting bed at [facility] pending a PPD testing per facility requirement. 12/18: Discussed in length with patient's daughter with operations planner and nurse in room. Discussed in length final disposition and POC about proceeding with hospice. She is amenable to proceeding with plan about patient going to [facility] under hospice care. Addressed questions about patient's renal function, CKD, prior ureteral stents and prior history of breast and bladder CA. Redis cussed goals of hospice again and she verbalized understanding. 12/19: Patient is comfortable this morning but is refusing to take oral medications. Updated this morning that, apparently, patient's Medicaid is still pending and has not been approved yet contrary to what was initially relayed. 12/21: No acute event overnight. Assessment and plan remain unchanged. Still awaiting for Medicaid approval.
[2018-12-21] MEDS: LAMOTRIGINE 100 MG TABLET PO SCH (18:28)
[2018-12-21] MEDS: SIMVASTATIN 10 MG TABLET PO SCH (18:28)
[2018-12-21] MEDS: FERROUS SULFATE 325 MG TABLET PO SCH (18:28)
[2018-12-21] MEDS: FAMOTIDINE 20 MG TABLET PO SCH (21:23)
[2018-12-22] MEDS: ACETAMINOPHEN 325 MG TABLET PO PRN (01:00)
[2018-12-22] MEDS: NORMAL SALINE 1000 ML 1,000 ML IV PRN ×2 (02:40→21:33)
[2018-12-22] MEDS: HEPARIN SOD (PORCINE) 5,000 UNIT/ML 1 ML SYRINGE SUBCUT SCH ×3 (06:49→21:32)
[2018-12-22] MEDS: LEVOTHYROXINE SODIUM 0.05 MG TABLET PO SCH (06:49)
[2018-12-22] MEDS: LORAZEPAM INJ 2 MG/1 ML VIAL IV PRN ×2 (08:18→21:55)
[2018-12-22] MEDS: DICYCLOMINE HCL 20 MG TABLET PO SCH ×4 (09:56→21:32)
[2018-12-22] MEDS: BUSPIRONE HCL 10 MG TABLET PO SCH ×2 (09:56→21:32)
[2018-12-22] MEDS: DIVALPROEX SODIUM 125 MG CAP.SPRINK PO SCH ×2 (09:58→21:32)
[2018-12-22] MEDS: LACTOBACILLUS ACIDOPHILUS 250 MG TAB PO SCH (09:58)
[2018-12-22] MEDS: VENLAFAXINE HCL 75 MG CAP.SR.24H PO SCH (09:58)
[2018-12-22] MEDS: DOCUSATE SODIUM 100 MG CAPSULE PO SCH ×2 (09:58→17:11)
[2018-12-22] MEDS: HYDRALAZINE HCL INJ/PF 20 MG/1 ML SDV IV PRN (12:42)
[2018-12-22] MEDS ORDERED: BISACODYL 10 MG SUPP.RECT PR ONE (13:00)
[2018-12-22] MEDS: HALOPERIDOL LACTATE INJ 5 MG/1 ML VIAL IV PRN ×2 (14:23→21:30)
--- NOTE | 2018-12-22 15:04 | Progress Note ---
Provider Note Provider Note: This is a 73 yr old female with advanced dementia, failure to thrive and acute on chronic renal failure. She has been discharged yesterday and is just waiting for bed placement. 12/16: No acute issues. She is comfortable asleep upon my examination. No change in assessment and plan. Anticipating bed availability within the next 24 hrs. 12/17: She is more awake and conversant this morning. No change in assessment and plan. She has been discharged and is just awaiting bed at [facility] pending a PPD testing per facility requirement. 12/18: Discussed in length with patient's daughter with cyber ops planner and nurse in room. Discussed in length final disposition and POC about proceeding with hospice. She is amenable to proceeding with plan about patient going to [facility] under hospice care. Addressed questions about patient's renal function, CKD, prior ureteral stents and prior history of breast and bladder CA. Redis cussed goals of hospice again and she verbalized understanding. 12/19: Patient is comfortable this morning but is refusing to take oral medications. Updated this morning that, apparently, patient's Medicaid is still pending and has not been approved yet contrary to what was initially relayed. 12/22: No acute event overnight. Assessment and plan remain unchanged. She does continue to have occasional restlessness and is on IV Ativan prn. Still awaiting for Medicaid approval.
[2018-12-22] MEDS: LAMOTRIGINE 100 MG TABLET PO SCH (17:09)
[2018-12-22] MEDS: SIMVASTATIN 10 MG TABLET PO SCH (17:11)
[2018-12-22] MEDS: FERROUS SULFATE 325 MG TABLET PO SCH (17:11)
[2018-12-22] MEDS: FAMOTIDINE 20 MG TABLET PO SCH (21:32)
[2018-12-23] MEDS: LEVOTHYROXINE SODIUM 0.05 MG TABLET PO SCH (05:48)
[2018-12-23] MEDS: HEPARIN SOD (PORCINE) 5,000 UNIT/ML 1 ML SYRINGE SUBCUT SCH ×3 (05:48→22:12)
[2018-12-23] MEDS: NORMAL SALINE 1000 ML 1,000 ML IV PRN ×2 (08:13→17:14)
[2018-12-23] MEDS: DICYCLOMINE HCL 20 MG TABLET PO SCH ×4 (08:41→22:11)
[2018-12-23] MEDS: VENLAFAXINE HCL 75 MG CAP.SR.24H PO SCH (10:14)
[2018-12-23] MEDS: DIVALPROEX SODIUM 125 MG CAP.SPRINK PO SCH ×2 (10:14→22:12)
[2018-12-23] MEDS: LACTOBACILLUS ACIDOPHILUS 250 MG TAB PO SCH (10:14)
[2018-12-23] MEDS: DOCUSATE SODIUM 100 MG CAPSULE PO SCH ×2 (10:14→17:13)
[2018-12-23] MEDS: BUSPIRONE HCL 10 MG TABLET PO SCH ×2 (10:14→22:11)
[2018-12-23] MEDS: HALOPERIDOL LACTATE INJ 5 MG/1 ML VIAL IV PRN ×2 (10:18→20:40)
[2018-12-23] MEDS: LORAZEPAM INJ 2 MG/1 ML VIAL IV PRN ×2 (13:26→23:05)
[2018-12-23] MEDS: HYDRALAZINE HCL INJ/PF 20 MG/1 ML SDV IV PRN (14:56)
[2018-12-23] MEDS: ACETAMINOPHEN 325 MG TABLET PO PRN (15:36)
[2018-12-23] MEDS: FERROUS SULFATE 325 MG TABLET PO SCH (17:13)
[2018-12-23] MEDS: SIMVASTATIN 10 MG TABLET PO SCH (17:13)
[2018-12-23] MEDS: LAMOTRIGINE 100 MG TABLET PO SCH (17:13)
[2018-12-23] MEDS: FAMOTIDINE 20 MG TABLET PO SCH (22:12)
[2018-12-23] MEDS ORDERED: DIPHENHYDRAMINE HCL 25 MG/10 ML UDC ONE (23:47)
[2018-12-24] MEDS ORDERED: DIPHENHYDRAMINE HCL 25 MG/10 ML UDC PO ONE (00:30)
[2018-12-24] MEDS: HEPARIN SOD (PORCINE) 5,000 UNIT/ML 1 ML SYRINGE SUBCUT SCH ×3 (05:28→23:35)
[2018-12-24] MEDS: LEVOTHYROXINE SODIUM 0.05 MG TABLET PO SCH (05:28)
--- NOTE | 2018-12-24 06:57 | PDOC PROGRESS REPORT ---
Subjective Progress Note for:: 12/23/18 Subjective:: Disoriented and Trying to get out of bed. Reason For Visit: ARF UTI DEMENTIA Physical Exam Vital Signs: Temp Pulse Resp BP Pulse Ox 98.3 F 109 H 18 185/93 H 97 12/23/18 11:14 12/23/18 11:14 12/23/18 11:14 12/23/18 11:14 12/23/18 11:14 Intake & Output 12/22/18 12/23/18 12/24/18 06:59 06:59 06:59 Intake Total 2160 1820 1000 Balance 2160 1820 1000 Weight 51.8 kg 50.6 kg General appearance: PRESENT: no acute distress, thin. ABSENT: cooperative Respiratory exam: PRESENT: clear to auscultation donita, symmetrical, unlabored. ABSENT: rales, rhonchi, wheezes Cardiovascular exam: PRESENT: RRR, +S1, +S2 GI/Abdominal exam: PRESENT: soft. ABSENT: tenderness Neurological exam: PRESENT: alert, awake, oriented to person. ABSENT: oriented to place, oriented to situation Psychiatric exam: PRESENT: anxious Results Laboratory Results: 12/15/18 07:35 12/20/18 04:26 12/08/18 12/08/18 00:29 00:29 Creatine Kinase 94 Troponin I < 0.012 Impressions: Cervical Spine CT 12/08/18 00:58 IMPRESSION: No acute findings. Chest X-Ray 12/08/18 00:58 IMPRESSION: Clear lungs. Assessment and Plan - Plan Summary Plan Summary: The patient in fact has been discharged. Discharge order was placed on December 21. She is awaiting placement at this time. No acute intervention. She does not appear to be in excessive pain. She does have IV lorazepam if needed for significant agitation or restlessness. Awaiting Medicaid approval for placement.
[2018-12-24] MEDS: DIVALPROEX SODIUM 125 MG CAP.SPRINK PO SCH ×2 (09:50→23:34)
[2018-12-24] MEDS: VENLAFAXINE HCL 75 MG CAP.SR.24H PO SCH (09:50)
[2018-12-24] MEDS: BUSPIRONE HCL 10 MG TABLET PO SCH ×2 (09:50→23:34)
[2018-12-24] MEDS: LACTOBACILLUS ACIDOPHILUS 250 MG TAB PO SCH (09:50)
[2018-12-24] MEDS: DOCUSATE SODIUM 100 MG CAPSULE PO SCH ×2 (09:50→18:34)
[2018-12-24] MEDS: DICYCLOMINE HCL 20 MG TABLET PO SCH ×4 (09:51→23:34)
[2018-12-24] MEDS: LORAZEPAM INJ 2 MG/1 ML VIAL IV PRN (14:06)
[2018-12-24] MEDS: SIMVASTATIN 10 MG TABLET PO SCH (18:34)
[2018-12-24] MEDS: LAMOTRIGINE 100 MG TABLET PO SCH (18:34)
[2018-12-24] MEDS: FERROUS SULFATE 325 MG TABLET PO SCH (18:34)
[2018-12-24] MEDS: DIPHENHYDRAMINE HCL 25 MG/10 ML UDC PO PRN (18:35)
[2018-12-24] MEDS: FAMOTIDINE 20 MG TABLET PO SCH (23:35)
[2018-12-25] MEDS: HEPARIN SOD (PORCINE) 5,000 UNIT/ML 1 ML SYRINGE SUBCUT SCH ×2 (06:51→13:44)
[2018-12-25] MEDS: LEVOTHYROXINE SODIUM 0.05 MG TABLET PO SCH (06:51)
[2018-12-25] MEDS: BUSPIRONE HCL 10 MG TABLET PO SCH (09:53)
[2018-12-25] MEDS: DIVALPROEX SODIUM 125 MG CAP.SPRINK PO SCH (09:53)
[2018-12-25] MEDS: DIPHENHYDRAMINE HCL 25 MG/10 ML UDC PO PRN (09:53)
[2018-12-25] MEDS: LACTOBACILLUS ACIDOPHILUS 250 MG TAB PO SCH (09:53)
[2018-12-25] MEDS: DICYCLOMINE HCL 20 MG TABLET PO SCH ×3 (09:53→18:03)
[2018-12-25] MEDS: VENLAFAXINE HCL 75 MG CAP.SR.24H PO SCH (09:53)
[2018-12-25] MEDS: DOCUSATE SODIUM 100 MG CAPSULE PO SCH ×2 (09:53→18:03)
[2018-12-25] MEDS: LAMOTRIGINE 100 MG TABLET PO SCH (18:03)
[2018-12-25] MEDS: FERROUS SULFATE 325 MG TABLET PO SCH (18:04)
[2018-12-25] MEDS: SIMVASTATIN 10 MG TABLET PO SCH (18:04)
[2018-12-26] MEDS: DIVALPROEX SODIUM 125 MG CAP.SPRINK PO SCH ×3 (01:08→23:05)
[2018-12-26] MEDS: HEPARIN SOD (PORCINE) 5,000 UNIT/ML 1 ML SYRINGE SUBCUT SCH ×4 (01:08→23:11)
[2018-12-26] MEDS: DICYCLOMINE HCL 20 MG TABLET PO SCH ×5 (01:08→23:05)
[2018-12-26] MEDS: FAMOTIDINE 20 MG TABLET PO SCH ×2 (01:08→23:05)
[2018-12-26] MEDS: BUSPIRONE HCL 10 MG TABLET PO SCH ×3 (01:08→23:05)
[2018-12-26] MEDS: LEVOTHYROXINE SODIUM 0.05 MG TABLET PO SCH (08:05)
[2018-12-26] MEDS: DOCUSATE SODIUM 100 MG CAPSULE PO SCH ×2 (11:13→18:32)
[2018-12-26] MEDS: VENLAFAXINE HCL 75 MG CAP.SR.24H PO SCH (11:13)
[2018-12-26] MEDS: LACTOBACILLUS ACIDOPHILUS 250 MG TAB PO SCH (11:13)
--- NOTE | 2018-12-26 15:11 | PDOC PROGRESS REPORT ---
Subjective Progress Note for:: 12/24/18 Subjective:: Patient discharged. Awaiting placement. Reason For Visit: ARF UTI DEMENTIA Physical Exam Vital Signs: Temp Pulse Resp BP Pulse Ox 98.1 F 102 H 18 166/84 H 97 12/24/18 11:36 12/24/18 11:36 12/24/18 11:36 12/24/18 11:36 12/24/18 11:36 Intake & Output 12/23/18 12/24/18 12/25/18 06:59 06:59 06:59 Intake Total 1820 2302 1000 Balance 1820 2302 1000 Weight 50.6 kg 50.6 kg General appearance: PRESENT: mild distress Head exam: PRESENT: atraumatic, normocephalic Respiratory exam: PRESENT: clear to auscultation donita, symmetrical, unlabored. ABSENT: rales, rhonchi, wheezes Cardiovascular exam: PRESENT: RRR, +S1, +S2, systolic murmur - 3/6 GI/Abdominal exam: PRESENT: normal bowel sounds, soft. ABSENT: distended, tenderness Rectal exam: PRESENT: deferred Extremities exam: ABSENT: joint swelling, pedal edema Neurological exam: PRESENT: alert, awake, oriented to person. ABSENT: oriented to place, oriented to situation Psychiatric exam: PRESENT: flat affect. ABSENT: agitated, anxious Results Laboratory Results: 12/15/18 07:35 12/20/18 04:26 12/08/18 12/08/18 00:29 00:29 Creatine Kinase 94 Troponin I < 0.012 Impressions: Cervical Spine CT 12/08/18 00:58 IMPRESSION: No acute findings. Chest X-Ray 12/08/18 00:58 IMPRESSION: Clear lungs. Assessment and Plan - Diagnosis (1) Urinary tract infection Qualifiers: Hematuria presence: with hematuria Is this a current diagnosis for this admission?: Yes Plan: Treatment completed (2) Failure to thrive Qualifiers: Failure to thrive age range: in adult Qualified Code(s): R62.7 - Adult failure to thrive Is this a current diagnosis for this admission?: Yes Plan: The patient's appetite varies but she will eat. Sometimes 50-75%. Continue to offer meal trays. Transferring to long-term care when insurance and bed available. (3) Do not resuscitate Is this a current diagnosis for this admission?: No Plan: Continue current CODE STATUS (4) Bipolar affective Is this a current diagnosis for this admission?: Yes Plan: Continue current medication regimen (5) Acute renal failure superimposed on stage 3 chronic kidney disease Qualifiers: Acute renal failure type: unspecified Is this a current diagnosis for this admission?: Yes Plan: Appears to be back at baseline (6) Anemia Qualifiers: Anemia type: unspecified type Qualified Code(s): D64.9 - Anemia, unspecified Is this a current diagnosis for this admission?: Yes Plan: Likely related to chronic disease and kidney failure. This is a chronic condition. No acute intervention at this time. - Time Time Spent with patient: Less than 15 minutes Medications reviewed and adjusted accordingly: Yes Anticipated discharge: SNF - Plan Summary Plan Summary: The patient is awaiting placement for long-term care. Continue supportive m easures.
--- NOTE | 2018-12-26 15:20 | PDOC PROGRESS REPORT ---
Subjective Progress Note for:: 12/25/18 Subjective:: Resting quietly today. Haldol had a paradoxical effect and was to be working well. Reason For Visit: ARF UTI DEMENTIA Physical Exam Vital Signs: Temp Pulse Resp BP Pulse Ox 98.7 F 89 16 169/81 H 95 12/25/18 09:16 12/25/18 09:16 12/25/18 09:16 12/25/18 09:16 12/25/18 09:16 Intake & Output 12/24/18 12/25/18 12/26/18 06:59 06:59 06:59 Intake Total 2302 1300 Balance 2302 1300 Weight 50.6 kg 50.6 kg General appearance: PRESENT: no acute distress Head exam: PRESENT: atraumatic, normocephalic Respiratory exam: PRESENT: clear to auscultation donita, symmetrical, unlabored. ABSENT: accessory muscle use, rales, rhonchi, tachypnea, wheezes Cardiovascular exam: PRESENT: RRR, +S1, +S2, systolic murmur - 3/6 GI/Abdominal exam: PRESENT: normal bowel sounds, soft. ABSENT: distended, tenderness Rectal exam: PRESENT: deferred Extremities exam: ABSENT: pedal edema Neurological exam: ABSENT: awake Psychiatric exam: ABSENT: agitated Focused psych exam: ABSENT: restlessness Results Laboratory Results: 12/15/18 07:35 12/20/18 04:26 12/08/18 12/08/18 00:29 00:29 Creatine Kinase 94 Troponin I < 0.012 Impressions: Cervical Spine CT 12/08/18 00:58 IMPRESSION: No acute findings. Chest X-Ray 12/08/18 00:58 IMPRESSION: Clear lungs. Assessment and Plan - Diagnosis (1) Urinary tract infection Qualifiers: Hematuria presence: with hematuria Is this a current diagnosis for this admission?: Yes Plan: Treatment completed.. Resolved. (2) Failure to thrive Qualifiers: Failure to thrive age range: in adult Qualified Code(s): R62.7 - Adult failure to thrive Is this a current diagnosis for this admission?: Yes Plan: The patient's appetite varies but she will eat. Sometimes 50-75%. Continue to offer meal trays. Transferring to long-term care when insurance and bed available. 12/26/2018-continue current meal plan. We will try sips of clear liquids. (3) Do not resuscitate Is this a current diagnosis for this admission?: No (4) Bipolar affective Qualifiers: Current bipolar episode type: depressed Is this a current diagnosis for this admission?: Yes Plan: Continue current medication regimen (5) Acute renal failure superimposed on stage 3 chronic kidney disease Qualifiers: Acute renal failure type: unspecified Is this a current diagnosis for this admission?: Yes Plan: Appears to be back at baseline (6) Anemia Qualifiers: Chronic kidney disease stage: stage 3 (moderate) Is this a current diagnosis for this admission?: Yes Plan: This is a chronic issue. No acute intervention at this time. - Time Time Spent with patient: 15-24 minutes Medications reviewed and adjusted accordingly: Yes Anticipated discharge: SNF
--- NOTE | 2018-12-26 15:24 | PDOC PROGRESS REPORT ---
Subjective Progress Note for:: 12/26/18 Subjective:: The Benadryl may be working too well. I will decrease the dose. Reason For Visit: ARF UTI DEMENTIA Physical Exam Vital Signs: Temp Pulse Resp BP Pulse Ox 98.4 F 74 17 157/84 H 98 12/26/18 11:20 12/26/18 11:20 12/26/18 11:20 12/26/18 11:20 12/26/18 11:20 Intake & Output 12/25/18 12/26/18 12/27/18 06:59 06:59 06:59 Intake Total 1300 0 Balance 1300 0 Weight 50.6 kg 50.6 kg General appearance: PRESENT: no acute distress Head exam: PRESENT: atraumatic, normocephalic Respiratory exam: PRESENT: clear to auscultation donita, symmetrical, unlabored. ABSENT: rales, rhonchi, wheezes Cardiovascular exam: PRESENT: RRR, +S1, +S2, systolic murmur - 3/6 GI/Abdominal exam: PRESENT: normal bowel sounds, soft. ABSENT: distended, tenderness Rectal exam: PRESENT: deferred Extremities exam: ABSENT: pedal edema Neurological exam: ABSENT: awake Psychiatric exam: ABSENT: agitated Focused psych exam: ABSENT: restlessness Results Laboratory Results: 12/15/18 07:35 12/20/18 04:26 12/08/18 12/08/18 00:29 00:29 Creatine Kinase 94 Troponin I < 0.012 Impressions: Cervical Spine CT 12/08/18 00:58 IMPRESSION: No acute findings. Chest X-Ray 12/08/18 00:58 IMPRESSION: Clear lungs. Assessment and Plan - Diagnosis (1) Urinary tract infection Qualifiers: Hematuria presence: with hematuria Is this a current diagnosis for this admission?: Yes Plan: Treatment completed.. Resolved. (2) Failure to thrive Qualifiers: Failure to thrive age range: in adult Qualified Code(s): R62.7 - Adult failure to thrive Is this a current diagnosis for this admission?: Yes Plan: The patient's appetite varies but she will eat. Sometimes 50-75%. Continue to offer meal trays. Transferring to long-term care when insurance and bed available. 12/26/2018-continue current meal plan. We will try sips of clear liquids. (3) Do not resuscitate Is this a current diagnosis for this admission?: No Plan: Continue current CODE STATUS (4) Bipolar affective Qualifiers: Current bipolar episode type: depressed Is this a current diagnosis for this admission?: Yes Plan: Continue current medication regimen 12/26/2018-the Haldol had a paradoxical reaction. The 25 mg of Benadryl might be too strong. I will decrease the dose to 12.5 mg but make it available every 4 hours instead of every 6 hours. (5) Acute renal failure superimposed on stage 3 chronic kidney disease Qualifiers: Acute renal failure type: unspecified Is this a current diagnosis for this admission?: Yes Plan: Appears to be back at baseline (6) Anemia Qualifiers: Chronic kidney disease stage: stage 3 (moderate) Is this a current diagnosis for this admission?: Yes Plan: This is a chronic issue. No acute intervention at this time. - Time Time Spent with patient: 15-24 minutes Medications reviewed and adjusted accordingly: Yes Anticipated discharge: SNF - Plan Summary Plan Summary: I will discontinue aspiration precautions of the patient may have thin liquids but I did write to keep the head of the bed elevated.
[2018-12-26] MEDS: FERROUS SULFATE 325 MG TABLET PO SCH (18:31)
[2018-12-26] MEDS: SIMVASTATIN 10 MG TABLET PO SCH (18:31)
[2018-12-26] MEDS: LAMOTRIGINE 100 MG TABLET PO SCH (18:32)
[2018-12-27] MEDS: LEVOTHYROXINE SODIUM 0.05 MG TABLET PO SCH (06:56)
[2018-12-27] MEDS: HEPARIN SOD (PORCINE) 5,000 UNIT/ML 1 ML SYRINGE SUBCUT SCH ×3 (06:56→21:17)
[2018-12-27] MEDS: DICYCLOMINE HCL 20 MG TABLET PO SCH ×4 (10:09→21:15)
[2018-12-27] MEDS: VENLAFAXINE HCL 75 MG CAP.SR.24H PO SCH (10:14)
[2018-12-27] MEDS: DOCUSATE SODIUM 100 MG CAPSULE PO SCH ×2 (10:14→18:43)
[2018-12-27] MEDS: LACTOBACILLUS ACIDOPHILUS 250 MG TAB PO SCH (10:14)
[2018-12-27] MEDS: BUSPIRONE HCL 10 MG TABLET PO SCH ×2 (10:14→21:16)
[2018-12-27] MEDS: DIVALPROEX SODIUM 125 MG CAP.SPRINK PO SCH ×2 (10:14→21:16)
[2018-12-27] MEDS: DIPHENHYDRAMINE HCL 25 MG/10 ML UDC PO PRN ×2 (11:45→18:43)
[2018-12-27] MEDS ORDERED: LISINOPRIL 10 MG TABLET PO ONE (11:58)
--- NOTE | 2018-12-27 13:28 | PDOC PROGRESS REPORT ---
Subjective Progress Note for:: 12/27/18 Subjective:: Resting comfortably Reason For Visit: ARF UTI DEMENTIA Physical Exam Vital Signs: Temp Pulse Resp BP Pulse Ox 97.5 F 80 17 156/96 H 96 12/27/18 11:52 12/27/18 11:52 12/27/18 11:52 12/27/18 11:52 12/27/18 11:52 Intake & Output 12/26/18 12/27/18 12/28/18 06:59 06:59 06:59 Intake Total 0 400 Balance 0 400 Weight 50.6 kg 50.6 kg General appearance: PRESENT: no acute distress Respiratory exam: PRESENT: clear to auscultation donita, symmetrical, unlabored. ABSENT: accessory muscle use, rales, rhonchi, wheezes Cardiovascular exam: PRESENT: RRR, +S1, +S2, systolic murmur - 3/6 GI/Abdominal exam: PRESENT: normal bowel sounds, soft. ABSENT: distended, tenderness Extremities exam: ABSENT: pedal edema Results Laboratory Results: 12/15/18 07:35 12/20/18 04:26 12/08/18 12/08/18 00:29 00:29 Creatine Kinase 94 Troponin I < 0.012 Impressions: Cervical Spine CT 12/08/18 00:58 IMPRESSION: No acute findings. Chest X-Ray 12/08/18 00:58 IMPRESSION: Clear lungs. Assessment and Plan - Diagnosis (1) Urinary tract infection Qualifiers: Hematuria presence: with hematuria Is this a current diagnosis for this admission?: Yes Plan: Treatment completed.. Resolved. (2) Failure to thrive Qualifiers: Failure to thrive age range: in adult Qualified Code(s): R62.7 - Adult failure to thrive Is this a current diagnosis for this admission?: Yes Plan: The patient's appetite varies but she will eat. Sometimes 50-75%. Continue to offer meal trays. Transferring to long-term care when insurance and bed available. 12/26/2018-continue current meal plan. We will try sips of clear liquids. 12/27/2018-patient tolerating liquids. Getting protein supplements. (3) Do not resuscitate Is this a current diagnosis for this admission?: No Plan: Continue current CODE STATUS (4) Bipolar affective Qualifiers: Current bipolar episode type: depressed Is this a current diagnosis for this admission?: Yes Plan: Continue current medication regimen 12/26/2018-the Haldol had a paradoxical reaction. The 25 mg of Benadryl might be too strong. I will decrease the dose to 12.5 mg but make it available every 4 hours instead of every 6 hours. 12/27/2018-continue current regimen. (5) Acute renal failure superimposed on stage 3 chronic kidney disease Qualifiers: Acute renal failure type: unspecified Is this a current diagnosis for this admission?: Yes Plan: Appears to be back at baseline (6) Anemia Qualifiers: Chronic kidney disease stage: stage 3 (moderate) Is this a current diagnosis for this admission?: Yes Plan: This is a chronic issue. No acute intervention at this time. (7) Essential hypertension Is this a current diagnosis for this admission?: Yes Plan: 12/27/2018-blood pressures have been increasing. I have restarted her lisinopril 10 mg daily. - Time Time Spent with patient: Less than 15 minutes Medications reviewed and adjusted accordingly: Yes Anticipated discharge: SNF
[2018-12-27] MEDS: FERROUS SULFATE 325 MG TABLET PO SCH (18:43)
[2018-12-27] MEDS: SIMVASTATIN 10 MG TABLET PO SCH (18:43)
[2018-12-27] MEDS: LAMOTRIGINE 100 MG TABLET PO SCH (18:43)
[2018-12-27] MEDS: ACETAMINOPHEN 325 MG TABLET PO PRN (18:46)
[2018-12-27] MEDS: FAMOTIDINE 20 MG TABLET PO SCH (21:16)
[2018-12-28] MEDS: HEPARIN SOD (PORCINE) 5,000 UNIT/ML 1 ML SYRINGE SUBCUT SCH ×3 (05:21→21:26)
[2018-12-28] MEDS: LEVOTHYROXINE SODIUM 0.05 MG TABLET PO SCH (05:22)
[2018-12-28] MEDS: BUSPIRONE HCL 10 MG TABLET PO SCH ×2 (11:32→21:25)
[2018-12-28] MEDS: DOCUSATE SODIUM 100 MG CAPSULE PO SCH ×2 (11:32→17:15)
[2018-12-28] MEDS: VENLAFAXINE HCL 75 MG CAP.SR.24H PO SCH (11:32)
[2018-12-28] MEDS: LACTOBACILLUS ACIDOPHILUS 250 MG TAB PO SCH (11:32)
[2018-12-28] MEDS: LISINOPRIL 10 MG TABLET PO SCH (11:33)
[2018-12-28] MEDS: DICYCLOMINE HCL 20 MG TABLET PO SCH ×4 (11:34→21:24)
[2018-12-28] MEDS: DIVALPROEX SODIUM 125 MG CAP.SPRINK PO SCH ×2 (11:34→21:26)
[2018-12-28] MEDS: DIPHENHYDRAMINE HCL 25 MG/10 ML UDC PO PRN (12:21)
[2018-12-28] MEDS: LORAZEPAM INJ 2 MG/1 ML VIAL IV PRN (17:11)
[2018-12-28] MEDS: FERROUS SULFATE 325 MG TABLET PO SCH (17:15)
[2018-12-28] MEDS: LAMOTRIGINE 100 MG TABLET PO SCH (17:15)
[2018-12-28] MEDS: SIMVASTATIN 10 MG TABLET PO SCH (17:15)
[2018-12-28] MEDS: NORMAL SALINE 1000 ML 1,000 ML IV PRN (19:14)
--- NOTE | 2018-12-28 19:52 | PDOC PROGRESS REPORT ---
Subjective Progress Note for:: 12/28/18 Subjective:: Resting comfortably. Has periods of restlessness. Afebrile. Reason For Visit: ARF UTI DEMENTIA Physical Exam Vital Signs: Temp Pulse Resp BP Pulse Ox 97.6 F 69 14 160/91 H 95 12/28/18 12:00 12/28/18 12:00 12/28/18 12:00 12/28/18 12:00 12/28/18 12:00 Intake & Output 12/27/18 12/28/18 12/29/18 06:59 06:59 06:59 Intake Total 400 200 Balance 400 200 Weight 50.6 kg 49.9 kg General appearance: PRESENT: no acute distress Respiratory exam: PRESENT: clear to auscultation donita, symmetrical, unlabored. ABSENT: accessory muscle use, rales, rhonchi, wheezes Cardiovascular exam: PRESENT: RRR, +S1, +S2, systolic murmur - 3/6 GI/Abdominal exam: PRESENT: normal bowel sounds, soft. ABSENT: distended, tenderness Extremities exam: ABSENT: pedal edema Neurological exam: Sleeping but arousable Psychiatric exam: ABSENT: agitated Focused psych exam: ABSENT: restlessness Results Laboratory Results: 12/15/18 07:35 12/20/18 04:26 12/08/18 12/08/18 00:29 00:29 Creatine Kinase 94 Troponin I < 0.012 Impressions: Cervical Spine CT 12/08/18 00:58 IMPRESSION: No acute findings. Chest X-Ray 12/08/18 00:58 IMPRESSION: Clear lungs. Assessment and Plan - Diagnosis (1) Urinary tract infection Qualifiers: Hematuria presence: with hematuria Is this a current diagnosis for this admission?: Yes (2) Failure to thrive Qualifiers: Failure to thrive age range: in adult Qualified Code(s): R62.7 - Adult failure to thrive Is this a current diagnosis for this admission?: Yes (3) Do not resuscitate Is this a current diagnosis for this admission?: No (4) Acute renal failure superimposed on stage 3 chronic kidney disease Qualifiers: Acute renal failure type: unspecified Is this a current diagnosis for this admission?: Yes (5) Anemia Qualifiers: Anemia type: unspecified type Qualified Code(s): D64.9 - Anemia, unspecified Is this a current diagnosis for this admission?: Yes (6) Bipolar affective Qualifiers: Current bipolar episode type: depressed Is this a current diagnosis for this admission?: Yes - Plan Summary Plan Summary: Patient stable. Continue current management. Working with care management regarding disposition. No labs have been done in a while, will follow CBC and creatinine
[2018-12-28] MEDS: FAMOTIDINE 20 MG TABLET PO SCH (21:26)
[2018-12-28] MEDS: ACETAMINOPHEN 325 MG TABLET PO PRN (21:28)
[2018-12-29] MEDS: HEPARIN SOD (PORCINE) 5,000 UNIT/ML 1 ML SYRINGE SUBCUT SCH ×3 (05:02→23:27)
[2018-12-29] MEDS: LEVOTHYROXINE SODIUM 0.05 MG TABLET PO SCH ×2 (05:03→09:16)
[2018-12-29 08:17] LABS: ABSOLUTE BASOPHILS # (AUTO) 0.1 10^3/uL (0.0-0.2); ABSOLUTE EOSINOPHILS # (AUTO) 0.4 10^3/uL (0.0-0.6); ABSOLUTE LYMPHOCYTES (AUTO) 0.9 10^3/uL (0.5-4.7); ABSOLUTE MONOCYTES (AUTO) 0.6 10^3/uL (0.1-1.4); ABSOLUTE NEUT (AUTO) 6.4 10^3/uL (1.7-8.2); BASOPHILS % (AUTO) 0.7 % (0-2); EOSINOPHILS % (AUTO) 4.9 % (0-6); HEMATOCRIT 22.4 % (36.0-47.0); LYMPHOCYTES % (AUTO) 10.6 % (13-45); MEAN CORPUSCULAR HEMOGLOBIN 27.9 pg (27.0-33.4); MEAN CORPUSCULAR HGB CONC 34.1 g/dL (32.0-36.0); MEAN CORPUSCULAR VOLUME 82 fl (80-97); MONOCYTES % (AUTO) 6.7 % (3-13); PLATELET COUNT 359 10^3/uL (150-450); RED BLOOD COUNT 2.74 10^6/uL (3.72-5.28); RED CELL DISTRIBUTION WIDTH 15.8 % (11.5-14.0); SEGMENTED NEUTROPHILS % (AUTO) 77.1 % (42-78); TOTAL CELLS COUNTED % (AUTO) 100 %; WHITE BLOOD COUNT 8.3 10^3/uL (4.0-10.5)
[2018-12-29 08:26] LABS: ANION GAP 10 (5-19); BLOOD UREA NITROGEN 14 mg/dL (7-20); CALCIUM 9.2 mg/dL (8.4-10.2); CARBON DIOXIDE 25 mmol/L (22-30); CHLORIDE 108 mmol/L (98-107); GLUCOSE 90 mg/dL (75-110); SODIUM 143.1 mmol/L (137-145)
[2018-12-29 08:27] LABS: HEMOGLOBIN 7.6 g/dL (12.0-15.5)
[2018-12-29 08:34] LABS: POTASSIUM 2.2 mmol/L (3.6-5.0)
[2018-12-29] MEDS: DOCUSATE SODIUM 100 MG CAPSULE PO SCH ×2 (09:14→18:19)
[2018-12-29] MEDS: BUSPIRONE HCL 10 MG TABLET PO SCH ×2 (09:14→23:27)
[2018-12-29] MEDS: DIPHENHYDRAMINE HCL 25 MG/10 ML UDC PO PRN (09:15)
[2018-12-29] MEDS: DIVALPROEX SODIUM 125 MG CAP.SPRINK PO SCH ×3 (09:16→23:27)
[2018-12-29] MEDS: DICYCLOMINE HCL 20 MG TABLET PO SCH ×4 (09:17→23:27)
[2018-12-29] MEDS ORDERED: POTASSI CL 20 MEQ/50 ML RIDER 20 MEQ/50 ML RTUPB IV ONE ×3 (10:30→23:00)
[2018-12-29] MEDS ORDERED: POTASSIUM CHLORIDE 20 MEQ PACKET PO SCH (11:00)
[2018-12-29] MEDS: LISINOPRIL 10 MG TABLET PO SCH (12:03)
[2018-12-29] MEDS: VENLAFAXINE HCL 75 MG CAP.SR.24H PO SCH (12:03)
[2018-12-29] MEDS: LACTOBACILLUS ACIDOPHILUS 250 MG TAB PO SCH (12:04)
[2018-12-29] MEDS: POTASSIUM CHLORIDE 20 MEQ PACKET PO SCH ×3 (14:43→23:45)
[2018-12-29] MEDS: FERROUS SULFATE 325 MG TABLET PO SCH (18:19)
[2018-12-29] MEDS: SIMVASTATIN 10 MG TABLET PO SCH (18:24)
[2018-12-29] MEDS: LAMOTRIGINE 100 MG TABLET PO SCH (18:41)
--- NOTE | 2018-12-29 20:13 | PDOC PROGRESS REPORT ---
Subjective Progress Note for:: 12/29/18 Subjective:: Resting comfortably. Less restless today. Afebrile. Reason For Visit: ARF UTI DEMENTIA Physical Exam Vital Signs: Temp Pulse Resp BP Pulse Ox 98.4 F 79 18 171/76 H 97 12/29/18 12:00 12/29/18 12:00 12/29/18 12:00 12/29/18 12:00 12/29/18 12:00 Intake & Output 12/28/18 12/29/18 12/30/18 06:59 06:59 06:59 Intake Total 200 100 320 Balance 200 100 320 Weight 49.9 kg 47.2 kg General appearance: PRESENT: no acute distress Respiratory exam: PRESENT: clear to auscultation donita, symmetrical, unlabored. ABSENT: accessory muscle use, rales, rhonchi, wheezes Cardiovascular exam: PRESENT: RRR, +S1, +S2, systolic murmur - 2/6 GI/Abdominal exam: PRESENT: normal bowel sounds, soft. ABSENT: distended, tenderness Extremities exam: ABSENT: pedal edema Neurological exam: Awake, no restlessness at this time Results Laboratory Results: 12/29/18 07:40 12/29/18 07:40 12/29/18 12/29/18 07:40 07:40 WBC 8.3 RBC 2.74 L Hgb 7.6 L Hct 22.4 L MCV 82 MCH 27.9 MCHC 34.1 RDW 15.8 H Plt Count 359 Seg Neutrophils % 77.1 Lymphocytes % 10.6 L Monocytes % 6.7 Eosinophils % 4.9 Basophils % 0.7 Absolute Neutrophils 6.4 Absolute Lymphocytes 0.9 Absolute Monocytes 0.6 Absolute Eosinophils 0.4 Absolute Basophils 0.1 Sodium 143.1 Potassium 2.2 L* Chloride 108 H Carbon Dioxide 25 Anion Gap 10 BUN 14 Creatinine 2.23 H Est GFR ( Amer) 26 L Est GFR (Non-Af Amer) 21 L Glucose 90 Calcium 9.2 12/08/18 12/08/18 00:29 00:29 Creatine Kinase 94 Troponin I < 0.012 Impressions: Cervical Spine CT 12/08/18 00:58 IMPRESSION: No acute findings. Chest X-Ray 12/08/18 00:58 IMPRESSION: Clear lungs. Assessment and Plan - Diagnosis (1) Urinary tract infection Qualifiers: Hematuria presence: with hematuria Is this a current diagnosis for this admission?: Yes (2) Failure to thrive Qualifiers: Failure to thrive age range: in adult Qualified Code(s): R62.7 - Adult failure to thrive Is this a current diagnosis for this admission?: Yes (3) Do not resuscitate Is this a current diagnosis for this admission?: No (4) Acute renal failure superimposed on stage 3 chronic kidney disease Qualifiers: Acute renal failure type: unspecified Qualified Code(s): N17.9 - Acute kidney failure, unspecified; N18.3 - Chronic kidney disease, stage 3 (moderate) Is this a current diagnosis for this admission?: Yes (5) Anemia Qualifiers: Anemia type: unspecified type Qualified Code(s): D64.9 - Anemia, unspecified Is this a current diagnosis for this admission?: Yes (6) Bipolar affective Qualifiers: Current bipolar episode type: depressed Is this a current diagnosis for this admission?: Yes - Plan Summary Plan Summary: Patient stable. Continue current management. Working with care management regarding disposition. It appears she now has a bed in a dementia unit, but potassium was extremely low today at 2.2. We will replete aggressively with KCl 40 M EQ every 4 hours x3, and KCl 10 M EQ IV x2. Follow-up Chem-7 in a.m., check magnesium in a.m. Will also follow-up CBC in a.m.
[2018-12-29] MEDS: NYSTATIN TOPICAL POWDER 15 GM TP SCH (23:27)
[2018-12-29] MEDS: FAMOTIDINE 20 MG TABLET PO SCH (23:28)
[2018-12-30] MEDS: HEPARIN SOD (PORCINE) 5,000 UNIT/ML 1 ML SYRINGE SUBCUT SCH ×3 (06:34→23:00)
[2018-12-30] MEDS: LEVOTHYROXINE SODIUM 0.05 MG TABLET PO SCH (06:34)
[2018-12-30 06:57] LABS: ABSOLUTE BASOPHILS # (AUTO) 0.1 10^3/uL (0.0-0.2); ABSOLUTE EOSINOPHILS # (AUTO) 0.1 10^3/uL (0.0-0.6); ABSOLUTE LYMPHOCYTES (AUTO) 1.1 10^3/uL (0.5-4.7); ABSOLUTE MONOCYTES (AUTO) 0.6 10^3/uL (0.1-1.4); ABSOLUTE NEUT (AUTO) 7.9 10^3/uL (1.7-8.2); BASOPHILS % (AUTO) 0.7 % (0-2); EOSINOPHILS % (AUTO) 1.5 % (0-6); HEMATOCRIT 23.5 % (36.0-47.0); LYMPHOCYTES % (AUTO) 11.7 % (13-45); MEAN CORPUSCULAR HEMOGLOBIN 27.4 pg (27.0-33.4); MEAN CORPUSCULAR HGB CONC 33.5 g/dL (32.0-36.0); MEAN CORPUSCULAR VOLUME 82 fl (80-97); MONOCYTES % (AUTO) 5.6 % (3-13); PLATELET COUNT 313 10^3/uL (150-450); RED BLOOD COUNT 2.87 10^6/uL (3.72-5.28); SEGMENTED NEUTROPHILS % (AUTO) 80.5 % (42-78); TOTAL CELLS COUNTED % (AUTO) 100 %; WHITE BLOOD COUNT 9.8 10^3/uL (4.0-10.5)
[2018-12-30 07:01] LABS: HEMOGLOBIN 7.9 g/dL (12.0-15.5)
[2018-12-30 07:10] LABS: ANION GAP 12 (5-19); BLOOD UREA NITROGEN 16 mg/dL (7-20); CALCIUM 9.4 mg/dL (8.4-10.2); CARBON DIOXIDE 25 mmol/L (22-30); CHLORIDE 109 mmol/L (98-107); GLUCOSE 102 mg/dL (75-110); SODIUM 145.5 mmol/L (137-145)
[2018-12-30 07:24] LABS: POTASSIUM 2.8 mmol/L (3.6-5.0)
[2018-12-30] MEDS ORDERED: POTASSIUM CHLORIDE 10 MEQ CAPSULE.ER PO SCH (10:00)
[2018-12-30] MEDS: LACTOBACILLUS ACIDOPHILUS 250 MG TAB PO SCH (10:04)
[2018-12-30] MEDS: DOCUSATE SODIUM 100 MG CAPSULE PO SCH ×2 (10:04→17:20)
[2018-12-30] MEDS: VENLAFAXINE HCL 75 MG CAP.SR.24H PO SCH (10:04)
[2018-12-30] MEDS: BUSPIRONE HCL 10 MG TABLET PO SCH ×2 (10:04→22:59)
[2018-12-30] MEDS: NYSTATIN TOPICAL POWDER 15 GM TP SCH ×2 (10:04→22:00)
[2018-12-30] MEDS: DICYCLOMINE HCL 20 MG TABLET PO SCH ×4 (10:05→22:59)
[2018-12-30] MEDS: LISINOPRIL 10 MG TABLET PO SCH (10:06)
[2018-12-30] MEDS: DIVALPROEX SODIUM 125 MG CAP.SPRINK PO SCH ×2 (10:06→22:59)
[2018-12-30] MEDS ORDERED: POTASSIUM CHLORIDE 20 MEQ PACKET PO SCH (11:00)
[2018-12-30] MEDS: DIPHENHYDRAMINE HCL 25 MG/10 ML UDC PO PRN (11:11)
--- NOTE | 2018-12-30 14:32 | PDOC PROGRESS REPORT ---
Subjective Progress Note for:: 12/30/18 Subjective:: 12/10/2018-no acute events in the last 24 hours. Patient is afebrile. Sleeping in the bed does not want to wake up and talk to me. Waiting for either group home placement or hospice placement. 12/11/2018-no acute events in the last 24 hours. Patient is afebrile. Awake more alert compared to yesterday. Appetite is still poor. Waiting for placement. 12/12/2018-no acute events in the last 24 hours. Patient is afebrile. Appetite still very poor. Waiting for assisted living placement. 12/13/2018-no acute events in the last 24 hours. Patient is afebrile. She able to eat her breakfast by herself this morning. She is waiting for placement in assisted living. 12/14/2018-no acute events in the last 24 hours. Patient is afebrile. More alert more awake. Hemoglobin dropped to 7.4 today. To transfuse 1 unit of PRBC. Patient says no problems. 12/30/2018-no acute events in the last 24 hours. Patient is afebrile. Appetite is very very poor. Patient is under one-to-one observation. Reason For Visit: ARF UTI DEMENTIA Physical Exam Vital Signs: Temp Pulse Resp BP Pulse Ox 97.8 F 84 16 162/61 H 100 12/30/18 08:19 12/30/18 11:44 12/30/18 11:44 12/30/18 11:44 12/30/18 11:44 Intake & Output 12/29/18 12/30/18 12/31/18 06:59 06:59 06:59 Intake Total 100 470 0 Balance 100 470 0 Weight 47.2 kg 49.1 kg General appearance: PRESENT: disheveled, thin, other - Not communicative Head exam: PRESENT: atraumatic Eye exam: PRESENT: PERRLA Mouth exam: PRESENT: moist, tongue midline Neck exam: ABSENT: carotid bruit, JVD, lymphadenopathy, thyromegaly Respiratory exam: PRESENT: decreased breath sounds Cardiovascular exam: PRESENT: tachycardia GI/Abdominal exam: PRESENT: normal bowel sounds, soft. ABSENT: distended, guarding, mass, organolmegaly, rebound, tenderness Rectal exam: PRESENT: deferred Extremities exam: PRESENT: full ROM. ABSENT: calf tenderness, clubbing, pedal edema Neurological exam: PRESENT: alert, awake, oriented to person, oriented to place, oriented to time, oriented to situation, CN II-XII grossly intact. ABSENT: motor sensory deficit Psychiatric exam: PRESENT: flat affect Results Laboratory Results: 12/30/18 06:15 12/30/18 06:15 12/30/18 12/30/18 06:15 06:15 WBC 9.8 RBC 2.87 L Hgb 7.9 L Hct 23.5 L MCV 82 MCH 27.4 MCHC 33.5 RDW 16.0 H Plt Count 313 Seg Neutrophils % 80.5 H Lymphocytes % 11.7 L Monocytes % 5.6 Eosinophils % 1.5 Basophils % 0.7 Absolute Neutrophils 7.9 Absolute Lymphocytes 1.1 Absolute Monocytes 0.6 Absolute Eosinophils 0.1 Absolute Basophils 0.1 Sodium 145.5 H Potassium 2.8 L* Chloride 109 H Carbon Dioxide 25 Anion Gap 12 BUN 16 Creatinine 2.34 H Est GFR ( Amer) 25 L Est GFR (Non-Af Amer) 20 L Glucose 102 Calcium 9.4 Magnesium 2.1 12/08/18 12/08/18 00:29 00:29 Creatine Kinase 94 Troponin I < 0.012 Impressions: Cervical Spine CT 12/08/18 00:58 IMPRESSION: No acute findings. Chest X-Ray 12/08/18 00:58 IMPRESSION: Clear lungs. Assessment and Plan - Diagnosis (1) Urinary tract infection Qualifiers: Hematuria presence: with hematuria Is this a current diagnosis for this admission?: Yes (2) Failure to thrive Qualifiers: Failure to thrive age range: in adult Qualified Code(s): R62.7 - Adult failure to thrive Is this a current diagnosis for this admission?: Yes (3) Do not resuscitate Is this a current diagnosis for this admission?: No (4) Bipolar affective Qualifiers: Current bipolar episode type: depressed Is this a current diagnosis for this admission?: Yes (5) Acute on chronic renal failure Qualifiers: Acute renal failure type: unspecified Chronic kidney disease stage: unspec ified stage Qualified Code(s): N17.9 - Acute kidney failure, unspecified; N18.9 - Chronic kidney disease, unspecified Is this a current diagnosis for this admission?: Yes (6) Anemia Qualifiers: Anemia type: unspecified type Qualified Code(s): D64.9 - Anemia, unspecified Is this a current diagnosis for this admission?: Yes (7) Acute on chronic renal failure Is this a current diagnosis for this admission?: Yes (8) Failure to thrive Is this a current diagnosis for this admission?: Yes (9) Hypokalemia Is this a current diagnosis for this admission?: Yes Plan: 12/30/2018-serum potassium is 2.8 today patient is refusing to take p.o. potassium to give 80 mEq of IV k rider at her today. Plan is to recheck the labs tomorrow. - Plan Summary Plan Summary: 73-year-old female with advanced dementia admitted for acute on chronic renal sufficiency, failure to thrive. She got a bed available at the group home. But the potassium level came back 2.4. Plan is to give some potassium supplementation recheck the potassium tomorrow if it is normalized she can be discharged to the group home tomorrow. In the meantime we will continue the present management.
[2018-12-30] MEDS: POTASSI CL 20 MEQ/50 ML RIDER 20 MEQ/50 ML RTUPB IV SCH ×4 (15:09→22:00)
[2018-12-30] MEDS: FERROUS SULFATE 325 MG TABLET PO SCH (17:20)
[2018-12-30] MEDS: LAMOTRIGINE 100 MG TABLET PO SCH (17:24)
[2018-12-30] MEDS: SIMVASTATIN 10 MG TABLET PO SCH (17:24)
[2018-12-30] MEDS: FAMOTIDINE 20 MG TABLET PO SCH (23:00)
[2018-12-31] MEDS: ACETAMINOPHEN 325 MG TABLET PO PRN (02:39)
[2018-12-31] MEDS: DIPHENHYDRAMINE HCL 25 MG/10 ML UDC PO PRN ×2 (02:39→10:48)
[2018-12-31] MEDS: HEPARIN SOD (PORCINE) 5,000 UNIT/ML 1 ML SYRINGE SUBCUT SCH ×3 (05:31→21:49)
[2018-12-31] MEDS: LEVOTHYROXINE SODIUM 0.05 MG TABLET PO SCH (05:31)
[2018-12-31] MEDS: BUSPIRONE HCL 10 MG TABLET PO SCH ×2 (10:00→21:48)
[2018-12-31] MEDS: LISINOPRIL 10 MG TABLET PO SCH (10:00)
[2018-12-31] MEDS: VENLAFAXINE HCL 75 MG CAP.SR.24H PO SCH (10:00)
[2018-12-31] MEDS: NYSTATIN TOPICAL POWDER 15 GM TP SCH ×2 (10:00→21:49)
[2018-12-31] MEDS: DIVALPROEX SODIUM 125 MG CAP.SPRINK PO SCH ×2 (10:00→21:49)
[2018-12-31] MEDS: DICYCLOMINE HCL 20 MG TABLET PO SCH ×4 (10:48→21:48)
[2018-12-31 10:57] LABS: ABSOLUTE BASOPHILS # (AUTO) 0.1 10^3/uL (0.0-0.2); ABSOLUTE EOSINOPHILS # (AUTO) 0.1 10^3/uL (0.0-0.6); ABSOLUTE LYMPHOCYTES (AUTO) 0.9 10^3/uL (0.5-4.7); ABSOLUTE MONOCYTES (AUTO) 0.5 10^3/uL (0.1-1.4); ABSOLUTE NEUT (AUTO) 10.6 10^3/uL (1.7-8.2); BASOPHILS % (AUTO) 0.4 % (0-2); EOSINOPHILS % (AUTO) 0.5 % (0-6); HEMATOCRIT 24.9 % (36.0-47.0); HEMOGLOBIN 8.2 g/dL (12.0-15.5); LYMPHOCYTES % (AUTO) 7.5 % (13-45); MEAN CORPUSCULAR HEMOGLOBIN 27.2 pg (27.0-33.4); MEAN CORPUSCULAR HGB CONC 32.9 g/dL (32.0-36.0); MEAN CORPUSCULAR VOLUME 83 fl (80-97); MONOCYTES % (AUTO) 4.5 % (3-13); PLATELET COUNT 426 10^3/uL (150-450); RED BLOOD COUNT 3.01 10^6/uL (3.72-5.28); RED CELL DISTRIBUTION WIDTH 16.5 % (11.5-14.0); SEGMENTED NEUTROPHILS % (AUTO) 87.1 % (42-78); TOTAL CELLS COUNTED % (AUTO) 100 %; WHITE BLOOD COUNT 12.1 10^3/uL (4.0-10.5)
[2018-12-31 12:02] LABS: ALANINE AMINOTRANSFERASE 23 U/L (9-52); ALBUMIN 3.4 g/dL (3.5-5.0); ALKALINE PHOSPHATASE 101 U/L (38-126); ANION GAP 11 (5-19); ASPARTATE AMINO TRANSFERASE 26 U/L (14-36); BILIRUBIN,DIRECT 0.3 mg/dL (0.0-0.4); BILIRUBIN,TOTAL 0.4 mg/dL (0.2-1.3); BLOOD UREA NITROGEN 16 mg/dL (7-20); CALCIUM 9.6 mg/dL (8.4-10.2); CARBON DIOXIDE 23 mmol/L (22-30); CHLORIDE 115 mmol/L (98-107); GLUCOSE 110 mg/dL (75-110); POTASSIUM 3.5 mmol/L (3.6-5.0); SODIUM 148.6 mmol/L (137-145)
[2018-12-31] MEDS: DOCUSATE SODIUM 100 MG CAPSULE PO SCH ×2 (12:25→17:27)
[2018-12-31] MEDS: LACTOBACILLUS ACIDOPHILUS 250 MG TAB PO SCH (12:25)
--- NOTE | 2018-12-31 14:09 | PDOC TRANSFER SUMMARY ---
General - Admit/Disc Date/PCP Admission Date/Primary Care Provider: 12/08/18 02:38 IRASEMA PARKER, MEDIA COORDINATOR-C Discharge Date: 12/31/18 - Discharge Diagnosis (1) Urinary tract infection Is this a current diagnosis for this admission?: Yes Summary: Patient came in with UTI which was resolved. (2) Failure to thrive Is this a current diagnosis for this admission?: Yes Summary: 12/31/2018-patient came in with complaints of poor appetite failure to thrive in the care home. Because of the advanced dementia patient's appetite is very poor. Dietary consult was requested and a potassium stimulants are requested to the hospital stay but patient's hepatitis remains poor. (3) Do not resuscitate Is this a current diagnosis for this admission?: No Summary: History and CODE STATUS is DNR/DNI. (4) Bipolar affective Is this a current diagnosis for this admission?: Yes Summary: 12/31/2018-patient has history of bipolar disorder and no signs and symptoms of bipolar disorder during the hospital stay. (5) Acute on chronic renal failure Is this a current diagnosis for this admission?: Yes Summary: 12/31/2018-patient was admitted with acute on chronic renal failure. Latest creatinine is 2.25. Patient creatinine is 2.02. No improvement in the creatinine because of the poor oral intake and poor appetite. (6) Anemia Is this a current diagnosis for this admission?: Yes Summary: 12/31/2018-patient has a history of anemia of chronic disease probably secondary to underlying previous history of breast cancer. The globin is 8.2 today relatively stable. (7) Acute on chronic renal failure Is this a current diagnosis for this admission?: Yes (8) Failure to thrive Is this a current diagnosis for this admission?: Yes (9) Hypokalemia Is this a current diagnosis for this admission?: Yes Summary: 12/31/2018-patient's serum potassium is 2.8 yesterday after potassium supplementation it improved to 3.5 today. Hypokalemia is resolved. - Additional Information Resuscitation Status: Do Not Resuscitate Discharge Diet: Cardiac Discharge Activity: Activity As Tolerated Home Medications: Ferrous Sulfate [Feosol 325 mg Tablet] 325 mg PO QPM 06/20/18 Lamotrigine [Lamictal] 200 mg PO QPM 06/20/18 Levothyroxine Sodium [Synthroid 0.05 mg Tablet] 0.05 mg PO Q6AM 06/20/18 Simvastatin [Zocor 10 mg Tablet] 20 mg PO QPM 06/20/18 Buspirone HCl [Buspar 10 mg Tablet] 5 mg PO Q12 tablet 11/17/18 Dicyclomine HCl [Bentyl 20 mg Tablet] 20 mg PO QID tablet 11/17/18 Divalproex Sodium [Depakote ER 250 mg Tablet] 250 mg PO DAILY tab.sr.24h 11/17/18 Famotidine [Pepcid 20 mg Tablet] 20 mg PO Q12 tablet 11/17/18 Venlafaxine HCl ER [Effexor Xr 75 mg Cap.sr] 75 mg PO DAILY cap.sr.24h 11/17/18 Ipratropium/Albuterol Sulfate [Duoneb 3 ml Ampul] 3 ml NEB [id number] PRN 12/08/18 L. Acidophilus/L.bulgaricus [Lactobacillus Tablet] 1 each PO DAILY 12/08/18 Tramadol HCl [Ultram 50 mg Tablet] 50 mg PO Q12HP PRN 12/08/18 Acetaminophen [Tylenol 325 mg Tablet] 650 mg PO Q4HP PRN tablet 12/15/18 Docusate Sodium [Colace 100 mg Capsule] 100 mg PO BID capsule 12/15/18 Ipratropium/Albuterol Sulfate [Duoneb 3 ml Ampul] 3 ml NEB [id number] PRN vial.neb 12/15/18 Mag Hydrox/Al Hydrox/Simeth [Maalox Plus Susp 30 Udcup] 30 ml PO Q6HP PRN udc 12/15/18 History of Present Illness Admission Date/PCP: 12/08/18 02:38 IRASEMA PARKER, MEDIA COORDINATOR-C History of Present Illness: SRIKANTH COLVIN is a 73 year old female 73 year old female with a past medical history of advanced dementia with agitation, bipolar disorder, CKD 3 and recurrent urinary tract infection. Patient is brought to the emergency room by her daughter after being found on the ground without evidence of injury complaining of weakness. Patient's mental status is at baseline requiring 100% care. In the emergency room she is found t o have urinary tract infection, acute on chronic renal failure and anemia. She is referred to the hospitalist for admission. Daughter describes frequent episodes of severe agitation verifying CODE STATUS is DNR requesting hospice consult. Patient is unable to provide me any meaningful history. Physical Exam Vital Signs: Temp Pulse Resp BP Pulse Ox 98.2 F 99 16 175/116 H 95 12/31/18 12:39 12/31/18 12:39 12/30/18 16:32 12/31/18 12:39 12/31/18 12:39 Intake & Output 12/30/18 12/31/18 01/01/19 06:59 06:59 06:59 Intake Total 470 150 Balance 470 150 Weight 49.1 kg 49 kg General appearance: PRESENT: no acute distress, thin Head exam: PRESENT: atraumatic Eye exam: PRESENT: PERRLA Mouth exam: PRESENT: moist, tongue midline Teeth exam: PRESENT: poor dentation Neck exam: ABSENT: carotid bruit, JVD, lymphadenopathy, thyromegaly Respiratory exam: PRESENT: decreased breath sounds Cardiovascular exam: PRESENT: RRR. ABSENT: diastolic murmur, rubs, systolic murmur GI/Abdominal exam: PRESENT: normal bowel sounds, soft. ABSENT: distended, guarding, mass, organolmegaly, rebound, tenderness Rectal exam: PRESENT: deferred Neurological exam: PRESENT: alert, awake, CN II-XII grossly intact. ABSENT: motor sensory deficit Psychiatric exam: PRESENT: appropriate affect, normal mood. ABSENT: homicidal ideation, suicidal ideation Results Laboratory Results: 12/31/18 10:20 12/31/18 10:20 12/31/18 12/31/18 10:20 10:20 WBC 12.1 H RBC 3.01 L Hgb 8.2 L Hct 24.9 L MCV 83 MCH 27.2 MCHC 32.9 RDW 16.5 H Plt Count 426 Seg Neutrophils % 87.1 H Lymphocytes % 7.5 L Monocytes % 4.5 Eosinophils % 0.5 Basophils % 0.4 Absolute Neutrophils 10.6 H Absolute Lymphocytes 0.9 Absolute Monocytes 0.5 Absolute Eosinophils 0.1 Absolute Basophils 0.1 Sodium 148.6 H Potassium 3.5 L Chloride 115 H Carbon Dioxide 23 Anion Gap 11 BUN 16 Creatinine 2.25 H Est GFR ( Amer) 26 L Est GFR (Non-Af Amer) 21 L Glucose 110 Calcium 9.6 Total Bilirubin 0.4 AST 26 ALT 23 Alkaline Phosphatase 101 Total Protein 7.0 Albumin 3.4 L 04/01/19 04/01/19 00:29 00:29 Creatine Kinase 94 Troponin I < 0.012 Impressions: Cervical Spine CT 12/08/18 00:58 IMPRESSION: No acute findings. Chest X-Ray 12/08/18 00:58 IMPRESSION: Clear lungs. Transfer Plan - Disposition Transfer Plan: Patient is going to care home today. - Time Spent with Patient Time spent with patient: Greater than 30 Minutes Qualifiers - * PATIENT BEING DISCHARGED WITH ANY OF THE FOLLOWING DIAGNOSIS: No VTE patient discharged on overlapping Therapy?: Yes
[2018-12-31] MEDS: LAMOTRIGINE 100 MG TABLET PO SCH (17:27)
[2018-12-31] MEDS: FERROUS SULFATE 325 MG TABLET PO SCH (17:27)
[2018-12-31] MEDS: SIMVASTATIN 10 MG TABLET PO SCH (17:28)
[2018-12-31] MEDS: FAMOTIDINE 20 MG TABLET PO SCH (21:49)
[2019-01-01] MEDS: DIPHENHYDRAMINE HCL 25 MG/10 ML UDC PO PRN (03:10)
[2019-01-01] MEDS: LEVOTHYROXINE SODIUM 0.05 MG TABLET PO SCH (06:41)
[2019-01-01] MEDS: HEPARIN SOD (PORCINE) 5,000 UNIT/ML 1 ML SYRINGE SUBCUT SCH (06:44)
[2019-01-01 09:40] VITALS: BP 177/87
== END 2019-01-01 10:01 | DRG 690 ==
LOC: ER 23:50 → EH 12-08 02:38 → 3N 12-08 04:16 → 5 12-10 01:26
PROVIDERS: ADMIT Internal Medicine; ATTEND Internal Medicine
PROC: 30233N1 Transfusion of Nonautologous Red Blood Cells into Peripheral Vein, Percutaneous Approach (ICD-10-PCS; principal; 2018-12-14)
DX: N39.0 Urinary tract infection, site not specified (principal); N17.9 Acute kidney failure, unspecified; Z68.1 Body mass index [BMI] 19.9 or less, adult; Z66 Do not resuscitate; R31.9 Hematuria, unspecified; R62.7 Adult failure to thrive; C67.9 Malignant neoplasm of bladder, unspecified; N18.3 Chronic kidney disease, stage 3 (moderate); J44.9 Chronic obstructive pulmonary disease, unspecified; E87.6 Hypokalemia; D63.1 Anemia in chronic kidney disease; E03.9 Hypothyroidism, unspecified; F03.90 Unspecified dementia, unspecified severity, without behavioral disturbance, psychotic disturbance, mood disturbance, and anxiety; F31.9 Bipolar disorder, unspecified; Z85.3 Personal history of malignant neoplasm of breast; Z75.1 Person awaiting admission to adequate facility elsewhere
CPT/HCPCS: 36415; 36430; 70450; 71045; 72125; 80048; 80053; 80164; 80175; 81001; 82550; 83605; 83735; 84484; 85025; 86850; 86900; 86901; 86920; 87040; 87086; 96361; 96374; 96375; 99285; J0360; J0696; J1630; J1644; J2060; J2405; J3370; J3480; J3490; J7030; J7060; P9016